=== PATIENT | female | born 1955 | race Caucasian/White ===

== ENCOUNTER → 2020-10-06 09:43 | Outpatient (BNVA) | payer OTHER, SELFPAY | PROVIDERS: PCP Internal Medicine; Referring Provider Internal Medicine; Visit Provider Internal Medicine Endocrinology, Diabetes & Metabolism | DX: Z76.89 Persons encountering health services in other specified circumstances (principal) ==

== ENCOUNTER 2020-10-07 07:14 | Outpatient (REF) | payer OTHER, SELFPAY ==
[2020-10-07 10:35] LABS: MANUAL DIFF FLAG NO
[2020-10-07 10:36] LABS: Basophils Absolute Auto 0.1 X10*3/uL (0.0-0.2); Basophils Percent Auto 1.1 % (0-2); Eosinophils Absolute Auto 0.4 X10*3/uL (0.0-0.4); Eosinophils Percent Auto 5.6 % (0-4); Hematocrit 44.4 % (37-47); Hemoglobin 14.6 g/dl (12.0-16.0); Imm Gran Abs Auto 0.02 X10*3/uL (0.00-0.03); Imm Gran Pct Auto 0.3 % (0.0-0.4); Lymphocytes Absolute Auto 1.4 X10*3/uL (1.2-4.9); Lymphocytes Percent Auto 21.1 % (20-40); Mean Corpuscular HGB Conc 32.9 g/dl (31.0-35.0); Mean Corpuscular Hemoglobin 30.8 pg (27.0-33.0); Mean Corpuscular Volume 93.7 fL (80-98); Mean Platelet Volume 9.7 fL (9.4-12.3); Monocytes Absolute Auto 0.6 X10*3/uL (0.1-1.2); Monocytes Percent Auto 9.5 % (2-11); Neutrophils Percent Auto 62.4 % (45-73); Platelet Count 274 X10*3/uL (160-400); Red Blood Count 4.74 X10*6/uL (4.20-5.50); Red Cell Distribution Width 12.9 % (11.0-16.0); White Blood Count 6.5 X10*3/uL (4.8-10.8)
[2020-10-07 11:10] LABS: Alanine Aminotransferase 51 U/L (0-31); Albumin Level 4.1 g/dL (3.5-5.0); Alkaline Phosphatase 113 U/L (39-117); Anion Gap 12 (12-20); Aspartate Amino Transferase 28 U/L (5-31); Bilirubin Total 0.4 mg/dL (0.0-1.0); Blood Urea Nitrogen 11 mg/dL (9-16); Calcium 8.4 mg/dL (8.4-10.2); Carbon Dioxide 29 mmol/L (22-29); Chloride 106 mmol/L (96-108); Cholesterol 206 mg/dL; Estimated Glomerular Filt Rate > 60; Glucose Fasting 116 mg/dL (60-99); HDL Cholesterol 61 mg/dL; LDL Cholesterol Calculated 128 mg/dl; Potassium 4.8 mmol/l (3.3-5.1); Sodium 142 mmol/L (135-145); Total Protein 6.9 g/dL (6.5-8.0); Triglycerides 89 mg/dL
[2020-10-07 11:33] LABS: T4 Thyroxine 7.6 ug/dL (4.5-12.0); Thyroid Stimulating Hormone 0.82 mIU/mL (0.32-4.0); Vitamin D 25-OH Total 27.5 ng/mL (>30)
[2020-10-07 11:43] LABS: Vitamin B12 694 pg/mL (200-900)
[2020-10-07 17:17] LABS: Free T4 (Free Thyroxine) 1.08 ng/dL (0.71-1.85); Thyroid Stimulating Hormone 0.79 uIU/mL (0.32-4.0)
[2020-10-10 18:06] LABS: Thyroglobulin Antibodies <1 IU/mL (< or = 1); Thyroid Peroxidase Antibodies <1 IU/mL (<9)
== END 2020-10-07 07:15 | disposition home or self-care (01) ==
LOC: HO.WFDLDS 07:14
PROVIDERS: Visit Provider Internal Medicine Endocrinology, Diabetes & Metabolism
DX: Z00.00 Encounter for general adult medical examination without abnormal findings (principal); E04.2 Nontoxic multinodular goiter; E66.9 Obesity, unspecified; Z85.3 Personal history of malignant neoplasm of breast; J45.909 Unspecified asthma, uncomplicated; I10 Essential (primary) hypertension; E78.00 Pure hypercholesterolemia, unspecified; R73.01 Impaired fasting glucose
CPT/HCPCS: 36415; 80053; 80061; 82306; 82607; 82746; 84436; 84439; 84443; 85025; 86376; 86800

== ENCOUNTER 2020-11-21 11:09 | Outpatient (REF) | payer OTHER, SELFPAY ==
[2020-11-21 11:23] LABS: COVID-19 Test Positive (Negative)
== END 2020-11-21 11:10 | disposition home or self-care (01) ==
LOC: HO.EMPCOV 11:09
PROVIDERS: PCP Internal Medicine; Visit Provider Internal Medicine
DX: Z20.828 Contact with and (suspected) exposure to other viral communicable diseases (principal)
CPT/HCPCS: 87635; C9803

== ENCOUNTER 2021-01-26 09:49 | Outpatient (REF) | payer OTHER, SELFPAY ==
--- NOTE | 2021-01-26 10:29 | PM.OP ---
Brief Operative Note Date of Service: 01/26/21 Pre-op diagnosis: NON TOXIC MULTINODULAR GOITER Post-op diagnosis: same Procedure: This procedure was explained to the patient. Alternatives, risks and benefits were discussed. Written consent was obtained. After sterile preparation of the skin, fine-needle aspiration biopsy of right mid pole thyroid nodule size 2.3 x 1.7 x 1.4 cm was performed under direct ultrasound guidance to confirm accurate needle placement. Four passes were performed with 27 gauge needles. Sample was submitted to cytology, initial cytology reading was borderline. Two passes were dedicated for [employer] genomic sequencing dental laboratory technology teacher test. Second fine-needle aspiration biopsy of left lower pole thyroid nodule size 1.3 x 1.0 x 1.1 cm was performed under direct ultrasound guidance to confirm accurate needle placement. Three passes were performed with 27 gauge needles. Sample was submitted to cytology, initial cytology reading was adequate. Two passes were dedicated for [employer] genomic sequencing dental laboratory technology teacher test. Patient tolerated procedure well. Aftercare instructions were provided. Impression: uncomplicated fine-needle aspiration biopsy of right mid pole and left lower pole thyroid nodules under direct ultrasound guidance. Surgeon: Kavon Mancia MD Anesthesia: local (Lidocaine 1% 2 ml) Estimated blood loss (mL): 0 Condition: stable Disposition: same day
== END 2021-01-26 09:50 | disposition home or self-care (01) ==
LOC: HO.US 09:49
PROVIDERS: Visit Provider Internal Medicine Endocrinology, Diabetes & Metabolism
DX: E04.2 Nontoxic multinodular goiter (principal)
CPT/HCPCS: 10005; 10006; 88172; 88173; 88177; 88305

== ENCOUNTER → 2021-02-13 07:24 | Outpatient (BNVA) | payer OTHER, SELFPAY | PROVIDERS: PCP Internal Medicine; Visit Provider Internal Medicine Endocrinology, Diabetes & Metabolism ==

== ENCOUNTER 2021-02-24 09:00 | Outpatient (RCR) | payer OTHER, SELFPAY ==
--- NOTE | 2020-12-21 12:02 | MHC.PT.EP ---
[facility] [place] Office [place] Office [place] Office [address] Anjum Colmenares [address] [phone] F: [phone] F: [phone] F: [phone] F: [phone] Physical Therapy Plan of Care Date of Evaluation: 12/21/20 Date of Surgery: NA Diagnosis: SCIATICA L Assessment: Pt IS 65 YO F REFERRED TO PT FROM DR GOEL WITH SCIATICA L SIDE. Pt HAS HAD SCIATICA IN PAST WITHOUT NEED FOR PT BUT THIS TIME SEEMS WORSE. Pt REPORTS +COVID TEST Nov (OOW, LESS AVTIVE/IN BED MORE)WHICH MAY HAVE BEEN A PRECURSOR TO THIS INCREASE IN SXS. Pt REPORTS SINCE SHE HAS STARTED SOME OF HER STRETCHES, USING HEAT AND MASSAGER, SHE IS FEELING BETTER. PRESENTS WITH ANTALGIC GT (FLEXED AT WAIST AND SHIFTED L WITH DECREASED WB ON L CAUSING LIMP). MOST PAIN WITH TRUNK EXT. ALSO REPORTS NUMBNESS L THIGH (WHICH SHE HAD EVEN BEFORE THIS LAST EPISODE.) THIS NUMBNESS DOES NOT SEEM TO BE AFFECTED BUT TRUNK FLEX/EXT OR POSITIONAL CHANGES. Pt SHOULD BENEFIT FROM PT TO HELP INCREASE PIRIFORMIS FLEXIBILITY, IMPROVE PELVIC SYMMETRY, WORK CORE STRENGTHENING TO HELP IMPROVE GT AND DECREASE PAIN Frequency and Duration: The patient will be seen 2X/WK X 6 WEEKS Short Term Goals: 1. CENTRALIZE SXS 2. INCREASED AWARENESS POSTURE AND BACK CARE 3.IMPROVED GT PATTERN AND POSTURE (IE LESS FLEXED AND SHIFTED, NO LIMP) 4. RTW Group Home Goals: 1. I HEP WITH DC EX PLAN 2. DECREASED PAIN AT LEAST 50% WITH ADLS 3.Pt TO PERF 2-3 TASKS WITH PROPER BODY MECH 4. IMPORVED MOD OSWESTRY Treatment Plan: Modalities to reduce pain, spasms and effusion. Manual therapy to restore motion and function. Therapeutic exercise to improve strength and flexibility. Neuromuscular re-education for posture and balance. Therapeutic activities to return to functional activities of daily living. Electronically signed by: PARISH RUIZ PT Please sign and return to therapist. Thank you for your referral.
--- NOTE | 2021-01-10 13:11 | MHC.PT.OD ---
[facility] [place] Office [place] Office [place] Office [address] Anjum Colmenares [address] [phone] F: [phone] F: [phone] F: [phone] F: [phone] Physical Therapy Daily Note Diagnosis: SCIATICA L Date of Surgery: NA Date of Evaluation: 12/21/20 Date of Treatment: 01/10/21 Treatments to Date: 9 Cancellations to Date: 0 No Shows to Date: 0 Authorized Visits: [id number] Insurance End Date: Precautions/ Contraindications:Pt TESTED +FOR COVID ON Nov HX lateral shift at start of care (R shoulder towards away from L lumbar) Subjective: Pt expressing had possibly worst day last Saturday (questions severity related to prolonged sitting related work tasks on Saturday with completion of zoom meetings). Did verbalize some relief in short term with prone extension based exercises, reports doing them 4x/daily. Obtained TENS machine for home use. Pain Score and Location: 7 L GLUT>L LE Objective Flowsheet: Tests & Measures 12/26/2020: Lumbar hip flexion L 3+/5 sx left lumbar Lumbar hip flexion 4/5 no sx L knee ext 3+/5 sx lumbar R knee ext 5/5 L DF 5/5 D DF 5/5 L great toe ext 5/5 R great toe ext 5/5 Heel raise WFL toe raise WFL Pain at site of left lumbar and proximal hip with hip flexion/knee ext on L otherwise WFL Relief with manual long axis traction trial Exercises Review of prone lying, prone on elbows and prone press up position; (+) relief verbalized Encouraged to continue program 3-4x daily Hooklying pelvic tilt x 2 sets 10R 2)Prone for one pillow STM post US to L quadratus lumborum/superior aspect of L glute while prone over 1 pillow draped while in gym after completion of US Time spent educating anatomy of spine: differences between DJD, stenosis, HNP, sx etc. Modalities Pt's present for educational component related to set-up with home TENS unit. Pt and pt's educated re: settings, applications, use, removal, and safety for patient to use at home. Reviewed and trialed set-up along L lumbar region cross patterned using same unit as used in the clinic ([employer] TENS/ANNALISA) utilized setting #1 intensity 11mA> later increased to 12mA following 15 minutes. Patient educated re: goals, frequency of use, and safety. Positive carryover demonstrated. Pt educated to refrain from use of anterior neck, never directly over the spine, never in water, and educated re: ability to utiize prn for symptom relief. Educated she can combine prone based exercises with use of machine, educated can combine heat treatments with use of proper layering with combo of machine. Prone over 1 pillow for continuous US 1.2 gardner cm2 x 8 minutes pre traction [employer] mechanical portable traction unit arrived back from [facility] assessment- cleared for use via Luis. Utilized [employer] mechanical unit utilizing 6 pumps of air while in 90/90 position x 15 minutes in goal of centralizing symptoms plus 3 additional minutes of rest post traction. Assessment: Pt has attended 9 sessions of PT to date, demonstrating improvements in neutral trunk posture and severity of L sciatica symptoms since start of care. Pt initially presented with a lateral shift which has since reduced. She has received treatment including mechanical traction x 3 sessions with what appears to be positive reduction in sx. She has received education re: applications and use of TENS (just obtained personal machine for home use), STM, US, postural taping and ext>flexion based stabilization exercises. She has obtained a physioball to aide in gentle lower body/trunk stretches with (+) carryover. She has been taking ibuprofen doses ranging initially 600mg 3x/daily, now down to 2x/daily with variable effects. She was doing better overall but had a flare of symptoms last week following increased sitting tasks required of her working on Saturday. Today she presents with increased steady persistent lateral thigh parathesias and stronger intensity of lower back pain today. (We just reimplemented traction today as unit was out of the office last week). We discussed benefit in speaking to Dr. Forrest about potential of trialing of a low dose short steroid taper to ease localized inflammation and reduce leg symptoms to combine with mechanical lumbar traction and stabilization tasks in therapy. She has completed 9 sessions of therapy and although has had relief of symptoms, she has not had sustained relief which is why I feel she may be a good candidate to trial such a medication option. 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 She was educated re: benefit in frequent change in position, use of TENS prn, encouraged to take small walks/ avoid prolonged positions. She was educated about what exercises to do to when based upon what kind of symptoms she has, demonstrating excellent compliance. Encouraged trial of working in standing vs sitting when able. Pt was advised to phone Dr. Forrest's office to check in regarding her current status, work concerns, and medication options which may facilitate her recovery to combine with therapy. Therapist is inquiring about MD prescribing a low dose steroid taper to ease current symptoms and progress with therapy. Thank you for your referral. She will be continuuing therapy 2-3x/week as needed to work towards LTGs. She may benefit from xray as first line imaging also to assess if there is any localized DJD or stenosis at L3/L4 level. No overt weakness or neurological signs are present. Her ROM in the hip is WFL and lumbar spine is improving all directions. L SL is remains uncomfortable. Negative SLR with screening. PT Plan: Phone Dr. Forrest PCP for follow up Continue lumbar mechanical traction with ext>flex based stabilization activities. Short Term Goals: 1. CENTRALIZE SXS 2. INCREASED AWARENESS POSTURE AND BACK CARE 3.IMPROVED GT PATTERN AND POSTURE (IE LESS FLEXED AND SHIFTED, NO LIMP) 4. RTW [facility] Goals: 1. I HEP WITH DC EX PLAN 2. DECREASED PAIN AT LEAST 50% WITH ADLS 3.Pt TO PERF 2-3 TASKS WITH PROPER BODY MECH 4. IMPORVED MOD OSWESTRY Electronically signed by: Vivi Evans, PT, DPT
--- NOTE | 2021-01-13 10:35 | MHC.PT.OD ---
[facility] [place] Office [place] Office [place] Office [address] Anjum Colmenares [address] [phone] F: [phone] F: [phone] F: [phone] F: [phone] Physical Therapy Daily Note Diagnosis: SCIATICA L Date of Surgery: NA Date of Evaluation: 12/21/20 Date of Treatment: 01/13/21 Treatments to Date: 10 Cancellations to Date: 0 No Shows to Date: 0 Authorized Visits: 99 Insurance End Date: Precautions/ Contraindications:Pt TESTED +FOR COVID ON Nov HX lateral shift at start of care (R shoulder towards away from L lumbar) Subjective: Seeing Dr. Forrest today via telehealth appt Reports doing better overall less tingling in leg, less back pain. Pain Score and Location: 7 L GLUT>L LE Objective Flowsheet: Tests & Measures 12/26/2020: Lumbar hip flexion L 3+/5 sx left lumbar Lumbar hip flexion 4/5 no sx L knee ext 3+/5 sx lumbar R knee ext 5/5 L DF 5/5 D DF 5/5 L great toe ext 5/5 R great toe ext 5/5 Heel raise WFL toe raise WFL Pain at site of left lumbar and proximal hip with hip flexion/knee ext on L otherwise WFL Relief with manual long axis traction trial Exercises Hooklying posterior pelvic tilt x with combo hip abd with blue band with hip ext x 4 minutes Review of HEP program to date; encouraged prone lying as performing LBTR, trunk flexion stretches, plus rest in between, instruction Hooklying TAC march with posterior pelvic tilt with blue hip abduction band x 4 minutes SL clamshell with blue band with posterior pelvic tilt x 2 minutes each side Seated HS stretch x 4R each side x 30 sec hold (completed bilaterally) Standing prostretch x 4 minutes each side for calf stretching with core recruitment (no sx in L LE with stance) 2)Prone for one pillow STM post US to L quadratus lumborum/superior aspect of L glute while prone over 1 pillow draped while in gym after completion of US Time spent educating anatomy of spine: differences between DJD, stenosis, HNP, sx etc. Modalities [employer] portable lumbar traction unit with knees near 90/90 with physioball x 6 pumps of pull x 10 minutes (did require one adjustment due to report of discomfort initially- improved post adjustment of harness. Reviewed application/use of HOME TENS machine- reports using twice daily with (+) carryover and no questions; reviewed settings, set-up, usage related to use- did not apply in the clinic today but time spent educating around personal use at home Assessment: Pt demonstrating good response to [employer] mechanical traction of lumbar spine. Pt reports improving centralization of sx with reduction in tingling in L LE/pain in her back. She reports has been taking 200mg ibuprofen about every 6 hours. Completed progression of stabilization exercises with good response today. Given positive change in patient symptoms therapist is NO LONGER inquiring about need for steroid taper. Will continue with mechanical traction and stabilization activities as tolerated. Pt to see Dr. Forrest via telehealth today at 11:30. PT Plan: Continue lumbar mechanical traction with ext>flex based stabilization activities. Short Term Goals: 1. CENTRALIZE SXS 2. INCREASED AWARENESS POSTURE AND BACK CARE 3.IMPROVED GT PATTERN AND POSTURE (IE LESS FLEXED AND SHIFTED, NO LIMP) 4. RTW [facility] Goals: 1. I HEP WITH DC EX PLAN 2. DECREASED PAIN AT LEAST 50% WITH ADLS 3.Pt TO PERF 2-3 TASKS WITH PROPER BODY MECH 4. IMPORVED MOD OSWESTRY Electronically signed by: Vivi Evans, PT, DPT
== END 2021-03-27 12:08 | disposition other institution (70) ==
LOC: HO.PTWFD 09:00
PROVIDERS: Visit Provider Internal Medicine
DX: M54.30 Sciatica, unspecified side (principal)
CPT/HCPCS: 97012; 97014; 97033; 97035; 97110; 97140; 97162

== ENCOUNTER 2021-09-04 07:28 | Outpatient (REF) | payer OTHER, SELFPAY ==
--- NOTE | ~2021-09-04 | MM_ITS ---
EXAMINATION: MM SCREENING DIGITAL BREAST TOMOSYNTHESIS, BILATERAL CLINICAL INFORMATION: Screening. Asymptomatic. The lifetime risk of breast cancer based on the Tyrer-Cuzick Model is 14%. COMPARISON: Mammography: 08/25/2020, 06/10/2019, 03/18/2018 TECHNIQUE: Digital breast tomosynthesis is performed in both the craniocaudal and mediolateral oblique views along with computer-aided detection (CAD). Synthesized 2D images are generated from the tomosynthesis. FINDINGS: There are scattered areas of fibroglandular density (ACR BI-RADS breast composition Category b). Parenchymal pattern is similar to prior studies. There is no significant mass or architectural abnormality. Scattered calcifications are again seen. Grouped benign coarse calcifications are again noted mid upper outer left breast. There is an old biopsy clip marker also present in the anterior 3:00 left breast. The axilla and skin contours are unremarkable. No significant changes. MM/MM tomosynthesis screening BI IMPRESSION: No significant changes from prior studies. ASSESSMENT: BI-RADS 2: Benign RECOMMENDATION: Routine annual mammography screening. This patient's information was entered into a reminder system with a target due date for their next mammogram.
== END 2021-09-04 07:29 | disposition home or self-care (01) ==
LOC: HO.MAMMO 07:28
PROVIDERS: Visit Provider Internal Medicine
DX: Z12.31 Encounter for screening mammogram for malignant neoplasm of breast (principal)
CPT/HCPCS: 77063; 77067

== ENCOUNTER 2021-11-02 08:02 | Outpatient (REF) | payer OTHER, SELFPAY ==
--- NOTE | ~2021-11-02 | MM_ITS ---
EXAMINATION: BONE DENSITOMETRY CLINICAL INDICATION: Other specified disorders of bone density and structure. COMPARISON: Previous BD dated 09/22/2019 and baseline BD dated 10/18/2009, left hip. This is the patient's baseline examination for the lumbar spine. TECHNIQUE: Using a [employer] DXA System (software version: 13.1) manufactured by [employer], dual-energy x-ray absorptiometry was performed of the lumbar spine and left hip. The images are of good technical quality. Summary results are attached. FINDINGS: AP SPINE L1-L2. Data for L3 and L4 are excluded due to degenerative changes which may cause overestimation of the lumbar bone mineral density. Current: BMD 1.093 g/cm2, Z-score -0.1, T-score -0.6, normal. This represents 7.1% decrease from prior exam and 9.4% decrease since baseline exam (<5% change is not significant). LEFT FEMUR, NECK: Current: BMD 0.802 g/cm2, Z-score -0.8, T-score -1.7, osteopenia. Prior: BMD 0.815 g/cm2. Baseline: BMD 0.916 g/cm2. LEFT FEMUR, TOTAL: Current: BMD 0.909 g/cm2, Z-score -0.2, T-score -0.8, normal, 3.3% increase from previous, 5.7% decrease from baseline (<5% change is not significant). Prior: BMD 0.880 g/cm2. Baseline: BMD 0.964 g/cm2. IDENTIFIED RISK FACTORS: Menopause, glucocorticoids (chronic). HISTORY OF FRACTURE: None listed. MEDICATIONS: Calcium supplements or multivitamin, vitamin D. MM/XR DEXA axial skeleton IMPRESSION: 1. DIAGNOSIS: Osteopenia based on the lowest T-score value of -1.7 in the femoral neck applying World Health Organization criteria. 2. 10-YEAR FRACTURE RISK PREDICTION, FRAX: Major osteoporotic fracture (clinical spine, forearm, hip or shoulder) 14.8%. Hip fracture 2.4%. 3. Treatment Recommendations: NOF guidelines recommend consideration for treatment in postmenopausal women and men age 50 and older presenting with the following: -A hip or vertebral (clinical or morphometric) fracture. -T-score less than or equal to -2.5 at the femoral neck or spine after appropriate evaluation to exclude secondary causes. -Low bone mass at the hip or spine and a 10-year fracture probability by FRAX of greater than or equal to 3% for hip fracture or greater than or equal to 20% for major osteoporotic fracture based on the [place] adapted WHO algorithm. 4. Other Recommendations: All treatment decisions require clinical judgment and consideration of individual patient factors, including patient preferences, comorbidities, previous drug use, risk factors not captured in the FRAX model (e.g. frailty, falls, vitamin D deficiency, increased bone turnover, interval significant decline in bone density) and possible under or overestimation of fracture risk by FRAX. Additional medical evaluation for secondary cause of low bone mineral density may be appropriate. FUTURE SCAN RECOMMENDATION: People with diagnosed cases of osteoporosis or at high risk for fracture should have regular bone mineral density tests. For patients eligible for Medicare, routine testing is allowed once every 2 years. The testing frequency can be increased to one year for patients who have rapidly progressing disease, those who are receiving or discontinuing medical therapy to restore bone mass, or have additional risk factors.
== END 2021-11-02 08:03 | disposition home or self-care (01) ==
LOC: HO.MAMMO 08:02
PROVIDERS: Visit Provider Internal Medicine
DX: Z13.820 Encounter for screening for osteoporosis (principal); M85.80 Other specified disorders of bone density and structure, unspecified site; Z78.0 Asymptomatic menopausal state; E27.49 Other adrenocortical insufficiency; Z79.899 Other long term (current) drug therapy
CPT/HCPCS: 77080

== ENCOUNTER 2022-02-21 07:47 | Outpatient (REF) | payer OTHER, SELFPAY ==
--- NOTE | ~2022-02-21 | XR_ITS ---
EXAMINATION: XR LUMBOSACRAL SPINE CLINICAL INFORMATION: Low back pain COMPARISON: None TECHNIQUE: Three views of the lumbosacral spine. FINDINGS: There is mild dextro scoliosis. Lumbar lordosis is maintained normal. There is loss of L3-L4, L4-L5 and L5/S1 disc heights with mild ventral spondylosis. There is a large bridging osteophyte on the right at the L1-L2 disc level. There is no visible acute fracture, dislocation or lytic process seen. There is [id number] facet joint L5-S1 facet joint arthropathy. No lytic or sclerotic process seen. XR/XR lumbar spine 2-3V IMPRESSION: Degenerative disc changes L3-L4 and L4-L5 disc levels with spondylosis. Bilateral mild to moderate facet joint arthropathy at L5-S1 disc level.
--- NOTE | ~2022-02-21 | US_ITS ---
EXAMINATION: US THYROID CLINICAL INFORMATION: Nontoxic multinodular goiter. COMPARISON: Ultrasound soft tissue head/neck thyroid dated 08/25/2020 and 08/13/2016. TECHNIQUE: Linear transducer grayscale and color Doppler examination with attention to the region of the thyroid. FINDINGS: SIZE: Measurements of the thyroid lobes and nodules are given in sagittal, anteroposterior and transverse dimensions respectively. Right Thyroid Lobe: 3.8 x 1.9 x 2.2 cm, volume 8.2 mL. Previously 4.1 x 1.8 x 1.9 cm, volume 7.3 mL. Parenchyma: The gland echotexture is heterogeneous. Thyroid vascularity is normal. Left Thyroid Lobe: 4.0 x 1.5 x 1.8 cm, volume 5.6 mL. Previously 4.1 x 1.4 x 1.7 cm, volume 5.1 mL. Parenchyma: The gland echotexture is heterogeneous. Thyroid vascularity is normal. Isthmus: 0.4 cm in maximum AP dimension. Previously 0.4 cm. Estimated total number of nodules greater than or equal to 1 cm: 6 to 10. Post Doc Fellowship nodules are described as follows: 1. Location: Right superior. Size: 1.6 x 0.7 x 1.8 cm, volume 1.05 mL. Previously: 1.2 x 0.7 x 1.3 cm, volume 0.57 mL. Nodule characteristics: Composition: Solid (2). Echogenicity: Hypoechoic (2). Shape: Not taller than wide (0). Margins: Smooth (0). Echogenic Foci: None (0). ACR TI-RADS total points: 4 ACR TI-RADS category: 4 Significant change in size (>/= 20% in 2 dimensions and minimal increase of 2 mm or 50% or greater increase in volume): Change in features: Change in ACR TI-RADS risk category: 2. Location: Right mid. Size: 2.5 x 1.6 x 1.9 cm, volume 3.97 mL. Previously: 2.3 x 1.7 x 1.4 cm, volume 2.86 mL. Nodule characteristics: Composition: Spongiform (0). Echogenicity: Anechoic (0). Shape: Not taller than wide (0). Margins: Smooth (0). Echogenic Foci: None (0). ACR TI-RADS total points: 0 ACR TI-RADS category: 1 Significant change in size (>/= 20% in 2 dimensions and minimal increase of 2 mm or 50% or greater increase in volume): Change in features: Change in ACR TI-RADS risk category: 3. Location: Left superior. Size: 1.3 x 0.8 x 1.0 cm, volume 0.54 mL. Previously: 1.1 x 0.6 x 0.9 cm, volume 0.31 mL. Nodule characteristics: Composition: Spongiform (0). Echogenicity: Anechoic (0). Shape: Not taller than wide (0). Margins: Smooth (0). Echogenic Foci: None (0). ACR TI-RADS total points: 0 ACR TI-RADS category: 1 Significant change in size (>/= 20% in 2 dimensions and minimal increase of 2 mm or 50% or greater increase in volume): Change in features: Change in ACR TI-RADS risk category: 4. Location: Left mid. Size: 1.5 x 1.0 x 1 cm, volume 0.78 mL. Previously: 1.3 x 1.0 x 1.1 cm, volume 0.74 mL. Nodule characteristics: Composition: Spongiform (0). Echogenicity: Anechoic (0). Shape: Not taller than wide (0). Margins: Smooth (0). Echogenic Foci: None (0). ACR TI-RADS total points: 0 ACR TI-RADS category: 1 Significant change in size (>/= 20% in 2 dimensions and minimal increase of 2 mm or 50% or greater increase in volume): Change in features: Change in ACR TI-RADS risk category: 5. Location: Left inferior. Size: 1.0 x 0.8 x 0.7 cm, volume 0.29 mL. Previously: 0.9 x 0.7 x 0.7 cm, volume 0.23 mL. Nodule characteristics: Composition: Spongiform (0). Echogenicity: Anechoic (0). Shape: Not taller than wide (0). Margins: Smooth (0). Echogenic Foci: None (0). ACR TI-RADS total points: 0 ACR TI-RADS category: 1 Significant change in size (>/= 20% in 2 dimensions and minimal increase of 2 mm or 50% or greater increase in volume): Change in features: Change in ACR TI-RADS risk category: 6. Location: Isthmus. Size: 1.4 x 0.7 x 1.1 cm, volume 0.56 mL. Previously: Not seen on the previous study. Nodule characteristics: Composition: Solid (2). Echogenicity: Hypoechoic (2). Shape: Not taller than wide (0). Margins: Smooth (0). Echogenic Foci: None (0). ACR TI-RADS total points: 4 ACR TI-RADS category: 4 NODES: No lymphadenopathy is seen in the tissue surrounding the thyroid gland. US/US thyroid IMPRESSION: Heterogeneous thyroid gland with multiple bilateral nodules. Interval increase in size right upper thyroid nodule. Newly appreciated isthmus nodule. ACR TI-RADS RECOMMENDATION REFERENCE: Ultrasound-guided fine-needle aspiration, followup ultrasound, no further follow up. * TR1 (0 point) and TR 2 (2 points): No FNA or follow up * TR3 (3 points): FNA if more than or equal to 2.5 cm in maximum dimension, followup ultrasound in 1, 3 and 5 years if 1.5 to 2.4 cm in maximum dimension. * TR4 (4-6 points): FNA if more than or equal to 1.5 cm in maximum dimension, followup ultrasound in 1, 2, 3 and 5 years if 1 to 1.4 cm in maximum dimension. * TR5 (more than or equal to 7 points): FNA if more than or equal to 1 cm in maximum dimension, followup ultrasound every year for 5 years if 0.5 to 0.9 cm in maximum dimension. * TR3, TR4 or TR5 nodules that are below the size threshold for follow up receive no follow up.
== END 2022-02-21 07:48 | disposition home or self-care (01) ==
LOC: HO.US 07:47
PROVIDERS: PCP Internal Medicine; Visit Provider Internal Medicine
DX: E04.2 Nontoxic multinodular goiter (principal); M54.50 Low back pain, unspecified
CPT/HCPCS: 72100; 76536

== ENCOUNTER → 2022-04-27 07:51 | Outpatient (BNVA) | payer OTHER, SELFPAY | PROVIDERS: PCP Internal Medicine; Visit Provider Internal Medicine Endocrinology, Diabetes & Metabolism | DX: E04.2 Nontoxic multinodular goiter (principal) ==

== ENCOUNTER 2022-06-01 07:14 | Outpatient (REF) | payer OTHER, SELFPAY ==
[2022-06-01 11:03] LABS: MANUAL DIFF FLAG NO
[2022-06-01 11:05] LABS: Basophils Absolute Auto 0.1 X10*3/uL (0.0-0.2); Basophils Percent Auto 1.5 % (0-2); Eosinophils Absolute Auto 0.4 X10*3/uL (0.0-0.4); Eosinophils Percent Auto 8.1 % (0-4); Hematocrit 43.4 % (37.0-47.0); Hemoglobin 14.3 g/dl (12.0-16.0); Imm Gran Abs Auto 0.02 X10*3/uL (0.00-0.03); Imm Gran Pct Auto 0.4 % (0.0-0.4); Lymphocytes Absolute Auto 1.3 X10*3/uL (1.2-4.9); Lymphocytes Percent Auto 23.7 % (20-40); Mean Corpuscular HGB Conc 32.9 g/dl (31.0-35.0); Mean Corpuscular Hemoglobin 30.6 pg (27.0-33.0); Mean Corpuscular Volume 92.7 fL (80.0-98.0); Mean Platelet Volume 9.6 fL (9.4-12.3); Monocytes Absolute Auto 0.5 X10*3/uL (0.1-1.2); Monocytes Percent Auto 9.5 % (2-11); Neutrophils Absolute Auto 3.1 x10*3/uL (2.0-8.3); Neutrophils Percent Auto 56.8 % (45-73); Platelet Count 260 X10*3/uL (160-400); Red Blood Count 4.68 X10*6/uL (4.20-5.50); Red Cell Distribution Width 12.9 % (11.0-16.0); White Blood Count 5.5 X10*3/uL (4.8-10.8)
[2022-06-01 11:28] LABS: Alanine Aminotransferase 20 U/L (0-31); Albumin Level 3.8 g/dL (3.5-5.0); Alkaline Phosphatase 106 U/L (39-117); Anion Gap 11 (12-20); Aspartate Amino Transferase 17 U/L (5-31); Bilirubin Total 0.5 mg/dL (0.0-1.0); Blood Urea Nitrogen 10 mg/dL (9-16); Calcium 8.9 mg/dL (8.4-10.2); Carbon Dioxide 26 mmol/L (22-29); Chloride 109 mmol/L (96-108); Cholesterol 208 mg/dL; Estimated Glomerular Filt Rate > 60; Glucose Random 126 mg/dL (60-115); HDL Cholesterol 62 mg/dL; LDL Cholesterol Calculated 128 mg/dl; Potassium 4.1 mmol/L (3.3-5.1); Sodium 142 mmol/L (135-145); Total Protein 6.6 g/dL (6.5-8.0); Triglycerides 91 mg/dL
[2022-06-01 11:33] LABS: Estimated Average Glucose 108 mg/dL; Hemoglobin A1C 150.5992 umol/L; Hemoglobin A1c % 5.4 %
[2022-06-01 11:37] LABS: Free T4 (Free Thyroxine) 0.87 ng/dL (0.71-1.85); Thyroid Stimulating Hormone 1.41 uIU/mL (0.32-4.0); Vitamin D 25-OH Total 27.4 ng/mL (>30)
[2022-06-01 11:56] LABS: Folate > 20.0 ng/mL (> or = 4.0); Vitamin B12 655 pg/mL (200-900)
== END 2022-06-01 07:15 | disposition home or self-care (01) ==
LOC: HO.WFDLDS 07:14
PROVIDERS: Visit Provider Internal Medicine
DX: R73.02 Impaired glucose tolerance (oral) (principal); E78.00 Pure hypercholesterolemia, unspecified; E04.2 Nontoxic multinodular goiter
CPT/HCPCS: 36415; 80053; 80061; 82306; 82607; 82746; 83036; 84439; 84443; 85025

== ENCOUNTER 2022-09-20 08:34 | Outpatient (REF) | payer OTHER, SELFPAY ==
--- NOTE | 2022-09-20 09:41 | PM.OP ---
Brief Operative Note Date of Service: 09/20/22 Pre-op diagnosis: Multinodular Thyroid Procedure: This is doctor Dali Malhotra. This is an ultrasound-guided fine-needle aspiration report. Date of Examination: Indication: Multinodular Thyroid Porcedure: Procedure was explained to the patient. Alternatives, the risk and benefits were discussed. Written consent was obtained. A time-out was also obtained. After sterile preparation, fine-needle aspiration of a right upper pole 2.8 cm thyroid nodule was performed using direct ultrasound guidance to confirm accurate needle placement. Three aspirations were made using 27 gauge needles. Samples were submitted for cytology. One pass was dedicated for [employer] sequencing evidence specialist testing. Our attention was then turned to the isthmus. Fine-needle aspiration of an isthmus 1.4 cm thyroid nodule was performed using direct ultrasound guidance to confirm accurate needle placement. Four aspirations were made using 27 gauge needles. Samples were submitted for cytology. Two passes was dedicated for [employer] sequencing evidence specialist testing. The patient tolerated the procedure well. Aftercare instructions were provided. Impression: Uncomplicated fine needle aspiration biopsy of a right upper pole 2.8 cm and an isthmus 1.4 cm thyroid nodule under ultrasound guidance. Of note, the patient has multiple mixed cystic nodules within the L lobe of the thyroid. The larges tof these measuring 1.3 cm was previously biopsied and is unchanged. The remaining do not meet indication for FNA biopsy at this time. Surgeon: Dali Malhotra, DO Was an Geotechnical Operating Engineer used for this Procedure?: No Estimated blood loss (mL): 0
[2022-09-20] MEDS: Lidocaine HCl 1 % MPF 5 ML VIAL SUBCUT (11:21)
== END 2022-09-20 08:35 | disposition home or self-care (01) ==
LOC: HO.US 08:34
PROVIDERS: Visit Provider Internal Medicine Endocrinology, Diabetes & Metabolism
DX: E04.2 Nontoxic multinodular goiter (principal)
CPT/HCPCS: 10005; 10006; 88172; 88173

== ENCOUNTER 2022-10-26 07:32 | Outpatient (REF) | payer OTHER, SELFPAY ==
--- NOTE | ~2022-10-26 | MM_ITS ---
EXAMINATION: MM SCREENING DIGITAL BREAST TOMOSYNTHESIS, BILATERAL CLINICAL INFORMATION: Screening. Asymptomatic. The lifetime risk of breast cancer based on the Tyrer-Cuzick Model is 13%. COMPARISON: Mammography: 09/04/2021, 08/25/2020, 06/10/2019 TECHNIQUE: Digital breast tomosynthesis is performed in both the craniocaudal and mediolateral oblique views along with computer-aided detection (CAD). Synthesized 2D images are generated from the tomosynthesis. FINDINGS: There are scattered areas of fibroglandular density (ACR BI-RADS breast composition Category b). There are no significant masses, abnormal calcifications, or other abnormalities. Parenchymal pattern is similar to prior studies. Again, there is biopsy clip marker anterior 3:00 left breast. There are benign grouped popcorn calcifications mid upper outer quadrant left breast consistent with degenerated fibroadenoma. The axilla are unremarkable. MM/MM tomosynthesis screening BI IMPRESSION: No mammographic evidence of malignancy. ASSESSMENT: BI-RADS 2: Benign RECOMMENDATION: Routine annual mammography screening. This patient's information was entered into a reminder system with a target due date for their next mammogram.
== END 2022-10-26 07:33 | disposition home or self-care (01) ==
LOC: HO.MAMMO 07:32
PROVIDERS: PCP Internal Medicine; Visit Provider Internal Medicine
DX: Z12.31 Encounter for screening mammogram for malignant neoplasm of breast (principal)
CPT/HCPCS: 77063; 77067

== ENCOUNTER 2022-11-29 12:52 | Outpatient (REF) | payer OTHER, SELFPAY ==
--- NOTE | ~2022-11-29 | XR_ITS ---
EXAMINATION: XR CHEST CLINICAL INFORMATION: Cough COMPARISON: December 12, 2017 TECHNIQUE: 2 views of the chest were obtained. FINDINGS: No significant abnormality is noted involving the heart, lungs, mediastinum, bony thorax or soft tissues. XR/XR chest 2V IMPRESSION: No acute disease.
== END 2022-11-29 12:53 | disposition home or self-care (01) ==
LOC: HO.XRAY 12:52
PROVIDERS: PCP Internal Medicine; Visit Provider Internal Medicine
DX: R05.9 Cough, unspecified (principal); R09.89 Other specified symptoms and signs involving the circulatory and respiratory systems
CPT/HCPCS: 71046

== ENCOUNTER 2023-04-22 08:32 | Outpatient (REF) | payer OTHER, SELFPAY ==
--- NOTE | ~2023-04-22 | XR_ITS ---
EXAMINATION: XR PELVIS CLINICAL INFORMATION: Pain. COMPARISON: Left hip 06/05/2013 TECHNIQUE: AP view of the pelvis. FINDINGS: Moderate-severe right hip osteoarthritis with superomedial narrowing, sclerosis, and probable small subchondral cysts. No acute fracture or malalignment. Relatively mild osteoarthritis of the left hip joint. Moderate-severe degenerative disc disease noted at L3-L4 and L4-L5. XR/XR pelvis 1-2V IMPRESSION: Moderate-severe right hip osteoarthritis. No acute fracture or malalignment.
== END 2023-04-22 08:33 | disposition home or self-care (01) ==
LOC: HO.HOSX 08:32
PROVIDERS: Visit Provider Orthopaedic Surgery
DX: M16.11 Unilateral primary osteoarthritis, right hip (principal); M51.36 Other intervertebral disc degeneration, lumbar region
CPT/HCPCS: 72170

== ENCOUNTER 2023-07-22 10:31 | Outpatient (AMB) | payer OTHER, SELFPAY ==
--- NOTE | 2023-07-22 10:37 | A.OFFVIS_ITS ---
Intake Vital Signs 07/22/23 10:38 Height 5 ft 7 in Weight 217 lb BMI 34.0 BP 108/74 Blood Pressure Location Lt brachial Position Sitting Respiration 14 Pulse 80 Pulse Source Pulse Oximeter Intake Visit Reasons: Low back pain chronic Allergies No Known Allergies Allergy (Verified 07/22/23 10:40) Medication List - Last Reconciled 07/22/23 by Hallie Bolden LPN albuterol sulfate 90 mcg/actuation 2 puffs inhalation Q4-6H PRN albuterol sulfate 2.5 mg inhalation Q4-6H PRN amlodipine 5 mg PO DAILY beclomethasone dipropionate 80 mcg/actuation (Qvar RediHaler) 1 inh inhalation Q12H cetirizine (Zyrtec) 5 mg PO DAILY PRN fluocinolone 0.025% 1 appl topical BID mmhefmzi-nqp-pstd-FA-vit K-lut 8 mg iron-400 mcg-50 mcg (Centrum Silver Women) 1 tab PO DAILY HPI Low back pain chronic HPI Details A 68-year-old female is presenting today for a new patient evaluation of low back pain. She reports back pain and right hip pain that started about two years ago. She says her pain initially began in her lower back but is primarily in her right hip and groin. The pain is described as an aching sensation in her lower back that radiates into the buttocks, where it is described as a pins and needles sensation. It is described as 5/10 in intensity in the morning and 3?4/10 in intensity in the evening. She feels her pain in her groin and the top of her buttocks, and it occasionally radiates down into her thigh. Movements make it worse, and medications make it better. She has pain with daily activity, worse with prolonged standing or walking. She has done PT for her back about two and half years ago, which helped her pain at the time, but her symptoms returned after six months. She takes Ibuprofen 400-600 mg once daily and Tylenol, with some relief. She enjoys playing golf and staying active, and she does not feel particularly limited in her activities at this time. She denies any history of injections. The patient has no implants in her body. She will go on vacation for 2 weeks in August. [facility] Medical History (Updated 04/22/23 @ 09:39 by Hamlet Robins) Asthma Eczema Fatty liver History of breast cancer Hypercholesterolemia Hypertension Non-toxic multinodular goiter Obesity (BMI 30-39.9) Osteopenia Thyroid nodule Tubular adenoma of colon Vitamin D deficiency Surgical History (Updated 10/04/22 @ 13:57 by Herbert Verde [facility]) Hx of biopsy Hx of section Hx of cholecystectomy Hx of colonoscopy Status post fine needle aspiration Family History (Updated 04/11/23 @ 08:28 by Aye Palomo [facility]) Father COPD (chronic obstructive pulmonary disease) Mother Breast cancer Social History (Updated 04/22/23 @ 09:16 by Ingrid Reed [facility]) Housing: House Alcohol intake: current Patient Tobacco Use Status: Former Tobacco user Quit Date: about 40 years ago Tobacco use type: Cigarette Years Smoked: 1979 e-Cigarette/Vaping Use: Never Used Second Hand Smoke Exposure: No Current occupational status: employed Current occupation: [employer] Cognitive needs: No Hearing needs: No Vision needs: No Review of Systems Const All systems reviewed & are unremarkable except as noted in HPI and below Physical Exam Vital Signs: Last Vital Signs Pulse 80 07/22/23 10:38 Resp 14 07/22/23 10:38 BP 108/74 07/22/23 10:38 BMI result Body Mass Index 34.0 General: Appears afebrile. Alert and oriented. Mood and affect appropriate. Follows and participates in conversation appropriately. Respiratory effort is unlabored. Able to transition from sit to stand unassisted. Ambulates with bilaterally normal heel strike and toe off. Lumbar flexion reproduces stiffness across the lower back. Lumbar extension does not reproduce the pain. She is able to stand on her toes on heels, but standing on the right toes is objectively more difficult compared to the left side. Results Reviewed Results Reviewed: No imaging is available for review. Assessment & Plan Assessment & Plan (1) Lumbar degenerative disc disease: Code(s): M51.36 - Other intervertebral disc degeneration, lumbar region (2) Radicular pain of left lower extremity: Code(s): M54.10 - Radiculopathy, site unspecified Plan Ordered an MRI scan of the lumbar spine for further evaluation of longstanding radicular symptoms not responsive to physical therapy and conservative management. For the time being, I encouraged her to continue with gentle stretching exercises at home. I also recommended to take gabapentin 300 mg QHS at bedtime. The patient will follow up after the MRI to review the results and discuss possible interventions. We would likely start with a right-sided MASOOD based on her current symptoms, unless her symptoms change significantly until that time. Scribed for Dr. Garcia by Tanmay Farrar, director of graduate medical education, on 07/22/2023. I, Dr. Garcia, have personally reviewed and agree with the information entered by the scribe. Orders: Orders MR lumbar spine wo con Today M51.36 - Other intervertebral disc degeneration, lumbar region, M54.10 - Radiculopathy, site unspecified Medications: New gabapentin 300 mg PO BEDTIME 30 caps 0RF Coding Level of Care Code New Pt Level 4 (30485) Diagnoses Lumbar degenerative disc disease M51.36 Radicular pain of left lower extremity M54.10
[2023-07-22 10:38] VITALS: BP 108/74; PULSE 80; RESP 14; BMI 34.0
== END 2023-07-22 10:59 | disposition home or self-care (01) ==
PROVIDERS: PCP Internal Medicine; Visit Provider Internal Medicine
DX: M51.36 Other intervertebral disc degeneration, lumbar region (principal); M54.10 Radiculopathy, site unspecified
CPT/HCPCS: 99203

== ENCOUNTER → 2023-07-22 10:31 | Outpatient (BNVA) | payer OTHER, SELFPAY | PROVIDERS: PCP Internal Medicine; Visit Provider Internal Medicine ==

== ENCOUNTER 2023-07-24 09:07 | Outpatient (REF) | payer OTHER, SELFPAY ==
--- NOTE | ~2023-07-24 | MR_ITS ---
EXAMINATION: MR LUMBAR SPINE WITHOUT CONTRAST CLINICAL INFORMATION: Left lower extremity radicular pain. COMPARISON: Lumbar spine radiographs from 02/21/2022. TECHNIQUE: MRI of the lumbar spine was obtained using routine sequences without contrast. FINDINGS: Moderate right convex curvature of the lumbar spine. Minimal degenerative grade 1 anterolisthesis of L3 on L4. Mild degenerative retrolisthesis of L4 on L5. Mild degenerative anterolisthesis of L5 on S1. Advanced degenerative disc disease at L3-L4 and L4-L5. Moderate degenerative disc disease at all additional levels. Associated mixed Modic type discogenic changes including Modic type I discogenic edema at L3-L4 and L4-L5. Mild marrow edema within the posterior elements of L3-S1 consistent with degenerative stress reaction. No additional suspicious marrow edema. The vertebral body heights are well-maintained. The conus medullaris terminates at the level of L1-L2. The distal spinal cord is normal in appearance. No significant abnormalities of the paraspinal musculature. Limited evaluation of the intra-abdominal structures without significant abnormalities. The abdominal aorta is of normal contour and caliber. AXIAL SPINAL LEVELS: L1-L2: Mild diffuse disc bulge. There is moderate left and mild right facet joint arthropathy. There is moderate bilateral neural foraminal stenosis. There is no spinal canal stenosis. L2-L3: Mild diffuse disc bulge. There is moderate bilateral facet joint arthropathy. There is mild bilateral neural foraminal stenosis. There is narrowing of the subarticular zones with no overt spinal canal stenosis centrally. L3-L4: Moderate diffuse disc bulge exacerbated by uncovering from anterolisthesis. There is severe bilateral facet joint arthropathy with ligamentum flavum hypertrophy. There is severe left and moderate neural foraminal stenosis. There is stenosis of the subarticular zones with moderate to severe spinal canal stenosis centrally. L4-L5: Prominent diffuse disc bulge with posterior osseous ridging. There is severe bilateral facet joint arthropathy. There is severe right and moderate left neural foraminal stenosis. There is severe spinal canal stenosis. L5-S1: Moderate diffuse disc bulge exaggerated by uncovering from anterolisthesis. There is severe bilateral facet joint arthropathy. There is moderate bilateral neural foraminal stenosis. There is stenosis of the subarticular zones with no overt spinal canal stenosis centrally. MR/MR lumbar spine wo con IMPRESSION: Moderate to advanced multilevel degenerative spondyloarthropathy of the lumbar spine as described in detail above. Most notably, there are moderate to severe spinal canal stenoses at L3-L4 and L4-L5. Narrowing/stenoses of the subarticular zones from L2-S1. Moderate to severe neural foraminal stenoses from L1-S1.
== END 2023-07-24 09:08 | disposition home or self-care (01) ==
LOC: HO.MRI 09:07
PROVIDERS: PCP Internal Medicine; Visit Provider Internal Medicine
DX: M51.36 Other intervertebral disc degeneration, lumbar region (principal); M54.10 Radiculopathy, site unspecified
CPT/HCPCS: 72148

== ENCOUNTER 2023-07-26 09:05 | Outpatient (AMB) | payer OTHER, SELFPAY ==
--- NOTE | 2023-07-26 09:08 | A.OFFVIS_ITS ---
Intake Vital Signs 07/26/23 09:09 Height 5 ft 7 in Weight 217 lb BMI 34.0 BP 120/85 Blood Pressure Location Lt brachial Position Sitting Respiration 14 Pulse 103 H Pulse Source Pulse Oximeter Pulse Oximetry (%) 97 Oxygen Delivery Method Room Air Intake Visit Reasons: MRI results Allergies No Known Allergies Allergy (Verified 07/26/23 09:10) Medication List - Last Reconciled 07/26/23 by Hallie Bolden LPN albuterol sulfate 90 mcg/actuation 2 puffs inhalation Q4-6H PRN albuterol sulfate 2.5 mg inhalation Q4-6H PRN amlodipine 5 mg PO DAILY beclomethasone dipropionate 80 mcg/actuation (Qvar RediHaler) 1 inh inhalation Q12H cetirizine (Zyrtec) 5 mg PO DAILY PRN fluocinolone 0.025% 1 appl topical BID gabapentin 300 mg PO BEDTIME 30 days cdbleant-rlq-zljm-FA-vit K-lut 8 mg iron-400 mcg-50 mcg (Centrum Silver Women) 1 tab PO DAILY HPI MRI results HPI Details 68-year-old female is presenting today for a review of MRI result. The patient reports low back pain and right-sided hip pain. She did PT for her back about two and a half years ago, which helped her pain at the time, but her symptoms returned after six months. She reports playing golf in the past. [facility] Medical History (Updated 07/26/23 @ 09:40 by Trent Garcia MD) Asthma Eczema Fatty liver History of breast cancer Hypercholesterolemia Hypertension Non-toxic multinodular goiter Obesity (BMI 30-39.9) Osteopenia Thyroid nodule Tubular adenoma of colon Vitamin D deficiency Surgical History (Updated 10/04/22 @ 13:57 by ALISON Weber) Hx of biopsy Hx of section Hx of cholecystectomy Hx of colonoscopy Status post fine needle aspiration Family History (Updated 04/11/23 @ 08:28 by Aye Palomo CMA) Father COPD (chronic obstructive pulmonary disease) Mother Breast cancer Social History (Updated 04/22/23 @ 09:16 by Ingrid Reed CMA) Housing: House Alcohol intake: current Patient Tobacco Use Status: Former Tobacco user Quit Date: about 40 years ago Tobacco use type: Cigarette Years Smoked: 1979 e-Cigarette/Vaping Use: Never Used Second Hand Smoke Exposure: No Current occupational status: employed Current occupation: [employer] Cognitive needs: No Hearing needs: No Vision needs: No Review of Systems Const All systems reviewed & are unremarkable except as noted in HPI and below Physical Exam Vital Signs: Last Vital Signs Pulse 103 H 07/26/23 09:09 Resp 14 07/26/23 09:09 BP 120/85 07/26/23 09:09 Pulse Ox 97 07/26/23 09:09 Oxygen Delivery Method Room Air 07/26/23 09:09 BMI result Body Mass Index 34.0 General: Appears afebrile. Alert and oriented. Mood and affect appropriate. Follows and participates in conversation appropriately. Respiratory effort is unlabored. Able to transition from sit to stand unassisted. Ambulates with bilaterally normal heel strike and toe off. Results Reviewed Results Reviewed: 07/24/23: MR LUMBAR SPINE WITHOUT CONTRAST? FINDINGS: Moderate right convex curvature of the lumbar spine. Minimal degenerative grade 1 anterolisthesis of L3 on L4. Mild degenerative retrolisthesis of L4 on L5. Mild degenerative anterolisthesis of L5 on S1. Advanced degenerative disc disease at L3-L4 and L4-L5. Moderate degenerative disc disease at all additional levels. Associated mixed Modic type discogenic changes including Modic type I discogenic edema at L3-L4 and L4-L5. Mild marrow edema within the posterior elements of L3-S1 consistent with degenerative stress reaction. No additional suspicious marrow edema. The vertebral body heights are well-maintained. The conus medullaris terminates at the level of L1-L2. The distal spinal cord is normal in appearance. No significant abnormalities of the paraspinal musculature. Limited evaluation of the intra-abdominal structures without significant abnormalities. The abdominal aorta is of normal contour and caliber. AXIAL SPINAL LEVELS: L1-L2: Mild diffuse disc bulge. There is moderate left and mild right facet joint arthropathy. There is moderate bilateral neural foraminal stenosis. There is no spinal canal stenosis. L2-L3: Mild diffuse disc bulge. There is moderate bilateral facet joint arthropathy. There is mild bilateral neural foraminal stenosis. There is narrowing of the subarticular zones with no overt spinal canal stenosis centrally. L3-L4: Moderate diffuse disc bulge exacerbated by uncovering from anterolisthesis. There is severe bilateral facet joint arthropathy with ligamentum flavum hypertrophy. There is severe left and moderate neural f oraminal stenosis. There is stenosis of the subarticular zones with moderate to severe spinal canal stenosis centrally. L4-L5: Prominent diffuse disc bulge with posterior osseous ridging. There is s evere bilateral facet joint arthropathy. There is severe right and moderate left neural foraminal stenosis. There is severe spinal canal stenosis. L5-S1: Moderate diffuse disc bulge exaggerated by uncovering from anterolisthesis. There is severe bilateral facet joint arthropathy. There is moderate bilateral neural foraminal stenosis. There is stenosis of the subarticular zones with no overt spinal canal stenosis centrally. IMPRESSION: Moderate to advanced multilevel degenerative spondyloarthropathy of the lumbar spine as described in detail above. Most notably, there are moderate to severe spinal canal stenoses at L3-L4 and L4-L5. Narrowing/stenoses of the subarticular zones from L2-S1. Moderate to severe neural foraminal stenoses from L1-S1. Assessment & Plan Assessment & Plan (1) Lumbar spondylosis: Code(s): M47.816 - Spondylosis without myelopathy or radiculopathy, lumbar region (2) Vertebrogenic low back pain: Code(s): M54.51 - Vertebrogenic low back pain (3) Lumbar spinal stenosis: Code(s): M48.061 - Spinal stenosis, lumbar region without neurogenic claudication Plan 68-year-old female with multiple pain generators. At this point I think she would benefit from a decompression for her spinal stenosis followed by subsequent interventional pain management guided by residual symptoms. Discussed minimally invasive lumbar decompression vs. open decompress/lumbar fusion as possible treatment options. A referral was provided to neurosurgery for further evaluation and discussion of treatment options with the patient. The patient will return for follow-up after discussion with neurosurgery regarding next steps. Scribed for Dr. Garcia by Tanmay Farrar, ophthalmic medical assistant, on 07/26/2023. I, Dr. Garcia, have personally reviewed and agree with the information entered by the scribe. Orders: Referrals Neurosurgery Referral M47.816 - Spondylosis without myelopathy or radiculopathy, lumbar region, M48.061 - Spinal stenosis, lumbar region without neurogenic claudication, M54.51 - Vertebrogenic low back pain Coding Level of Care Code Est Pt Level 4 (13804) Diagnoses Lumbar spondylosis M47.816 Vertebrogenic low back pain M54.51 Lumbar spinal stenosis M48.061
[2023-07-26 09:09] VITALS: BP 120/85; PULSE 103; RESP 14; O2SAT 97; BMI 34.0
== END 2023-07-26 09:42 | disposition home or self-care (01) ==
PROVIDERS: PCP Internal Medicine; Visit Provider Internal Medicine
DX: M47.816 Spondylosis without myelopathy or radiculopathy, lumbar region (principal); M54.51 Vertebrogenic low back pain; M48.061 Spinal stenosis, lumbar region without neurogenic claudication
CPT/HCPCS: 99214

== ENCOUNTER → 2023-07-26 09:05 | Outpatient (BNVA) | payer OTHER, SELFPAY | PROVIDERS: PCP Internal Medicine; Visit Provider Internal Medicine ==

== ENCOUNTER 2023-08-02 07:09 | Outpatient (REF) | payer OTHER, SELFPAY ==
[2023-08-02 11:45] LABS: MANUAL DIFF FLAG NO
[2023-08-02 11:48] LABS: Basophils Absolute Auto 0.1 X10*3/uL (0.0-0.2); Basophils Percent Auto 1.4 % (0-2); Eosinophils Absolute Auto 0.3 X10*3/uL (0.0-0.4); Eosinophils Percent Auto 5.5 % (0-4); Hematocrit 45.8 % (37.0-47.0); Hemoglobin 14.9 g/dl (12.0-16.0); Imm Gran Abs Auto 0.02 X10*3/uL (0.00-0.03); Imm Gran Pct Auto 0.4 % (0.0-0.4); Lymphocytes Absolute Auto 1.1 X10*3/uL (1.2-4.9); Lymphocytes Percent Auto 21.8 % (20-40); Mean Corpuscular HGB Conc 32.5 g/dl (31.0-35.0); Mean Corpuscular Hemoglobin 30.3 pg (27.0-33.0); Mean Corpuscular Volume 93.3 fL (80.0-98.0); Mean Platelet Volume 9.9 fL (9.4-12.3); Monocytes Absolute Auto 0.6 X10*3/uL (0.1-1.2); Monocytes Percent Auto 11.5 % (2-11); Neutrophils Absolute Auto 2.9 x10*3/uL (2.0-8.3); Neutrophils Percent Auto 59.4 % (45-73); Platelet Count 267 X10*3/uL (160-400); Red Blood Count 4.91 X10*6/uL (4.20-5.50); Red Cell Distribution Width 12.5 % (11.0-16.0); White Blood Count 4.9 X10*3/uL (4.8-10.8)
[2023-08-02 12:12] LABS: Estimated Average Glucose 108 mg/dL; Hemoglobin A1c % 5.4 % (<6.0)
[2023-08-02 12:23] LABS: Alanine Aminotransferase 29 U/L (0-31); Albumin Level 4.1 g/dL (3.5-5.0); Alkaline Phosphatase 111 U/L (39-117); Anion Gap 14 (12-20); Aspartate Amino Transferase 20 U/L (5-31); Bilirubin Total 0.4 mg/dL (0.0-1.0); Blood Urea Nitrogen 11 mg/dL (9-16); Calcium 9.7 mg/dL (8.4-10.2); Carbon Dioxide 24 mmol/L (22-29); Chloride 108 mmol/L (96-108); Cholesterol 181 mg/dL (<200); Estimated Glomerular Filt Rate > 60; Free T4 (Free Thyroxine) 0.96 ng/dL (0.71-1.85); Glucose Random 104 mg/dL (60-115); HDL Cholesterol 49 mg/dL (>40); LDL Cholesterol Calculated 109 mg/dL (<100); Potassium 3.9 mmol/L (3.3-5.1); Sodium 142 mmol/L (135-145); Total Protein 7.3 g/dL (6.5-8.0); Triglycerides 116 mg/dL (<150)
[2023-08-02 12:36] LABS: Vitamin B12 777 pg/mL (200-900)
[2023-08-06 17:24] LABS: Lyme Abs Screen <0.90 index
== END 2023-08-02 07:10 | disposition home or self-care (01) ==
LOC: HO.WFDLDS 07:09
PROVIDERS: Visit Provider Internal Medicine
DX: I10 Essential (primary) hypertension (principal); R73.02 Impaired glucose tolerance (oral); M51.36 Other intervertebral disc degeneration, lumbar region; E78.00 Pure hypercholesterolemia, unspecified
CPT/HCPCS: 36415; 80053; 80061; 82607; 82746; 83036; 84439; 84443; 85025; 86617; 86618

== ENCOUNTER 2023-08-21 11:18 | Outpatient (AMB) | payer OTHER, SELFPAY ==
--- NOTE | 2023-08-21 11:24 | A.SPINEOV_ITS ---
Intake Intake Visit Reasons: Low back pain Intake Note: Mrs. Floyd is here today c/o low back pain. MRI done @ [facility]. Whip Sawyer Required: No Allergies No Known Allergies Allergy (Verified 07/26/23 09:10) Assessment & Plan Assessment & Plan (1) Scoliosis of lumbar region due to degenerative disease of spine in adult: Code(s): M41.56 - Other secondary scoliosis, lumbar region (2) Lumbar stenosis with neurogenic claudication: Code(s): M48.062 - Spinal stenosis, lumbar region with neurogenic claudication Plan Dear colleague Thank you for referring Lorelei lFoyd to the office today with a chief complaint of back pain and bilateral leg pain. HPI: This 68-year-old female started to developed back pain radiating in both legs with the right side more affected than left side approximately 2 years ago. She has stiffness in her back that is worse in the morning of more importantly she has pain radiate down the front of her thighs with the right side more affected than left side with walking and standing. The symptoms improve when she sits down. The leg symptoms are more pronounced than the back pain. No weakness bowel or urinary problems . She was evaluated with Dr. Garcia, who initially was planning on an epidural steroid injection but after reviewing the MRI of the lumbar spine decided to refer for a surgical consult. She did complete a course of physical therapy. PMH: Hypertension, asthma, cholecystectomy Social history: . Works in [employer]. Nonsmoker Medications: Amlodipine, Qvar, Ventolin, Allergies: NKDA Physical Exam: Pleasant female. She is able to reproduce pain radiating down from her thighs after short period of standing. No neurological deficits her motor sensation reflexes pain. Straight leg raise is negative bilaterally. Radiological Studies: An x-ray of the lumbar spine shows lumbar degenerative scoliosis due to asymmetric disc collapse at L3-4 and L4-5. MRI of the lumbar spine done at [facility] shows moderate to severe degenerative disc disease L3-4 and L4-5 with severe L3-4 and L4-5 central spinal stenosis and right L4 foraminal stenosis. Impression/Plan: This patient is suffering from back pain and neurogenic claudication. I suspected the back pain is associated with the lumbar degenerative scoliosis and degenerative disc disease. However, the back pain is not severe enough to offer this patient a lumbar fusion. Her main complaint is the neurogenic claudication caused by the severe spinal stenosis L3-4 and L4-5 with a right L4 foraminal stenosis. I offered her a L3-4 and L4-5 decompression to address the spinal stenosis. The procedure, complications and postoperative course were discussed. She will call my office if she wants proceed. Thank you for allowing me to participate in your patients care. total time spent was 50 minutes in counseling ,coordination of plan, personal review of imaging, surgical decision making and subsequent plan Juan Aguilar MD, PhD Spine Fellowship Trained Neurosurgeon Director, [facility] Coding Level of Care Code New Pt Level 4 (15213) Diagnoses Scoliosis of lumbar region due to degenerative disease of spine in adult M41.56 Lumbar stenosis with neurogenic claudication M48.062
== END 2023-08-21 12:38 | disposition home or self-care (01) ==
PROVIDERS: PCP Internal Medicine; Referring Provider Internal Medicine; Visit Provider Neurological Surgery
DX: M41.56 Other secondary scoliosis, lumbar region (principal); M48.062 Spinal stenosis, lumbar region with neurogenic claudication
CPT/HCPCS: 99204

== ENCOUNTER → 2023-08-21 11:18 | Outpatient (BNVA) | payer OTHER, SELFPAY | PROVIDERS: PCP Internal Medicine; Referring Provider Internal Medicine; Visit Provider Neurological Surgery ==

== ENCOUNTER 2023-09-30 07:40 | Outpatient (AMB) | payer OTHER, SELFPAY ==
[2023-09-30 07:47] VITALS: BP 116/64; PULSE 79; BMI 31.8
--- NOTE | 2023-09-30 07:47 | A.OFFVIS_ITS ---
Intake Vital Signs 09/30/23 07:47 Height 5 ft 7 in Weight 203 lb 4.259 oz BMI 31.8 BP 116/64 Blood Pressure Location Lt brachial Position Sitting Pulse 79 Pulse Source Pulse Oximeter Intake Visit Reasons: mng Intake Note: Patient present for MNG follow up visit. 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 Accompanied by: Self / Same As Patient Allergies No Known Allergies Allergy (Verified 09/30/23 07:49) Medication List - Last Reconciled 09/30/23 by Keith Sloan MD albuterol sulfate 90 mcg/actuation 2 puffs inhalation Q4-6H PRN albuterol sulfate 2.5 mg inhalation Q4-6H PRN amlodipine 5 mg PO QAM beclomethasone dipropionate 80 mcg/actuation (Qvar RediHaler) 1 inh inhalation Q12H cetirizine (Zyrtec) 10 mg PO BEDTIME fluocinolone 0.025% appl topical gabapentin 300 mg PO BEDTIME PRN njenctyc-qcj-vhgs-FA-vit K-lut 8 mg iron-400 mcg-50 mcg (Centrum Silver Women) 1 tab PO DAILY HPI HPI Comments History of Present Illness Details 68-year-old female today for follow-up visit for nontoxic multinodular goiter . Today she is here for fine-needle aspiration results she is feeling well she has no complaints after biopsy. She had fine-needle aspiration on 01/26/2021 of right mid pole nodule and left lower pole nodule both benign follicular nodule [place] category 2. . She has a non toxic multinodular goiter. She had a prior Benign FNA of 1 nodule in the right side by Dr Sloan around 2009. She denies compressive symptoms. No dysphagia, dyspnea in flat position, She denies cold or heat intolerance, weigth loss or gain, diarrhea, constipation, imsomnia, fatigue, dry skin, dysphagia, dyspnea, dysphonia, tremors, palpitations, irritability, anxiety. She denies recent excess iodine or IV contrast exposure, radiation to head or neck, thyroid surgery, denies herbal or OTC medications. Denies family history of Thyroid disease or cancer. US thyroid 08/25/2020 Right Thyroid Lobe: 4.1 x 1.8 x 1.9 cm, volume 7.3 mL. Previously 4.1 x 1.6 x 1.6 cm, volume 5.5 mL. Parenchyma : The gland echotexture is heterogeneous. Thyroid vascularity is normal. Left Thyroid Lobe: 4.1 x 1.4 x 1.7 cm, volume 5.1 mL. Previously 4.0 x 1.6 x 1.4 cm, volume 4.5 mL. Parenchyma: The gland echotexture is heterogeneous. Thyroid vascularity is normal. Isthmus: 0.4 cm in maximum AP dimension. Previously 0.2 cm. RIGHT THYROID LOBE: Numerous nodules are seen. 4 nodules are described below as a warehouse representative view of the right thyroid lobe. 1. Location: Superior. Size: 1.2 x 0.7 x 1.3 cm. Previous: 1.5 x 0.6 x 1.0 cm. Nodule characteristics: Hypoechoic nodule. Margins. Positive color flow. 2. Location: Middle. Size: 2.3 x 1.7 x 1.4 cm. Previous: 1.2 x 1.3 x 1.2 cm. Nodule characteristics: Heterogeneous nodule. Smooth margins. Microcalcifications suspected. Mild color flow.. 3. Location: Inferior. Size: 0.6 x 0.4 x 0.4 cm. Previous: 1.1 x 1.1 x 1.2 cm. Nodule characteristics: Heterogeneous nodule. Well-defined margins. Positive patient. 4. Location: Middle. Size: 0.5 x 0.5 x 0.4 cm. Previous: New since the previous study. Nodule characteristics: Hypoechoic, mildly heterogeneous nodule. Positive color flow. ISTHMUS: No nodules. LEFT THYROID LOBE: Numerous nodules are seen. 4 nodules are described below as a warehouse representative view of the left thyroid lobe. 1. Location: Superior. Size: 1.0 x 0.5 x 0.8 cm. Previous: Possibly 0.5 x 0.4 x 0.4 cm Nodule characteristics: Heterogeneous nodule. Margins are well-defined. Positive color flow. 2. Location: Superior. Size: 1.1 x 0.6 x 0.9 cm. Previous: Possibly 0.4 x 0.4 x 0.3 cm. Nodule characteristics: Heterogeneous nodule. Well-defined margins. Microcalcifications suspected. Positive color flow.. 3. Location: Middle. Size: 0.9 x 0.7 x 0.7 cm. Previous: Direct comparison nodule not accurately defined. Nodule characteristics: Heterogeneous nodule. Well-defined margins. Microscopic calcifications possible. Positive color flow. 4. Location: Inferior. Size: 1.3 x 1.0 x 1.1 cm. Previous: Direct comparison nodule not accurately defined. Nodule characteristics: Heterogeneous nodule. Well-defined margins. Possible microscopic calcification. No color flow. NODES: No lymphadenopathy is seen in the tissue surrounding the thyroid gland. Repeat FNA 09/20/22 showed A.? Thyroid, right upper pole 2.0 cm nodule, fine needle aspiration:? Benign ([place] category II). B.? Thyroid, isthmus 1.4 cm nodule, fine needle aspiration:? Benign ([place] category II). COMMENT: Satisfactory for evaluation; moderately cellular specimens.? Groups of follicular epithelial cells mostly in a macrofollicular arrangement are seen; no cytologic atypia is present.? Some colloid is present.? Taken together, the findings are consistent with benign thyroid nodules. Laboratory Tests 01/20/19 07:58 25-OH Vitamin D To anna 26.2 Thyroxine (T4) 6.6 TSH 3rd Generation 1.56 Laboratory Tests 10/07/20 10/07/20 10/07/20 07:30 07:30 07:30 25-OH Vitamin D To anna 27.5 TSH 0.79 Free T4 1.08 Thyroxine (T4) 7.6 Thyroglobulin Anti body <1 Thyroid Peroxidase Ab <1 PFSH Medical History (Updated 09/23/23 @ 11:55 by Sandie Dunn RN) Family history of breast cancer Degenerative disc disease, lumbar Osteoarthritis Lumbar spinal stenosis Thyroid nodule Hypercholesterolemia Vitamin D deficiency Obesity (BMI 30-39.9) Fatty liver Osteopenia Tubular adenoma of colon Hypertension Eczema Asthma Non-toxic multinodular goiter Surgical History Status post fine needle aspiration Hx of colonoscopy Hx of cholecystectomy Hx of section Family History Father COPD (chronic obstructive pulmonary disease) Mother Breast cancer Social History Housing: House Are you a primary acute care physical therapist to a significant other at home: No Do you presently have visiting nurse or other home services: No Alcohol intake: current Alcohol intake frequency: holidays/special occasions only Patient Tobacco Use Status: Former Tobacco user Quit Date: 1984 Tobacco use type: Cigarette Years Smoked: 5 e-Cigarette/Vaping Use: Never Used Second Hand Smoke Exposure: No Current occupational status: employed Current occupation: [employer] Cognitive needs: No Hearing needs: No Vision needs: No Physical Exam Vital Signs: Last Vital Signs Pulse 79 09/30/23 07:47 BP 116/64 09/30/23 07:47 BMI result Body Mass Index 31.8 Const Other: Thyroid gland is normal size weighs by 15 g. There are no thyroid nodules palpated. There is no cervical adenopathy palpated Assessment & Plan Assessment & Plan (1) Non-toxic multinodular goiter: Comment: Biopsy September 2022 benign Code(s): E04.2 - Nontoxic multinodular goiter Plan: This 68-year-old white female with a history of multinodular goiter status post FNA of right mid nodule x2 and left lower pole nodule with benign cytology. She appears to be clinically euthyroid. Recent ultrasound shows appearance of new nodule in the isthmus and slight increase in size of right upper pole nodule. She underwent a repeat FNA with benign cytology The plan is for continued observation . Will follow-up ultrasound 1 year's time Orders: Orders US thyroid 11 Months E04.2 - Nontoxic multinodular goiter Coding Level of Care Code Est Pt Level 3 (45101) Diagnoses Non-toxic multinodular goiter E04.2
== END 2023-09-30 08:11 | disposition home or self-care (01) ==
PROVIDERS: PCP Internal Medicine; Visit Provider Internal Medicine Endocrinology, Diabetes & Metabolism
DX: E04.2 Nontoxic multinodular goiter (principal)
CPT/HCPCS: 99213

== ENCOUNTER → 2023-09-30 07:40 | Outpatient (BNVA) | payer OTHER, SELFPAY | PROVIDERS: PCP Internal Medicine; Visit Provider Internal Medicine Endocrinology, Diabetes & Metabolism ==

== ENCOUNTER 2023-10-03 06:03 | Day surgery (SDC) | payer OTHER, SELFPAY ==
--- NOTE | 2023-09-23 | ECG_ITS ---
Test Reason : preop Blood Pressure : / mmHG Vent. Rate : 088 BPM Atrial Rate : 088 BPM P-R Int : 166 ms QRS Dur : 096 ms QT Int : 376 ms P-R-T Axes : 063 -02 043 degrees QTc Int : 454 ms Normal sinus rhythm Normal ECG When compared with ECG of 22-OCT-2009 22:44, No significant change was found Referred By: Nancie Villegas Electronically Signed By:MELANIA ROSS MD
[2023-09-23 12:01] VITALS: BP 147/79; PULSE 79; RESP 20; O2SAT 98; BMI 31.9
--- NOTE | 2023-09-23 12:11 | P.CONAN_ITS ---
Documented by User: Nancie Villegas NP 09/23/23 12:24 HPI - Anesthesia Eval Consult details Narrative: 68yo F for L3-4, L4-5 Decompression Asthma. Stable. Rare albuterol use PMF Active Problems Active Problems: All Active Problems (Updated 09/23/23 @ 11:55 by Sandie Dunn RN) Lumbar stenosis with neurogenic claudication (Acute) Scoliosis of lumbar region due to degenerative disease of spine in adult (Acute) Lumbar spondylosis (Acute) Vertebrogenic low back pain (Acute) Lumbar spinal stenosis (Acute) Osteoarthritis of right hip (Acute) Hip pain, right (Acute) Right thigh pain (Acute) Lumbar degenerative disc disease (Acute) Cerumen debris on tympanic membrane of left ear (Acute) Otitis externa (Acute) Annual physical exam (Acute) Radicular pain of left lower extremity (Acute) Sciatic nerve pain (Acute) Hip pain (Acute) Impaired glucose tolerance (Acute) COVID-19 virus infection (Acute) Osteopenia (Acute) Hypercholesterolemia (Acute) Obesity (BMI 30-39.9) (Acute) Hypertension (Acute) Eczema (Acute) Asthma (Acute) Non-toxic multinodular goiter (Acute) Past Medical History Medical History Family history of breast cancer Degenerative disc disease, lumbar Osteoarthritis Lumbar spinal stenosis Thyroid nodule Hypercholesterolemia Vitamin D deficiency Obesity (BMI 30-39.9) Fatty liver Osteopenia Tubular adenoma of colon Hypertension Eczema Asthma Non-toxic multinodular goiter Family History Family History Father COPD (chronic obstructive pulmonary disease) Mother Breast cancer Family history of problems with anesthesia: No Surgical History Surgical History Status post fine needle aspiration Hx of colonoscopy Hx of cholecystectomy Hx of section History of Problems with Anesthesia: No Social History Social History Housing: House Are you a primary hospice spiritual care coordinator to a significant other at home: No Do you presently have visiting nurse or other home services: No Alcohol intake: current Alcohol intake frequency: holidays/special occasions only Patient Tobacco Use Status: Former Tobacco user Quit Date: 1984 Tobacco use type: Cigarette Years Smoked: 5 e-Cigarette/Vaping Use: Never Used Second Hand Smoke Exposure: No Use of substances other than those prescribed or required for medical reasons: No Have you been hit, kicked, punched, or otherwise hurt by someone within the past year? If so, by whom?: No Are you DNR?: No Advance Directives Information Provided: Yes (brochure given) Advance Directives on File: No Recently lost weight without trying: No Nutrition Risks: No Nutritional Risk Poor oral hygiene: No (crowns all molars, upper & lower) Current occupational status: employed Current occupation: [employer] Cognitive needs: No Hearing needs: No Vision needs: No Meds Allergies Allergy/AdvReac Type Severity Reaction Status Date / Time No Known Allergies Allergy Verified 10/03/23 06:10 Home Medications Medication Instructions Recorded Confirmed Last Taken Type albuterol sulfate 2.5 mg/3 mL 2.5 mg inhalation Q4-6H PRN 11/22/20 10/03/23 Unknown History (0.083 %) solution for nebulization Wheezing albuterol sulfate 90 mcg/actuation 2 puff inhalation Q4-6H PRN 11/22/20 10/03/23 Unknown History aerosol inhaler Wheezing cetirizine 10 mg tablet (Zyrtec) 10 mg PO BEDTIME 11/22/20 10/03/23 09/29/23 History osqtntwk-phka-wgwe 8 mg-folic 400 1 tab PO DAILY 11/22/20 10/03/23 09/29/23 History mcg-K 50 mcg-lutein 300 mcg tablet (Centrum Silver Women) amlodipine 5 mg tablet 5 mg PO QAM 09/23/23 10/03/23 10/03/23 History fluocinolone 0.025 % topical cream appl topical 09/30/23 Unknown History Exam Exam Date and Time: September 23, 2023 121 Height,Weight and Vital Signs: Height 5 ft 7 in Weight 92.533 kg Last Vital Signs Pulse 79 09/23/23 12:01 Resp 20 09/23/23 12:01 BP 147/79 H 09/23/23 12:01 Pulse Ox 98 09/23/23 12:01 O2 Del Method Room Air 09/23/23 12:01 Pertinent Lab Results Pertinent Lab Results: Laboratory Tests 08/02/23 07:11 WBC 4.9 Hgb 14.9 Hct 45.8 Plt Count 267 Sodium 142 Potassium 3.9 Chloride 108 Carbon Dioxide 24 BUN 11 Creatinine 0.70 Airway Mallampati Class: I TM Dist: >3cm Neck ROM: Full Loose/Missing/Broken Teeth: No (Crowned molars) Heart: RRR Lungs: CTAB Assessment and Plan Assessment Anesthesia Assessment: Anesthesia Plan Discussed and PAT Visit Final Anesthetic Review Family History of Problems with Anesthesia: No History of Problems with Anesthesia: No Documented by User: Josh Benson MD 10/03/23 08:02 [facility] Past Medical History Medical History Family history of breast cancer Degenerative disc disease, lumbar Osteoarthritis Lumbar spinal stenosis Thyroid nodule Hypercholesterolemia Vitamin D deficiency Obesity (BMI 30-39.9) Fatty liver Osteopenia Tubular adenoma of colon Hypertension Eczema Asthma Non-toxic multinodular goiter Family History Family History Father COPD (chronic obstructive pulmonary disease) Mother Breast cancer Surgical History Surgical History Status post fine needle aspiration Hx of colonoscopy Hx of cholecystectomy Hx of section Social History Social History Housing: House Are you a primary hospice spiritual care coordinator to a significant other at home: No Do you presently have visiting nurse or other home services: No Alcohol intake: current Alcohol intake frequency: holidays/special occasions only Patient Tobacco Use Status: Former Tobacco user Quit Date: 1984 Tobacco use type: Cigarette Years Smoked: 5 e-Cigarette/Vaping Use: Never Used Second Hand Smoke Exposure: No Use of substances other than those prescribed or required for medical reasons: No Have you been hit, kicked, punched, or otherwise hurt by someone within the past year? If so, by whom?: No Are you DNR?: No Advance Directives Information Provided: Yes (brochure given) Advance Directives on File: No Recently lost weight without trying: No Nutrition Risks: No Nutritional Risk Poor oral hygiene: No (crowns all molars, upper & lower) Current occupational status: employed Current occupation: [employer] Cognitive needs: No Hearing needs: No Vision needs: No Meds Allergies Allergy/AdvReac Type Severity Reaction Status Date / Time No Known Allergies Allergy Verified 10/03/23 06:10 Home Medications Medication Instructions Recorded Confirmed Last Taken Type albuterol sulfate 2.5 mg/3 mL 2.5 mg inhalation Q4-6H PRN 11/22/20 10/03/23 Unknown History (0.083 %) solution for nebulization Wheezing albuterol sulfate 90 mcg/actuation 2 puff inhalation Q4-6H PRN 11/22/20 10/03/23 Unknown History aerosol inhaler Wheezing cetirizine 10 mg tablet (Zyrtec) 10 mg PO BEDTIME 11/22/20 10/03/23 09/29/23 History vdddlqbh-dznm-olkd 8 mg-folic 400 1 tab PO DAILY 11/22/20 10/03/23 09/29/23 History mcg-K 50 mcg-lutein 300 mcg tablet (Centrum Silver Women) amlodipine 5 mg tablet 5 mg PO QAM 09/23/23 10/03/23 10/03/23 History fluocinolone 0.025 % topical cream appl topical 09/30/23 Unknown History Exam Airway Mallampati Class: II Assessment and Plan Final Anesthetic Review NPO: Yes ASA Class: II Final Preanesthetic Review: No Changes in Pt Med Stat, Meds/Allgs Chart Reviewed, Consent Obtained/Reviewed and Anes Risks/Benef Reviewed Patient Risk: Intermediate Procedure Risk: Intermediate Assessment/Block/Sedation in SS: Assess/Block/Sedation-SS Anesthetic Plan Anesthetic Plan: GA and Agree w/ Assess. and Plan Disposition: Standard PACU
[2023-10-03] VITALS (11 sets, daily range): BP systolic 115–146; BP diastolic 68–88; PULSE 71–91; RESP 16–18; TEMP 36.1–36.6; O2SAT 95–100
--- NOTE | ~2023-10-03 | FL_ITS ---
EXAMINATION: XR FLUOROSCOPY WITH IMAGES CLINICAL INFORMATION: L3-L5 decompression. COMPARISON: None available. TECHNIQUE: Fluoroscopy Supervised By: Dr. Juan Aguilar. Fluoroscopy Time: 0.01 minutes. Cumulative Dose: 5.25 mGy. DAP: 0.0911 Gycm2. Images: 1. FINDINGS: Image demonstrates surgical instrument posterior to the L4-L5 disc space and probe posterior to the L3-L4 disc space. FL/FL guidance in OR IMPRESSION: Fluoroscopy guidance for lumbar spine surgery.
[2023-10-03] MEDS: Gabapentin 300 MG CAPSULE PO (06:32)
[2023-10-03] MEDS: Lactated Ringers 1,000 ML 100 ML IVCONT (06:32)
[2023-10-03] MEDS: methocarbamoL 750 MG TABLET PO (06:32)
--- NOTE | 2023-10-03 07:01 | MHC.SHP ---
Pre-Procedural Eval Section A Date of Service: 10/03/23 Section B Chief Complaint: Spinal stenosis, lumbar region with neurogenic cla Allergies: Allergies Allergy/AdvReac Type Severity Reaction Status Date / Time No Known Allergies Allergy Verified 10/03/23 06:10 Review of Systems Sugical H&P ROS: Negative: Constitution, Cardiovascular, Respiratory, Neurological, Psychiatric, Hem-Onc, Allergic/Immunologic, Gastrointestinal, Genitourinary, Musculoskeletal, Integumentary, Endocrine and Eyes/Ears/Nose/Throat Exam Surgical H&P Exam: Not Evaluated: HEENT, Not Evaluated: Heart, Not Evaluated: Lungs, Not Evaluated: Extremities, Not Evaluated: Abdomen, Not Evaluated: Skin and Not Evaluated: Neurological Plan Diagnosis/Plan: Unchanged I have reviewed the history and physical and performed a pertinent physical examination on my patient. No changes have occurred unless specified. Plan remains the same, L3-4, L4-5 lumbar decompression. Time Spent With Patient Time: Total time managing care of this patient today __10__ minutes.
--- NOTE | 2023-10-03 09:56 | P.DS_ITS ---
DS: Providers Provider Date of Service: 10/03/23 Date of discharge: 10/03/23 Primary care physician: Nela Forrest MD Admitting clinician: Juan Aguilar DS: Diagnosis Discharge Diagnosis (1) Lumbar stenosis with neurogenic claudication: Status: Acute DS: Summary Time Attestation Discharge coordination time: Less than 30 minutes Quality: Safe Use of Opioids Does Pt have an Active Cancer Diagnosis on the Problem List?: No Quality: Stroke Does the patient have a stroke diagnosis?: No Physical Exam Vital Signs: Vital Signs: Last Vital Signs Temp 97.8 F 10/03/23 06:30 Pulse 91 10/03/23 06:30 Resp 16 10/03/23 06:30 BP 146/88 H 10/03/23 06:30 Pulse Ox 98 10/03/23 06:30 O2 Del Method Room Air 10/03/23 06:30 BMI result Body Mass Index 31.9 Discharge Plan Discharge Patient Disposition: Home, Self-Care Referrals: Nela Forrest MD [Primary Care Provider] - 1 Week Discharge Medications: New docusate sodium [Colace] 100 mg capsule 100 mg PO BID Qty: 20 0RF oxycodone 5 mg tablet 5 mg PO Q4H PRN (Reason: pain) Qty: 20 0RF Rx Instructions: Partial Fill upon patient request. Continued amlodipine 5 mg tablet 5 mg PO QAM Centrum Silver Women 8 mg iron-400 mcg-300 mcg tablet 1 tab PO DAILY albuterol sulfate 90 mcg/actuation HFA aerosol inhaler 2 puff inhalation Q4-6H PRN (Reason: Wheezing) albuterol sulfate 2.5 mg /3 mL (0.083 %) solution for nebulization 2.5 mg inhalation Q4-6H PRN (Reason: Wheezing) cetirizine [Zyrtec] 10 mg tablet 10 mg PO BEDTIME Qvar RediHaler 80 mcg/actuation HFA aerosol breath activated 1 inh inhalation Q12H Qty: 3 3RF Rx Instructions: administer with spacer fluocinolone 0.025 % cream topical Discharge Orders: Discharge Order (Routine); Ordered 10/03/23 Ordered By: Lisandro Cruz Diet: Advance to usual diet Activity on Discharge: As tolerated Activity Restrictions/Additional Instructions: After your spinal surgery we ask you to observe the following restrictions/guidelines: Activity: It is normal to feel some discomfort as you increase your activity, but that zoila l improve with time. We ask you avoid heavy lifting or acitivities that cause pain. As a general rule, 8lbs is a safe limit for lifting right after surgery. Walk as much as you feel comfortable but not to exhaustion. You will feel extra tired the first few days after surgery. Stay well hydrated. It is OK to walk up and down stairs You may return to driving when you are off narcotics (such as vicodin, oxycodone, dilaudid, etc), and you are back to normal functional capacity. If you have any concerns please check with office before driving. Return to work is specific to each patient and each surgery, so please speak with your doctor/PA at first follow up. Please bring paperwork such as FMLA at that time if you need it filled out. Medications: For optimum pain control, it is best to start with a combination of 500 mg of Tylenol every 4 hours with 600 mg of Motrin every 8 hours, and use narcotics as needed in between for breakthrough pain. We will give you a short supply of narcotics after surgery (usually one weeks worth). If you need more please call the office but do not use more than prescribed. You will need to give our office 48 hours notice if you need narcotics refilled and we do not fill narcotics on weekends or evenings. If you are on a narcotic, it is a good idea to take a stool softener such as colace or senna to avoid constipation If you take blood thinner such as aspirin, Plavix, Coumadin, Effient, Eliquis etc for conditions such as Afib, DVT, Pulmonary embolus, coronary disease, stents etc please speak with your surgeon about specific details as to when you can resume these medications. You can resume NSAIDs on post op day 1 (eg: Motrin, Naproxen, etc). Follow up: Please call the office, , after surgery to arrange a 3 week follow up for wound check. Wound Care: You may remove your dressing on the first day after surgery. You may leave open to air. Please do not remove the steri strips underneath. they will fall off on their own in one week. IT IS NORMAL FOR THE WOUND TO OOZE OR BE BLOODY FOR A FEW DAYS AFTER SURGERY. IF THIS HAPPENS JUST PLACE NEW DRESSING OVER IT TO AVOID STAINING CLOTHES. You may shower on post op day # 1 We ask that you do not let the water soak the wound. If it does get wet, just towel dry lightly. Please do not scrub your incision or place any type of chemical/ointment on the wound. No tub baths, pools or jacuzzis for one month. If you have any leaking or redness from your wound, or fevers, please call office
--- NOTE | 2023-10-03 11:46 | P.OP_ITS ---
Operative Note Operative Note Date of Service: 10/03/23 Narrative: Preoperative Diagnosis: L3-4 and L4-5 spinal stenosis/lateral recess stenosis/neural foraminal stenosis Operation: L3-4 and L4-5 Laminotomy, Partial facetectomy and foraminotomy with use of microscope Consent Informed Consent was obtained for this operation. I have explained the nature, purpose and benefits of the operation. I have discussed the risks and benefit of the operation including possible complications or adverse events with patient/family. Alternative(s) were discussed with the patient with their relative benefits and risks as well as the consequences of not accepting the operation were included in obtaining consent. Surgeon: PAVAN JONES MD, PHD Procedure Assisted By: Lisandro Strange Description of Procedure this 68-year-old female is suffering from neurogenic claudication due to severe spinal stenosis at L3-4 and L4-5. She also has a scoliotic component but denies back pain. Therefore I offered the patient a decompression only for the above- mentioned levels. The procedure complications were explained. The patient was consented. The patient was brought to the operating room and endotracheally intubated. The patient was turned in prone position on the Ricki frame. Prep and drape was done followed by timeout. The Physician personal injury legal assistant provided access. A mid lumbar incision was made followed by release of the paravertebral muscle bilaterally to expose the L3-L5 laminae and facet joints. An intraoperative x- ray was obtained to confirm the correct level. The microscope was brought in. I took over the procedure. The interspinous ligament was removed at L3-4 and L4- 5. A high-speed drill was used to do a L3-4 and L4-5 laminotomy until flavum ligament was reached. I did not turned my attention to finalizing L3-4 level first. A 2 and 3 Kerrison was used to expand the laminotomy near flush to the pedicles and to include a partial facetectomy. The flavum and was opened and resected with a 3. Kerrison to decompress the underlying thecal sac. The flavum ligament was removed to decompress the lateral recess and the exiting L4 nerve roots bilaterally. A long nerve hook could be easily passed along the medial side of the pedicles as a sign of adequate decompression. then attention was turned to the L4-5 level. Severe stenosis was encountered at this level. Hypertrophied flavum ligament was resected to decompress the thecal sac and lateral recess and exiting nerve roots.The microscope was removed. Hemostasis was done. The physician personal injury legal assistant close the Incision in 2 layers. Steri-Strips were used to approximate incision. An OpSite with Tegaderm was used to cover the incision. All sponge needle counts were correct. Patient was extubated and transported in stable is to recovery room. Anesthesia: General Estimated Blood Loss (ml): 25 mL Complications: None Duration of Surgery: Under 80 Minutes Postoperative Plan: Discharge to home
[2023-10-03] MEDS: Ondansetron ODT 4 MG TAB.RAPDIS TRANSLINGU (12:28)
--- NOTE | 2023-10-03 12:29 | PC.NURSE ---
PATIENT PALE, STATES SOME NAUSEA, SLEEPY. THIS RN HAD ANESTHESIA RECHECK. PATIENT GIVEN COOL CLOTH, ZOFRAN SL. DR. MEZA TO REASSESS IN 10 MIN.
--- NOTE | 2023-10-03 13:14 | MHC.HEMONC ---
patient returned to PACU d/t drowsiness. Patient assisted back to stretcher. Continue to monitor HR 60's and Sao2 93-96 on RA reps rate 16-18. Patient resting with eyes closed and call wise in reach.
== END 2023-10-03 14:44 | disposition home or self-care (01) ==
PROVIDERS: PCP Internal Medicine; Visit Provider Neurological Surgery
PROC: (CPT 63047; principal; 2023-10-03 07:30)
DX: M48.062 Spinal stenosis, lumbar region with neurogenic claudication (principal); M41.56 Other secondary scoliosis, lumbar region; I10 Essential (primary) hypertension; J45.909 Unspecified asthma, uncomplicated; Z79.51 Long term (current) use of inhaled steroids; Z79.899 Other long term (current) drug therapy
CPT/HCPCS: 63047; 63048; 93005; J0131; J0690; J1100; J1170; J2250; J2405; J2550; J3010; Q4100

== ENCOUNTER → 2023-10-03 06:03 | Outpatient (BNV) | payer OTHER, SELFPAY | PROVIDERS: PCP Internal Medicine; Visit Provider Physician Assistant | DX: M48.062 Spinal stenosis, lumbar region with neurogenic claudication (principal) | CPT/HCPCS: 63047; 63048; 99499 ==

== ENCOUNTER 2023-10-23 12:48 | Outpatient (AMB) | payer OTHER, SELFPAY ==
--- NOTE | 2023-10-23 12:51 | A.SPINEOV_ITS ---
Intake Intake Visit Reasons: 1st post-op visit Intake Note: Mrs. Floyd is here today for her 1st post-op vist. S/p lumbar decompression. Merchandising Execution Manager Required: No Allergies No Known Allergies Allergy (Verified 10/03/23 06:10) Assessment & Plan Assessment & Plan (1) Lumbar stenosis with neurogenic claudication: Code(s): M48.062 - Spinal stenosis, lumbar region with neurogenic claudication (2) Status post lumbar spine surgery for decompression of spinal cord: Code(s): Z98.890 - Other specified postprocedural states Plan Dear colleague, On 10/23/2023, I saw for 1st postoperative visit Lorelei Floyd. She underwent a L3-4, L4-5 lumbar decompression for neurogenic claudication 3 weeks ago. The bilateral leg pain disappeared. She does have a painful spot on the right side of her back that comes with walking walking and standing. I hope that this will resolve in the near future. On inspection, the incision healed. I would like to follow up in 6 weeks. Juan Aguilar MD, PhD Spine Fellowship Trained Neurosurgeon Director, [facility] Coding Level of Care Code Global (90020) Diagnoses Lumbar stenosis with neurogenic claudication M48.062 Status post lumbar spine surgery for decompression of spinal cord Z98.890
== END 2023-10-23 13:15 | disposition home or self-care (01) ==
PROVIDERS: PCP Internal Medicine; Visit Provider Neurological Surgery
DX: M48.062 Spinal stenosis, lumbar region with neurogenic claudication (principal); Z98.890 Other specified postprocedural states
CPT/HCPCS: 99024

== ENCOUNTER → 2023-10-23 12:48 | Outpatient (BNVA) | payer OTHER, SELFPAY | PROVIDERS: PCP Internal Medicine; Visit Provider Neurological Surgery ==

== ENCOUNTER 2023-10-31 07:24 | Outpatient (REF) | payer OTHER, SELFPAY ==
--- NOTE | ~2023-10-31 | MM_ITS ---
EXAMINATION: MM SCREENING DIGITAL BREAST TOMOSYNTHESIS, BILATERAL CLINICAL INFORMATION: Screening. Asymptomatic. COMPARISON: Mammography: This study is compared with prior exams dating back to 2018. TECHNIQUE: Digital breast tomosynthesis is performed in both the craniocaudal and mediolateral oblique views along with computer-aided detection (CAD). Synthesized 2D images are generated from the tomosynthesis. FINDINGS: There are scattered areas of fibroglandular density (ACR BI-RADS breast composition Category b). There are no significant masses, abnormal calcifications, or other abnormalities. There is a tissue marker in the lateral aspect of the left breast from prior benign percutaneous biopsy. Few, bilateral benign calcifications are present in each breast. There is long-standing, mild, bilateral, subareolar ductal ectasia. MM/MM tomosynthesis screening BI IMPRESSION: No mammographic evidence of malignancy. ASSESSMENT: BI-RADS BI-RADS 2 - Benign Findings RECOMMENDATION: Routine annual mammography screening. 1 year F/U This examination should not preclude the clinical evaluation of a suspicious palpable abnormality. This patient's information was entered into a reminder system with a target due date for their next mammogram.
== END 2023-10-31 07:25 | disposition home or self-care (01) ==
LOC: HO.MAMMO 07:24
PROVIDERS: PCP Internal Medicine; Visit Provider Internal Medicine
DX: Z12.31 Encounter for screening mammogram for malignant neoplasm of breast (principal)
CPT/HCPCS: 77063; 77067

== ENCOUNTER → 2023-10-31 07:30 | Outpatient (BNV) | payer OTHER, SELFPAY | PROVIDERS: PCP Internal Medicine; Visit Provider Radiology Diagnostic Radiology | DX: Z12.31 Encounter for screening mammogram for malignant neoplasm of breast (principal) | CPT/HCPCS: 77063; 77067 ==

== ENCOUNTER 2023-12-04 09:48 | Outpatient (AMB) | payer OTHER, SELFPAY ==
--- NOTE | 2023-12-04 09:59 | HO.SPINEOV ---
Intake Intake Visit Reasons: 2nd post op Intake Note: Mrs. Floyd is here today for her 2nd post-op visit. Corrosion Technician Required: No Allergies No Known Allergies Allergy (Verified 10/03/23 06:10) Assessment & Plan Assessment & Plan (1) Status post lumbar spine surgery for decompression of spinal cord: Code(s): Z98.890 - Other specified postprocedural states Plan Dear colleague, On 12/04/2023, I saw for 2nd postoperative visit Lorelei Floyd. She status post L3-L5 lumbar decompression. Her neurogenic claudication symptoms have disappeared. She remains complaining of a painful spot in the right side of her back with walking and standing that is also improving. She will return to clinic in 6 months to decide if a new MRI of the lumbar spine is indicated. Juan Aguilar MD, PhD Spine Fellowship Trained Neurosurgeon Director, [facility] Coding Level of Care Code Global (55433) Diagnoses Status post lumbar spine surgery for decompression of spinal cord Z98.890
== END 2023-12-04 10:46 | disposition home or self-care (01) ==
PROVIDERS: PCP Internal Medicine; Visit Provider Neurological Surgery
DX: Z98.890 Other specified postprocedural states (principal)
CPT/HCPCS: 99024

== ENCOUNTER → 2023-12-04 09:48 | Outpatient (BNVA) | payer OTHER, SELFPAY | PROVIDERS: PCP Internal Medicine; Visit Provider Neurological Surgery ==

== ENCOUNTER 2023-12-13 15:22 | Outpatient (AMB) | payer OTHER, SELFPAY ==
[2023-12-13 15:20] VITALS: BP 124/70; PULSE 74; O2SAT 98; BMI 31.0
--- NOTE | 2023-12-13 15:20 | MHC.PC.OV ---
Vital Signs 12/13/23 15:20 Height 5 ft 7 in Weight 198 lb BMI 31.0 BP 124/70 Blood Pressure Location Lt brachial Position Sitting Pulse 74 Pulse Source Pulse Oximeter Pulse Oximetry (%) 98 Oxygen Delivery Method Room Air Intake Visit Reasons: physical Substation Supervisor Required: No Compression Molding Machine Tender: Not Required per policy Accompanied by: Self / Same As Patient Allergies No Known Allergies Allergy (Verified 12/13/23 15:21) Medication List - Last Reconciled 12/13/23 by Nela Forrest MD albuterol sulfate 90 mcg/actuation 2 puffs inhalation Q4-6H PRN albuterol sulfate 2.5 mg inhalation Q4-6H PRN amlodipine 5 mg PO QAM beclomethasone dipropionate 80 mcg/actuation (Qvar RediHaler) 1 inh inhalation Q12H cetirizine (Zyrtec) 10 mg PO BEDTIME fluocinolone 0.025% 1 appl topical BID ibuprofen 400 mg PO TID xidpqewp-wtu-roco-FA-vit K-lut 8 mg iron-400 mcg-50 mcg (Centrum Silver Women) 1 tab PO DAILY Tobacco use date assessed: 12/13/23 Fall risk assessment: No Falls in past year Last assessed Fall Risk: 12/13/23 Dental Screening Dental Screen Date: 12/13/23 Did you have a dental visit in the last 12 months?: Yes Did you have a dental problem in the last 6 months where you did not have access to dental care?: No Was dental information given to patient?: Patient has dentist HPI physical HPI Details 68-year-old obese female with hypertension hypercholesterolemia asthma impaired glucose tolerance lumbar degenerative disc disease and right hip pain last seen in April 2023. Patient is up-to-date with colonoscopy with colon test due for this year. Mammogram up-to-date bone density due. Review of the notes patient had lumbar spine surgery decompression 12/04/[address] Aguilar. Patient also sees endocrinology September 2023 for multinodular goiter fine needle aspiration biopsy right mid nodule x2 left lower pole nodule benign continued yearly ultrasound. Patient also sees Orthopedics for the left hip pain patient has osteoarthritis of the hip option of hip arthroplasty. noted weight loss PFSH Medical History Family history of breast cancer Degenerative disc disease, lumbar Osteoarthritis Lumbar spinal stenosis Thyroid nodule Hypercholesterolemia Vitamin D deficiency Obesity (BMI 30-39.9) Fatty liver Osteopenia Tubular adenoma of colon Hypertension Eczema Asthma Non-toxic multinodular goiter Surgical History Status post fine needle aspiration Hx of colonoscopy Hx of cholecystectomy Hx of section Family History Father COPD (chronic obstructive pulmonary disease) Mother Breast cancer Social History (Updated 12/13/23 @ 16:08 by Nela Forrest MD) Housing: House Are you a primary patient care coordinator to a significant other at home: No Do you presently have visiting nurse or other home services: No Alcohol intake: current Alcohol intake frequency: holidays/special occasions only Comment: final count correct 2 x a month glass of wine Patient Tobacco Use Status: Former Tobacco user Quit Date: 1984 Tobacco use type: Cigarette Years Smoked: 1979 stopped e-Cigarette/Vaping Use: Never Used Second Hand Smoke Exposure: No Current occupational status: employed Current occupation: [employer] Cognitive needs: No Hearing needs: No Vision needs: No Questionnaire PHQ-9 Over the last 2 weeks, how often have you been bothered by any of the following problems? 1. Little interest or pleasure in doing things: not at all 2. Feeling down, depressed, or hopeless: not at all 3. Trouble falling or staying asleep, or sleeping too much: not at all 4. Feeling tired or having little energy: not at all 5. Poor appetite or overeating: not at all 6. Feeling bad about yourself - or that you are a failure or have let yourself or your family down: not at all 7. Trouble concentrating on things, such as reading the newspaper or watching television: not at all 8. Moving or speaking so slowly that other people could have noticed. Or the opposite - being so fidgety or restless that you have been moving around a lot more than usual: not at all 9. Thoughts that you would be better off or of hurting yourself in some way: not at all Total score: 0 Depression Screening Interpretation: Negative Depression Screening Done: Yes Source: Developed by Drs. Keith Nino, Huber Dietz and colleagues, with an educational meir from [employer]. Thrive Questionnaire Date Thrive assessed: 12/13/23 I am a: Patient What is your living situation today?: I have a steady place to live Within the past 12 months, did the food you bought not last and you didn't have the money to get more?: Never true Within the past 12 months, did you worry whether your food would run out before you got money to buy more?: Never true Do you have trouble paying for medicines?: No Do you have trouble getting transportation to medical appointments?: No Do you have trouble paying your heating and electricity bill?: No Do you have trouble taking care of your child, family member or friend?: No Do you have trouble with day-to-day activities such as bathing, preparing meals, shopping, managing finances, etc.?: No Are you currently unemployed and looking for a job?: No Are you interested in more education?: No Please select the resources that you would like help with: None AUDIT C Alcohol Use Questionnaire (AUDIT-C) 1. How often do you have a drink containing alcohol?: 2-4 times a month 2. How many drinks containing alcohol do you have on a typical day when you are drinking?: 1 or 2 3. How often do you have six or more drinks on one occasion?: Never Total Score: 2 AMOL-7 AMB Questionnaire AMOL-7 Date AMOL - 7 assessed: 12/13/23 Feeling nervous, anxious, or on edge: 0 = Not at all Not being able to stop or control worryin = Not at all Worrying too much about different things: 0 = Not at all Trouble relaxin = Not at all Being so restless that it is hard to sit still: 0 = Not at all Becoming easily annoyed or irritable: 0 = Not at all Feeling afraid as if something awful might happen: 0 = Not at all Total AMOL-7 score (0-4 normal; 5-9 mild; 10-14 moderate; 15-21 severe): 0 Source: Developed by Drs. Keith Nino, Huber Dietz and colleagues, with an educational meir from [employer]. Review of Systems Const Denies poor appetite and Denies weakness Eyes Denies no additional complaints ENT Reports Normal hearing present, Denies dizziness, Denies nasal congestion, Denies tinnitus and Denies sore throat Card Denies chest pain, Denies syncope, Denies rapid heart rate and Denies dyspnea Resp Denies cough and Denies dyspnea GI Denies change in stool character, Reports constipation, Denies diarrhea, Denies nausea and Denies vomiting Denies urinary frequency, Denies difficulty voiding and Denies dysuria Neuro Reports Normal hearing present, Denies confusion, Denies dizziness, Denies syncope and Denies weakness Psych Denies confusion Physical exam (Primary Care) Vital Signs: Last Vital Signs Pulse 74 12/13/23 15:20 BP 124/70 12/13/23 15:20 Pulse Ox 98 12/13/23 15:20 Oxygen Delivery Method Room Air 12/13/23 15:20 BMI result Body Mass Index 31.0 Tobacco/Smoking Status: Tobacco use Status Tobacco use date assessed 12/13/23 12/13/23 15:23 Patient Tobacco Use Status Former Tobacco user 12/13/23 15:23 Tobacco use type Cigarette 12/13/23 15:23 e-Cigarette/Vaping Use Never Used 12/13/23 15:23 PHQ-9: PHQ-9 Score PHQ-9: Total score 0 12/13/23 15:46 Depression Screening Interpretation: Negative Thrive Assessment: Date of Thrive Assessment Date Thrive assessed 12/13/23 12/13/23 15:23 Const General: No confusion Orientation/consciousness: No confusion HENMT Other: Right ear TM clear and intact, impacted cerumen left Head: Yes normocephalic Ears: external ears normal Face and sinus: Yes normal facial exam Mouth: moist mucous membranes Throat: Yes tonsils normal Eyes Conjunctivae: conjunctivae normal Pupils: Equal, round and reactive pupils present and Pupil accommodation reflex normal Direct Ophthalmoscopy: normal light reflex Neck Neck: No lymphadenopathy Thyroid: Thyroid normal Chest Chest palpation & inspection: normal inspection of the chest Resp Effort & Inspection: normal respiratory effort and no audible wheezes Auscultation: clear to auscultation bilaterally, no crackles, no wheezes and lung sounds not diminished Cardio Rate: regular rate Rhythm: regular rhythm Peripheral pulses: radial pulses present and dorsalis pedis present GI Palpation (GI): no masses Auscultation: normal bowel sounds and normoactive bowel sounds Rectal Exam - Female: deferred Skin General skin exam: no rashes or lesions noted Rashes: no rashes Neuro General: No confusion Cranial nerves: Yes Equal, round and reactive pupils present and Yes Normal hearing present Cognition (Neuro): normal cognition Gait exam (Neuro): Normal gait present Motor exam (neuro): 5/5 motor strength present throughout Deep tendon reflexes (DTR's): Right brachioradialis reflex intensity grade: 2+, Left brachioradialis reflex intensity grade: 2+, Right patellar reflex intensity grade: 2+ and Left patellar reflex intensity grade: 2+ Extrem General: No edema Assessment and Plan Assessment & Plan (1) Annual physical exam: Code(s): Z00.00 - Encounter for general adult medical examination without abnormal findings (2) Status post lumbar spine surgery for decompression of spinal cord: Comment: 12/03/2022 Dr Aguilar Code(s): Z98.890 - Other specified postprocedural states Plan: Patient follows up with neurosurgeon (3) Osteoarthritis of right hip: Code(s): M16.11 - Unilateral primary osteoarthritis, right hip Plan: Patient follows up with orthopedics and option of arthroplasty (4) Non-toxic multinodular goiter: Comment: Biopsy September 2022 benign Code(s): E04.2 - Nontoxic multinodular goiter Plan: Patient has seen endocrinology and the yearly ultrasound has had multiple biopsies benign (5) Asthma: Comment: well controlled-follows w/Dr. Forrest Code(s): J45.909 - Unspecified asthma, uncomplicated Plan: Continue with inhaler as needed (6) Obesity (BMI 30-39.9): Code(s): E66.9 - Obesity, unspecified Plan: Diet and exercise (7) Impaired glucose tolerance: Code(s): R73.02 - Impaired glucose tolerance (oral) Plan: Decrease the amount of carbohydrate intake, pasta, bread, rice and potatoes are all sugar and that is aside from all the sweet stuff, remember that fruits are good but they are Sweet also. (8) Hypercholesterolemia: Code(s): E78.00 - Pure hypercholesterolemia, unspecified Plan: Avoid fried foods, chicken skin, eggs, butter margarine, pastries and meat. Be it pork or beef they have a lot of cholesterol LDL goal of less than 130 and triglyceride of less than 150 (9) Osteopenia: Code(s): M85.80 - Other specified disorders of bone density and structure, unspecified site Plan: Discussed about bone density testing (10) Hypertension: Code(s): I10 - Essential (primary) hypertension Plan: Continue with blood pressure medication. Decrease salt intake and exercise on amlodipine 5 mg once a day (11) Colon cancer screening: Code(s): Z12.11 - Encounter for screening for malignant neoplasm of colon Plan: Reminded patient about colonoscopy later this year (12) Eczematous dermatitis: Code(s): L30.9 - Dermatitis, unspecified Plan: Referral to dermatology done (13) Impacted cerumen, left ear: Code(s): H61.22 - Impacted cerumen, left ear Plan: Advised to schedule for irrigation Orders: Referrals Dermatology Referral L30.9 - Dermatitis, unspecified Medications: Refilled beclomethasone dipropionate 80 mcg/actuation (Qvar RediHaler) administer with spacer 1 inh inhalation Q12H 3 ea 3RF M25.551 - Pain in right hip Coding Level of Care Code Est Pt Prev Care >65y(75197) Diagnoses Annual physical exam Z00.00 Status post lumbar spine surgery for decompression of spinal cord Z98.890 Osteoarthritis of right hip M16.11 Non-toxic multinodular goiter E04.2 Asthma J45.909 Obesity (BMI 30-39.9) E66.9 Impaired glucose tolerance R73.02 Hypercholesterolemia E78.00 Osteopenia M85.80 Hypertension I10 Colon cancer screening Z12.11 Eczematous dermatitis L30.9 Impacted cerumen, left ear H61.22
== END 2023-12-13 16:24 | disposition home or self-care (01) ==
PROVIDERS: PCP Internal Medicine; Visit Provider Internal Medicine
DX: Z00.00 Encounter for general adult medical examination without abnormal findings (principal); Z98.890 Other specified postprocedural states; E66.9 Obesity, unspecified; Z68.31 Body mass index [BMI] 31.0-31.9, adult; M16.11 Unilateral primary osteoarthritis, right hip; E04.2 Nontoxic multinodular goiter; J45.909 Unspecified asthma, uncomplicated; R73.02 Impaired glucose tolerance (oral); E78.00 Pure hypercholesterolemia, unspecified; M85.80 Other specified disorders of bone density and structure, unspecified site; I10 Essential (primary) hypertension; H61.22 Impacted cerumen, left ear
CPT/HCPCS: 99397

== ENCOUNTER 2024-04-06 08:53 | Outpatient (AMB) | payer OTHER, SELFPAY ==
[2024-04-06 09:36] VITALS: BP 120/76; PULSE 90; TEMP 36.3; O2SAT 97; BMI 30.5
--- NOTE | 2024-04-06 09:36 | AM.OFFWIN_ITS ---
Intake Vital Signs 04/06/24 09:36 Height 5 ft 7 in Weight 195 lb BMI 30.5 BP 120/76 Blood Pressure Location Lt brachial Position Sitting Pulse 90 Pulse Source Pulse Oximeter Temp 97.3 F Temp Source Temporal Artery Scan Pulse Oximetry (%) 97 Oxygen Delivery Method Room Air Intake Visit Reasons: EP fever cough Intake Note: pt is here today for fever cough started saturday Patient Tobacco Use Status: Former Tobacco user Quit Date: 1984 Allergies No Known Allergies Allergy (Verified 04/06/24 10:17) Medication List - Last Reconciled 04/06/24 by Omar Cordero MD albuterol sulfate 90 mcg/actuation 2 puffs inhalation Q4-6H PRN albuterol sulfate 2.5 mg inhalation Q4-6H PRN amlodipine 5 mg PO QAM azithromycin take 500 mg today (day 1), then 250 mg for 4 days (days 2-5) PO beclomethasone dipropionate 80 mcg/actuation (Qvar RediHaler) 1 inh inhalation Q12H cetirizine (Zyrtec) 10 mg PO BEDTIME fluocinolone 0.025% 1 appl topical BID ibuprofen 400 mg PO TID jlyjzeub-wvf-jqeq-FA-vit K-lut 8 mg iron-400 mcg-50 mcg (Centrum Silver Women) 1 tab PO DAILY Do you need a note to return to daycare/school/sports/work: Yes HPI EP fever cough HPI Details 68-year-old female presents to the [facility] e for a sick visit. Patient is reporting symptoms of sore throat, difficulty swallowing and headaches. Symptoms started a few days ago. No fevers or chills. PFS Medical History Family history of breast cancer Degenerative disc disease, lumbar Osteoarthritis Lumbar spinal stenosis Thyroid nodule Hypercholesterolemia Vitamin D deficiency Obesity (BMI 30-39.9) Fatty liver Osteopenia Tubular adenoma of colon Hypertension Eczema Asthma Non-toxic multinodular goiter Surgical History Status post fine needle aspiration Hx of colonoscopy Hx of cholecystectomy Hx of section Family History Father COPD (chronic obstructive pulmonary disease) Mother Breast cancer Social History (Updated 12/13/23 @ 16:08 by Nela Forrest MD) Housing: House Are you a primary coronary care unit nurse to a significant other at home: No Do you presently have visiting nurse or other home services: No Alcohol intake: current Alcohol intake frequency: holidays/special occasions only Comment: final count correct 2 x a month glass of wine Patient Tobacco Use Status: Former Tobacco user Quit Date: 1984 Tobacco use type: Cigarette Years Smoked: 1979 stopped e-Cigarette/Vaping Use: Never Used Second Hand Smoke Exposure: No Current occupational status: employed Current occupation: [employer] [place] Cognitive needs: No Hearing needs: No Vision needs: No Physical Exam Vital Signs: Last Vital Signs Temp 97.3 F 04/06/24 09:36 Pulse 90 04/06/24 09:36 BP 120/76 04/06/24 09:36 Pulse Ox 97 04/06/24 09:36 Oxygen Delivery Method Room Air 04/06/24 09:36 BMI result Body Mass Index 30.5 Const General: cooperative and healthy appearing Nutritional Appearance: well nourished Orientation/consciousness: patient oriented x3 Limitations: no limitations HEENT Head: Yes normal to inspection Eyes General: appearance normal, both eyes and all related structures Neck Neck: Yes normal visual inspection Chest Chest palpation & inspection: normal palpation of entire chest wall Resp Effort & Inspection: normal respiratory effort Neuro General: patient oriented x3 Assessment & Plan Assessment & Plan (1) Upper respiratory tract infection: Code(s): J06.9 - Acute upper respiratory infection, unspecified Plan: Antibiotics called in. Increase fluid intake. If symptoms not better to follow-up here. Medications: New azithromycin take 500 mg today (day 1), then 250 mg for 4 days (days 2-5) PO 6 tabs 0RF Coding Level of Care Code Est Pt Level 3 (69299) Diagnoses Upper respiratory tract infection J06.9
== END 2024-04-06 10:43 | disposition home or self-care (01) ==
PROVIDERS: PCP Internal Medicine; Visit Provider Internal Medicine
DX: J06.9 Acute upper respiratory infection, unspecified (principal)
CPT/HCPCS: 99213

== ENCOUNTER 2024-05-28 14:00 | Outpatient (RCR) | payer OTHER, SELFPAY ==
--- NOTE | 2024-04-21 15:12 | MHC.PT.EP ---
[facility] [place] [facility] [place] Office [place] [facility] [address] Anjum Colmenares [address] [phone] F: [phone] F: [phone] F: [phone] F: [phone] Physical Therapy Plan of Care Date of Evaluation: 04/21/24 Date of Surgery: Diagnosis: Z98.890 Other specified post procedural states Status post lumbar spine surgery for decompression of spinal cord. Date of order 04/08/[address] Forrest Assessment: Pt is a RHD 68 y/o female, referred to PT from her PCP Dr. Forrest for treatment of: Z98.890 Other specified post procedural states Status post lumbar spine surgery for decompression of spinal cord. Date of order 04/08/[address] Forrest s/p Preoperative Diagnosis: L3-4 and L4-5 spinal stenosis/lateral recess stenosis/neural foraminal stenosis Operation: L3-4 and L4-5 Laminotomy, Partial facetectomy and foraminotomy with use of microscope. Pt also has XR/XR pelvis 1-2V IMPRESSION: Moderate-severe right hip osteoarthritis. No acute fracture or malalignment. Pt expresses intolerance for prolonged walking and standing with central lower back pain radiating to superior aspect of buttocks. Pt expressing she hopes to gain strength of her core to improve her pain level and advance quality for daily activities/exercise. Pt would benefit from attending skilled PT program 1x/week x 4-6 weeks to address impairments, implement HEP, and restore functional mobility tolerance for 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 tasks such as golf, yoga, and increased walking distances. She has limited IR of her R hip, expresses intermittent radiating sx at times down the lateral aspect of her thighs. Following decompression surgery, she reports significant gain/reduction in pain which was present along anterior thighs. Currently she rates her sx 5-6/10 in her lower back. She uses tylenol prn for sx. Frequency and Duration: The patient will be seen 1x/week x 4-6 weeks Short Term Goals: 1. Initiate self care/HEP program. 2. Pt will demonstrate centralization of lower back pain to height of spine. 3. Pt will increase strength hip abd to 4/5 B, 4. Pt will increase strength hip ext to 4/5 B. Denitrator Operator Goals: 1. Pt will demonstrate I HEP. 2. Pt will express improvement in walking tolerance for community distances. 3. She will demonstrate improved tolerance for all positional changes. 4. She will demonstrate strength hip abd 5/5 B. 5. Hip ext strength 5/5 B. Treatment Plan: Modalities to reduce pain, spasms and effusion. Manual therapy to restore motion and function. Therapeutic exercise to improve strength and flexibility. Neuromuscular re-education for posture and balance. Therapeutic activities to return to functional activities of daily living. Electronically signed by: Vivi Evans, PT, DPT Please sign and return to therapist. Thank you for your referral.
== END 2024-12-23 10:49 | disposition home or self-care (01) ==
LOC: HO.PTWFD 14:00
PROVIDERS: PCP Internal Medicine; Visit Provider Internal Medicine
DX: Z98.890 Other specified postprocedural states (principal)
CPT/HCPCS: 97110; 97140; 97162

== ENCOUNTER 2024-06-09 15:19 | Outpatient (AMB) | payer OTHER, SELFPAY ==
--- NOTE | 2024-06-09 15:21 | A.SPINEOV_ITS ---
Intake Visit Reasons: 6 months f/up Intake Note: Ms. Floyd is here today for her 6 month f/u. Roller Skate Repairer Required: No Allergies No Known Allergies Allergy (Verified 06/09/24 15:22) Assessment & Plan Assessment & Plan (1) Status post lumbar spine surgery for decompression of spinal cord: Comment: 12/03/2022 Dr Aguilar Code(s): Z98.890 - Other specified postprocedural states Category: Surgical Plan Dear colleague, on 06/08/2024 I saw for follow-up Lorelei Floyd. She is status post lumbar decompression in October of 2023. The neurogenic claudication symptoms responded well to the decompression. However, she continued to complain of a right-sided back pain with walking and standing. The good news is that this symptom has been improving. The addition of physical therapy has expanded her walking distance. Therefore, we will hold off on any new imaging as it will not have any surgical consequences. The patient will return to my office if an aggravation in symptoms occur. Thank you for letting me take care of your patient. Juan Aguilar MD, PhD Spine Fellowship Trained Neurosurgeon Director, [facility] Coding Level of Care Code Est Pt Level 3 (50952) Diagnoses Status post lumbar spine surgery for decompression of spinal cord Z98.890
== END 2024-06-09 15:48 | disposition home or self-care (01) ==
PROVIDERS: PCP Internal Medicine; Visit Provider Neurological Surgery
DX: Z98.890 Other specified postprocedural states (principal)
CPT/HCPCS: 99213

== ENCOUNTER → 2024-06-09 15:19 | Outpatient (BNVA) | payer OTHER, SELFPAY | PROVIDERS: PCP Internal Medicine; Visit Provider Neurological Surgery ==

== ENCOUNTER 2024-06-23 08:10 | Outpatient (AMB) | payer OTHER, SELFPAY ==
[2024-06-23 08:15] VITALS: BP 144/76; PULSE 78; O2SAT 98; BMI 31.5
--- NOTE | 2024-06-23 08:15 | MHC.PC.OV ---
Vital Signs 06/23/24 08:15 06/23/24 08:36 Height 5 ft 7 in Weight 201 lb BMI 31.5 BP 144/76 H 140/70 H Blood Pressure Location Lt brachial Lt brachial Position Sitting Sitting Pulse 78 Pulse Source Pulse Oximeter Pulse Oximetry (%) 98 Oxygen Delivery Method Room Air Intake Visit Reasons: Asthma Allergies No Known Allergies Allergy (Verified 06/23/24 08:16) Medication List - Last Reconciled 06/23/24 by Nela Forrest MD albuterol sulfate 90 mcg/actuation 2 puffs inhalation Q4-6H PRN albuterol sulfate 2.5 mg inhalation Q4-6H PRN amlodipine 5 mg PO QAM beclomethasone dipropionate 80 mcg/actuation (Qvar RediHaler) 1 inh inhalation Q12H cetirizine (Zyrtec) 10 mg PO BEDTIME fluocinolone 0.025% 1 appl topical BID ibuprofen 400 mg PO TID [id number]-[id number]-FA-vit K-lut 8 mg iron-400 mcg-50 mcg (Centrum Silver Women) 1 tab PO DAILY Tobacco use date assessed: 12/13/23 Fall risk assessment: No Falls in past year Last assessed Fall Risk: 06/23/24 Dental Screening Dental Screen Date: 12/13/23 HPI Asthma HPI Details 69-year-old obese female(noted 6 lb weight gain) with a history of lumbar degenerative disc disease status post spine surgery decompression October 2023 right hip osteoarthritis asthma impaired glucose tolerance hypercholesterolemia osteopenia hypertension coming in for follow-up. Last seen in 12/21/2023. Patient's colonoscopy is due this year. Mammogram is up-to-date 10/21/2023 bone density is due. Patient has followed up six-month postop to the neurosurgeon still complaining of right-sided back pain. Noted 04/20/2024 urgent care visit for upper respiratory tract infection. [facility] Medical History (Updated 06/23/24 @ 08:33 by Nela Forrest MD) Family history of breast cancer Degenerative disc disease, lumbar Osteoarthritis Lumbar spinal stenosis Thyroid nodule Hypercholesterolemia Vitamin D deficiency Obesity (BMI 30-39.9) Fatty liver Osteopenia Tubular adenoma of colon Hypertension Eczema Asthma Non-toxic multinodular goiter Surgical History (Updated 12/13/23 @ 15:56 by Nela Forrest MD) Status post fine needle aspiration Hx of colonoscopy Hx of cholecystectomy Hx of section Family History Father COPD (chronic obstructive pulmonary disease) Mother Breast cancer Social History (Updated 12/13/23 @ 16:08 by Nela Forrest MD) Housing: House Are you a primary health care coordinator to a significant other at home: No Do you presently have visiting nurse or other home services: No Alcohol intake: current Alcohol intake frequency: holidays/special occasions only Comment: final count correct 2 x a month glass of wine Patient Tobacco Use Status: Former Tobacco user Tobacco use type: Cigarette Years Smoked: 1979 stopped e-Cigarette/Vaping Use: Never Used Second Hand Smoke Exposure: No Current occupational status: employed Current occupation: [employer] Cognitive needs: No Hearing needs: No Vision needs: Yes Questionnaire PHQ-9 Over the last 2 weeks, how often have you been bothered by any of the following problems? 1. Little interest or pleasure in doing things: not at all 2. Feeling down, depressed, or hopeless: not at all 3. Trouble falling or staying asleep, or sleeping too much: not at all 4. Feeling tired or having little energy: not at all 5. Poor appetite or overeating: not at all 6. Feeling bad about yourself - or that you are a failure or have let yourself or your family down: not at all 7. Trouble concentrating on things, such as reading the newspaper or watching television: not at all 8. Moving or speaking so slowly that other people could have noticed. Or the opposite - being so fidgety or restless that you have been moving around a lot more than usual: not at all 9. Thoughts that you would be better off or of hurting yourself in some way: not at all Total score: 0 Depression Screening Interpretation: Negative Depression Screening Done: Yes Source: Developed by Drs. Keith Nino, Ally Kinney, Huber Richmond and colleagues, with an educational meir from [employer]. Thrive Questionnaire Date Thrive assessed: 12/13/23 AUDIT C Alcohol Use Questionnaire (AUDIT-C) 1. How often do you have a drink containing alcohol?: 2-4 times a month 2. How many drinks containing alcohol do you have on a typical day when you are drinking?: 1 or 2 3. How often do you have six or more drinks on one occasion?: Never Total Score: 2 AMOL-7 AMB Questionnaire AMOL-7 Date AMOL - 7 assessed: 12/13/23 Source: Developed by Drs. Keith Nino, Ally Kinney, Huber Richmond and colleagues, with an educational meir from [employer]. Physical exam (Primary Care) Vital Signs: Last Vital Signs Pulse 78 06/23/24 08:15 BP 144/76 H 06/23/24 08:15 Pulse Ox 98 06/23/24 08:15 Oxygen Delivery Method Room Air 06/23/24 08:15 BMI result Body Mass Index 31.5 Tobacco/Smoking Status: Tobacco use Status Tobacco use date assessed 12/13/23 06/23/24 08:22 Patient Tobacco Use Status Former Tobacco user 06/23/24 08:22 Tobacco use type Cigarette 06/23/24 08:22 e-Cigarette/Vaping Use Never Used 06/23/24 08:22 PHQ-9: PHQ-9 Score PHQ-9: Total score 0 06/23/24 08:22 Depression Screening Interpretation: Negative Thrive Assessment: Date of Thrive Assessment Date Thrive assessed 12/13/23 06/23/24 08:22 Const General: alert; No acute distress Eyes Conjunctivae: conjunctivae normal Resp Auscultation: clear to auscultation bilaterally Cardio Rate: regular rate Rhythm: regular rhythm GI Inspection: Yes normal to inspection Extrem General: Yes normal to inspection and No edema Assessment and Plan Assessment & Plan (1) Obesity (BMI 30-39.9): Code(s): E66.9 - Obesity, unspecified Plan: Diet and exercise (2) Hypertension: Code(s): I10 - Essential (primary) hypertension Plan: Continue with blood pressure medication. Decrease salt intake and exercise on amlodipine 5 mg once a day (3) Hypercholesterolemia: Code(s): E78.00 - Pure hypercholesterolemia, unspecified Plan: Avoid fried foods, chicken skin, eggs, butter margarine, pastries and meat. Be it pork or beef they have a lot of cholesterol Elaine last blood work within normal limits (4) Asthma: Comment: well controlled-follows w/Dr. Forrest Code(s): J45.909 - Unspecified asthma, uncomplicated Plan: On albuterol and QVAR (5) Osteopenia: Code(s): M85.80 - Other specified disorders of bone density and structure, unspecified site Plan: Patient is reminded about bone density (6) Impaired glucose tolerance: Code(s): R73.02 - Impaired glucose tolerance (oral) Plan: Decrease the amount of carbohydrate intake, pasta, bread, rice and potatoes are all sugar and that is aside from all the sweet stuff, remember that fruits are good but they are Sweet also. (7) Lumbar degenerative disc disease: Comment: Status post decompressive surgery 10/2023 Code(s): M51.36 - Other intervertebral disc degeneration, lumbar region Plan: Continue to follow-up with the neurosurgeon. Is taking ibuprofen 400 mg twice a day and discussed alternative that are safer Tylenol or Voltaren gel (8) Tubular adenoma of colon: Comment: 2018 Code(s): D12.6 - Benign neoplasm of colon, unspecified Plan: Patient is reminded about colonoscopy Orders: Orders Complete Blood Count Auto Diff Today R73.02 - Impaired glucose tolerance (oral) Hemoglobin A1c Today R73.02 - Impaired glucose tolerance (oral) Lipid Panel Today E78.00 - Pure hypercholesterolemia, unspecified, R73.02 - Impaired glucose tolerance (oral) Vitamin B12 and Folate Today R73.02 - Impaired glucose tolerance (oral) Vitamin D 25-OH Total Today R73.02 - Impaired glucose tolerance (oral) UA w Microscopic Today R73.02 - Impaired glucose tolerance (oral) XR DEXA axial skeleton Today M81.0 - Age-related osteoporosis without current pathological fracture, M85.80 - Other specified disorders of bone density and structure, unspecified site Comprehensive Met. Panel Today R73.02 - Impaired glucose tolerance (oral) Thyroid Stimulating Hormone Today R73.02 - Impaired glucose tolerance (oral) Free T4 (Free Thyroxine) Today R73.02 - Impaired glucose tolerance (oral) Referrals Gastroenterology Referral D12.6 - Benign neoplasm of colon, unspecified Coding Level of Care Code Est Pt Level 4 (03225) Diagnoses Obesity (BMI 30-39.9) E66.9 Hypertension I10 Hypercholesterolemia E78.00 Asthma J45.909 Osteopenia M85.80 Impaired glucose tolerance R73.02 Lumbar degenerative disc disease M51.36 Tubular adenoma of colon D12.6
[2024-06-23 08:36] VITALS: BP 140/70
== END 2024-06-23 08:47 | disposition home or self-care (01) ==
PROVIDERS: PCP Internal Medicine; Visit Provider Internal Medicine
DX: I10 Essential (primary) hypertension (principal); E66.9 Obesity, unspecified; Z68.33 Body mass index [BMI] 33.0-33.9, adult; E78.00 Pure hypercholesterolemia, unspecified; J45.909 Unspecified asthma, uncomplicated; R73.02 Impaired glucose tolerance (oral); M85.80 Other specified disorders of bone density and structure, unspecified site; M51.36 Other intervertebral disc degeneration, lumbar region; D12.6 Benign neoplasm of colon, unspecified
CPT/HCPCS: 99214

== ENCOUNTER 2024-08-04 07:48 | Outpatient (REF) | payer OTHER, SELFPAY ==
--- NOTE | ~2024-08-04 | US_ITS ---
EXAMINATION: US THYROID CLINICAL INFORMATION: Nontoxic multinodular goiter. COMPARISON: Ultrasound-guided fine needle aspiration thyroid 09/20/2022. Thyroid ultrasound 02/21/2022 and 08/25/2020. Ultrasound-guided fine-needle aspiration thyroid 01/26/2021. TECHNIQUE: Linear transducer grayscale and color Doppler examination with attention to the region of the thyroid. FINDINGS: SIZE: Measurements of the thyroid lobes and nodules are given in sagittal, anteroposterior and transverse dimensions respectively. Right Thyroid Lobe: 4.9 x 2.2 x 2.1 cm, volume 12.0 mL. Previously 3.8 x 1.9 x 2.2 cm, volume 8.2 mL. Parenchyma: The gland echotexture is heterogeneous. Thyroid vascularity is increased. Left Thyroid Lobe: 4.6 x 1.7 x 1.7 cm, volume 7.0 mL. Previously 4.0 x 1.5 x 1.8 cm, volume 5.6 mL. Parenchyma: The gland echotexture is heterogeneous. Thyroid vascularity is increased. Isthmus: 0.5 cm in maximum AP dimension. Previously 0.4 cm. Estimated total number of nodules greater than or equal to 1 cm: 6 to 10. Bioprocess Engineer nodules are described as follows: 1. Location: Right superior. Size: 1.6 x 0.7 x 1.1 cm, volume 0.68 mL. Previously: 1.6 x 0.7 x 1.8 cm, volume 1.05 mL. Nodule characteristics: Composition: Solid (2). Echogenicity: Hypoechoic (2). Shape: Not taller than wide (0). Margins: Smooth (0). Echogenic Foci: None (0). ACR TI-RADS total points: 4 Previous: 4 ACR TI-RADS category: 4 Previous: 4 Significant change in size (>/= 20% in 2 dimensions and minimal increase of 2 mm or 50% or greater increase in volume): No Change in features: No Change in ACR TI-RADS risk category: No 2. Location: Right mid. Size: 2.7 x 2.0 x 1.9 cm, volume 5.57 mL. Previously: 2.5 x 1.6 x 1.9 cm, volume 3.97 mL. Nodule characteristics: Composition: Mixed cystic and solid (1). Echogenicity: Hypoechoic (2). Shape: Taller than wide (3). Margins: Smooth (0). Echogenic Foci: Macrocalcifications (1). Punctate echogenic foci (3). ACR TI-RADS total points: 10 Previous: 0 ACR TI-RADS category: 5 Previous: 1 Significant change in size (>/= 20% in 2 dimensions and minimal increase of 2 mm or 50% or greater increase in volume): No Change in features: Yes Change in ACR TI-RADS risk category: Yes 3. Location: Right inferior isthmus. Size: 1.3 x 0.5 x 1.0 cm, volume 0.34 mL. Previously: 1.4 x 0.7 x 1.1 cm, volume 0.56 mL. Nodule characteristics: Composition: Solid/almost completely solid (2). Echogenicity: Hypoechoic (2). Shape: Not taller than wide (0). Margins: Smooth (0). Echogenic Foci: Punctate echogenic foci (3). ACR TI-RADS total points: 7 Previous: 4 ACR TI-RADS category: 5 Previous: 4 Significant change in size (>/= 20% in 2 dimensions and minimal increase of 2 mm or 50% or greater increase in volume): No Change in features: Yes Change in ACR TI-RADS risk category: Yes 4. Location: Left superior/mid. Size: 1.3 x 0.5 x 1.2 cm, volume 0.40 mL. Previously: 1.3 x 0.8 x 1.0 cm, volume 0.54 mL. Nodule characteristics: Composition: Mixed cystic and solid (1). Echogenicity: Hypoechoic (2). Shape: Not taller than wide (0). Margins: Smooth (0). Echogenic Foci: None (0). ACR TI-RADS total points: 3 Previous: 0 ACR TI-RADS category: 3 Previous: 1 Significant change in size (>/= 20% in 2 dimensions and minimal increase of 2 mm or 50% or greater increase in volume): No Change in features: Yes Change in ACR TI-RADS risk category: Yes 5. Location: Left mid. Size: 1.4 x 0.8 x 1.2 cm, volume 0.68 mL. Previously: 1.0 x 0.8 x 0.7 cm, volume 0.29 mL. Nodule characteristics: Composition: Mixed cystic and solid (1). Echogenicity: Hypoechoic (2). Shape: Not taller than wide (0). Margins: Smooth (0). Echogenic Foci: None (0). ACR TI-RADS total points: 3 Previous: 0 ACR TI-RADS category: 3 Previous: 1 Significant change in size (>/= 20% in 2 dimensions and minimal increase of 2 mm or 50% or greater increase in volume): No Change in features: Yes Change in ACR TI-RADS risk category: Yes NODES: No lymphadenopathy is seen in the tissue surrounding the thyroid gland. US/US thyroid IMPRESSION: 1. Nodule in the superior portion of the right thyroid lobe demonstrates decreased maximum dimension measuring 1.6 cm with a stable TI-RADS category 4. Nodule is amenable to biopsy if not already performed. 2. Nodule in the midportion of the right thyroid lobe demonstrates increased maximum dimension measuring 2.7 cm with an increase in TI-RADS category now 5. Nodule is amenable to biopsy if not already performed. 3. Nodule in the lower pole of the right thyroid lobe/isthmus demonstrates decreased maximum dimension now measuring 1.3 cm with a increase in TI-RADS category now 5. Nodule is amenable to biopsy if not already performed. 4. Nodule in the superior/midportion of the left thyroid lobe demonstrates stable maximum dimension of 1.3 cm with an increase in TI-RADS category now 3. Nodule does not require follow-up. 5. Nodule in the midportion of the left thyroid lobe demonstrates increased maximum dimensions now measuring 1.4 cm with an increase in TI-RADS category now 3. Nodule does not require follow-up. 6. Bilateral thyroid lobes demonstrate a homogeneous echotexture with increased vascularity with slight asymmetry in size, right greater than left. 7. No lymphadenopathy noted. ACR TI-RADS RECOMMENDATION REFERENCE: Ultrasound-guided fine-needle aspiration, follow up ultrasound, no further followup. * TR3 (3 points): FNA if more than or equal to 2.5 cm in maximum dimension, follow up ultrasound in 1, 3 and 5 years if 1.5 to 2.4 cm in maximum dimension. * TR4 (4-6 points): FNA if more than or equal to 1.5 cm in maximum dimension, follow up ultrasound in 1, 2, 3 and 5 years if 1 to 1.4 cm in maximum dimension. * TR5 (more than or equal to 7 points): FNA if more than or equal to 1 cm in maximum dimension, follow up ultrasound every year for 5 years if 0.5 to 0.9 cm in maximum dimension. * TR3, TR4 or TR5 nodules that are below the size threshold for follow up receive no followup. Electronically signed by: Gabriella Geller MD 08/15/2024 02:54 PM EDT RP
== END 2024-08-04 07:49 | disposition home or self-care (01) ==
LOC: HO.US 07:48
PROVIDERS: PCP Internal Medicine; Visit Provider Internal Medicine Endocrinology, Diabetes & Metabolism
DX: E04.2 Nontoxic multinodular goiter (principal)
CPT/HCPCS: 76536

== ENCOUNTER 2024-09-18 15:14 | Outpatient (AMB) | payer OTHER, SELFPAY ==
[2024-09-18 15:23] VITALS: BP 146/91; PULSE 77; BMI 32.9
--- NOTE | 2024-09-18 15:23 | MHC.OFFVIS ---
Vital Signs 09/18/24 15:23 Height 5 ft 7 in Weight 209 lb 14.081 oz BMI 32.9 BP 146/91 H Blood Pressure Location Lt brachial Position Sitting Pulse 77 Intake Visit Reasons: Colonoscopy Screening Intake Note: Lorelei presents in office for colonoscopy screening. CC: Patient denies having any GI concerns today. Addictions Counselor Required: No Accompanied by: Self / Same As Patient Allergies No Known Allergies Allergy (Verified 09/18/24 15:30) HPI HPI Colonoscopy Screening: Details: 69-year-old female here for a preprocedural meeting to discuss a screening colonoscopy. She is referred by Nela Forrest PMX Asthma Hypertension High cholesterol Eczema Impaired fasting glucose Multinodular goiter Osteopenia Lumbar degenerative disc disease Osteoarthritis of the right hip History of tubular adenoma Fatty liver * SURGICAL HISTORY Colonoscopy-2019 Cholecystectomy section Thyroid fine-needle aspiration Lumbar decompression surgery * ALLERGIES: NKDA * [facility] LABS: upcoming TODAY'S VISIT She had a prior scope in 2019 She denies any bowel or upper GI problems. Her asthma is well controlled and she denies any cardiac. She had some trouble coming out of general anesthesia after her disc repair, no other problems. No ID problems. She had 2 TA removed in 2019 [facility] Medical History (Updated 09/18/24 @ 15:34 by PETERSON Hendrix) Colon cancer screening COVID-19 virus infection Hip pain Sciatic nerve pain Radicular pain of left lower extremity Annual physical exam Otitis externa Cerumen debris on tympanic membrane of left ear Lumbar degenerative disc disease Right thigh pain Hip pain, right Vertebrogenic low back pain Lumbar spinal stenosis Scoliosis of lumbar region due to degenerative disease of spine in adult Lumbar stenosis with neurogenic claudication Annual physical exam Eczematous dermatitis Impacted cerumen, left ear Family history of breast cancer Degenerative disc disease, lumbar Osteoarthritis Lumbar spinal stenosis Thyroid nodule Hypercholesterolemia Vitamin D deficiency Obesity (BMI 30-39.9) Fatty liver Osteopenia Tubular adenoma of colon Hypertension Eczema Asthma Non-toxic multinodular goiter Surgical History Status post lumbar spine surgery for decompression of spinal cord Status post fine needle aspiration Hx of colonoscopy Hx of cholecystectomy Hx of section Family History Father COPD (chronic obstructive pulmonary disease) Mother Breast cancer Social History Housing: House Are you a primary behavioral health care manager to a significant other at home: No Do you presently have visiting nurse or other home services: No Alcohol intake: current Alcohol intake frequency: holidays/special occasions only Comment: final count correct 2 x a month glass of wine Patient Tobacco Use Status: Former Tobacco user Tobacco use type: Cigarette Years Smoked: 1979 stopped e-Cigarette/Vaping Use: Never Used Second Hand Smoke Exposure: No Current occupational status: employed Current occupation: [employer] Cognitive needs: No Hearing needs: No Vision needs: Yes Review of Systems Const Denies fatigue, Denies fever(s), Denies night sweats, Denies poor appetite and Denies weight loss Eyes Details: glasses Reports requires corrective lenses ENT Reports Normal hearing present, Denies dental pain, Denies dysphagia, Denies hearing loss, Denies mouth pain, Denies odynophagia, Denies throat swelling, Denies tongue swelling and Reports other (Dentition adequate) Card Reports no additional complaints Resp Reports no additional complaints GI Details: Denies abdominal pain, Denies melena, Denies bloating, Denies hematochezia, Denies constipation, Denies GI cramping, Denies dysphagia, Denies excessive flatus, Denies early satiety, Denies heartburn, Denies diarrhea, Denies nausea, Denies odynophagia, Denies vomiting and Denies hematemesis Skin/Breast Denies pruritus, Denies lesions, Denies rash and Denies jaundice Neuro Reports Normal hearing present and Denies Abnormal speech present Endo Denies fatigue Aller/Immun Denies throat swelling and Denies tongue swelling Physical Exam Vital Signs: Last Vital Signs Pulse 77 09/18/24 15:23 BP 146/91 H 09/18/24 15:23 BMI result Body Mass Index 32.9 Const General: cooperative, no acute distress, well developed and well groomed Nutritional Appearance: well nourished and obese Orientation/consciousness: oriented to person, oriented to place and oriented to time Limitations: No language barrier HEENT Head: Yes normocephalic and Yes atraumatic Eyes General: appearance normal, both eyes and all related structures Pupils: Equal, round and reactive pupils present Neck Neck: Yes normal visual inspection and Yes no lymphadenopathy Thyroid: Thyroid normal Resp Effort & Inspection: normal respiratory effort and able to speak in complete sentences Auscultation: clear to auscultation bilaterally Cardio Rate: regular rate Rhythm: regular rhythm Heart sounds: Normal, physiologic split S2 sound present Peripheral pulses: radial pulses present and posterior tibial pulses present GI Inspection: No distended, Yes Abdominal panniculus present and Yes obesity Palpation (GI): Soft to palpation, nontender, no guarding, not rigid and No hepatosplenomegaly present Percussion: Yes normal to percussion Auscultation: normal bowel sounds Rectal Exam - Female: deferred Abdomen image: 1. surgical scars Skin General skin exam: no rashes or lesions noted, turgor normal, skin not dry, no jaundice, No spider nevi and no striae Rashes: no rashes Nails: normal Neuro General: oriented to person, oriented to place and oriented to time Cranial nerves: Yes Equal, round and reactive pupils present and Yes Normal hearing present Speech: No Abnormal speech present Extrem General: Yes normal to inspection, No clubbing, No cyanosis and Yes edema (left > right) Psych Appearance: grossly normal and well kempt Mental Status: mental status grossly normal Speech and movement: Normal speech and movement present Affect: normal affect Attitude: cooperative Thought process: Normal thought process present and not confabulating Thought content: Normal thought content present Insight: Good insight present (Psych) Judgement: Good judgement present (Psych) Assessment & Plan Assessment & Plan (1) Tubular adenoma of colon: Comment: 2019 Code(s): D12.6 - Benign neoplasm of colon, unspecified Category: Medical (2) Pre-op examination: Code(s): Z01.818 - Encounter for other preprocedural examination Category: Medical Plan She had a prior scope in 2019 She denies any bowel or upper GI problems. Her asthma is well controlled and she denies any cardiac. She had some trouble coming out of general anesthesia after her disc repair, no other problems. No ID problems. She had 2 TA removed in 2019 Orders: Orders Comprehensive Met. Panel 09/18/24 D12.6 - Benign neoplasm of colon, unspecified, Z01.818 - Encounter for other preprocedural examination Complete Blood Count Auto Diff 09/18/24 D12.6 - Benign neoplasm of colon, unspecified, Z01.818 - Encounter for other preprocedural examination Colonoscopy - GI Use Only 09/18/24 D12.6 - Benign neoplasm of colon, unspecified, Z01.818 - Encounter for other preprocedural examination Medications: New polyethylene glycol 3350 (Miralax) 238 grams PO ONCE 238 grams 0RF colonoscopy prep 1 day Coding Level of Care Code New Pt Level 3 (62499) Diagnoses Tubular adenoma of colon D12.6 Pre-op examination Z01.818
== END 2024-09-18 15:51 | disposition home or self-care (01) ==
PROVIDERS: PCP Internal Medicine; Visit Provider Nurse Practitioner
DX: D12.6 Benign neoplasm of colon, unspecified (principal); Z01.818 Encounter for other preprocedural examination
CPT/HCPCS: 99203

== ENCOUNTER → 2024-09-18 15:14 | Outpatient (BNVA) | payer OTHER, SELFPAY | PROVIDERS: PCP Internal Medicine; Visit Provider Nurse Practitioner ==

== ENCOUNTER 2024-09-30 07:49 | Outpatient (AMB) | payer OTHER, SELFPAY ==
--- NOTE | 2024-09-30 07:52 | A.OFFVIS_ITS ---
Vital Signs 09/30/24 07:53 Height 5 ft 7 in Weight 210 lb 12.191 oz BMI 33.0 BP 124/66 Blood Pressure Location Lt brachial Position Sitting Intake Visit Reasons: f/u [facility]-conf Intake Note: Patient present today for [facility] follow up visit. Allergies No Known Allergies Allergy (Verified 09/18/24 15:30) Medication List - Last Reconciled 09/30/24 by Keith Sloan MD albuterol sulfate 90 mcg/actuation 2 puffs inhalation Q4-6H PRN albuterol sulfate 2.5 mg inhalation Q4-6H PRN amlodipine 5 mg PO QAM beclomethasone dipropionate 80 mcg/actuation (Qvar RediHaler) 1 inh inhalation Q12H cetirizine (Zyrtec) 10 mg PO BEDTIME fluocinolone 0.025% 1 appl topical BID PRN ibuprofen 400 mg PO TID eijqbqvc-rce-hdyi-FA-vit K-lut 8 mg iron-400 mcg-50 mcg (Centrum Silver Women) 1 tab PO DAILY polyethylene glycol 3350 (Miralax) 238 grams PO ONCE 1 day HPI Comments Details: 69-year-old female today for follow-up visit for nontoxic multinodular goiter . Today she is here for fine-needle aspiration results she is feeling well she has no complaints after biopsy. She had fine-needle aspiration on 01/26/2021 of right mid pole nodule and left lower pole nodule both benign follicular nodule [place] category 2. . She has a non toxic multinodular goiter. She had a prior Benign FNA of 1 nodule in the right side by Dr Sloan around 2009. She denies compressive symptoms. No dysphagia, dyspnea in flat position, She denies cold or heat intolerance, weigth loss or gain, diarrhea, constipation, imsomnia, fatigue, dry skin, dysphagia, dyspnea, dysphonia, tremors, palpitations, irritability, anxiety. She denies recent excess iodine or IV contrast exposure, radiation to head or neck, thyroid surgery, denies herbal or OTC medications. Denies family history of Thyroid disease or cancer. US thyroid 08/25/2020 Right Thyroid Lobe: 4.1 x 1.8 x 1.9 cm, volume 7.3 mL. Previously 4.1 x 1.6 x 1.6 cm, volume 5.5 mL. Parenchyma: The gland echotexture is heterogeneous. Thyroid vascularity is normal. Left Thyroid Lobe: 4.1 x 1.4 x 1.7 cm, volume 5.1 mL. Previously 4.0 x 1.6 x 1.4 cm, volume 4.5 mL. Parenchyma: The gland echotexture is heterogeneous. Thyroid vascularity is normal. Isthmus: 0.4 cm in maximum AP dimension. Previously 0.2 cm. RIGHT THYROID LOBE: Numerous nodules are seen. 4 nodules are described below as a eligibility services representative view of the right thyroid lobe. 1. Location: Superior. Size: 1.2 x 0.7 x 1.3 cm. Previous: 1.5 x 0.6 x 1.0 cm. Nodule characteristics: Hypoechoic nodule. Margins. Positive color flow. 2. Location: Middle. Size: 2.3 x 1.7 x 1.4 cm. Previous: 1.2 x 1.3 x 1.2 cm. Nodule characteristics: Heterogeneous nodule. Smooth margins. Microcalcifications suspected. Mild color flow.. 3. Location: Inferior. Size: 0.6 x 0.4 x 0.4 cm. Previous: 1.1 x 1.1 x 1.2 cm. Nodule characteristics: Heterogeneous nodule. Well-defined margins. Positive patient. 4. Location: Middle. Size: 0.5 x 0.5 x 0.4 cm. Previous: New since the previous study. Nodule characteristics: Hypoechoic, mildly heterogeneous nodule. Positive color flow. ISTHMUS: No nodules. LEFT THYROID LOBE: Numerous nodules are seen. 4 nodules are described below as a eligibility services representative view of the left thyroid lobe. 1. Location: Superior. Size: 1.0 x 0.5 x 0.8 cm. Previous: Possibly 0.5 x 0.4 x 0.4 cm Nodule characteristics: Heterogeneous nodule. Margins are well-defined. Positive color flow. 2. Location: Superior. Size: 1.1 x 0.6 x 0.9 cm. Previous: Possibly 0.4 x 0.4 x 0.3 cm. Nodule characteristics: Heterogeneous nodule. Well-defined margins. Microcalcifications suspected. Positive color flow.. 3. Location: Middle. Size: 0.9 x 0.7 x 0.7 cm. Previous: Direct comparison nodule not accurately defined. Nodule characteristics: Heterogeneous nodule. Well-defined margins. Microscopic calcifications possible. Positive color flow. 4. Location: Inferior. Size: 1.3 x 1.0 x 1.1 cm. Previous: Direct comparison nodule not accurately defined. Nodule characteristics: Heterogeneous nodule. Well-defined margins. Possible microscopic calcification. No color flow. NODES: No lymphadenopathy is seen in the tissue surrounding the thyroid gland. Repeat FNA 09/20/22 showed A.? Thyroid, right upper pole 2.0 cm nodule, fine needle aspiration:? Benign ([place]age category II). B.? Thyroid, isthmus 1.4 cm nodule, fine needle aspiration:? Benign ([place] category II). COMMENT: Satisfactory for evaluation; moderately cellular specimens.? Groups of follicular epithelial cells mostly in a macrofollicular arrangement are seen; no cytologic atypia is present.? Some colloid is present.? Taken together, the findings are consistent with benign thyroid nodules. Laboratory Tests 01/20/19 07:58 25-OH Vitamin D Total 26.2 Thyroxine (T4) 6.6 TSH 3rd Generation 1.56 Laboratory Tests 10/07/20 10/07/20 10/07/20 07:30 07:30 07:30 25-OH Vitamin D Total 27.5 TSH 0.79 Free T4 1.08 Thyroxine (T4) 7.6 Thyroglobulin Antibody <1 Thyroid Peroxidase Ab <1 Repeat thyroid ultrasound showed several nodules in the right lobe that increased in size ON LICENSE OF [facility] Medical History (Updated 09/18/24 @ 15:34 by PETERSON Hendrix) Colon cancer screening COVID-19 virus infection Hip pain Sciatic nerve pain Radicular pain of left lower extremity Annual physical exam Otitis externa Cerumen debris on tympanic membrane of left ear Lumbar degenerative disc disease Right thigh pain Hip pain, right Vertebrogenic low back pain Lumbar spinal stenosis Scoliosis of lumbar region due to degenerative disease of spine in adult Lumbar stenosis with neurogenic claudication Annual physical exam Eczematous dermatitis Impacted cerumen, left ear Family history of breast cancer Degenerative disc disease, lumbar Osteoarthritis Lumbar spinal stenosis Thyroid nodule Hypercholesterolemia Vitamin D deficiency Obesity (BMI 30-39.9) Fatty liver Osteopenia Tubular adenoma of colon Hypertension Eczema Asthma Non-toxic multinodular goiter Surgical History Status post lumbar spine surgery for decompression of spinal cord Status post fine needle aspiration Hx of colonoscopy Hx of cholecystectomy Hx of section Family History Father COPD (chronic obstructive pulmonary disease) Mother Breast cancer Social History Housing: House Are you a primary child adolescent care to a significant other at home: No Do you presently have visiting nurse or other home services: No Alcohol intake: current Alcohol intake frequency: holidays/special occasions only Comment: final count correct 2 x a month glass of wine Patient Tobacco Use Status: Former Tobacco user Tobacco use type: Cigarette Years Smoked: 1979 stopped e-Cigarette/Vaping Use: Never Used Second Hand Smoke Exposure: No Current occupational status: employed Current occupation: [employer] Cognitive needs: No Hearing needs: No Vision needs: Yes Physical Exam Vital Signs: Last Vital Signs BP 124/66 09/30/24 07:53 BMI result Body Mass Index 33.0 Const Other: Thyroid gland is normal size weighs by 15 g. There are no thyroid nodules palpated. There is no cervical adenopathy palpated Assessment & Plan Assessment & Plan (1) Non-toxic multinodular goiter: Comment: Biopsy September 2022 benign Code(s): E04.2 - Nontoxic multinodular goiter Category: Medical Plan: This 68-year-old white female with a history of multinodular goiter status post FNA of right mid nodule x2 and left lower pole nodule with benign cytology. She appears to be clinically euthyroid. Recent ultrasound shows appearance of new nodule in the isthmus and slight increase in size of right upper pole nodule. She underwent a repeat FNA with benign cytology The plan is check TSH and free T4 . Will also have patient follow up with Dr. Wong field inspector and practice with expertise in thyroid ultrasound and biopsy Orders: Orders Free T4 (Free Thyroxine) Today E04.2 - Nontoxic multinodular goiter Thyroid Stimulating Hormone Today E04.2 - Nontoxic multinodular goiter Coding Level of Care Code Est Pt Level 3 (74126) Diagnoses Non-toxic multinodular goiter E04.2
[2024-09-30 07:53] VITALS: BP 124/66; BMI 33.0
== END 2024-09-30 08:13 | disposition home or self-care (01) ==
LOC: HO.ENCR 07:50
PROVIDERS: PCP Internal Medicine; Visit Provider Internal Medicine Endocrinology, Diabetes & Metabolism
DX: E04.2 Nontoxic multinodular goiter (principal)
CPT/HCPCS: 99213

== ENCOUNTER → 2024-09-30 07:49 | Outpatient (BNVA) | payer OTHER, SELFPAY | PROVIDERS: PCP Internal Medicine; Visit Provider Internal Medicine Endocrinology, Diabetes & Metabolism ==

== ENCOUNTER 2024-11-02 07:26 | Outpatient (AMB) | payer OTHER, SELFPAY ==
[2024-11-02 07:36] VITALS: BP 162/82; BMI 33.7
--- NOTE | 2024-11-02 07:36 | A.OFFVIS_ITS ---
Vital Signs 11/02/24 07:36 Height 5 ft 7 in Weight 215 lb 2.738 oz BMI 33.7 BP 162/82 H Blood Pressure Location Lt brachial Position Sitting Intake Visit Reasons: MNG Intake Note: Patient present today for MNG follow up visit. 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: No Accompanied by: Self / Same As Patient Allergies No Known Allergies Allergy (Verified 11/02/24 07:39) Medication List - Last Reconciled 11/02/24 by Ingrid Wong MD albuterol sulfate 90 mcg/actuation 2 puffs inhalation Q4-6H PRN albuterol sulfate 2.5 mg inhalation Q4-6H PRN amlodipine 5 mg PO QAM beclomethasone dipropionate 80 mcg/actuation (Qvar RediHaler) 1 inh inhalation Q12H cetirizine (Zyrtec) 10 mg PO BEDTIME fluocinolone 0.025% 1 appl topical BID PRN ibuprofen 400 mg PO TID xbokzhby-zgu-otdv-FA-vit K-lut 8 mg iron-400 mcg-50 mcg (Centrum Silver Women) 1 tab PO DAILY polyethylene glycol 3350 (Miralax) 238 grams PO ONCE 1 day HPI Comments Details: 69-year-old female today for follow-up visit for nontoxic multinodular goiter . HPI prior visit She has a non toxic multinodular goiter. She had a prior Benign FNA of 1 nodule in the right side by Dr Sloan around 2009. She had fine-needle aspiration on 01/26/2021 of right mid pole nodule and left lower pole nodule both benign follicular nodule [place] category 2. . Fine-needle aspiration September 2022 of right upper pole 2 cm and isthmus 1.4 cm thyroid nodules with benign cytology [place] category 2. Most recent thyroid ultrasound from August 2024. I reviewed the images myself which showed stable size of the right superior nodule TR 4 category, which has been biopsied before in September 2022 and was benign, showed increase in size which is significant of the right mid nodule which now measures 2.7 cm in the largest dimension, previously 2.5 cm in the largest dimension, this has been biopsied before in January 2021 and was also benign. This has punctate echogenic foci and is taller than wide. Per LEONORA classification this is a high suspicion nodule with a greater than 50% chance of malignancy. The right inferior isthmus 1.3 cm nodule also remained stable in size which has been biopsied before in September 2022 and was benign. The left superior/mid nodule, remained stable in size. The left mid 1.4 cm nodule has increased significantly in size, TR 3 category however does not meet criteria for FNA unlikely this has been biopsied before as the left lower lobe nodule in January 2021 which was benign. She denies compressive symptoms. No dysphagia, dyspnea in flat position, She denies cold or heat intolerance, weigth loss or gain, diarrhea, constipation, insomnia, fatigue, dry skin, dysphagia, dyspnea, dysphonia, t remors, palpitations, irritability, anxiety. She denies recent excess iodine or IV contrast exposure, radiation to head or neck, thyroid surgery, denies herbal or OTC medications. Denies family history of Thyroid disease or cancer. Physical exam General: sitting comfortably in no acute distress HEENT: normocephalic/atraumatic, moist oral mucosa Neck: supple, symmetrical, palpable right 2 cm nodule Cardiac: normal heart sounds Pulm: normal breath sounds B/L, no added breath sounds Abd: not distended, no tenderness Extremities: no edema, no signs of myxedema Neuro: AAO x3, Speech: normal, no facial droop, moving all 4 extremities Laboratory Tests 01/20/19 07:58 25-OH Vitamin D Total 26.2 Thyroxine (T4) 6.6 TSH 3rd Generation 1.56 Laboratory Tests 10/07/20 10/07/20 10/07/20 07:30 07:30 07:30 25-OH Vitamin D Total 27.5 TSH 0.79 Free T4 1.08 Thyroxine (T4) 7.6 Thyroglobulin Antibody <1 Thyroid Peroxidase Ab <1 Laboratory Tests 06/01/22 08/02/23 07:20 07:11 TSH 1.41 0.60 Free T4 0.87 0.96 Imaging US THYROID 08/25 CLINICAL INFORMATION: Nontoxic multinodular goiter. COMPARISON: Ultrasound-guided fine needle aspiration thyroid 09/20/2022. Thyroid ultrasound 02/21/2022 and 08/25/2020. Ultrasound-guided fine-needle aspiration thyroid 01/26/2021. TECHNIQUE: Linear transducer grayscale and color Doppler examination with attention to the region of the thyroid. FINDINGS: SIZE: Measurements of the thyroid lobes and nodules are given in sagittal, anteroposterior and transverse dimensions respectively. Right Thyroid Lobe: 4.9 x 2.2 x 2.1 cm, volume 12.0 mL. Previously 3.8 x 1.9 x 2.2 cm, volume 8.2 mL. Parenchyma: The gland echotexture is heterogeneous. Thyroid vascularity is increased. Left Thyroid Lobe: 4.6 x 1.7 x 1.7 cm, volume 7.0 mL. Previously 4.0 x 1.5 x 1.8 cm, volume 5.6 mL. Parenchyma: The gland echotexture is heterogeneous. Thyroid vascularity is increased. Isthmus: 0.5 cm in maximum AP dimension. Previously 0.4 cm. Estimated total number of nodules greater than or equal to 1 cm: 6 to 10. Implementation Specialist Payroll nodules are described as follows: 1. Location: Right superior. Size: 1.6 x 0.7 x 1.1 cm, volume 0.68 mL. Previously: 1.6 x 0.7 x 1.8 cm, volume 1.05 mL. Nodule characteristics: Composition: Solid (2). Echogenicity: Hypoechoic (2). Shape: Not taller than wide (0). Margins: Smooth (0). Echogenic Foci: None (0). ACR TI-RADS total points: 4 Previous: 4 ACR TI-RADS category: 4 Previous: 4 Significant change in size (>/= 20% in 2 dimensions and minimal increase of 2 mm or 50% or greater increase in volume): No Change in features: No Change in ACR TI-RADS risk category: No 2. Location: Right mid. Size: 2.7 x 2.0 x 1.9 cm, volume 5.57 mL. Previously: 2.5 x 1.6 x 1.9 cm, volume 3.97 mL. Nodule characteristics: Composition: Mixed cystic and solid (1). Echogenicity: Hypoechoic (2). Shape: Taller than wide (3). Margins: Smooth (0). Echogenic Foci: Macrocalcifications (1). Punctate echogenic foci (3). ACR TI-RADS total points: 10 Previous: 0 ACR TI-RADS category: 5 Previous: 1 Significant change in size (>/= 20% in 2 dimensions and minimal increase of 2 mm or 50% or greater increase in volume): No Change in features: Yes Change in ACR TI-RADS risk category: Yes 3. Location: Right inferior isthmus. Size: 1.3 x 0.5 x 1.0 cm, volume 0.34 mL. Previously: 1.4 x 0.7 x 1.1 cm, volume 0.56 mL. Nodule characteristics: Composition: Solid/almost completely solid (2). Echogenicity: Hypoechoic (2). Shape: Not taller than wide (0). Margins: Smooth (0). Echogenic Foci: Punctate echogenic foci (3). ACR TI-RADS total points: 7 Previous: 4 ACR TI-RADS category: 5 Previous: 4 Significant change in size (>/= 20% in 2 dimensions and minimal increase of 2 mm or 50% or greater increase in volume): No Change in features: Yes Change in ACR TI-RADS risk category: Yes 4. Location: Left superior/mid. Size: 1.3 x 0.5 x 1.2 cm, volume 0.40 mL. Previously: 1.3 x 0.8 x 1.0 cm, volume 0.54 mL. Nodule characteristics: Composition: Mixed cystic and solid (1). Echogenicity: Hypoechoic (2). Shape: Not taller than wide (0). Margins: Smooth (0). Echogenic Foci: None (0). ACR TI-RADS total points: 3 Previous: 0 ACR TI-RADS category: 3 Previous: 1 Significant change in size (>/= 20% in 2 dimensions and minimal increase of 2 mm or 50% or greater increase in volume): No Change in features: Yes Change in ACR TI-RADS risk category: Yes 5. Location: Left mid. Size: 1.4 x 0.8 x 1.2 cm, volume 0.68 mL. Previously: 1.0 x 0.8 x 0.7 cm, volume 0.29 mL. Nodule characteristics: Composition: Mixed cystic and solid (1). Echogenicity: Hypoechoic (2). Shape: Not taller than wide (0). Margins: Smooth (0). Echogenic Foci: None (0). ACR TI-RADS total points: 3 Previous: 0 ACR TI-RADS category: 3 Previous: 1 Significant change in size (>/= 20% in 2 dimensions and minimal increase of 2 mm or 50% or greater increase in volume): No Change in features: Yes Change in ACR TI-RADS risk category: Yes NODES: No lymphadenopathy is seen in the tissue surrounding the thyroid gland. US/US thyroid IMPRESSION: 1. Nodule in the superior portion of the right thyroid lobe demonstrates decreased maximum dimension measuring 1.6 cm with a stable TI-RADS category 4. Nodule is amenable to biopsy if not already performed. 2. Nodule in the midportion of the right thyroid lobe demonstrates increased maximum dimension measuring 2.7 cm with an increase in TI-RADS category now 5. Nodule is amenable to biopsy if not already performed. 3. Nodule in the lower pole of the right thyroid lobe/isthmus demonstrates decreased maximum dimension now measuring 1.3 cm with a increase in TI-RADS category now 5. Nodule is amenable to biopsy if not already performed. 4. Nodule in the superior/midportion of the left thyroid lobe demonstrates stable maximum dimension of 1.3 cm with an increase in TI-RADS category now 3. Nodule does not require follow-up. 5. Nodule in the midportion of the left thyroid lobe demonstrates increased maximum dimensions now measuring 1.4 cm with an increase in TI-RADS category now 3. Nodule does not require follow-up. 6. Bilateral thyroid lobes demonstrate a homogeneous echotexture with increased vascularity with slight asymmetry in size, right greater than left. 7. No lymphadenopathy noted. US THYROID 02/20 CLINICAL INFORMATION: Nontoxic multinodular goiter. COMPARISON: Ultrasound soft tissue head/neck thyroid dated 08/25/2020 and 08/13/2016. TECHNIQUE: Linear transducer grayscale and color Doppler examination with attention to the region of the thyroid. FINDINGS: SIZE: Measurements of the thyroid lobes and nodules are given in sagittal, anteroposterior and transverse dimensions respectively. Right Thyroid Lobe: 3.8 x 1.9 x 2.2 cm, volume 8.2 mL. Previously 4.1 x 1.8 x 1.9 cm, volume 7.3 mL. Parenchyma: The gland echotexture is heterogeneous. Thyroid vascularity is normal. Left Thyroid Lobe: 4.0 x 1.5 x 1.8 cm, volume 5.6 mL. Previously 4.1 x 1.4 x 1.7 cm, volume 5.1 mL. Parenchyma: The gland echotexture is heterogeneous. Thyroid vascularity is normal. Isthmus: 0.4 cm in maximum AP dimension. Previously 0.4 cm. Estimated total number of nodules greater than or equal to 1 cm: 6 to 10. Implementation Specialist Payroll nodules are described as follows: 1. Location: Right superior. Size: 1.6 x 0.7 x 1.8 cm, volume 1.05 mL. Previously: 1.2 x 0.7 x 1.3 cm, volume 0.57 mL. Nodule characteristics: Composition: Solid (2). Echogenicity: Hypoechoic (2). Shape: Not taller than wide (0). Margins: Smooth (0). Echogenic Foci: None (0). ACR TI-RADS total points: 4 ACR TI-RADS category: 4 Significant change in size (>/= 20% in 2 dimensions and minimal increase of 2 mm or 50% or greater increase in volume): Change in features: Change in ACR TI-RADS risk category: 2. Location: Right mid. Size: 2.5 x 1.6 x 1.9 cm, volume 3.97 mL. Previously: 2.3 x 1.7 x 1.4 cm, volume 2.86 mL. Nodule characteristics: Composition: Spongiform (0). Echogenicity: Anechoic (0). Shape: Not taller than wide (0). Margins: Smooth (0). Echogenic Foci: None (0). ACR TI-RADS total points: 0 ACR TI-RADS category: 1 Significant change in size (>/= 20% in 2 dimensions and minimal increase of 2 mm or 50% or greater increase in volume): Change in features: Change in ACR TI-RADS risk category: 3. Location: Left superior. Size: 1.3 x 0.8 x 1.0 cm, volume 0.54 mL. Previously: 1.1 x 0.6 x 0.9 cm, volume 0.31 mL. Nodule characteristics: Composition: Spongiform (0). Echogenicity: Anechoic (0). Shape: Not taller than wide (0). Margins: Smooth (0). Echogenic Foci: None (0). ACR TI-RADS total points: 0 ACR TI-RADS category: 1 Significant change in size (>/= 20% in 2 dimensions and minimal increase of 2 mm or 50% or greater increase in volume): Change in features: Change in ACR TI-RADS risk category: 4. Location: Left mid. Size: 1.5 x 1.0 x 1 cm, volume 0.78 mL. Previously: 1.3 x 1.0 x 1.1 cm, volume 0.74 mL. Nodule characteristics: Composition: Spongiform (0). Echogenicity: Anechoic (0). Shape: Not taller than wide (0). Margins: Smooth (0). Echogenic Foci: None (0). ACR TI-RADS total points: 0 ACR TI-RADS category: 1 Significant change in size (>/= 20% in 2 dimensions and minimal increase of 2 mm or 50% or greater increase in volume): Change in features: Change in ACR TI-RADS risk category: 5. Location: Left inferior. Size: 1.0 x 0.8 x 0.7 cm, volume 0.29 mL. Previously: 0.9 x 0.7 x 0.7 cm, volume 0.23 mL. Nodule characteristics: Composition: Spongiform (0). Echogenicity: Anechoic (0). Shape: Not taller than wide (0). Margins: Smooth (0). Echogenic Foci: None (0). ACR TI-RADS total points: 0 ACR TI-RADS category: 1 Significant change in size (>/= 20% in 2 dimensions and minimal increase of 2 mm or 50% or greater increase in volume): Change in features: Change in ACR TI-RADS risk category: 6. Location: Isthmus. Size: 1.4 x 0.7 x 1.1 cm, volume 0.56 mL. Previously: Not seen on the previous study. Nodule characteristics: Composition: Solid (2). Echogenicity: Hypoechoic (2). Shape: Not taller than wide (0). Margins: Smooth (0). Echogenic Foci: None (0). ACR TI-RADS total points: 4 ACR TI-RADS category: 4 NODES: No lymphadenopathy is seen in the tissue surrounding the thyroid gland. US/US thyroid IMPRESSION: Heterogeneous thyroid gland with multiple bilateral nodules. Interval increase in size right upper thyroid nodule. Newly appreciated isthmus nodule. US thyroid 08/25/2020 Right Thyroid Lobe: 4.1 x 1.8 x 1.9 cm, volume 7.3 mL. Previously 4.1 x 1.6 x 1.6 cm, volume 5.5 mL. Parenchyma: The gland echotexture is heterogeneous. Thyroid vascularity is normal. Left Thyroid Lobe: 4.1 x 1.4 x 1.7 cm, volume 5.1 mL. Previously 4.0 x 1.6 x 1.4 cm, volume 4.5 mL. Parenchyma: The gland echotexture is heterogeneous. Thyroid vascularity is normal. Isthmus: 0.4 cm in maximum AP dimension. Previously 0.2 cm. RIGHT THYROID LOBE: Numerous nodules are seen. 4 nodules are described below as a marketing representative view of the right thyroid lobe. 1. Location: Superior. Size: 1.2 x 0.7 x 1.3 cm. Previous: 1.5 x 0.6 x 1.0 cm. Nodule characteristics: Hypoechoic nodule. Margins. Positive color flow. 2. Location: Middle. Size: 2.3 x 1.7 x 1.4 cm. Previous: 1.2 x 1.3 x 1.2 cm. Nodule characteristics: Heterogeneous nodule. Smooth margins. Microcalcifications suspected. Mild color flow.. 3. Location: Inferior. Size: 0.6 x 0.4 x 0.4 cm. Previous: 1.1 x 1.1 x 1.2 cm. Nodule characteristics: Heterogeneous nodule. Well-defined margins. Positive patient. 4. Location: Middle. Size: 0.5 x 0.5 x 0.4 cm. Previous: New since the previous study. Nodule characteristics: Hypoechoic, mildly heterogeneous nodule. Positive color flow. ISTHMUS: No nodules. LEFT THYROID LOBE: Numerous nodules are seen. 4 nodules are described below as a marketing representative view of the left thyroid lobe. 1. Location: Superior. Size: 1.0 x 0.5 x 0.8 cm. Previous: Possibly 0.5 x 0.4 x 0.4 cm Nodule characteristics: Heterogeneous nodule. Margins are well-defined. Positive color flow. 2. Location: Superior. Size: 1.1 x 0.6 x 0.9 cm. Previous: Possibly 0.4 x 0.4 x 0.3 cm. Nodule characteristics: Heterogeneous nodule. Well-defined margins. Microcalcifications suspected. Positive color flow.. 3. Location: Middle. Size: 0.9 x 0.7 x 0.7 cm. Previous: Direct comparison nodule not accurately defined. Nodule characteristics: Heterogeneous nodule. Well-defined margins. Microscopic calcifications possible. Positive color flow. 4. Location: Inferior. Size: 1.3 x 1.0 x 1.1 cm. Previous: Direct comparison nodule not accurately defined. Nodule characteristics: Heterogeneous nodule. Well-defined margins. Possible microscopic calcification. No color flow. NODES: No lymphadenopathy is seen in the tissue surrounding the thyroid gland. [facility] Medical History (Updated 09/18/24 @ 15:34 by PETERSON Hendrix) Colon cancer screening COVID-19 virus infection Hip pain Sciatic nerve pain Radicular pain of left lower extremity Annual physical exam Otitis externa Cerumen debris on tympanic membrane of left ear Lumbar degenerative disc disease Right thigh pain Hip pain, right Vertebrogenic low back pain Lumbar spinal stenosis Scoliosis of lumbar region due to degenerative disease of spine in adult Lumbar stenosis with neurogenic claudication Annual physical exam Eczematous dermatitis Impacted cerumen, left ear Family history of breast cancer Degenerative disc disease, lumbar Osteoarthritis Lumbar spinal stenosis Thyroid nodule Hypercholesterolemia Vitamin D deficiency Obesity (BMI 30-39.9) Fatty liver Osteopenia Tubular adenoma of colon Hypertension Eczema Asthma Non-toxic multinodular goiter Surgical History Status post lumbar spine surgery for decompression of spinal cord Status post fine needle aspiration Hx of colonoscopy Hx of cholecystectomy Hx of section Family History Father COPD (chronic obstructive pulmonary disease) Mother Breast cancer Social History Housing: House Are you a primary manager of care to a significant other at home: No Do you presently have visiting nurse or other home services: No Alcohol intake: current Alcohol intake frequency: holidays/special occasions only Comment: final count correct 2 x a month glass of wine Patient Tobacco Use Status: Former Tobacco user Tobacco use type: Cigarette Years Smoked: 1979 stopped e-Cigarette/Vaping Use: Never Used Second Hand Smoke Exposure: No Current occupational status: employed Current occupation: [employer] [place] [employer] Cognitive needs: No Hearing needs: No Vision needs: Yes Physical Exam Vital Signs: Last Vital Signs BP 162/82 H 11/02/24 07:36 BMI result Body Mass Index 33.7 Assessment & Plan Assessment & Plan (1) Non-toxic multinodular goiter: Comment: Biopsy September 2022 benign Code(s): E04.2 - Nontoxic multinodular goiter Category: Medical Plan: 69-year-old female with past medical history of nontoxic multinodular goiter diagnosed at least since 2009 who has had multiple biopsies in the past with benign cytology. She has a non toxic multinodular goiter. She had a prior Benign FNA of 1 nodule in the right side by Dr Sloan around 2009. She had fine-needle aspiration on 01/26/2021 of right mid pole nodule and left lower pole nodule both benign follicular nodule [place] category 2. Fine-needle aspiration September 2022 of right upper pole 2 cm and isthmus 1.4 cm thyroid nodules with benign cytology [place] category 2. Most recent thyroid ultrasound from August 2024. I reviewed the images myself which showed stable size of the right superior nodule TR 4 category, which has been biopsied before in September 2022 and was benign, showed increase in size which is significant of the right mid nodule which now measures 2.7 cm in the largest dimension, previously 2.5 cm in the largest dimension, this has been biopsied before in January 2021 and was also benign. This has punctate echogenic foci and is taller than wide. Per LEONORA classification this is a high suspicion nodule with a greater than 50% chance of malignancy. The right inferior isthmus 1.3 cm nodule also remained stable in size which has been biopsied before in September 2022 and was benign. The left superior/mid nodule, remained stable in size. The left mid 1.4 cm nodule has increased significantly in size, TR 3 category however does not meet criteria for FNA unlikely this has been biopsied before as the left lower lobe nodule in January 2021 which was b enign. I explained that it is common to have thyroid nodules. About 95% of the time these nodules are benign. However if the nodule is > 1 cm in size or suspicious on ultrasound then a fine need aspiration biopsy is recommended. We discussed that a FNAB involves 4-5 passes with a small gauge needle and material obtained is sent off for cytology.If the cytopathology is benign then the nodule will be followed annually with repeat ultrasounds. However if it is suspicious or malignant, we will need to discuss further management. Indeterminate cytology can be further investigated with repeat FNA, genetic testing or empiric lobectomy. Malignant cytology is managed with either lobectomy or total thyroidectomy. We discussed briefly that thyroid cancer is, in most patients, an indolent disease that does not affect mortality. We will arrange for FNA of the right mid 2.7 cm nodule at next available opening and patient will follow up with me in clinic thereafter for results and further decision making. Last TFTs from August 2023, she was biochemically euthyroid Plan: -ordered TSH, free T4 -scheduled for FNA of the right mid 2.7 cm nodule and a follow up 2 weeks after to discuss results Plan I spent 30 minutes in reviewing the record, seeing the patient and documenting in the medical record. Orders: Orders Thyroid Stimulating Hormone Today E04.2 - Nontoxic multinodular goiter Free T4 (Free Thyroxine) Today E04.2 - Nontoxic multinodular goiter US biopsy thyroid Today E04.2 - Nontoxic multinodular goiter Patient Instructions: We will book you for a right sided thyroid biopsy and a follow up 2 weeks after to discuss results Please do blood work Coding Level of Care Code Est Pt Level 4 (68888) Diagnoses Non-toxic multinodular goiter E04.2 Time Spent (min) 30
== END 2024-11-02 08:13 | disposition home or self-care (01) ==
PROVIDERS: PCP Internal Medicine; Visit Provider Student in an Organized Health Care Education/Training Program
DX: E04.2 Nontoxic multinodular goiter (principal)
CPT/HCPCS: 99214

== ENCOUNTER → 2024-11-02 07:26 | Outpatient (BNVA) | payer OTHER, SELFPAY | PROVIDERS: PCP Internal Medicine; Visit Provider Student in an Organized Health Care Education/Training Program ==

== ENCOUNTER 2024-11-05 07:23 | Outpatient (REF) | payer OTHER, SELFPAY ==
--- NOTE | ~2024-11-05 | MM_ITS ---
EXAMINATION: MM SCREENING DIGITAL BREAST TOMOSYNTHESIS, BILATERAL CLINICAL INFORMATION: Screening. Asymptomatic. COMPARISON: Mammography: Comparison is made with available priors TECHNIQUE: Digital breast mammography with tomosynthesis is performed in both the craniocaudal and mediolateral oblique views along with computer-aided detection (CAD). FINDINGS: There are scattered areas of fibroglandular density (ACR BI-RADS breast composition Category b). Right: There are no significant masses, abnormal calcifications, or other abnormalities. Left: Asymmetry lateral breast on CC view middle depth with questioned distortion. No suspicious calcifications or other abnormal findings. Left marker clip. MM/MM tomosynthesis screening BI IMPRESSION: Additional imaging is recommended ASSESSMENT: BI-RADS BI-RADS 0 - Incomplete: Needs additional Imaging. RECOMMENDATION: 1. Additional views of the left breast 2. Targeted ultrasound if warranted after review of the additional views. 3. Radiology department staff will contact the patient for additional imaging. Additional Imaging required This examination should not preclude the clinical evaluation of a suspicious palpable abnormality. This patient's information was entered into a reminder system with a target due date for their next mammogram. Electronically signed by: Kasey Castro DO 11/05/2024 09:22 AM CONNIE
--- NOTE | ~2024-11-05 | MM_ITS ---
EXAMINATION: BONE DENSITOMETRY CLINICAL INDICATION: Age-related osteoporosis without current pathological fracture. COMPARISON: Previous BD dated 11/02/2021 and baseline BD dated 10/18/2009. TECHNIQUE: Using a [employer] DXA system (software version: 14.10) manufactured by [employer], dual-energy x-ray absorptiometry was performed of the lumbar spine and left hip. The images are of good technical quality. Summary results are attached. FINDINGS: LEFT FEMUR, NECK: Current: BMD 0.821 g/cm2, Z-score -0.5, T-score -1.6, osteopenia. Prior: BMD 0.802 g/cm2. Baseline: BMD 0.916 g/cm2. LEFT FEMUR, TOTAL: Current: BMD 0.812 g/cm2, Z-score -0.8, T-score -1.6, osteopenia, 10.7% decrease from previous, 15.8% decrease from baseline (<5% change is not significant). Prior: BMD 0.909 g/cm2. Baseline: BMD 0.964 g/cm2. AP SPINE L1-L2 (excluding L3 and L4): The data of L1-L4 has been changed to exclude the L3 and L4 vertebral bodies, because at these levels may cause overestimation of lumbar spine density. Current: BMD 1.029 g/cm2, Z-score -0.5, T-score -1.1, osteopenia, 5.9% decrease from previous, 14.7% decrease from baseline (<5% change is not significant). Prior: BMD 1.093 g/cm2. Baseline: BMD 1.206 g/cm2. IDENTIFIED RISK FACTORS: Menopause, height loss, low calcium intake. HISTORY OF FRACTURE: None listed. MEDICATIONS: Multivitamin. MM/XR DEXA axial skeleton IMPRESSION: 1. DIAGNOSIS: Osteopenia based on the lowest T-score value of -1.6 in the femur neck and total femur applying World Health Organization criteria. 2. 10-YEAR FRACTURE RISK PREDICTION, FRAX: Major osteoporotic fracture (clinical spine, forearm, hip or shoulder) 9.9%. Hip fracture 1.5%. 3. Treatment Recommendations: NOF guidelines recommend consideration for treatment in postmenopausal women and men age 50 and older presenting with the following: -A hip or vertebral (clinical or morphometric) fracture. -T-score less than or equal to -2.5 at the femoral neck or spine after appropriate evaluation to exclude secondary causes. -Low bone mass at the hip or spine and a 10-year fracture probability by FRAX of greater than or equal to 3% for hip fracture or greater than or equal to 20% for major osteoporotic fracture based on the [place] adapted WHO algorithm. 4. Other Recommendations: All treatment decisions require clinical judgment and consideration of individual patient factors, including patient preferences, comorbidities, previous drug use, risk factors not captured in the FRAX model (e.g. frailty, falls, vitamin D deficiency, increased bone turnover, interval significant decline in bone density) and possible under or overestimation of fracture risk by FRAX. Additional medical evaluation for secondary cause of low bone mineral density may be appropriate. FUTURE SCAN RECOMMENDATION: People with diagnosed cases of osteoporosis or at high risk for fracture should have regular bone mineral density tests. For patients eligible for Medicare, routine testing is allowed once every 2 years. The testing frequency can be increased to one year for patients who have rapidly progressing disease, those who are receiving or discontinuing medical therapy to restore bone mass, or have additional risk factors. Electronically signed by: Matteo Cavanaugh MD 11/06/2024 02:36 PM [facility]
== END 2024-11-05 07:24 | disposition home or self-care (01) ==
LOC: HO.MAMMO 07:23
PROVIDERS: PCP Internal Medicine; Visit Provider Internal Medicine
DX: Z12.31 Encounter for screening mammogram for malignant neoplasm of breast (principal); M81.0 Age-related osteoporosis without current pathological fracture; M85.80 Other specified disorders of bone density and structure, unspecified site
CPT/HCPCS: 77063; 77067; 77080

== ENCOUNTER → 2024-11-05 07:30 | Outpatient (BNV) | payer OTHER, SELFPAY | PROVIDERS: PCP Internal Medicine; Visit Provider Internal Medicine | DX: Z12.31 Encounter for screening mammogram for malignant neoplasm of breast (principal) | CPT/HCPCS: 77063; 77067 ==

== ENCOUNTER 2024-11-12 11:48 | Outpatient (REF) | payer OTHER, SELFPAY ==
--- NOTE | ~2024-11-12 | US_ITS ---
EXAMINATION: MM DIAGNOSTIC DIGITAL BREAST TOMOSYNTHESIS, LEFT Limited left breast ultrasound. CLINICAL INFORMATION: Callback from screening for asymmetry in the lateral left breast on CC view. Family history of breast cancer including mother and aunt. COMPARISON: Mammography: Comparison is made with available prior examinations. TECHNIQUE: Digital breast tomosynthesis is performed in both the craniocaudal and mediolateral oblique views along with computer-aided detection (CAD). Synthesized 2D images are generated from the tomosynthesis. Limited left breast ultrasound. FINDINGS: There are scattered areas of fibroglandular density (ACR BI-RADS breast composition Category b). Asymmetry in the lateral left breast on CC view partially effaces with questionable faint architectural distortion. There are no suspicious calcifications or other abnormal findings. Targeted color Doppler ultrasound scanning in the lateral left breast from 12 5:00 breast demonstrates a oval hypoechoic solid mass versus complicated cyst at 2:00 4 cm from the nipple measuring. There is no internal vascular flow. US/US breast LT limited mamm only IMPRESSION: Solid mass versus complicated cyst at 2:00 in the left breast. Asymmetry lateral left breast on mammography which partially effaces with questionable distortion. There is no sonographic correlate. Recommend 6 month follow-up mammogram and ultrasound for further evaluation of stability. Patient has a strong family history of breast cancer. Breast MRI could be considered for further evaluation. Breast MRI would need to be ordered by the patient's providing clinician. ASSESSMENT: BI-RADS BI-RADS 3 - Probably benign finding(s) - 6 month follow-up suggested RECOMMENDATION: 6 Month F/U Results were discussed with the patient at time of visit. This patient's information was entered into a reminder system with a target due date for their next mammogram. Electronically signed by: Kasey Castro DO 11/12/2024 02:20 PM [facility] [place]
== END 2024-11-12 11:49 | disposition home or self-care (01) ==
LOC: HO.MAMMO 11:48
PROVIDERS: PCP Internal Medicine; Visit Provider Internal Medicine
DX: N64.89 Other specified disorders of breast (principal)
CPT/HCPCS: 76642; 77061; 77065

== ENCOUNTER → 2024-11-12 12:00 | Outpatient (BNV) | payer OTHER, SELFPAY | PROVIDERS: PCP Internal Medicine; Visit Provider Internal Medicine | DX: N63.23 Unspecified lump in the left breast, lower outer quadrant (principal) | CPT/HCPCS: 76642; 77061; 77065 ==

== ENCOUNTER 2024-11-13 07:50 | Outpatient (REF) | payer OTHER, SELFPAY ==
[2024-11-13 11:14] LABS: MANUAL DIFF FLAG NO
[2024-11-13 11:19] LABS: Basophils Absolute Auto 0.1 X10*3/uL (0.0-0.2); Basophils Percent Auto 1.3 % (0-2); Eosinophils Absolute Auto 0.4 X10*3/uL (0.0-0.4); Eosinophils Percent Auto 7.5 % (0-4); Hemoglobin 14.1 g/dl (12.0-16.0); Imm Gran Abs Auto 0.02 X10*3/uL (0.00-0.03); Imm Gran Pct Auto 0.4 % (0.0-0.4); Lymphocytes Absolute Auto 1.2 X10*3/uL (1.2-4.9); Lymphocytes Percent Auto 22.2 % (20-40); Mean Corpuscular HGB Conc 33.6 g/dl (31.0-35.0); Mean Corpuscular Hemoglobin 31.1 pg (27.0-33.0); Mean Corpuscular Volume 92.5 fL (80.0-98.0); Mean Platelet Volume 9.3 fL (9.4-12.3); Monocytes Absolute Auto 0.6 X10*3/uL (0.1-1.2); Monocytes Percent Auto 10.1 % (2-11); Neutrophils Absolute Auto 3.2 x10*3/uL (2.0-8.3); Neutrophils Percent Auto 58.5 % (45-73); Platelet Count 259 X10*3/uL (160-400); Red Blood Count 4.54 X10*6/uL (4.20-5.50); Red Cell Distribution Width 12.6 % (11.0-16.0); White Blood Count 5.4 X10*3/uL (4.8-10.8)
[2024-11-13 11:28] LABS: Appearance Urine Clear; Color Urine Yellow; Glucose Urine UA Negative (Negative); Leukocyte Esterase Urine Negative (Negative); Nitrite Urine Negative (Negative); Specific Gravity - Urine 1.015 (1.005-1.025); Urine Blood Negative (Negative); Urine Ketones Negative (Negative); Urine Protein Negative (Neg-Trace)
[2024-11-13 11:31] LABS: Bacteria Urine None Seen (None Seen); Hyaline Casts Urine 0-2 /LPF (0-2); RBC Urine 0-2 /HPF (0-2); Squamous Epithelial Cell Urine 0-2 /HPF (0-2); WBC Urine 0-5 /HPF (0-5)
[2024-11-13 11:34] LABS: Estimated Average Glucose 108 mg/dL; Hemoglobin A1C 131.0168 umol/L; Hemoglobin A1c % 5.4 % (<6.0); Total Hemoglobin (HGBA1C) 3681.5372 umol/L
[2024-11-13 12:01] LABS: Alanine Aminotransferase 30 U/L (0-31); Albumin Level 3.8 g/dL (3.5-5.0); Alkaline Phosphatase 101 U/L (39-117); Anion Gap 10 (12-20); Aspartate Amino Transferase 26 U/L (5-31); Bilirubin Total 0.4 mg/dL (0.0-1.0); Blood Urea Nitrogen 13 mg/dL (9-16); Calcium 8.7 mg/dL (8.4-10.2); Carbon Dioxide 28 mmol/L (22-29); Chloride 107 mmol/L (96-108); Cholesterol 191 mg/dL (<200); Estimated Glomerular Filt Rate > 60; Free T4 (Free Thyroxine) 1.07 ng/dL (0.71-1.85); Glucose Random 107 mg/dL (60-115); HDL Cholesterol 64 mg/dL (>40); LDL Cholesterol Calculated 112 mg/dL (<100); Potassium 3.9 mmol/L (3.3-5.1); Sodium 141 mmol/L (135-145); Thyroid Stimulating Hormone 1.14 uIU/mL (0.32-4.0); Triglycerides 75 mg/dL (<150); Vitamin D 25-OH Total 45.2 ng/mL (>30)
[2024-11-13 12:02] LABS: Folate 14.7 ng/mL (> or = 4.0); Vitamin B12 781 pg/mL (200-900)
== END 2024-11-13 07:51 | disposition home or self-care (01) ==
LOC: HO.WFDLDS 07:50
PROVIDERS: Visit Provider Internal Medicine
DX: R73.02 Impaired glucose tolerance (oral) (principal); E78.00 Pure hypercholesterolemia, unspecified; Z01.818 Encounter for other preprocedural examination; D12.6 Benign neoplasm of colon, unspecified; E04.2 Nontoxic multinodular goiter
CPT/HCPCS: 36415; 80053; 80061; 81001; 82306; 82607; 82746; 83036; 84439; 84443; 85025

== ENCOUNTER 2024-11-18 07:48 | Outpatient (REF) | payer OTHER, SELFPAY ==
--- NOTE | 2024-11-18 08:29 | PCN2_ITS ---
Brief Operative Note Date of procedure: 11/18/24 Pre-op diagnosis: right mid lobe 2.7 cm thyroid nodule FNA biopsy Post-op diagnosis: same Procedure: THYROID FINE NEEDLE ASPIRATION PROCEDURE NOTE ? PROCEDURE PERFORMED: Ultrasound-guided FNA of thyroid nodule ? OPERATORS: Dr. Ingrid oWng ? INDICATION: right mid lobe 2.7 cm thyroid nodule ; FNA performed to assess for malignancy ? DESCRIPTION OF PROCEDURE: The indications for FNA (to assess for malignancy) were reviewed with the patient in detail. Potential complications (e.g., bleeding, infection, damage to local structures, absence of clear diagnosis after FNA) were reviewed. Alternatives to FNA including conservative observation or surgery were described. The patient understood and agreed to proceed. This was documented by the signing of the written informed consent form. A time-out was performed to confirm the patient's identity and the site of planned FNA. The nodule of interest was identified using ultrasound (14 MHz linear array probe). The site of FNA was then draped in the usual fashion and ca refully cleaned and prepared using alcohol swabs. The skin at the previously-identified site of needle insertion was iced and sprayed with numbing spray. Under ultrasound guidance, _4_ passes were performed using a 1.5-inch, 25-gauge needle, and sample was obtained via capillary action. The needle tip was clearly visualized to be within the nodule at the time of sampling for 4__ of 4__ passes The patient tolerated the procedure well. There were no immediate complications. A small adhesive bandage was applied, and the patient was advised to take acetaminophen (rather than NSAIDs) for any discomfort and to report any signs of inflammation/infection or marked swelling. IMPRESSION: Technically successful ultrasound-guided fine needle aspiration of right mid lobe 2.7 cm thyroid nodule . PLAN: The patient was advised that I will provide follow-up regarding the cytology result and any subsequent plans. Ingrid Wong MD Endocrinology Attending Condition: stable Disposition: same day
== END 2024-11-18 07:49 | disposition home or self-care (01) ==
LOC: HO.US 07:48
PROVIDERS: PCP Internal Medicine; Visit Provider Student in an Organized Health Care Education/Training Program
DX: E04.2 Nontoxic multinodular goiter (principal)
CPT/HCPCS: 10005; 88173

== ENCOUNTER → 2024-11-18 07:48 | Outpatient (BNV) | payer OTHER, SELFPAY | PROVIDERS: PCP Internal Medicine; Visit Provider Student in an Organized Health Care Education/Training Program | DX: E04.2 Nontoxic multinodular goiter (principal) | CPT/HCPCS: 10005 ==

== ENCOUNTER 2024-12-01 07:28 | Outpatient (AMB) | payer OTHER, SELFPAY ==
[2024-12-01 07:37] VITALS: BP 150/82; PULSE 78; BMI 34.4
--- NOTE | 2024-12-01 07:37 | MHC.OFFVIS ---
Vital Signs 12/01/24 07:37 Height 5 ft 7 in Weight 219 lb 12.814 oz BMI 34.4 BP 150/82 H Blood Pressure Location Lt brachial Position Sitting Pulse 78 Pulse Source Pulse Oximeter Intake Visit Reasons: Biopsy f/u Intake Note: Patient present today for biopsy follow up visit. Chemical Applicator Required: No Accompanied by: Self / Same As Patient Allergies No Known Allergies Allergy (Verified 12/01/24 07:40) HPI Comments Details: 69-year-old female today for follow-up visit for nontoxic multinodular goiter . HPI prior visit She has a non toxic multinodular goiter. She had a prior Benign FNA of 1 nodule in the right side by Dr Sloan around 2009. She had fine-needle aspiration on 01/26/2021 of right mid pole nodule and left lower pole nodule both benign follicular nodule [place] category 2. . Fine-needle aspiration September 2022 of right upper pole 2 cm and isthmus 1.4 cm thyroid nodules with benign cytology [place] category 2. Most recent thyroid ultrasound from August 2024. I reviewed the images myself which showed stable size of the right superior nodule TR 4 category, which has been biopsied before in September 2022 and was benign, showed increase in size which is significant of the right mid nodule which now measures 2.7 cm in the largest dimension, previously 2.5 cm in the largest dimension, this has been biopsied before in January 2021 and was also benign. This has punctate echogenic foci and is taller than wide. Per LEONORA classification this is a high suspicion nodule with a greater than 50% chance of malignancy. The right inferior isthmus 1.3 cm nodule also remained stable in size which has been biopsied before in September 2022 and was benign. The left superior/mid nodule, remained stable in size. The left mid 1.4 cm nodule has increased significantly in size, TR 3 category however does not meet criteria for FNA and likely this has been biopsied before as the left lower lobe nodule in January 2021 which was benign. Interval history 11/18/2024: Underwent FNA biopsy of the right mid 2.7 cm nodule with benign cytology [place] category 2. Here today to discuss results. She denies compressive symptoms. No dysphagia, dyspnea in flat position, She denies cold or heat intolerance, weigth loss or gain, diarrhea, constipation, insomnia, fatigue, dry skin, dysphagia, dyspnea, dysphonia, tremors, palpitations, irritability, anxiety. She denies recent excess iodine or IV contrast exposure, radiation to head or neck, thyroid surgery, denies herbal or OTC medications. Denies family history of Thyroid disease or cancer. Physical exam General: sitting comfortably in no acute distress HEENT: normocephalic/atraumatic, moist oral mucosa Neck: supple, symmetrical, palpable right 2 cm nodule Cardiac: normal heart sounds Pulm: normal breath sounds B/L, no added breath sounds Abd: not distended, no tenderness Laboratory Tests 01/20/19 07:58 25-OH Vitamin D Total 26.2 Thyroxine (T4) 6.6 TSH 3rd Generation 1.56 Laboratory Tests 10/07/20 10/07/20 10/07/20 07:30 07:30 07:30 25-OH Vitamin D Total 27.5 TSH 0.79 Free T4 1.08 Thyroxine (T4) 7.6 Thyroglobulin Antibody <1 Thyroid Peroxidase Ab <1 Laboratory Tests 06/01/22 08/02/23 07:20 07:11 TSH 1.41 0.60 Free T4 0.87 0.96 Laboratory Tests 11/13/24 07:52 TSH 1.14 Free T4 1.07 Imaging US THYROID 08/25 CLINICAL INFORMATION: Nontoxic multinodular goiter. COMPARISON: Ultrasound-guided fine needle aspiration thyroid 09/20/2022. Thyroid ultrasound 02/21/2022 and 08/25/2020. Ultrasound-guided fine-needle aspiration thyroid 01/26/2021. TECHNIQUE: Linear transducer grayscale and color Doppler examination with attention to the region of the thyroid. FINDINGS: SIZE: Measurements of the thyroid lobes and nodules are given in sagittal, anteroposterior and transverse dimensions respectively. Right Thyroid Lobe: 4.9 x 2.2 x 2.1 cm, volume 12.0 mL. Previously 3.8 x 1.9 x 2.2 cm, volume 8.2 mL. Parenchyma: The gland echotexture is heterogeneous. Thyroid vascularity is increased. Left Thyroid Lobe: 4.6 x 1.7 x 1.7 cm, volume 7.0 mL. Previously 4.0 x 1.5 x 1.8 cm, volume 5.6 mL. Parenchyma: The gland echotexture is heterogeneous. Thyroid vascularity is increased. Isthmus: 0.5 cm in maximum AP dimension. Previously 0.4 cm. Estimated total number of nodules greater than or equal to 1 cm: 6 to 10. Peripheral Vascular Tech nodules are described as follows: 1. Location: Right superior. Size: 1.6 x 0.7 x 1.1 cm, volume 0.68 mL. Previously: 1.6 x 0.7 x 1.8 cm, volume 1.05 mL. Nodule characteristics: Composition: Solid (2). Echogenicity: Hypoechoic (2). Shape: Not taller than wide (0). Margins: Smooth (0). Echogenic Foci: None (0). ACR TI-RADS total points: 4 Previous: 4 ACR TI-RADS category: 4 Previous: 4 Significant change in size (>/= 20% in 2 dimensions and minimal increase of 2 mm or 50% or greater increase in volume): No Change in features: No Change in ACR TI-RADS risk category: No 2. Location: Right mid. Size: 2.7 x 2.0 x 1.9 cm, volume 5.57 mL. Previously: 2.5 x 1.6 x 1.9 cm, volume 3.97 mL. Nodule characteristics: Composition: Mixed cystic and solid (1). Echogenicity: Hypoechoic (2). Shape: Taller than wide (3). Margins: Smooth (0). Echogenic Foci: Macrocalcifications (1). Punctate echogenic foci (3). ACR TI-RADS total points: 10 Previous: 0 ACR TI-RADS category: 5 Previous: 1 Significant change in size (>/= 20% in 2 dimensions and minimal increase of 2 mm or 50% or greater increase in volume): No Change in features: Yes Change in ACR TI-RADS risk category: Yes 3. Location: Right inferior isthmus. Size: 1.3 x 0.5 x 1.0 cm, volume 0.34 mL. Previously: 1.4 x 0.7 x 1.1 cm, volume 0.56 mL. Nodule characteristics: Composition: Solid/almost completely solid (2). Echogenicity: Hypoechoic (2). Shape: Not taller than wide (0). Margins: Smooth (0). Echogenic Foci: Punctate echogenic foci (3). ACR TI-RADS total points: 7 Previous: 4 ACR TI-RADS category: 5 Previous: 4 Significant change in size (>/= 20% in 2 dimensions and minimal increase of 2 mm or 50% or greater increase in volume): No Change in features: Yes Change in ACR TI-RADS risk category: Yes 4. Location: Left superior/mid. Size: 1.3 x 0.5 x 1.2 cm, volume 0.40 mL. Previously: 1.3 x 0.8 x 1.0 cm, volume 0.54 mL. Nodule characteristics: Composition: Mixed cystic and solid (1). Echogenicity: Hypoechoic (2). Shape: Not taller than wide (0). Margins: Smooth (0). Echogenic Foci: None (0). ACR TI-RADS total points: 3 Previous: 0 ACR TI-RADS category: 3 Previous: 1 Significant change in size (>/= 20% in 2 dimensions and minimal increase of 2 mm or 50% or greater increase in volume): No Change in features: Yes Change in ACR TI-RADS risk category: Yes 5. Location: Left mid. Size: 1.4 x 0.8 x 1.2 cm, volume 0.68 mL. Previously: 1.0 x 0.8 x 0.7 cm, volume 0.29 mL. Nodule characteristics: Composition: Mixed cystic and solid (1). Echogenicity: Hypoechoic (2). Shape: Not taller than wide (0). Margins: Smooth (0). Echogenic Foci: None (0). ACR TI-RADS total points: 3 Previous: 0 ACR TI-RADS category: 3 Previous: 1 Significant change in size (>/= 20% in 2 dimensions and minimal increase of 2 mm or 50% or greater increase in volume): No Change in features: Yes Change in ACR TI-RADS risk category: Yes NODES: No lymphadenopathy is seen in the tissue surrounding the thyroid gland. US/US thyroid IMPRESSION: 1. Nodule in the superior portion of the right thyroid lobe demonstrates decreased maximum dimension measuring 1.6 cm with a stable TI-RADS category 4. Nodule is amenable to biopsy if not already performed. 2. Nodule in the midportion of the right thyroid lobe demonstrates increased maximum dimension measuring 2.7 cm with an increase in TI-RADS category now 5. Nodule is amenable to biopsy if not already performed. 3. Nodule in the lower pole of the right thyroid lobe/isthmus demonstrates decreased maximum dimension now measuring 1.3 cm with a increase in TI-RADS category now 5. Nodule is amenable to biopsy if not already performed. 4. Nodule in the superior/midportion of the left thyroid lobe demonstrates stable maximum dimension of 1.3 cm with an increase in TI-RADS category now 3. Nodule does not require follow-up. 5. Nodule in the midportion of the left thyroid lobe demonstrates increased maximum dimensions now measuring 1.4 cm with an increase in TI-RADS category now 3. Nodule does not require follow-up. 6. Bilateral thyroid lobes demonstrate a homogeneous echotexture with increased vascularity with slight asymmetry in size, right greater than left. 7. No lymphadenopathy noted. US THYROID 02/20 CLINICAL INFORMATION: Nontoxic multinodular goiter. COMPARISON: Ultrasound soft tissue head/neck thyroid dated 08/25/2020 and 08/13/2016. TECHNIQUE: Linear transducer grayscale and color Doppler examination with attention to the region of the thyroid. FINDINGS: SIZE: Measurements of the thyroid lobes and nodules are given in sagittal, anteroposterior and transverse dimensions respectively. Right Thyroid Lobe: 3.8 x 1.9 x 2.2 cm, volume 8.2 mL. Previously 4.1 x 1.8 x 1.9 cm, volume 7.3 mL. Parenchyma: The gland echotexture is heterogeneous. Thyroid vascularity is normal. Left Thyroid Lobe: 4.0 x 1.5 x 1.8 cm, volume 5.6 mL. Previously 4.1 x 1.4 x 1.7 cm, volume 5.1 mL. Parenchyma: The gland echotexture is heterogeneous. Thyroid vascularity is normal. Isthmus: 0.4 cm in maximum AP dimension. Previously 0.4 cm. Estimated total number of nodules greater than or equal to 1 cm: 6 to 10. Peripheral Vascular Tech nodules are described as follows: 1. Location: Right superior. Size: 1.6 x 0.7 x 1.8 cm, volume 1.05 mL. Previously: 1.2 x 0.7 x 1.3 cm, volume 0.57 mL. Nodule characteristics: Composition: Solid (2). Echogenicity: Hypoechoic (2). Shape: Not taller than wide (0). Margins: Smooth (0). Echogenic Foci: None (0). ACR TI-RADS total points: 4 ACR TI-RADS category: 4 Significant change in size (>/= 20% in 2 dimensions and minimal increase of 2 mm or 50% or greater increase in volume): Change in features: Change in ACR TI-RADS risk category: 2. Location: Right mid. Size: 2.5 x 1.6 x 1.9 cm, volume 3.97 mL. Previously: 2.3 x 1.7 x 1.4 cm, volume 2.86 mL. Nodule characteristics: Composition: Spongiform (0). Echogenicity: Anechoic (0). Shape: Not taller than wide (0). Margins: Smooth (0). Echogenic Foci: None (0). ACR TI-RADS total points: 0 ACR TI-RADS category: 1 Significant change in size (>/= 20% in 2 dimensions and minimal increase of 2 mm or 50% or greater increase in volume): Change in features: Change in ACR TI-RADS risk category: 3. Location: Left superior. Size: 1.3 x 0.8 x 1.0 cm, volume 0.54 mL. Previously: 1.1 x 0.6 x 0.9 cm, volume 0.31 mL. Nodule characteristics: Composition: Spongiform (0). Echogenicity: Anechoic (0). Shape: Not taller than wide (0). Margins: Smooth (0). Echogenic Foci: None (0). ACR TI-RADS total points: 0 ACR TI-RADS category: 1 Significant change in size (>/= 20% in 2 dimensions and minimal increase of 2 mm or 50% or greater increase in volume): Change in features: Change in ACR TI-RADS risk category: 4. Location: Left mid. Size: 1.5 x 1.0 x 1 cm, volume 0.78 mL. Previously: 1.3 x 1.0 x 1.1 cm, volume 0.74 mL. Nodule characteristics: Composition: Spongiform (0). Echogenicity: Anechoic (0). Shape: Not taller than wide (0). Margins: Smooth (0). Echogenic Foci: None (0). ACR TI-RADS total points: 0 ACR TI-RADS category: 1 Significant change in size (>/= 20% in 2 dimensions and minimal increase of 2 mm or 50% or greater increase in volume): Change in features: Change in ACR TI-RADS risk category: 5. Location: Left inferior. Size: 1.0 x 0.8 x 0.7 cm, volume 0.29 mL. Previously: 0.9 x 0.7 x 0.7 cm, volume 0.23 mL. Nodule characteristics: Composition: Spongiform (0). Echogenicity: Anechoic (0). Shape: Not taller than wide (0). Margins: Smooth (0). Echogenic Foci: None (0). ACR TI-RADS total points: 0 ACR TI-RADS category: 1 Significant change in size (>/= 20% in 2 dimensions and minimal increase of 2 mm or 50% or greater increase in volume): Change in features: Change in ACR TI-RADS risk category: 6. Location: Isthmus. Size: 1.4 x 0.7 x 1.1 cm, volume 0.56 mL. Previously: Not seen on the previous study. Nodule characteristics: Composition: Solid (2). Echogenicity: Hypoechoic (2). Shape: Not taller than wide (0). Margins: Smooth (0). Echogenic Foci: None (0). ACR TI-RADS total points: 4 ACR TI-RADS category: 4 NODES: No lymphadenopathy is seen in the tissue surrounding the thyroid gland. US/US thyroid IMPRESSION: Heterogeneous thyroid gland with multiple bilateral nodules. Interval increase in size right upper thyroid nodule. Newly appreciated isthmus nodule. US thyroid 08/25/2020 Right Thyroid Lobe: 4.1 x 1.8 x 1.9 cm, volume 7.3 mL. Previously 4.1 x 1.6 x 1.6 cm, volume 5.5 mL. Parenchyma: The gland echotexture is heterogeneous. Thyroid vascularity is normal. Left Thyroid Lobe: 4.1 x 1.4 x 1.7 cm, volume 5.1 mL. Previously 4.0 x 1.6 x 1.4 cm, volume 4.5 mL. Parenchyma: The gland echotexture is heterogeneous. Thyroid vascularity is normal. Isthmus: 0.4 cm in maximum AP dimension. Previously 0.2 cm. RIGHT THYROID LOBE: Numerous nodules are seen. 4 nodules are described below as a textile designs sales representative view of the right thyroid lobe. 1. Location: Superior. Size: 1.2 x 0.7 x 1.3 cm. Previous: 1.5 x 0.6 x 1.0 cm. Nodule characteristics: Hypoechoic nodule. Margins. Positive color flow. 2. Location: Middle. Size: 2.3 x 1.7 x 1.4 cm. Previous: 1.2 x 1.3 x 1.2 cm. Nodule characteristics: Heterogeneous nodule. Smooth margins. Microcalcifications suspected. Mild color flow.. 3. Location: Inferior. Size: 0.6 x 0.4 x 0.4 cm. Previous: 1.1 x 1.1 x 1.2 cm. Nodule characteristics: Heterogeneous nodule. Well-defined margins. Positive patient. 4. Location: Middle. Size: 0.5 x 0.5 x 0.4 cm. Previous: New since the previous study. Nodule characteristics: Hypoechoic, mildly heterogeneous nodule. Positive color flow. ISTHMUS: No nodules. LEFT THYROID LOBE: Numerous nodules are seen. 4 nodules are described below as a textile designs sales representative view of the left thyroid lobe. 1. Location: Superior. Size: 1.0 x 0.5 x 0.8 cm. Previous: Possibly 0.5 x 0.4 x 0.4 cm Nodule characteristics: Heterogeneous nodule. Margins are well-defined. Positive color flow. 2. Location: Superior. Size: 1.1 x 0.6 x 0.9 cm. Previous: Possibly 0.4 x 0.4 x 0.3 cm. Nodule characteristics: Heterogeneous nodule. Well-defined margins. Microcalcifications suspected. Positive color flow.. 3. Location: Middle. Size: 0.9 x 0.7 x 0.7 cm. Previous: Direct comparison nodule not accurately defined. Nodule characteristics: Heterogeneous nodule. Well-defined margins. Microscopic calcifications possible. Positive color flow. 4. Location: Inferior. Size: 1.3 x 1.0 x 1.1 cm. Previous: Direct comparison nodule not accurately defined. Nodule characteristics: Heterogeneous nodule. Well-defined margins. Possible microscopic calcification. No color flow. NODES: No lymphadenopathy is seen in the tissue surrounding the thyroid gland. [facility] Medical History (Updated 11/19/24 @ 18:45 by Nela Forrest MD) Colon cancer screening COVID-19 virus infection Hip pain Sciatic nerve pain Radicular pain of left lower extremity Annual physical exam Otitis externa Cerumen debris on tympanic membrane of left ear Lumbar degenerative disc disease Right thigh pain Hip pain, right Vertebrogenic low back pain Lumbar spinal stenosis Scoliosis of lumbar region due to degenerative disease of spine in adult Lumbar stenosis with neurogenic claudication Annual physical exam Eczematous dermatitis Impacted cerumen, left ear Family history of breast cancer Degenerative disc disease, lumbar Osteoarthritis Lumbar spinal stenosis Thyroid nodule Hypercholesterolemia Vitamin D deficiency Obesity (BMI 30-39.9) Fatty liver Osteopenia Tubular adenoma of colon Hypertension Eczema Asthma Non-toxic multinodular goiter Surgical History Status post lumbar spine surgery for decompression of spinal cord Status post fine needle aspiration Hx of colonoscopy Hx of cholecystectomy Hx of section Family History Father COPD (chronic obstructive pulmonary disease) Mother Breast cancer Social History Housing: House Are you a primary home care music therapist to a significant other at home: No Do you presently have visiting nurse or other home services: No Alcohol intake: current Alcohol intake frequency: holidays/special occasions only Comment: final count correct 2 x a month glass of wine Patient Tobacco Use Status: Former Tobacco user Tobacco use type: Cigarette Years Smoked: 1979 stopped e-Cigarette/Vaping Use: Never Used Second Hand Smoke Exposure: No Current occupational status: employed Current occupation: [employer] Cognitive needs: No Hearing needs: No Vision needs: Yes Physical Exam Vital Signs: Last Vital Signs Pulse 78 12/01/24 07:37 BP 150/82 H 12/01/24 07:37 BMI result Body Mass Index 34.4 Assessment & Plan Assessment & Plan (1) Non-toxic multinodular goiter: Comment: Biopsy September 2022 benign, November 2024 benign biopsy Code(s): E04.2 - Nontoxic multinodular goiter Category: Medical Plan: 69-year-old female with past medical history of nontoxic multinodular goiter diagnosed at least since 2009 who has had multiple biopsies in the past with benign cytology. She has a non toxic multinodular goiter. She had a prior Benign FNA of 1 nodule in the right side by Dr Sloan around 2009. She had fine-needle aspiration on 01/26/2021 of right mid pole nodule and left lower pole nodule both benign follicular nodule [place] category 2. Fine-needle aspiration September 2022 of right upper pole 2 cm and isthmus 1.4 cm thyroid nodules with benign cytology [place] category 2. Most recent thyroid ultrasound from August 2024. I reviewed the images myself which showed stable size of the right superior nodule TR 4 category, which has been biopsied before in September 2022 and was benign, showed increase in size which is significant of the right mid nodule which now measures 2.7 cm in the largest dimension, previously 2.5 cm in the largest dimension, this has been biopsied before in January 2021 and was also benign. This has punctate echogenic foci and is taller than wide. Per LEONORA classification this is a high suspicion nodule with a greater than 50% chance of malignancy. The right inferior isthmus 1.3 cm nodule also remained stable in size which has been biopsied before in September 2022 and was benign. The left superior/mid nodule, remained stable in size. The left mid 1.4 cm nodule has increased significantly in size, TR 3 category however does not meet criteria for FNA and likely this has been biopsied before as the left lower lobe nodule in January 2021 which was benign. 11/18/2024: Underwent FNA biopsy of the right mid 2.7 cm nodule with benign cytology [place] category 2. I discussed with the patient that benign results mean there is less than 3% chance of malignancy. Even though she has had these nodules for over 10 years, since I only have records on her from 2020 onwards plus recent increase in the size of the nodules I will plan to see her back in 1 year with a repeat ultrasound. Last TFTs from November 2024, she is biochemically euthyroid Plan: -ordered TSH, free T4 to be done a few days prior to her appointment in 1 year in November 2025 -ordered thyroid ultrasound to be repeated in 1 year prior to appointment in November 2025 -follow up in 1 year Plan see above Orders: Orders Thyroid Stimulating Hormone 1 Year E04.2 - Nontoxic multinodular goiter Free T4 (Free Thyroxine) 1 Year E04.2 - Nontoxic multinodular goiter US thyroid 1 Year E04.2 - Nontoxic multinodular goiter Patient Instructions: Do thyroid US in 1 year , schedule this 4-6 weeks prior to your appointment with me in 1 year when someone calls you to schedule this Do blood work a few days prior to your next appointment with me Follow up in 1 year Coding Level of Care Code Est Pt Level 3 (63500) Diagnoses Non-toxic multinodular goiter E04.2
== END 2024-12-01 07:51 | disposition home or self-care (01) ==
PROVIDERS: PCP Internal Medicine; Visit Provider Student in an Organized Health Care Education/Training Program
DX: E04.2 Nontoxic multinodular goiter (principal)
CPT/HCPCS: 99213

== ENCOUNTER 2024-12-17 08:47 | Outpatient (AMB) | payer OTHER, SELFPAY ==
--- NOTE | 2024-12-17 08:49 | A.OFFPC_ITS ---
Vital Signs 12/17/24 08:51 Height 5 ft 7 in Weight 220 lb 4 oz BMI 34.5 BP 120/76 Blood Pressure Location Lt brachial Position Sitting Pulse 88 Pulse Source Pulse Oximeter Temp 97.1 F Temp Source Skin Pulse Oximetry (%) 97 Oxygen Delivery Method Room Air Intake Visit Reasons: PE Intake Note: Patient is here today for a physical. 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 Sunglasses: Not Required per policy Accompanied by: Self / Same As Patient Allergies No Known Allergies Allergy (Verified 12/17/24 08:50) Medication List - Last Reconciled 12/17/24 by Nela Forrest MD albuterol sulfate 90 mcg/actuation 2 puffs inhalation Q4-6H PRN albuterol sulfate 2.5 mg inhalation Q4-6H PRN amlodipine 5 mg PO QAM beclomethasone dipropionate 80 mcg/actuation (Qvar RediHaler) 1 inh inhalation Q12H cetirizine (Zyrtec) 10 mg PO BEDTIME fluocinolone 0.025% 1 appl topical BID PRN ibuprofen 400 mg PO Q12H decqsvcx-dzk-xwid-FA-vit K-lut 8 mg iron-400 mcg-50 mcg (Centrum Silver Women) 1 tab PO DAILY polyethylene glycol 3350 (Miralax) 238 grams PO ONCE 1 day Tobacco use date assessed: 12/17/24 Fall risk assessment: No Falls in past year Last assessed Fall Risk: 12/17/24 Dental Screening Dental Screen Date: 12/17/24 Did you have a dental visit in the last 12 months?: Yes Did you have a dental problem in the last 6 months where you did not have access to dental care?: No Was dental information given to patient?: Patient has dentist HPI PE HPI Details The patient is a 69-year-old female presenting for a wellness visit and chronic disease management. She has a history of thyroid nodules, which have not been affecting her thyroid function as per recent ultrasound and blood work indicating normal thyroid function. She follows up every six months for benign mammary dysplasia and recently completed her mammogram. Her blood pressure is well-controlled on current medication, with home monitoring showing normal levels. She reports using Qvar for asthma management and acknowledges no recent use of her rescue inhaler. She experiences symptomatic relief with current inhaler usage and denies recent asthma exacerbations. The patient controls her GERD with infrequent occurrences of heartburn. For osteoarthritis-related back pain, she takes ibuprofen twice daily and adheres to proper hydration and food intake guidelines to prevent kidney impairment. Mildly elevated blood glucose was noted, possibly influenced by recent dietary habits; however, her hemoglobin A1c remains within normal limits. Her cholesterol levels appear favorable, with improved good cholesterol and adequate blood lipid control. She has a history of eczema managed with moisturizing agents and reports better skin conditions with Ayurvedic oil use. - Pneumococcal vaccinations up to date ( 2017, 2021) - Recent mammogram completed within the six-month follow-up - Thyroid ultrasound scheduled for this year - Annual wellness visit conducted - Blood pressure well-monitored at home - Encouraged adequate hydration with ibu profen use - Regular multivitamin, zyrtec, and tierra y asthma preventive inhaler use - Consumes a glass of wine four to five nights per week - Denies smoking or illicit drug use - Engages in tailored exercise regimen d ue to back and hip concerns - Challenges with long-distance walking due to back issues - Participates in an online physical [employer] program for core strengthening - General: Denies fevers, chills, or nig ht sweats - Respiratory: Denies shortness of breat h, wheezing, or cough - Cardiovascular: Denies chest pain or p alpitations - Gastrointestinal: Denies nausea, vomit ing, diarrhea, or constipation; occas ional heartburn - Musculoskeletal: Denies joint swelling apart from managed back pain; requires support for stairs - Neurological: Denies headaches or visu al disturbances - Genitourinary: Wakes once per night to urinate - Dermatological: Reports eczema flares on elbows and ear - Labs: Normal complete blood count, oscar al function tests within normal limits, elevated eosinophils indicating allergic reaction, fasting glucose level elevated at 107 mg/dL, hemoglobin A1c within normal limits, lipid panel favorable with LDL at 112 mg/dL and HDL increased to 64 mg/dL - Urinalysis: Normal - Blood pressure: Well-controlled [facility] Medical History (Updated 12/17/24 @ 09:32 by Nela Forrest MD) Annual physical exam Colon cancer screening COVID-19 virus infection Hip pain Sciatic nerve pain Radicular pain of left lower extremity Otitis externa Cerumen debris on tympanic membrane of left ear Lumbar degenerative disc disease Right thigh pain Hip pain, right Vertebrogenic low back pain Lumbar spinal stenosis Scoliosis of lumbar region due to degenerative disease of spine in adult Lumbar stenosis with neurogenic claudication Annual physical exam Eczematous dermatitis Impacted cerumen, left ear Family history of breast cancer Degenerative disc disease, lumbar Osteoarthritis Lumbar spinal stenosis Thyroid nodule Hypercholesterolemia Vitamin D deficiency Obesity (BMI 30-39.9) Fatty liver Osteopenia Tubular adenoma of colon Hypertension Eczema Asthma Non-toxic multinodular goiter Surgical History Status post lumbar spine surgery for decompression of spinal cord Status post fine needle aspiration Hx of colonoscopy Hx of cholecystectomy Hx of section Family History Father COPD (chronic obstructive pulmonary disease) Mother Breast cancer Social History (Updated 12/17/24 @ 09:39 by Nela Forrest MD) Housing: House Are you a primary client care consultant to a significant other at home: No Do you presently have visiting nurse or other home services: No Alcohol intake: current Alcohol intake frequency: holidays/special occasions only Comment: final count correct 2 x a month glass of wine - 4-5 days a week glass Patient Tobacco Use Status: Former Tobacco user Tobacco use type: Cigarette Years Smoked: 1979 stopped e-Cigarette/Vaping Use: Never Used Second Hand Smoke Exposure: Yes service: No Current occupational status: employed Current occupation: [employer] [place] Cognitive needs: No Hearing needs: No Vision needs: Yes Questionnaire PHQ-9 Over the last 2 weeks, how often have you been bothered by any of the following problems? 1. Little interest or pleasure in doing things: not at all 2. Feeling down, depressed, or hopeless: not at all 3. Trouble falling or staying asleep, or sleeping too much: not at all 4. Feeling tired or having little energy: not at all 5. Poor appetite or overeating: not at all 6. Feeling bad about yourself - or that you are a failure or have let yourself or your family down: not at all 7. Trouble concentrating on things, such as reading the newspaper or watching television: not at all 8. Moving or speaking so slowly that other people could have noticed. Or the opposite - being so fidgety or restless that you have been moving around a lot more than usual: not at all 9. Thoughts that you would be better off or of hurting yourself in some way: not at all Total score: 0 Depression Screening Interpretation: Negative Depression Screening Done: Yes Source: Developed by Drs. Keith Nino, Ally Kinney, Huber Richmond and colleagues, with an educational meir from [employer]. Thrive Questionnaire Date Thrive assessed: 12/16/24 I am a: Patient What is your living situation today?: I have a steady place to live Within the past 12 months, did the food you bought not last and you didn't have the money to get more?: Never true Within the past 12 months, did you worry whether your food would run out before you got money to buy more?: Never true Do you have trouble paying for medicines?: No Do you have trouble getting transportation to medical appointments?: No Do you have trouble paying your heating and electricity bill?: No Do you have trouble taking care of your child, family member or friend?: No Do you have trouble with day-to-day activities such as bathing, preparing meals, shopping, managing finances, etc.?: No Are you currently unemployed and looking for a job?: No Are you interested in more education?: No Please select the resources that you would like help with: None Currently or been in a relationship where the following occur: No concerns reported THRIVE Score: 0 AUDIT C Alcohol Use Questionnaire (AUDIT-C) 1. How often do you have a drink containing alcohol?: 2-3 times a week 2. How many drinks containing alcohol do you have on a typical day when you are drinking?: 1 or 2 3. How often do you have six or more drinks on one occasion?: Never Total Score: 3 AMOL-7 AMB Questionnaire AMOL-7 Date AMOL - 7 assessed: 12/17/24 Feeling nervous, anxious, or on edge: 0 = Not at all Not being able to stop or control worryin = Not at all Worrying too much about different things: 0 = Not at all Trouble relaxin = Not at all Being so restless that it is hard to sit still: 0 = Not at all Becoming easily annoyed or irritable: 0 = Not at all Feeling afraid as if something awful might happen: 0 = Not at all Total AMOL-7 score (0-4 normal; 5-9 mild; 10-14 moderate; 15-21 severe): 0 Source: Developed by Drs. Keith Nino, Ally Kinney, Huber Richmond and colleagues, with an educational meir from [employer]. Review of Systems Const Denies poor appetite and Denies weakness Eyes Denies no additional complaints ENT Reports Normal hearing present, Denies dizziness, Denies nasal congestion, Denies tinnitus and Denies sore throat Card Denies chest pain, Denies syncope, Denies rapid heart rate and Denies dyspnea Resp Denies cough and Denies dyspnea GI Denies change in stool character, Reports constipation, Denies diarrhea, Denies nausea and Denies vomiting Denies urinary frequency, Denies difficulty voiding and Denies dysuria Neuro Reports Normal hearing present, Denies confusion, Denies dizziness, Denies syncope and Denies weakness Psych Denies confusion Physical exam (Primary Care) Vital Signs: Last Vital Signs Temp 97.1 F 12/17/24 08:51 Pulse 88 12/17/24 08:51 BP 120/76 12/17/24 08:51 Pulse Ox 97 12/17/24 08:51 Oxygen Delivery Method Room Air 12/17/24 08:51 BMI result Body Mass Index 34.5 Tobacco/Smoking Status: Tobacco use Status Tobacco use date assessed 12/17/24 12/17/24 08:55 Patient Tobacco Use Status Former Tobacco user 12/17/24 08:55 Tobacco use type Cigarette 12/17/24 08:55 e-Cigarette/Vaping Use Never Used 12/17/24 08:55 PHQ-9: PHQ-9 Score PHQ-9: Total score 0 12/17/24 08:55 Depression Screening Interpretation: Negative Thrive Assessment: Date of Thrive Assessment Date Thrive assessed 12/16/24 12/17/24 08:55 Currently or been in a relationship where the following occur: No concerns reported Const General: No confusion Orientation/consciousness: No confusion HENMT Head: Yes normocephalic Ears: external ears normal and TM's normal bilaterally Face and sinus: Yes normal facial exam Mouth: moist mucous membranes Throat: Yes tonsils normal Eyes Conjunctivae: conjunctivae normal Pupils: Equal, round and reactive pupils present and Pupil accommodation reflex normal Direct Ophthalmoscopy: normal light reflex Neck Neck: No lymphadenopathy Thyroid: Thyroid normal Chest Chest palpation & inspection: normal inspection of the chest Resp Effort & Inspection: normal respiratory effort and no audible wheezes Auscultation: clear to auscultation bilaterally, no crackles, no wheezes and lung sounds not diminished Cardio Rate: regular rate Rhythm: regular rhythm Peripheral pulses: radial pulses present and dorsalis pedis present GI Other: colon test next month Palpation (GI): no masses Auscultation: normal bowel sounds and normoactive bowel sounds Rectal Exam - Female: deferred Skin General skin exam: no rashes or lesions noted Rashes: no rashes Neuro General: No confusion Cranial nerves: Yes Equal, round and reactive pupils present and Yes Normal hearing present Cognition (Neuro): normal cognition Gait exam (Neuro): Normal gait present Motor exam (neuro): 5/5 motor strength present throughout Deep tendon reflexes (DTR's): Right brachioradialis reflex intensity grade: 2+, Left brachioradialis reflex intensity grade: 2+, Right patellar reflex intensity grade: 2+ and Left patellar reflex intensity grade: 2+ Extrem Other: LE 2+ R > L edema General: Yes edema Coding Level of Care Code Est Pt Prev Care >65y(42345) Diagnoses Annual physical exam Z00.00 Tubular adenoma of colon D12.6 Obesity (BMI 30-39.9) E66.9 Non-toxic multinodular goiter E04.2 Asthma J45.909 Hypertension I10 Hypercholesterolemia E78.00 Impaired glucose tolerance R73.02 Assessment & Plan Assessment & Plan (1) Annual physical exam: Code(s): Z00.00 - Encounter for general adult medical examination without abnormal findings Category: Medical (2) Tubular adenoma of colon: Comment: 2019 Code(s): D12.6 - Benign neoplasm of colon, unspecified Category: Medical (3) Obesity (BMI 30-39.9): Code(s): E66.9 - Obesity, unspecified Category: Medical (4) Non-toxic multinodular goiter: Comment: Biopsy September 2022 benign, November 2024 benign biopsy Code(s): E04.2 - Nontoxic multinodular goiter Category: Medical (5) Asthma: Comment: well controlled-follows w/Dr. Forrest Code(s): J45.909 - Unspecified asthma, uncomplicated Category: Medical (6) Hypertension: Code(s): I10 - Essential (primary) hypertension Category: Medical (7) Hypercholesterolemia: Code(s): E78.00 - Pure hypercholesterolemia, unspecified Category: Medical (8) Impaired glucose tolerance: Code(s): R73.02 - Impaired glucose tolerance (oral) Category: Medical Plan - Continue monitoring thyroid nodule with scheduled ultrasound and lehr loader consultations. - Maintain current asthma regimen; emphasis on proper inhaler technique and adherence. - Continue blood pressure management with the current medication regimen. - Advise regular follow-up and comprehensive mammogram reviews every six months. - Continue dietary modifications to manage blood sugar levels, possibly influenced by holiday seasons, and monitor fasting glucose levels. - Maintain current osteoarthritis management with NSAIDs and encourage core strengthening exercises to alleviate symptoms. - Utilize moisturizers for eczema flare-ups and consider dermatological consultation if it exacerbates. - Encourage continued allergy management with daily Zyrtec use. I discussed with the patient her overall good management of chronic conditions, with her blood pressure and lipid levels well-controlled. We talked about the importance of monitoring blood glucose levels and considering influencing factors such as diet. I reassured her that thyroid function remains normal, and further imaging will continue to monitor her thyroid nodules. We reviewed her asthma management plan, ensuring her inhaler use does not lead to candidiasis, and confirmed her routine GERD management steps. I emphasized the significance of proper hydration when taking NSAIDs for osteoarthritis management and the benefits of supplements and lifestyle modifications for health maintenance. Furthermore, vaccination status and general preventive measures for infection risk reduction were discussed. The need to remain vigilant about allergens and maintain vigilance over eczema-prone areas with ongoing topical treatments was highlighted. - Continue monitoring blood pressure regularly and maintain current hypertensive treatments. - Use asthma inhaler consistently and follow inhaler use recommendations, including mouth rinsing. - Monitor fasting glucose levels and adhere to a balanced diet to keep sugar within desired ranges. - Take ibuprofen with meals and maintain adequate fluid intake to support kidney function. - Apply moisturizers regularly to manage eczema and keep skin well hydrated. - Follow with dermatology if symptoms of skin conditions do not improve. - Remain updated with preventive health measures including vaccination schedules. - Practice safe measures to reduce infection risks during flu and COVID seasons. - Continue exercise program taking precautions not to strain the back, and engage in regular physical activity as comfortable.
[2024-12-17 08:51] VITALS: BP 120/76; PULSE 88; TEMP 36.2; O2SAT 97; BMI 34.5
== END 2024-12-17 09:56 | disposition home or self-care (01) ==
PROVIDERS: PCP Internal Medicine; Visit Provider Internal Medicine
DX: Z00.00 Encounter for general adult medical examination without abnormal findings (principal); D12.6 Benign neoplasm of colon, unspecified; E66.811 Obesity, class 1; Z68.34 Body mass index [BMI] 34.0-34.9, adult; E04.2 Nontoxic multinodular goiter; J45.909 Unspecified asthma, uncomplicated; I10 Essential (primary) hypertension; E78.00 Pure hypercholesterolemia, unspecified; R73.02 Impaired glucose tolerance (oral)

== ENCOUNTER → 2024-12-17 08:47 | Outpatient (BNVA) | payer OTHER, SELFPAY | PROVIDERS: PCP Internal Medicine; Visit Provider Internal Medicine ==

== ENCOUNTER 2025-01-14 06:54 | Day surgery (SDC) | payer OTHER, SELFPAY ==
[2025-01-12 15:10] VITALS: BMI 32.7
--- NOTE | 2025-01-13 12:19 | P.CONAN_ITS ---
Documented by User: Nancie Villegas NP 01/13/25 12:19 HPI - Anesthesia Eval Consult details Narrative: 69yo F for Colonoscopy PMFSH Active Problems Active Problems: All Active Problems (Updated 12/17/24 @ 09:32 by Nela Forrest MD) Annual physical exam (Acute) Pre-op examination (Acute) Tubular adenoma of colon (Acute) Lumbar spondylosis (Acute) Osteoarthritis of right hip (Acute) Impaired glucose tolerance (Acute) Osteopenia (Acute) Hypercholesterolemia (Acute) Obesity (BMI 30-39.9) (Acute) Hypertension (Acute) Eczema (Acute) Asthma (Acute) Non-toxic multinodular goiter (Acute) Past Medical History Medical History Impacted cerumen, left ear Eczematous dermatitis Colon cancer screening Family history of breast cancer Degenerative disc disease, lumbar Osteoarthritis Lumbar spinal stenosis Lumbar stenosis with neurogenic claudication Scoliosis of lumbar region due to degenerative disease of spine in adult Vertebrogenic low back pain Hip pain, right Right thigh pain Lumbar degenerative disc disease Cerumen debris on tympanic membrane of left ear Otitis externa Annual physical exam Thyroid nodule Hypercholesterolemia Vitamin D deficiency Obesity (BMI 30-39.9) Fatty liver Osteopenia Tubular adenoma of colon Radicular pain of left lower extremity Sciatic nerve pain Hip pain COVID-19 virus infection Hypertension Eczema Asthma Non-toxic multinodular goiter Family History Family History Father COPD (chronic obstructive pulmonary disease) Mother Breast cancer Family history of problems with anesthesia: No Surgical History Surgical History Status post lumbar spine surgery for decompression of spinal cord Status post fine needle aspiration Hx of colonoscopy Hx of cholecystectomy Hx of section History of Problems with Anesthesia: No Social History Social History Housing: House Are you a primary intensive care unit nurse to a significant other at home: No Do you presently have visiting nurse or other home services: No Alcohol intake: current Alcohol intake frequency: holidays/special occasions only Comment: final count correct 2 x a month glass of wine - 4-5 days a week glass Patient Tobacco Use Status: Former Tobacco user Tobacco use type: Cigarette Years Smoked: 1979 stopped e-Cigarette/Vaping Use: Never Used Second Hand Smoke Exposure: Yes Use of substances other than those prescribed or required for medical reasons: No Advance Directives: No Advance Directives Information Provided: Yes service: No Current occupational status: employed Current occupation: [employer] – [place] [employer] Cognitive needs: No Hearing needs: No Vision needs: Yes Meds Allergies Allergy/AdvReac Type Severity Reaction Status Date / Time No Known Allergies Allergy Verified 12/17/24 08:50 Home Medications ?Medication ?Instructions ?Recorded ?Confirmed ?Last Taken ?Type albuterol sulfate 2.5 mg/3 mL 2.5 mg inhalation Q4-6H PRN 11/22/20 12/17/24 Unknown History (0.083 %) solution for nebulization Wheezing albuterol sulfate 90 mcg/actuation 2 puff inhalation Q4-6H PRN 11/22/20 12/17/24 Unknown History aerosol inhaler Wheezing cetirizine 10 mg tablet (Zyrtec) 10 mg PO BEDTIME 11/22/20 12/17/24 09/29/23 History ilukpnwg-waum-ftot 8 mg-folic 400 1 tab PO DAILY 11/22/20 12/17/24 09/29/23 History mcg-K 50 mcg-lutein 300 mcg tablet (Centrum Silver Women) fluocinolone 0.025 % topical cream 1 appl topical BID PRN 09/18/24 12/17/24 Unknown History Exam Height,Weight and Vital Signs: Height 5 ft 7 in Weight 94.801 kg Assessment and Plan Assessment Anesthesia Assessment: Chart Reviewed Final Anesthetic Review Family History of Problems with Anesthesia: No History of Problems with Anesthesia: No Documented by User: Shari James MD 01/14/25 08:09 [facility] Past Medical History Medical History Impacted cerumen, left ear Eczematous dermatitis Colon cancer screening Family history of breast cancer Degenerative disc disease, lumbar Osteoarthritis Lumbar spinal stenosis Lumbar stenosis with neurogenic claudication Scoliosis of lumbar region due to degenerative disease of spine in adult Vertebrogenic low back pain Hip pain, right Right thigh pain Lumbar degenerative disc disease Cerumen debris on tympanic membrane of left ear Otitis externa Annual physical exam Thyroid nodule Hypercholesterolemia Vitamin D deficiency Obesity (BMI 30-39.9) Fatty liver Osteopenia Tubular adenoma of colon Radicular pain of left lower extremity Sciatic nerve pain Hip pain COVID-19 virus infection Hypertension Eczema Asthma Non-toxic multinodular goiter Family History Family History Father COPD (chronic obstructive pulmonary disease) Mother Breast cancer Surgical History Surgical History Status post lumbar spine surgery for decompression of spinal cord Status post fine needle aspiration Hx of colonoscopy Hx of cholecystectomy Hx of section Social History Social History Housing: House Are you a primary intensive care unit nurse to a significant other at home: No Do you presently have visiting nurse or other home services: No Alcohol intake: current Alcohol intake frequency: holidays/special occasions only Comment: final count correct 2 x a month glass of wine - 4-5 days a week glass Patient Tobacco Use Status: Former Tobacco user Tobacco use type: Cigarette Years Smoked: 1979 stopped e-Cigarette/Vaping Use: Never Used Second Hand Smoke Exposure: Yes Use of substances other than those prescribed or required for medical reasons: No Advance Directives: No Advance Directives Information Provided: Yes service: No Current occupational status: employed Current occupation: [employer] Cognitive needs: No Hearing needs: No Vision needs: Yes Meds Allergies Allergy/AdvReac Type Severity Reaction Status Date / Time No Known Allergies Allergy Verified 12/17/24 08:50 Home Medications ?Medication ?Instructions ?Recorded ?Confirmed ?Last Taken ?Type albuterol sulfate 2.5 mg/3 mL 2.5 mg inhalation Q4-6H PRN 11/22/20 12/17/24 Unknown History (0.083 %) solution for nebulization Wheezing albuterol sulfate 90 mcg/actuation 2 puff inhalation Q4-6H PRN 11/22/20 12/17/24 Unknown History aerosol inhaler Wheezing cetirizine 10 mg tablet (Zyrtec) 10 mg PO BEDTIME 11/22/20 12/17/2409/29/23 History rqydtriz-orup-sswb 8 mg-folic 400 1 tab PO DAILY 11/22/20 12/17/24 09/29/23 History mcg-K 50 mcg-lutein 300 mcg tablet (Centrum Silver Women) fluocinolone 0.025 % topical cream 1 appl topical BID PRN 09/18/24 12/17/24 Unknown History Exam Airway Mallampati Class: II TM Dist: >3cm Neck ROM: Full Loose/Missing/Broken Teeth: No Heart: RRR Lungs: CTA Assessment and Plan Assessment Anesthesia Assessment: Anesthesia Plan Discussed Final Anesthetic Review NPO: Yes ASA Class: II Final Preanesthetic Review: Meds/Allgs Chart Reviewed, Consent Obtained/Reviewed and Anes Risks/Benef Reviewed Patient Risk: Low Procedure Risk: Low Anesthetic Plan Anesthetic Plan: MAC: Disposition: Standard PACU
--- OUTSIDE RECORDS SUMMARY | 2025-01-14 06:55 | XMS_ITS ---
Author Organization [facility] Address [address] [place] [address] Care Team Providers Care Senior Data Mining Analyst Name Role Phone FLAKITO GOEL M.D. 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 > 10 years Tobacco use other than smoking: Question Answer Notes Are you an other tobacco user? No AUDIT-C (Standard) Question Answer Notes Did you have a drink contain ing alcohol in the past year? Yes How often did you have six o r more drinks on one occasion in the past year? Never (0 point) How many drinks did you have on a typical day when you were drinking in the past year? 1 or 2 drinks (0 point) How often did you have a dri nk containing alcohol in the past year? 2 to 3 times a week (3 points) Points 3 Interpretation Positive Vital Signs Temperature 97.3 degrees Fahrenheit 04/07/20 24 Blood pressure systolic 124 mm Hg 04/07/20 24 Blood pressure diastolic 72 mm Hg 024 Height 68 in 04/07/2024 Weight 192 lbs 04/07/2024 BMI 29.19 kg/m2 04/07/2024 Encounters Encounter Location Date Provider Diagnosis [facility] [address] [place] [address] 04/07/2024 MELYSSA IBAENZ Encounter for gynecological examination (general) (routine) without abnormal findings Z01.419 and Encounter for screening mammogram for malignant neoplasm of breast Z12.31 Assessments Encounter Date Diagnosis (ICD Code) Assessment Notes Treatment Notes Treatment Clinical Notes Section Notes 04/07/2024 Encounter for gynecological examination (general) (routine) without abnormal findings (ICD-10 - Z01.419) During the visit, the following areas of concern were addressed: Discussed stopping cervical cancer screening as per ASCCP guidelines. Advised continued annual pelvic exams. Patient encouraged to increase her level of exercise. SBE technique encouraged/tau ght. Patient reminded when annual mammogram is due. Patient encouraged to keep colon screening up to date. 04/07/2024 Encounter for screening mammogram for malignant neoplasm of breast (ICD-10 - Z12.31) Plan Of Treatment Treatment Notes Assessment Notes Encounter for gynecological examination (general) (routine) without abnormal findings During the visit, the following areas of concern were addressed: Discussed stopping cervical cancer screening as per ASCCP guidelines. Advised continued annual pelvic exams. Patient encouraged to increase her level of exercise. SBE technique encouraged/taught. Patient reminded when annual mammogram is due. Patient encouraged to keep colon screening up to date. Pending Test Test Name Order Date MM Digital Screening Mammogram 3D 2023 Next Appt Details Follow Up: 1 Year, Reason: Y early Bulk Picker Exam Provider Name:MELYSSA Dubois, 04/19/2025 08:00:00 AM, [address], [address], [place], [address], Progress Notes * JENNYFER FLOYDADOB:1955 (68 yo F)Acc No.[id number]:04/07/2024 PROGRESS NOTES Patient:?LORELEI FLOYD Provider:?MELYSSA IBANEZ MD :1955???Age:68 Y???Sex:Female D ate:04/07/2024 Address:[address] [place], [place] [id number] Pcp:FLAKITO GOEL M.D. 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 ?She has been in state of good health since her last exam. She has the following concerns: She had a disc decompression in October. ?She has received the Moderna Covid-19 vaccine and booster. ?Relationship status: for 41 years. She is not sexually active. Sexual partner(s): male. She does not wish to have STI testing. ?She does not report vaginal dryness. She does not have hot flashes/night sweats. ?The patient has never had an abnormal pap smear. Her most recent pap smear was 06/15/2020. Pap smears are no longer indicated. ?She has not been diagnosed with breast cancer. She does have a family history of breast cancer - mother, paternal aunt. Her last mammogram was 10/31/24 - [facility].?She does?not have a family history of colon cancer. She a has had a colonoscopy. The last colonoscopy was 2018. She is due for her next scan in 2023. She is not yet scheduled. ?The patient does intermittently exercise. She exercises x 2 days/week by stretching and yoga. * ROS:?Annual Bulk Picker Exam ROS:?Bowel habit changes?denies.?Bladder symptoms?denies.?Vaginal discharge, unusual?denies.?Vaginal itch or odor?denies.?weight or appetite changes?denies.?Chest pains, SOB?denies.?depression?denies.?Breast:?Denies?Breast lump.?Admits?Nipple discharge,?long-standing, no changes (right breast).?Hematology:?Denies?Swollen glands.?Skin:?Patient denies?changing moles.?Psychiatric:?Denies?Anxiety.? * Medical History:? * Bulk Picker History:?/ Para?1/1.?Sexual activity?not currently sexually active.?Last Pap Smear:?06/15/2020 - NIL, neg HR HPV; 08/23/2015 NIL, neg HR HPV.?Mammogram:?10/31/23, 09/04/21, 08/25/20 < 50% density, 06/10/19 < 50% density, 03/18/2018-WNL 03/2017 PT HAS YEARLY SCREENING BREAST MRI and mammo via PCP.?Abnormal Pap Smear:?None.?LMP and menses?2009, s/p natural menopause.?History of STD's:?none.?Colonoscopy?2018, 05/15, tubular adenoma, screened q5y.?Bone Density:?2016 , 2012.? * OB History:?Total pregnancies?, c/s.? # 1:?Primary , 06/10/87, Phi, 8lb, nonreassuring FHR, no complications.? * Surgical History:?Cholecyste ctomy 1983C/S 1987thyroid nodule bx, benign R axillary cyst resection Back Surgery (disc decompression) 10/03/23 * Hospitalization/Major Diagno stic Procedure:?childbirth see surgical history * Family History:?Mother: dece ased 68 yrs, breast ca age 64, from her disease.?Father: 71 yrs, COPD.?Son(s): alive 37 yrs, well.? Sister - Madeline - 7 - diabetes, RA, osteoarthritis, asthma, kidney failure, MVP Sister - Kathi - 1950 - in 1971 from cystic fibrosis Brother - Mihir - 1949 - as an infant from cystic fibrosis Paternal aunt: breast ca dx'ed >50, from her disease Denies family history of colon, uterine or ovarian cancer. * Social History:?Tobacco Use:?Tobacco Use/Smoking?Are you a?former smoker ?How long has it been since you last smoked??> 10 years ?Tobacco use other than smoking?Are you an other tobacco user??No ???Drugs/Alcohol:?Drugs?Have you used drugs other than those for medical reasons in the past 12 months??No ???Miscellaneous:?Domestic violence: no. ?Home smoke detector use: yes, smoke detectors, carbon monoxide detector. ?Housing: owns a home. ?Living with: spouse. ?Marital status: , Peter. ?Occupation: works in [employer] at [employer]. ?Pets: dogs: 2 [place] terriers (Jennifer and Dara). ?Sexual abuse: no. ?Sexually active: no. ?Verbal abuse: no. ???Drug/Alcohol:?AUDIT-C (Standard)?Did you have a drink containing alcohol in the past year??Yes ?How often did you have six or more drinks on one occasion in the past year??Never (0 point) ?How many drinks did you have on a typical day when you were drinking in the past year??1 or 2 drinks (0 point) ?How often did you have a drink containing alcohol in the past year??2 to 3 times a week (3 points) ?Points?3 ?Interpretation?Positive * Medications:?TakingQvar Redi Haler 80 MCG/ACT Aerosol Breath Activated 1 puff Inhalation Once a day amLODIPine Besylate 5 MG Tablet 1 tablet Orally Once a day Albuterol Medication List reviewed and reconciled with the patientTaking Qvar RediHaler 80 MCG/ACT Aerosol Breath Activated 1 puff Inhalation Once a day Taking amLODIPine Besylate 5 MG Tablet 1 tablet Orally Once a day Taking Albuterol Medication List reviewed and reconciled with the patient * Allergies:?N.K.D.A.no[Allerg ies Verified] Objective: * Vitals:?Ht: 68 in, Wt: 192 l bs, BMI:29.19Index, BP: 124/72 mm Hg, Temp: 97.3 F. * Examination: ???General Examination: ?GENERAL APPEARANCE:?in no acute distress, well developed, well nourished, direct selling counselor present in room.?HEAD:?normocephalic, atraumatic.?NECK/THYROID:?neck supple, full range of motion, thyroid normal.?LYMPH NODES:?no axillary or supraclavicular adenopathy.?SKIN:? normal, good turgor, no rashes, no suspicious lesions.?BREASTS:? normal, no dimpling, no discharge, no drainage, no masses palpable bilaterally, nontender.?ABDOMEN:? soft, non-tender, non distended without masses or hepatosplenomegay.?RECTAL:? normal tone, no masses palpable.?BACK:? no costovertebral angle tenderness.?FEMALE GENITOURINARY:?Vulva without lesions or masses, vagina pink without abnormal discharge, lesions or masses, cervix appears normal and is not tender to palpation, uterus is normal size, mobile, nontender and anteverted, ovaries are not palpable.?NEUROLOGIC:? alert and oriented, gait normal.?PSYCH:? alert, oriented, cognitive function intact, cooperative with exam, good eye contact, mood/affect full range, speech clear.? Assessment: * Assessment: 1.?Encounter for gynecologic al examination (general) (routine) without abnormal findings - Z01.419 (Primary)?2.?Encounter for screening mammogram for malignant neoplasm of breast - Z12.31? Plan: * Treatment: 2.?Encounter for screening m ammogram for malignant neoplasm of breast?Imaging: MM Digital Screening Mammogram 3D * Procedure Codes:? * Preventive Medicine:? ~~~~~~~~~~~~~ STRENGTH TRAINING ~~~~~~~~~~~~~ Anyone, at any fitness level, can and should add strength training to their routine. Strength training is an important part of an overall fitness program, mainly because lean muscle mass naturally diminishes with age. You'll increase the percentage of fat in your body if you don't do anything to replace the lean muscle you lose over time. Strength training can help you preserve and enhance your muscle mass (at any age!), develop strong bones and reduce the risk of osteoporosis, manage or lose weight and increase your metabolism to help you burn more calories. It will also improve your ability to do everyday activities and reduce symptoms of chronic conditions such as arthritis, back pain, obesity, heart disease and diabetes. Some research suggests that regular strength training may help improve thinking and learning skills. Don't be intimidated. You can strength train at home or in the gym, and you have plenty of options. You can rely on your body weight and do many exercises with little or no equipment, like pushups, pullups, planks and leg squats. Or you can go pro and choose to go with resistance tubing (a lightweight tubing that provides resistance when stretched), free weights like barbells and dumbbells, or weight machines at the gym. ~~~~~~~~~~~~~~~~~~~~~~~~~~~~~~~~~~~~~~~~~~~ SARCOPENIA AND THE IMPORTANCE OF STRENGTH TRAINING EXERCISE ~~~~~~~~~~~~~~~~~~~~~~~~~~~~~~~~~~~~~~~~~~~ What is sarcopenia? ~~~~~~~~~~~~ Sarcopenia refers to the process of losing skeletal muscle mass and strength. 'Sarco' is the [place] word referring to flesh, and 'penia' means a reduction in amount. Thus, the word describes a progressive weakening of the body caused by a 'change in body compensation in favor of fat and at the expense of muscle.' Everyone, beginning around age 25, starts to lose muscle mass, though the actual symptoms of this loss do not usually begin showing up until around the age of 40 or so. The process begins really picking up speed after the age of 65. In fact, around the age of 40, most women will lose almost a half-pound of muscle every year and replace it with fat. The result of this gradual loss of muscle is an insidious weakening of the body, loss of balance, loss of confidence upon walking, and a reduced ability to recover from near falls. As we lose strength, we become more inactive. This makes sense, because if we have less muscle, it takes much more effort to move, and we fatigue more easily. But also, with loss of strength comes loss of balance and stability. The fear of falling keeps many people sedentary, and a sedentary lifestyle opens the door for chronic illness. ~~~~~~~~~~~~~~ Take back your muscle ~~~~~~~~~~~~~~ And now for great news: you can delay sarcopenia and even reverse it. How? By lifting weights. Even though you cannot grow new muscles cells to replace the ones you have already lost, you can develop the ones that you have left. In fact, you can become stronger than you ever have in your life by simply beginning a strength training program. No matter how old you are, it is not too late to start. Even patients in nursing homes have seen transformation. After strength training, bedridden patients were able to begin walking with walkers, walker-dependent patients graduated to canes, and so on. And no matter how young you are, it is not too early to start! By starting early, you can significantly delay the effects of sarcopenia. As you begin lifting weights, you will notice a transformation in your body. You will have more energy, you will perform everyday tasks with noticeably more ease and your clothes will begin sagging on you, because you will be building muscle and burning up the fat deposits. You will have greater balance and more confidence. And perhaps best of all is the insurance policy you pay premiums on every time you choose to lift, because you are laying a strong, solid foundation for your later years. You are laying up health, independence and the ability to live well, not just long. DON'T LET ANOTHER DAY GO BY THAT YOU ARE LOSING MUSCLE. Take it back, and get ready to feel better than you ever have! . * Follow Up:?1 Year (Reason: Y early Bulk Picker Exam) * Images: Billing Information: * Visit Code:? 11578 Preventive Care Est Pt. Age 65 and over. * Procedure Codes:? * Sign off status: Completed true * Provider:?MELYSSA IBANEZ MD Date:?2023 Generated for Avinsah prince/Michael/eTransmitting on:?01/14/2025 06:55 AM EST History and Physical Notes * HPI (History of Present Illness) Category Sub-Category Detail Notes Category Not es Constitutional Lorelei is a 68yo who presents for her yearly frame fixer exam. She has been in state of good health since her last exam. She has the following concerns: She had a disc decompression in October. She has received the Moderna Covid-19 vaccine and booster. Relationship status: for 41 years. She is not sexually active. Sexual partner(s): male. She does not wish to have STI testing. She does not report vaginal dryness. She does not have hot flashes/night sweats. The patient has never had an abnormal pap smear. Her most recent pap smear was 06/15/2020. Pap smears are no longer indicated. She has not been diagnosed with breast cancer. She does have a family history of breast cancer - mother, paternal aunt. Her last mammogram was 10/31/24 - [facility]. She does not have a family history of colon cancer. She a has had a colonoscopy. The last colonoscopy was 2018. She is due for her next scan in 2023. She is not yet scheduled. The patient does intermittently exercise. She exercises x 2 days/week by stretching and yoga. Examination Category Sub-Category Detail Notes Category Not es General Examination GENERAL APPEARANCE: in no ac seminole distress, well developed, well nourished, direct selling counselor present in room HEAD: normocephalic, atrau matic NECK/THYROID: neck supple, full ra nge of motion, thyroid normal ABDOMEN: soft, non-tender, no n distended without masses or hepatosplenomegay NEUROLOGIC: alert and oriented, gait normal SKIN: normal, good turgor, no rashes, no suspicious lesions BACK: no costovertebral an gle tenderness BREASTS: normal, no dimpling, no discharge, no drainage, no masses palpable bilaterally, nontender LYMPH NODES: no axillary or supra clavicular adenopathy RECTAL: normal tone, no mass es palpable PSYCH: alert, oriented, cog nitive function intact, cooperative with exam, good eye contact, mood/affect full range, speech clear FEMALE GENITOURINARY: Vulva without lesi ons or masses, vagina pink without abnormal discharge, lesions or masses, cervix appears normal and is not tender to palpation, uterus is normal size, mobile, nontender and anteverted, ovaries are not palpable
--- OUTSIDE RECORDS SUMMARY | 2025-01-14 06:56 | XMS_ITS ---
Author Organization [facility] Address [address] [place] [address] Care Team Providers Care Radial Router Operator Name Role Phone FLAKITO GOEL M.D. Primary Care Provider MELYSSA Sierra Unavailable [phone] REASON FOR VISIT Update Demographics - Personal Info Encounters Encounter Location Date Provider Diagnosis [facility] [address] [place] [address] 11/26/2024 MELYSSA IBANEZ Plan Of Treatment Next Appt Details Provider Name:MELYSSA Dubois, 04/19/2025 08:00:00 AM, [address], [address], [place], [address], Progress Notes * JENNYFER FLOYDADOB:1955 (69 yo F)Acc No.[id number]:11/26/2024 Patient:?TAMMY FLOYD :1955???Age:69 Y???Sex:Female Address:[address] [place] [address], [address] * true * Date:? Generated for Nareshi niki/Michael/eTransmitting on:?01/14/2025 06:55 AM EST
--- OUTSIDE RECORDS SUMMARY | 2025-01-14 06:56 | XMS_ITS ---
Author Organization [facility] Address [address] [place] [address] Care Team Providers Care Silo Filler Name Role Phone FLAKITO GOEL M.D. Primary Care Provider MELYSSA Sierra Unavailable [phone] REASON FOR VISIT Annual HEAVY COIL WINDER Physical Encounters Encounter Location Date Provider Diagnosis [facility] [address] [place] [address] 10/22/2023 MELYSSA IBANEZ Plan Of Treatment Next Appt Details Provider Name:MELYSSA Dubois, 04/19/2025 08:00:00 AM, [address] [place] [address], [address], [place], [address], Progress Notes * MITCHELLBOONEJENNYFERADOB:1955 (69 yo F)Acc No.[id number]:10/22/2023 PROGRESS NOTES Patient:?TAMMY FLOYD Provider:?MELYSSA IBANEZ MD :1955???Age:68 Y???Sex:Female D ate:10/22/2023 Address:[address] [place] [address] Pcp:FLAKITO GOEL M.D. Subjective: * Chief Complaints: * ???1. Annual HEAVY COIL WINDER Physical. * Medical History:? Objective: * Vitals:? Assessment: Plan: * Treatment: * Images: Billing Information: * Visit Code:? * Procedure Codes:? * Electronic signature of MELYSSA IBANEZ MD on 01/14/2025 at 06:55 AM EST Sign off status: Pending * Provider:?MELYSSA IBANEZ MD Date:?2022 Generated for Avinash prince/Michael/Fabricio on:?01/14/2025 06:55 AM EST
--- OUTSIDE RECORDS SUMMARY | 2025-01-14 06:56 | XMS_ITS | Patient Health Record ---
Author Organization [employer] [facility] Address [address] [address] Care Team Providers Care Dial Brusher Name Role Phone FLAKITO GOEL M.D. 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 no 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 drugs 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 no 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 drugs Problems Problem Type SNOMED Code ICD Code Onset Dates Problem Status W/U Status Risk Notes Problem Asthma (178025178) Asthma (493) Active confirmed Problem Hypertension (01190530) Hypertension (401.9) Active confirmed Problem Body mass index 30.00 to 34.99 (917820805498107 ) Body mass index [BMI] 34.0-34.9, adult (Z68.34) Active confirmed Vital Signs Temperature 97.3 degrees Fahrenheit 04/07/2024 Blood pressure diastolic 72 mm Hg 04/07/2024 Height 68 in 04/07/2024 Blood pressure systolic 124 mm Hg 04/07/2024 Weight 192 lbs 04/07/2024 BMI 29.19 kg/m2 04/07/2024 Encounters Encounter Location Date Provider Diagnosis [facility] [address] [place] [address] [address] 04/07/2024 MELYSSA IBANEZ Encounter for gynecological examination (general) (routine) without abnormal findings Z01.419 and Encounter for screening mammogram for malignant neoplasm of breast Z12.31 [facility] [place] [address] [address] 11/26/2024 MELYSSA IBANEZ Assessments Encounter Date Diagnosis (ICD Code) Assessment [...] breast (ICD-10 - Z12.31) Plan Of Treatment Pending Test Test Name Order Date Mammogram, right breast 03/12/2018 THIN PREP,HPV,KILEY IF HPV+ (>29YR)(DIAG) 08/23/2015 Right Breast Ultrasound 03/12/2018 MM Digital Screening Mammogram 3D 2021 MM Digital Screening Mammogram 3D 2023 Next Appt Details Provider Name:MELYSSA Dubois, 04/19/2025 08:00:00 AM, [address], [address], [place], [address], Insurance Providers Payer Name Payer Address Payer Phone Subscriber Number Group Number Insured Name Patient Relationship to Insured Coverage Start Date Coverage End Date [employer] [address] [address] [place] [address] [id number] TAMMY FLOYD Self - patient is the insured Medical (General) History Medical History History ICD Code Asthma 493 Hypertension 401.9 thyroid nodule COVID-19 U07.1 Surgical History Surgery Date(Month/Year) Cholecystectomy 1982 C/S 1986 thyroid nodule bx, benign R axillary cyst resection Back Surgery (disc decompression) 3 Hospitalization History Reason Date(Month/Year) see surgical history childbirth
[2025-01-14 07:14] VITALS: BP 163/88; PULSE 93; RESP 16; TEMP 36.5; O2SAT 97; BMI 33.4
--- NOTE | 2025-01-14 08:20 | MHC.SHP ---
Pre-Procedural Eval Section A - 24 Hr Update-Section A only Date of Service: 01/14/25 Section B - Complete if H&P > 30 days Chief Complaint: Benign neoplasm of colon, unspecified Relevant Family History (Specify if Yes): No Relevant Social History: Alcohol Use Present Medications: see Short Stay Collaborative assessment Medical History: Significant History (Impacted cerumen, left ear Eczematous dermatitis Colon cancer screening Family history of breast cancer Degenerative disc disease, lumbar Osteoarthritis Lumbar spinal stenosis Lumbar stenosis with neurogenic claudication Scoliosis of lumbar region due to degenerative disease of spine in adult Verteb) History of Previous Operations: Relevant previous surgery/procedure and date(s) ( Status post lumbar spine surgery for decompression of spinal cord Status post fine needle aspiration Hx of colonoscopy Hx of cholecystectomy Hx of section) Allergies: Allergies Allergy/AdvReac Type Severity Reaction Status Date / Time No Known Allergies Allergy Verified 12/17/24 08:50 Review of Systems Sugical H&P ROS: Negative: Constitution, Cardiovascular, Respiratory, Neurological, Psychiatric, Hem-Onc, Allergic/Immunologic, Gastrointestinal, Genitourinary, Musculoskeletal, Integumentary, Endocrine and Eyes/Ears/Nose/Throat Exam Surgical H&P Exam: Normal: HEENT, Normal: Heart, Normal: Lungs, Normal: Extremities, Normal: Abdomen, Normal: Skin and Normal: Neurological Plan Diagnosis/Plan: Unchanged I have reviewed the history and physical and performed a pertinent physical examination on my patient. No changes have occurred unless specified. Time Spent With Patient Time: Total time managing care of this patient today ____ minutes.
--- NOTE | 2025-01-14 08:49 | HO.OPN-COLON ---
Colonoscopy Operative Note Operative Note Date of Service: 01/14/25 Narrative: Operative Information Procedure Description: Colonoscopy Indication: screening Anesthesia: MAC COLONOSCOPY Instrument: Olympus variable stiffness pediatric scope 190L Colonoscopy Monitoring: Vital signs and clinical assessment, continuous EKG monitoring, Pulse oximetry, Carbon Dioxide monitoring and blood pressure monitoring were done throughout the procedure. Colon withdrawal time was 8 minutes. Procedure: The patient was placed in the left lateral decubitis position and pre-procedure medications were administered. After a digital rectal examination of the ano-rectum, the video colonoscope was inserted into the rectum and advanced through the colon to the cecum/TI. The colonoscope was slowly withdrawn in a retrograde panoramic fashion and the colon mucosa was carefully examined including a retroflexed view of the rectum. Findings and interventions are described below. Procedure Difficulty: easy Findings: Terminal Ileum-normal Cecum:normal Ascending Colon: 8-10 mm sessile polyp removed with cold snare Transverse Colon -normal Descending Colon: 7-8 mm sessile polyp removed with cold snare Sigmoid Colon: moderate diverticulosis Rectum: Retroflexion with small internal hemorrhoids seen, grade I Anorectum - normal Intervention: cold snare Colon preparation: Casselberry Bowel Preparation Scale Right colon; 2 Transverse colon: 2 Left colon; 2 (0 = Unprepared colon segment with mucosa not seen due to solid stool that cannot be cleared. 1 = Portion of mucosa of the colon segment seen, but other areas of the colon segment not well seen due to staining, residual stool and/or opaque liquid. 2 = Minor amount of residual staining, small fragments of stool and/or opaque liquid, but mucosa of colon segment seen well. 3 = Entire mucosa of colon segment seen well with no residual staining, small fragments of stool or opaque liquid) Impression and Post Procedure Diagnosis: diverticulosis colon polyps x2 internal hemorrhoids Plan: High fiber diet leaflet Avoid straining at stool, epsom salts and sitz bath, anusol supps or cream Repeat Colonoscopy in 5 years or earlier if clinically indicated Above findings were reviewed with the patient and relevant handouts were provided if indicated.
[2025-01-14 08:56] VITALS: BP 122/78; PULSE 87; RESP 16; TEMP 36.7; O2SAT 97
[2025-01-14 09:10] VITALS: BP 150/80; PULSE 87; RESP 16; TEMP 36.7; O2SAT 98
== END 2025-01-14 09:42 | disposition home or self-care (01) ==
PROVIDERS: PCP Internal Medicine; Visit Provider Internal Medicine Gastroenterology
PROC: 0DJD8ZZ Inspection of Lower Intestinal Tract, Via Natural or Artificial Opening Endoscopic (ICD-10-PCS; CPT 45378; principal; 2025-01-14 08:30)
DX: Z12.11 Encounter for screening for malignant neoplasm of colon (principal); Z86.0101 Personal history of adenomatous and serrated colon polyps; D12.2 Benign neoplasm of ascending colon; K63.5 Polyp of colon; K57.30 Diverticulosis of large intestine without perforation or abscess without bleeding; K64.0 First degree hemorrhoids; K76.0 Fatty (change of) liver, not elsewhere classified; I10 Essential (primary) hypertension; E78.00 Pure hypercholesterolemia, unspecified; R73.01 Impaired fasting glucose; E04.2 Nontoxic multinodular goiter; J45.909 Unspecified asthma, uncomplicated; M85.80 Other specified disorders of bone density and structure, unspecified site; M48.062 Spinal stenosis, lumbar region with neurogenic claudication; M16.11 Unilateral primary osteoarthritis, right hip; L30.9 Dermatitis, unspecified; Z80.3 Family history of malignant neoplasm of breast; Z79.899 Other long term (current) drug therapy; Z98.890 Other specified postprocedural states; Z87.891 Personal history of nicotine dependence
CPT/HCPCS: 45385; 88305; J2003; J2704

== ENCOUNTER → 2025-01-14 06:54 | Outpatient (BNV) | payer OTHER, SELFPAY | PROVIDERS: PCP Internal Medicine; Visit Provider Internal Medicine Gastroenterology | DX: Z12.11 Encounter for screening for malignant neoplasm of colon (principal); D12.2 Benign neoplasm of ascending colon; K57.30 Diverticulosis of large intestine without perforation or abscess without bleeding; K64.0 First degree hemorrhoids | CPT/HCPCS: 45385 ==

== ENCOUNTER 2025-01-29 10:38 | Outpatient (AMB) | payer OTHER, SELFPAY ==
--- NOTE | 2025-01-29 11:26 | A.OFFVIS_ITS ---
Intake Visit Reasons: OV- Right hip discuss sx Intake Note: Lorelei is a 69 year old female who presents today for a follow up of her RIght Hip OA, she would like to discuss Right MAGY. Patient reports that she is having increased pain - particularly with any weight bearing activities . She is taking Ibuprofen which is temporarily helpful. Allergies No Known Allergies Allergy (Verified 12/17/24 08:50) HPI HPI OV- Right hip discuss sx: Details: Lorelei is a 69-year-old employee at [employer] who has ongoing right hip pain. I saw her proximally a year ago and at that time we reviewed her radiographs and they showed severe osteoarthritis of the right hip. She has since had her back treated and the bilateral leg pain that she did have has been resolved but she continues to have right groin pain. This bothers her with all activities including standing from a seated position, getting into and out of a car as well as affecting the quality of her daily life. We had discussed arthroplasty in the past and we read discussed it today and she would like to proceed forward. [facility] Medical History Impacted cerumen, left ear Eczematous dermatitis Colon cancer screening Family history of breast cancer Degenerative disc disease, lumbar Osteoarthritis Lumbar spinal stenosis Lumbar stenosis with neurogenic claudication Scoliosis of lumbar region due to degenerative disease of spine in adult Vertebrogenic low back pain Hip pain, right Right thigh pain Lumbar degenerative disc disease Cerumen debris on tympanic membrane of left ear Otitis externa Annual physical exam Thyroid nodule Hypercholesterolemia Vitamin D deficiency Obesity (BMI 30-39.9) Fatty liver Osteopenia Tubular adenoma of colon Radicular pain of left lower extremity Sciatic nerve pain Hip pain COVID-19 virus infection Hypertension Eczema Asthma Non-toxic multinodular goiter Surgical History Status post lumbar spine surgery for decompression of spinal cord Status post fine needle aspiration Hx of colonoscopy Hx of cholecystectomy Hx of section Family History Father COPD (chronic obstructive pulmonary disease) Mother Breast cancer Social History Housing: House Are you a primary career development facilitator to a significant other at home: No Do you presently have visiting nurse or other home services: No Alcohol intake: current Alcohol intake frequency: holidays/special occasions only Comment: final count correct 2 x a month glass of wine - 4-5 days a week glass Patient Tobacco Use Status: Former Tobacco user Tobacco use type: Cigarette Years Smoked: 1979 stopped e-Cigarette/Vaping Use: Never Used Second Hand Smoke Exposure: Yes service: No Current occupational status: employed Current occupation: [employer] Cognitive needs: No Hearing needs: No Vision needs: Yes Physical Exam Extrem Other: Limited internal rotation while flexed bilaterally. Her right hip however has a markedly positive impingement test. She has a positive Trendelenburg gait. Results Reviewed Results Reviewed: I personally reviewed relevant radiographs. There is moderate-severe right hip osteoarthritis. Assessment & Plan Assessment & Plan (1) Osteoarthritis of right hip: Code(s): M16.11 - Unilateral primary osteoarthritis, right hip Category: Medical Plan: This is a 69-year-old woman with severe osteoarthritis of the right hip. She had her spine decompressed and feels much better but unfortunately her right hip has pain has persisted. She has limited by the pain and would like to have it treated. She is 69 years old and has a history of asthma and hypertension. I recommend right hip arthroplasty. I discussed with her the surgery in detail as well as the expected recovery. She had concerns about risks including dislocation and infection. I reviewed these risks with her and I also discussed the risk of medical complications associated with surgery as well as risks of fracture and need for further surgery. She expressed understanding and we will proceed forward accordingly. Coding Level of Care Code Est Pt Level 4 (55109) Diagnoses Osteoarthritis of right hip M16.11
--- OUTSIDE RECORDS SUMMARY | 2025-01-29 12:10 | XMS_ITS ---
Author Organization [facility] Address [address] [place] [address] Care Team Providers Care Hospital Medical Biller Name Role Phone FLAKITO GOEL M.D. Primary Care Provider MELYSSA Sierra Unavailable [phone] Allergies No Known Allergies REASON FOR VISIT Annual NON DESTRUCTIVE TESTER Physical Medications Medication SIG (Take, Route, Frequency, [...] 04/07/2024 Encounters Encounter Location Date Provider Diagnosis [facility] [address] [place] [address] 04/07/2024 MELYSSA IBANEZ Encounter for gynecological examination [...] Follow Up: 1 Year, Reason: Y early Director Of Psychology Exam Provider Name:MELYSSA Dubois, 04/19/2025 08:00:00 AM, [address], [address], [place], [address], Progress Notes * JENNYFER FLOYDADOB:1955 (68 yo F)Acc No.[id number]:04/07/2024 PROGRESS NOTES Patient:?LORELEI FLOYD Provider:?MELYSSA IBANEZ MD :1955???Age:68 Y???Sex:Female D ate:04/07/2024 Address:[address] [place], [place] [address] Pcp:FLAKITO GOEL M.D. 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 ?She has been in state of [...] aunt. Her last mammogram was 10/31/24 - [facility].?She does?not have a family history of colon cancer. She a has had a colonoscopy. The last colonoscopy was 2018. She is due for her next scan in 2023. She is not yet scheduled. ?The patient does intermittently exercise. She exercises x 2 days/week by stretching and yoga. * ROS:?Annual Director Of Psychology Exam ROS:?Bowel habit changes?denies.?Bladder symptoms?denies.?Vaginal discharge, unusual?denies.?Vaginal itch or odor?denies.?weight or appetite changes?denies.?Chest pains, SOB?denies.?depression?denies.?Breast:?Denies?Breast lump.?Admits?Nipple discharge,?long-standing, no changes (right breast).?Hematology:?Denies?Swollen glands.?Skin:?Patient denies?changing moles.?Psychiatric:?Denies?Anxiety.? * Medical History:? * Director Of Psychology History:?/ Para?1/1.?Sexual activity?not currently sexually active.?Last Pap [...] ?Marital status: , Peter. ?Occupation: works in [employer] at [employer]. ?Pets: dogs: 2 [facility] terriers (Jennifer and Dara). ?Sexual abuse: no. [...] no acute distress, well developed, well nourished, final inspector balance wheel present in room.?HEAD:?normocephalic, atraumatic.?NECK/THYROID:?neck supple, full range [...] muscle mass and strength. 'Sarco' is the [place]re[place] word referring to flesh, and 'penia' means [...] * Follow Up:?1 Year (Reason: Y early Director Of Psychology Exam) * Images: Billing Information: * Visit Code:? 31415 Preventive Care Est Pt. Age 65 and over. * Procedure Codes:? 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 She has been in state of [...] aunt. Her last mammogram was 10/31/24 - [facility]. She does not have a family [...] General Examination GENERAL APPEARANCE: in no ac chitina distress, well developed, well nourished, final inspector balance wheel present in room HEAD: normocephalic, atrau matic [...]
--- OUTSIDE RECORDS SUMMARY | 2025-01-29 12:10 | XMS_ITS | Patient Health Record ---
Author Organization [facility] Address [address] [address] Care Team Providers Care Seam Feller Name Role Phone FLAKITO GOEL M.D. 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 no 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 drugs 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 no 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 drugs Problems Problem Type SNOMED Code ICD Code Onset Dates Problem Status W/U Status Risk Notes Problem Asthma (981345650) Asthma (493) Active confirmed Problem Hypertension (07302650) Hypertension (401.9) Active confirmed Problem Body mass index 30.00 to 34.99 (729005684342038 ) Body mass index [BMI] 34.0-34.9, adult (Z68.34) Active confirmed Vital Signs Temperature 97.3 degrees Fahrenheit 04/07/2024 Blood pressure diastolic 72 mm Hg 04/07/2024 Height 68 in 04/07/2024 Blood pressure systolic 124 mm Hg 04/07/2024 Weight 192 lbs 04/07/2024 BMI 29.19 kg/m2 04/07/2024 Encounters Encounter Location Date Provider Diagnosis [facility] [employer] [place] [address] [employer] [address] [address] 04/07/2024 MELYSSA IBANEZ Encounter for gynecological examination (general) (routine) without abnormal findings Z01.419 and Encounter for screening mammogram for malignant neoplasm of breast Z12.31 [facility] [place] [address] [employer] [address] [address] 11/26/2024 MELYSSA IBANEZ Assessments Encounter Date Diagnosis [...] Provider Name:MELYSSA Dubois, 04/19/2025 08:00:00 AM, [address], [address], [place], [address], Insurance Providers Payer Name Payer Address Payer Phone Subscriber Number Group Number Insured Name Patient Relationship to Insured Coverage Start Date Coverage End Date [employer] [place] [address] [address] [place] [address] [id number] TAMMY FLOYD Self - patient is the insured Medical (General) History Medical History History ICD Code Asthma 493 Hypertension 401.9 thyroid nodule COVID-19 U07.1 Surgical History Surgery Date(Month/Year) Cholecystectomy 1982 C/S 1986 thyroid nodule bx, benign R axillary cyst resection Back Surgery (disc decompression) 3 Hospitalization History Reason Date(Month/Year) see surgical history childbirth
--- OUTSIDE RECORDS SUMMARY | 2025-01-29 12:10 | XMS_ITS ---
Author Organization [facility] Address [address] [place] [address] Care Team Providers Care Remote Mortgage Underwriter Name Role Phone FLAKITO GOEL M.D. Primary Care Provider MELYSSA Sierra Unavailable [phone] REASON FOR VISIT Annual STERILE TECH Physical Encounters Encounter Location Date Provider Diagnosis [facility] [address] [place] [address] 10/22/2023 MELYSSA IBANEZ Plan Of Treatment Next Appt Details Provider Name:MELYSSA Dubois, 04/19/2025 08:00:00 AM, [address] [place] [address], [address], [place], [address], Progress Notes * MITCHELLBOONEJENNYFERADOB:1955 (69 yo F)Acc No.[id number]:10/22/2023 PROGRESS NOTES Patient:?TAMMY FLOYD Provider:?MELYSSA IBANEZ MD :1955???Age:68 Y???Sex:Female D ate:10/22/2023 Address:[address] [place] [address] Pcp:FLAKITO GOEL M.D. Subjective: * Chief Complaints: * ???1. Annual STERILE TECH Physical. * Medical History:? Objective: * Vitals:? Assessment: Plan: * Treatment: * Images: Billing Information: * Visit Code:? * Procedure Codes:? * Electronic signature of MELYSSA IBANEZ MD on 01/29/2025 at 12:10 PM EST Sign off status: Pending * Provider:?MELYSSA IBANEZ MD Date:?2022 Generated for Avinash prince/Michael/Fabricio on:?01/29/2025 12:10 PM EST
--- OUTSIDE RECORDS SUMMARY | 2025-01-29 12:10 | XMS_ITS ---
Author Organization [facility] Address [address] [place] [address] Care Team Providers Care Custodian Supervisor Name Role Phone FLAKITO GOEL M.D. Primary Care Provider MELYSSA Sierra Unavailable [phone] REASON FOR VISIT Update Demographics - Personal Info Encounters Encounter Location Date Provider Diagnosis [facility] [address] [facility] [address] [place] [address] 11/26/2024 MELYSSA IBANEZ Plan Of Treatment Next Appt Details Provider Name:MELYSSA Dubois, 04/19/2025 08:00:00 AM, [address] [facility], [address], [place], [address], Progress Notes * JENNYFER FLOYDADOB:1955 (69 yo F)Acc No.[id number]:11/26/2024 Patient:?TAMMY FLOYD :1955???Age:69 Y???Sex:Female Address:[address] [place] [address], [address] * true * Date:? Generated for Printi niki/Michael/eTransmitting on:?01/29/2025 12:10 PM EST
== END 2025-01-29 11:54 | disposition home or self-care (01) ==
PROVIDERS: PCP Internal Medicine; Visit Provider Orthopaedic Surgery
DX: M16.11 Unilateral primary osteoarthritis, right hip (principal)
CPT/HCPCS: 99214

== ENCOUNTER → 2025-01-29 10:38 | Outpatient (BNVA) | payer OTHER, SELFPAY | PROVIDERS: PCP Internal Medicine; Visit Provider Orthopaedic Surgery ==

== ENCOUNTER 2025-03-12 10:51 | Outpatient (AMB) | payer OTHER, SELFPAY ==
[2025-03-12 10:57] VITALS: BP 134/68; PULSE 73; O2SAT 98; BMI 34.5
--- NOTE | 2025-03-12 10:57 | A.OFFPC_ITS ---
Vital Signs 03/12/25 10:57 Height 5 ft 7 in Weight 220 lb BMI 34.5 BP 134/68 Blood Pressure Location Lt brachial Position Sitting Pulse 73 Pulse Source Pulse Oximeter Pulse Oximetry (%) 98 Oxygen Delivery Method Room Air Intake Visit Reasons: preop dr rodriguez surgery 04/27 hip surgery Allergies No Known Allergies Allergy (Verified 03/12/25 10:57) Medication List - Last Reconciled 03/12/25 by Nela Forrest, albuterol sulfate 90 mcg/actuation 2 puffs inhalation Q4-6H PRN albuterol sulfate 2.5 mg inhalation Q4-6H PRN amlodipine 5 mg PO QAM beclomethasone dipropionate 80 mcg/actuation (Qvar RediHaler) 1 inh inhalation Q12H cetirizine (Zyrtec) 10 mg PO BEDTIME fluocinolone 0.025% 1 appl topical BID PRN ibuprofen 600 mg PO Q8H PRN thzgzlvo-fzo-onai-FA-vit K-lut 8 mg iron-400 mcg-50 mcg (Centrum Silver Women) 1 tab PO DAILY [Raised toilet seat duration - 99 days] [SHOWER CHAIR As directed] walker Folding Front wheeled walker DURATION 99 DAYS Tobacco use date assessed: 12/17/24 Fall risk assessment: No Falls in past year Last assessed Fall Risk: 03/12/25 Dental Screening Dental Screen Date: 12/17/24 [facility] Medical History Impacted cerumen, left ear Eczematous dermatitis Colon cancer screening Family history of breast cancer Degenerative disc disease, lumbar Osteoarthritis Lumbar spinal stenosis Lumbar stenosis with neurogenic claudication Scoliosis of lumbar region due to degenerative disease of spine in adult Vertebrogenic low back pain Hip pain, right Right thigh pain Lumbar degenerative disc disease Cerumen debris on tympanic membrane of left ear Otitis externa Annual physical exam Thyroid nodule Hypercholesterolemia Vitamin D deficiency Obesity (BMI 30-39.9) Fatty liver Osteopenia Tubular adenoma of colon Radicular pain of left lower extremity Sciatic nerve pain Hip pain COVID-19 virus infection Hypertension Eczema Asthma Non-toxic multinodular goiter Surgical History Status post lumbar spine surgery for decompression of spinal cord Status post fine needle aspiration Hx of colonoscopy Hx of cholecystectomy Hx of section Family History Father COPD (chronic obstructive pulmonary disease) Mother Breast cancer Social History Housing: House Are you a primary primary care md to a significant other at home: No Do you presently have visiting nurse or other home services: No Alcohol intake: current Alcohol intake frequency: holidays/special occasions only Comment: final count correct 2 x a month glass of wine - 4-5 days a week glass Patient Tobacco Use Status: Former Tobacco user Tobacco use type: Cigarette Years Smoked: 1979 stopped e-Cigarette/Vaping Use: Never Used Second Hand Smoke Exposure: Yes service: No Current occupational status: employed Current occupation: [employer] Cognitive needs: No Hearing needs: No Vision needs: Yes Questionnaire PHQ-9 Over the last 2 weeks, how often have you been bothered by any of the following problems? 1. Little interest or pleasure in doing things: not at all 2. Feeling down, depressed, or hopeless: not at all 3. Trouble falling or staying asleep, or sleeping too much: not at all 4. Feeling tired or having little energy: not at all 5. Poor appetite or overeating: not at all 6. Feeling bad about yourself - or that you are a failure or have let yourself or your family down: not at all 7. Trouble concentrating on things, such as reading the newspaper or watching television: not at all 8. Moving or speaking so slowly that other people could have noticed. Or the opposite - being so fidgety or restless that you have been moving around a lot more than usual: not at all 9. Thoughts that you would be better off or of hurting yourself in some way: not at all Total score: 0 Depression Screening Interpretation: Negative Depression Screening Done: Yes Source: Developed by Drs. Keith Nino, Ally Kinney, Huber Richmond and colleagues, with an educational meir from [employer] Thrive Questionnaire Date Thrive assessed: 12/16/24 AUDIT C Alcohol Use Questionnaire (AUDIT-C) 1. How often do you have a drink containing alcohol?: 2-3 times a week 2. How many drinks containing alcohol do you have on a typical day when you are drinking?: 1 or 2 3. How often do you have six or more drinks on one occasion?: Never Total Score: 3 AMOL-7 AMB Questionnaire AMOL-7 Date AMOL - 7 assessed: 12/17/24 Source: Developed by Drs. Keith Nino, Ally Kinney, Huber Richmond and colleagues, with an educational meir from [employer] Review of Systems Const Denies poor appetite and Denies weakness Eyes Denies no additional complaints ENT Reports Normal hearing present, Denies dizziness, Denies nasal congestion, Denies tinnitus and Denies sore throat Card Denies chest pain, Denies syncope, Denies rapid heart rate and Denies dyspnea Resp Denies cough and Denies dyspnea GI Denies change in stool character, Reports constipation, Denies diarrhea, Denies nausea and Denies vomiting Denies urinary frequency, Denies difficulty voiding and Denies dysuria Neuro Reports Normal hearing present, Denies confusion, Denies dizziness, Denies syncope and Denies weakness Psych Denies confusion Physical exam (Primary Care) Vital Signs: Last Vital Signs Pulse 73 03/12/25 10:57 BP 134/68 03/12/25 10:57 Pulse Ox 98 03/12/25 10:57 Oxygen Delivery Method Room Air 03/12/25 10:57 BMI result Body Mass Index 34.5 Tobacco/Smoking Status: Tobacco use Status Tobacco use date assessed 12/17/24 03/12/25 11:06 Patient Tobacco Use Status Former Tobacco user 03/12/25 11:06 Tobacco use type Cigarette 03/12/25 11:06 e-Cigarette/Vaping Use Never Used 03/12/25 11:06 PHQ-9: PHQ-9 Score PHQ-9: Total score 0 03/12/25 11:16 Depression Screening Interpretation: Negative Thrive Assessment: Date of Thrive Assessment Date Thrive assessed 12/16/24 03/12/25 11:06 Const General: No confusion Orientation/consciousness: No confusion HENMT Head: Yes normocephalic Ears: external ears normal and TM's normal bilaterally Face and sinus: Yes normal facial exam Mouth: moist mucous membranes Throat: Yes tonsils normal Eyes Conjunctivae: conjunctivae normal Pupils: Equal, round and reactive pupils present and Pupil accommodation reflex normal Direct Ophthalmoscopy: normal light reflex Neck Neck: No lymphadenopathy Thyroid: Thyroid normal Chest Chest palpation & inspection: normal inspection of the chest Resp Effort & Inspection: normal respiratory effort and no audible wheezes Auscultation: clear to auscultation bilaterally, no crackles, no wheezes and lung sounds not diminished Cardio Rate: regular rate Rhythm: regular rhythm Peripheral pulses: radial pulses present and dorsalis pedis present GI Palpation (GI): no masses Auscultation: normal bowel sounds and normoactive bowel sounds Rectal Exam - Female: deferred Skin General skin exam: no rashes or lesions noted Rashes: no rashes Neuro General: No confusion Cranial nerves: Yes Equal, round and reactive pupils present and Yes Normal hearing present Cognition (Neuro): normal cognition Gait exam (Neuro): Normal gait present Motor exam (neuro): 5/5 motor strength present throughout Deep tendon reflexes (DTR's): Right brachioradialis reflex intensity grade: 2+, Left brachioradialis reflex intensity grade: 2+, Right patellar reflex intensity grade: 2+ and Left patellar reflex intensity grade: 2+ Extrem General: No edema Coding Level of Care Code Tele New Pt Level 4 (35172) Diagnoses Preop exam for internal medicine Z01.818 Osteoarthritis of right hip M16.11 Obesity (BMI 30-39.9) E66.9 Asthma J45.909 Hypertension I10 Hypercholesterolemia E78.00 Impaired glucose tolerance R73.02 Assessment & Plan Assessment & Plan (1) Preop exam for internal medicine: Code(s): Z01.818 - Encounter for other preprocedural examination Category: Medical Plan: EKG and blood work requested. With the age factor patient belongs to the intermediate risk group for any cardiac complication. Thank you for letting me participate in the care of this patient. Will follow-up on the results. (2) Osteoarthritis of right hip: Code(s): M16.11 - Unilateral primary osteoarthritis, right hip Category: Medical Plan: Patient has a planned right hip arthroplasty Apr 27 2025 (3) Obesity (BMI 30-39.9): Code(s): E66.9 - Obesity, unspecified Category: Medical Plan: Diet and exercise (4) Asthma: Comment: well controlled-follows w/Dr. Forrest Code(s): J45.909 - Unspecified asthma, uncomplicated Category: Medical Plan: Continue with the albuterol inhaler as needed and on QVAR. Patient is stable (5) Hypertension: Code(s): I10 - Essential (primary) hypertension Category: Medical Plan: Continue with blood pressure medication. Decrease salt intake and exercise amlodipine 5 mg once a day only (6) Hypercholesterolemia: Code(s): E78.00 - Pure hypercholesterolemia, unspecified Category: Medical Plan: Avoid fried foods, chicken skin, eggs, butter margarine, pastries and meat. Be it pork or beef they have a lot of cholesterol LDL goal of less than 130 and triglyceride of less than 150 (7) Impaired glucose tolerance: Code(s): R73.02 - Impaired glucose tolerance (oral) Category: Medical Plan: Decrease the amount of carbohydrate intake, pasta, bread, rice and potatoes are all sugar and that is aside from all the sweet stuff, remember that fruits are good but they are Sweet also. Plan History of Present Illness The patient is a 69-year-old female presenting with a request for preoperative evaluation for right total hip arthroplasty. She has experienced worsening pain and decreased mobility in the right hip due to osteoarthritis, which is significant enough to impact her daily living. Previously, she managed the pain with ibuprofen but has been advised to stop use one week before her procedure due to bleeding risks. Routine blood work in November highlighted mild hyperglycemia, and a colonoscopy in January 2025 identified a benign tubular adenoma in the ascending colon, necessitating follow-up in the future. She maintains a multi-condition health profile including hypertension, hypercholesterolemia, asthma, nontoxic multinodular goiter, lumbar spondylosis, and obesity, with comprehensive imaging and screenings, remaining current as of her last visits in 2023. Health Maintenance - Colonoscopy in January 2025 showed tubular adenoma; next follow-up in five years recommended. - Mammogram and bone density screening were completed in November 2024. - Routine blood work from November 13, 2024, showed normal results with a note of mildly elevated blood sugar. - Continuation of albuterol inhaler and Qvar is advised for asthma management. - Current medication includes ongoing amlodipine for hypertension control with a target blood pressure maintained successfully. - Recommended cholesterol management with LDL goal of less than 130 mg/dL and triglycerides of less than 150 mg/dL. Social History - Reports having a glass of wine after work, typically through Saturday. - Denied smoking and 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 drug use. - Limited physical activity related to hip pain; performs minimal exercise. - Current employment requires prolonged sitting, contributing to decreased mobility and increased swelling. - Previous smoking history acknowledged, but no current use. Review of Systems - Constitutional: Denies fever, chills, dizziness, or syncope. - Respiratory: Denies respiratory difficulties or frequent seasonal asthma exacerbations; occasional use of albuterol inhaler. - Cardiovascular: Denies chest pain. - Gastrointestinal: Denies nausea, vomiting; reports history of colonoscopy with benign adenoma. - Musculoskeletal: Reports pain in the right hip; denies recent trauma or injury. - Neurological: Denies dizziness, fainting, or headaches. - Endocrine: Denies new-onset diabetes symptoms. - Skin: Denies skin changes or new lesions. - Ophthalmologic: Monitoring for potential glaucoma; no current visual changes affecting daily activities. - Psychiatric: No symptoms noted during this visit. Physical Exam General: Cooperative, healthy appearing, comfortable, no acute distress and well developed Orientation: Patient oriented x3 Limitations: No limitations Head: Normal to inspection Ears: Hearing grossly normal bilaterally Nose: Normal external nose present Face and sinus: Normal facial exam Eyes: Appearance normal, both eyes and all related structures Neck: Normal visual inspection and Yes full ROM Respiratory: Normal respiratory effort and able to speak in complete sentences. Clear to auscultation bilaterally Cardiovascular: Regular rate and rhythm. Normal S1 and S2 GI: Normal to inspection. Soft to palpation and nontender Skin: No rashes or lesions noted Neuro: Patient oriented x3 Extremities: Normal to inspection, but noted swelling. Results - Labs: Routine blood work on November 13, 2024, shows normal results with no anemia, normal electrolytes, normal renal function, and normal liver function; blood sugar mildly elevated, Hemoglobin A1c normal, LDL cholesterol at 112 mg/dL. - Tests: Colonoscopy in January 2025 noted tubular adenoma in ascending colon, benign pathology. Plan For the patient's upcoming right total hip arthroplasty, ibuprofen should be discontinued a week prior to surgery, with Tylenol being a suitable alternative for pain management. Asthma management continues with current inhaler use. The patient's blood sugar and lipid levels are stable, requiring routine monitoring. Post-operative physical therapy and leg elevation are recommended to manage hip stiffness and swelling. No new surgical interventions aside from planned procedures are required at this time. Patient was informed and verbally consented to the use of an ambient scribe for clinic note documentation during this visit. Discussion Notes I discussed with the patient the necessity of ceasing ibuprofen at least one week before her right total hip arthroplasty to minimize bleeding risks, endorsing Tylenol as an alternative. We reviewed her stable asthma management with current medications and the importance of physical therapy post-surgery to aid in recovery and improve joint mobility. We acknowledged no new surgical interventions are needed, aside from the procedure she is scheduled for. I emphasized the need to elevate her legs to manage edema and informed her that while her blood work is consistent with stable health management, continued effort towards weight management and lifestyle adjustments are beneficial. I will order an EKG and updated lab work prior to the surgery for readiness assurance. Patient Instructions - Stop ibuprofen one week prior to surgery; use Tylenol for pain instead. - Continue current asthma inhalers as prescribed. - Attend physical therapy post-operation for improved mobility. - Elevate legs to manage edema. - Maintain a healthy lifestyle with attention to diet and exercise. - Complete EKG and labs before pre-operative appointment. - Orders: Orders ECG 12 lead EKG Today Z01.818 - Encounter for other preprocedural examination Complete Blood Count Auto Diff Today Z01.818 - Encounter for other preprocedural examination Basic Metabolic Panel Today Z01.818 - Encounter for other preprocedural examination Hemoglobin A1c Today Z01.818 - Encounter for other preprocedural examination
--- OUTSIDE RECORDS SUMMARY | 2025-03-12 11:46 | XMS_ITS | Patient Health Record ---
Author Organization [facility] [facility] Address [address] [address] Care Team Providers Care Senior Quality Technician Name Role Phone FLAKITO GOEL M.D. 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 no 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 drugs 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 no 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 drugs Problems Problem Type SNOMED Code ICD Code Onset Dates Problem Status W/U Status Risk Notes Problem Asthma (922689175) Asthma (493) Active confirmed Problem Hypertension (56763068) Hypertension (401.9) Active confirmed Problem Body mass index 30.00 to 34.99 (014149771038250 ) Body mass index [BMI] 34.0-34.9, adult (Z68.34) Active confirmed Vital Signs Temperature 97.3 degrees Fahrenheit 04/07/2024 Blood pressure diastolic 72 mm Hg 04/07/2024 Height 68 in 04/07/2024 Blood pressure systolic 124 mm Hg 04/07/2024 Weight 192 lbs 04/07/2024 BMI 29.19 kg/m2 04/07/2024 Encounters Encounter Location Date Provider Diagnosis [facility] [employer] [place] [address] [facility] [address] [address] 04/07/2024 MELYSSA IBANEZ Encounter for gynecological examination (general) (routine) without abnormal findings Z01.419 and Encounter for screening mammogram for malignant neoplasm of breast Z12.31 [facility] [place] [address] [facility] [address] [address] 11/26/2024 MELYSSA IBANEZ Assessments Encounter Date Diagnosis [...] Provider Name:MELYSSA Dubois, 04/19/2025 08:00:00 AM, [address], [address], [place], [address], Insurance Providers Payer Name Payer Address Payer Phone Subscriber Number Group Number Insured Name Patient Relationship to Insured Coverage Start Date Coverage End Date [employer] [place] [address] [address] [place] [address] [id number] TAMMY FLOYD Self - patient is the insured Medical (General) History Medical History History ICD Code Asthma 493 Hypertension 401.9 thyroid nodule COVID-19 U07.1 Surgical History Surgery Date(Month/Year) Cholecystectomy 1982 C/S 1986 thyroid nodule bx, benign R axillary cyst resection Back Surgery (disc decompression) 3 Hospitalization History Reason Date(Month/Year) see surgical history childbirth
--- OUTSIDE RECORDS SUMMARY | 2025-03-12 11:46 | XMS_ITS ---
Author Organization [facility] Address [address] [facility] [address] [place] [address] Care Team Providers Care Combine Mechanic Name Role Phone FLAKITO GOEL M.D. Primary Care Provider MELYSSA Sierra Unavailable [phone] REASON FOR VISIT Annual FOOTWEAR SALES COORDINATOR Physical Encounters Encounter Location Date Provider Diagnosis [facility] [address] [place] [address] 10/22/2023 MELYSSA IBANEZ Plan Of Treatment Next Appt Details Provider Name:MELYSSA Dubois, 04/19/2025 08:00:00 AM, [address] [place] [address], [address], [place], [address], Progress Notes * MITCHELLBOONEJENNYFERADOB:1955 (69 yo F)Acc No.[id number]:10/22/2023 PROGRESS NOTES Patient:?TAMMY FLOYD Provider:?MELYSSA IBANEZ MD :1955???Age:68 Y???Sex:Female D ate:10/22/2023 Address:[address] [place] [address] Pcp:FLAKITO GOEL M.D. Subjective: * Chief Complaints: * ???1. 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 * Medical History:? Objective: * Vitals:? Assessment: Plan: * Treatment: * Images: Billing Information: * Visit Code:? * Procedure Codes:? * Electronic signature of MELYSSA IBANEZ MD on 03/12/2025 at 11:46 AM EDT Sign off status: Pending * Provider:?MELYSSA IBANEZ MD Date:?2022 Generated for Avinash prince/Michael/Fabricio on:?03/12/2025 11:46 AM EDT
--- OUTSIDE RECORDS SUMMARY | 2025-03-12 11:46 | XMS_ITS ---
Author Organization [facility] Address [address] [facility] [address] [place] [address] Care Team Providers Care Technical Project Coordinator Name Role Phone FLAKITO GOEL M.D. Primary Care Provider MELYSSA Sierra Unavailable [phone] Allergies No Known Allergies REASON FOR VISIT Annual OFFICE ADMIN Physical Medications Medication SIG (Take, Route, Frequency, [...] 04/07/2024 Encounters Encounter Location Date Provider Diagnosis [facility] [address] [place] [address] 04/07/2024 MELYSSA IBANEZ Encounter for gynecological examination [...] Follow Up: 1 Year, Reason: Y early Stock Buyer Exam Provider Name:MELYSSA Dubois, 04/19/2025 08:00:00 AM, [address], [place], [address], Progress Notes * JENNYFER FLOYDADOB:1955 (68 yo F)Acc No.[id number]:04/07/2024 PROGRESS NOTES Patient:?LORELEI FLOYD Provider:?MELYSSA IBANEZ MD :1955???Age:68 Y???Sex:Female D ate:04/07/2024 Address:[address] [place], [place] [id number] Pcp:FLAKITO GOEL M.D. Subjective: * Chief Complaints: * ???Annual OFFICE ADMIN Physical * HPI: ???Constitutional:?Lorelei is a 68yo who presents for her yearly color finisher exam. ?She has been in state of [...] aunt. Her last mammogram was 10/31/24 - [facility].?She does?not have a family history of colon cancer. She a has had a colonoscopy. The last colonoscopy was 2018. She is due for her next scan in 2023. She is not yet scheduled. ?The patient does intermittently exercise. She exercises x 2 days/week by stretching and yoga. * ROS:?Annual Stock Buyer Exam ROS:?Bowel habit changes?denies.?Bladder symptoms?denies.?Vaginal discharge, unusual?denies.?Vaginal itch or odor?denies.?weight or appetite changes?denies.?Chest pains, SOB?denies.?depression?denies.?Breast:?Denies?Breast lump.?Admits?Nipple discharge,?long-standing, no changes (right breast).?Hematology:?Denies?Swollen glands.?Skin:?Patient denies?changing moles.?Psychiatric:?Denies?Anxiety.? * Medical History:? * Stock Buyer History:?/ Para?1/1.?Sexual activity?not currently sexually active.?Last Pap [...] ?Marital status: , Peter. ?Occupation: works in [employer] at [employer]. ?Pets: dogs: 2 [facility] terriers (Jennifer and Dara). ?Sexual [...] no acute distress, well developed, well nourished, equity holder present in room.?HEAD:?normocephalic, atraumatic.?NECK/THYROID:?neck supple, full range [...] muscle mass and strength. 'Sarco' is the Palestinian word referring to flesh, and 'penia' means [...] * Follow Up:?1 Year (Reason: Y early Stock Buyer Exam) * Images: Billing Information: * Visit Code:? 58399 Preventive Care Est Pt. Age 65 and over. * Procedure Codes:? * Sign off status: Completed true * Provider:?MELYSSA IBANEZ MD Date:?2023 Generated for Avinash prince/Michael/eTransmitting on:?03/12/2025 11:46 AM EDT History and Physical Notes * HPI (History of Present Illness) Category Sub-Category Detail Notes Category Not es Constitutional Lorelei is a 68yo who presents for her yearly color finisher exam. She has been in state of [...] aunt. Her last mammogram was 10/31/24 - [facility]. She does not have a family [...] General Examination GENERAL APPEARANCE: in no ac assiniboine and sioux distress, well developed, well nourished, equity holder present in room HEAD: normocephalic, atrau matic [...]
--- OUTSIDE RECORDS SUMMARY | 2025-03-12 11:47 | XMS_ITS ---
Author Organization [employer] Address [address] [place] [address] Care Team Providers Care Creative Developer Name Role Phone FLAKITO GOEL M.D. Primary Care Provider MELYSSA Sierra Unavailable [phone] REASON FOR VISIT Update Demographics - Personal Info Encounters Encounter Location Date Provider Diagnosis [facility] [address] [facility] [address] [facility] [address] [place] [address] 11/26/2024 MELYSSA IBANEZ Plan Of Treatment Next Appt Details Provider Name:MELYSSA Dubois, 04/19/2025 08:00:00 AM, [address] [facility], [address], [place], [address], Progress Notes * JENNYFER FLOYDADOB:1955 (69 yo F)Acc No.[id number]:11/26/2024 Patient:?TAMMY FLOYD :1955???Age:69 Y???Sex:Female Address:[address] [place] [address], [address] * true * Date:? Generated for Printi ng/Fajunig/eTransmitting on:?03/12/2025 11:46 AM EDT
== END 2025-03-12 11:32 | disposition home or self-care (01) ==
LOC: HO.HMCH 10:51
PROVIDERS: PCP Internal Medicine; Visit Provider Internal Medicine
DX: M16.11 Unilateral primary osteoarthritis, right hip (principal); Z01.818 Encounter for other preprocedural examination; E66.9 Obesity, unspecified; Z68.34 Body mass index [BMI] 34.0-34.9, adult; J45.909 Unspecified asthma, uncomplicated; I10 Essential (primary) hypertension; E78.00 Pure hypercholesterolemia, unspecified; R73.02 Impaired glucose tolerance (oral)

== ENCOUNTER → 2025-03-12 10:51 | Outpatient (BNVA) | payer OTHER, SELFPAY | PROVIDERS: PCP Internal Medicine; Visit Provider Internal Medicine ==

== ENCOUNTER 2025-03-19 08:32 | Outpatient (REF) | payer OTHER, SELFPAY ==
--- OUTSIDE RECORDS SUMMARY | 2025-03-19 08:52 | XMS_ITS ---
Author Organization [employer] Address [address] [place] [address] Care Team Providers Care Director Internal Audit Name Role Phone FLAKITO GOEL M.D. Primary Care Provider MELYSSA Sierra Unavailable [phone] REASON FOR VISIT Update Demographics - Personal Info Encounters Encounter Location Date Provider Diagnosis [facility] [employer] [address] [facility] [address] [place] [address] 11/26/2024 MELYSSA IBANEZ Plan Of Treatment Next Appt Details Provider Name:MELYSSA Dubois, 04/19/2025 08:00:00 AM, [address] [facility], [address], [place], [address], Progress Notes * JENNYFER FLOYDADOB:1955 (69 yo F)Acc No.[id number]:11/26/2024 Patient:?TAMMY FLOYD :1955???Age:69 Y???Sex:Female Address:[address] [place] [address], [address] * true * Date:? Generated for Printi ng/Fajunig/eTransmitting on:?03/19/2025 08:52 AM EDT
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
--- OUTSIDE RECORDS SUMMARY | 2025-03-19 08:52 | XMS_ITS ---
Author Organization [facility] [employer] [facility] Address [address] [facility] [address] [place] [address] Care Team Providers Care Aircraft Worker Name Role Phone FLAKITO GOEL M.D. Primary Care Provider MELYSSA Sierra Unavailable [phone] REASON FOR VISIT Annual TECHNOLOGY DIRECTOR Physical Encounters Encounter Location Date Provider Diagnosis [facility] [employer] [address] [place] [address] 10/22/2023 MELYSSA IBANEZ Plan Of Treatment Next Appt Details Provider Name:MELYSSA Dubois, 04/19/2025 08:00:00 AM, [address] [place] [address], [address], [place], [address], Progress Notes * MITCHELLBOONEJENNYFERADOB:1955 (69 yo F)Acc No.[id number]:10/22/2023 PROGRESS NOTES Patient:?TAMMY FLOYD Provider:?MELYSSA IBANEZ MD :1955???Age:68 Y???Sex:Female D ate:10/22/2023 Address:[address] [place] [address] Pcp:FLAKITO GOEL M.D. Subjective: * Chief Complaints: * ???1. Annual TECHNOLOGY DIRECTOR Physical. * Medical History:? Objective: * Vitals:? Assessment: Plan: * Treatment: * Images: Billing Information: * Visit Code:? * Procedure Codes:? * Electronic signature of MELYSSA IBANEZ MD on 03/19/2025 at 08:51 AM EDT Sign off status: Pending * Provider:?MELYSSA IBANEZ MD Date:?2022 Generated for Avinash prince/Michael/Fabricio on:?03/19/2025 08:51 AM EDT
--- OUTSIDE RECORDS SUMMARY | 2025-03-19 08:52 | XMS_ITS | Patient Health Record ---
Author Organization [employer] [facility] Address [address] [address] Care Team Providers Care Plugger Worker Name Role Phone FLAKITO GOEL M.D. 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9) Active confirmed Problem Body mass index 30.00 to 34.99 (877504186238521 ) Body mass index [BMI] 34.0-34.9, adult (Z68.34) Active confirmed Vital Signs Temperature 97.3 degrees Fahrenheit 04/07/2024 Blood pressure diastolic 72 mm Hg 04/07/2024 Height 68 in 04/07/2024 Blood pressure systolic 124 mm Hg 04/07/2024 Weight 192 lbs 04/07/2024 BMI 29.19 kg/m2 04/07/2024 Encounters Encounter Location Date Provider Diagnosis [facility] [employer] [facility] [place] [address] [address] 04/07/2024 MELYSSA IBANEZ Encounter for gynecological examination (general) (routine) without abnormal findings Z01.419 and Encounter for screening mammogram for malignant neoplasm of breast Z12.31 [facility] [place] [address] [address] 11/26/2024 MELYSSA IBANEZ Assessments Encounter Date Diagnosis [...] Provider Name:MELYSSA Dubois, 04/19/2025 08:00:00 AM, [address], [address], [place], [address], Insurance Providers Payer Name Payer Address Payer Phone Subscriber Number Group Number Insured Name Patient Relationship to Insured Coverage Start Date Coverage End Date [employer] [place] [address] [address] [place] [address] [id number] TAMMY FLOYD Self - patient is the insured Medical (General) History Medical History History ICD Code Asthma 493 Hypertension 401.9 thyroid nodule COVID-19 U07.1 Surgical History Surgery Date(Month/Year) Cholecystectomy 1982 C/S 1986 thyroid nodule bx, benign R axillary cyst resection Back Surgery (disc decompression) 3 Hospitalization History Reason Date(Month/Year) see surgical history childbirth
[2025-03-19 11:06] LABS: MANUAL DIFF FLAG NO
[2025-03-19 11:29] LABS: Basophils Absolute Auto 0.1 X10*3/uL (0.0-0.2); Basophils Percent Auto 1.5 % (0-2); Eosinophils Absolute Auto 0.4 X10*3/uL (0.0-0.4); Eosinophils Percent Auto 7.3 % (0-4); Hematocrit 41.9 % (37.0-47.0); Hemoglobin 13.8 g/dl (12.0-16.0); Imm Gran Abs Auto 0.02 X10*3/uL (0.00-0.03); Imm Gran Pct Auto 0.4 % (0.0-0.4); Lymphocytes Absolute Auto 1.3 X10*3/uL (1.2-4.9); Lymphocytes Percent Auto 24.6 % (20-40); Mean Corpuscular HGB Conc 32.9 g/dl (31.0-35.0); Mean Corpuscular Volume 94.2 fL (80.0-98.0); Mean Platelet Volume 9.6 fL (9.4-12.3); Monocytes Absolute Auto 0.5 X10*3/uL (0.1-1.2); Monocytes Percent Auto 9.2 % (2-11); Neutrophils Absolute Auto 3.1 x10*3/uL (2.0-8.3); Platelet Count 269 X10*3/uL (160-400); Red Blood Count 4.45 X10*6/uL (4.20-5.50); Red Cell Distribution Width 12.6 % (11.0-16.0); White Blood Count 5.5 X10*3/uL (4.8-10.8)
[2025-03-19 11:38] LABS: Anion Gap 10 (12-20); Blood Urea Nitrogen 11 mg/dL (9-16); Calcium 8.8 mg/dL (8.4-10.2); Carbon Dioxide 28 mmol/L (22-29); Chloride 107 mmol/L (96-108); Estimated Glomerular Filt Rate > 60; Glucose Random 106 mg/dL (60-115); Potassium 3.7 mmol/L (3.3-5.1); Sodium 141 mmol/L (135-145)
--- NOTE | 2025-03-19 11:46 | ECG_ITS ---
Test Reason : preop Blood Pressure : */* mmHG Vent. Rate : 70 BPM Atrial Rate : 70 BPM P-R Int : 168 ms QRS Dur : 92 ms QT Int : 404 ms P-R-T Axes : 52 9 31 degrees QTcB Int : 436 ms Normal sinus rhythm Normal ECG When compared with ECG of 23-Sep-2023 12:37, No significant change was found Referred By: Nela Forrest Electronically Signed By: EHSAN LAYNE MD
[2025-03-19 11:50] LABS: Estimated Average Glucose 114 mg/dL; Hemoglobin A1C 137.0541 umol/L; Hemoglobin A1c % 5.6 % (<6.0); Total Hemoglobin (HGBA1C) 3682.2132 umol/L
== END 2025-03-19 08:33 | disposition home or self-care (01) ==
LOC: HO.WFDLDS 08:32
PROVIDERS: PCP Internal Medicine; Visit Provider Internal Medicine
DX: Z01.818 Encounter for other preprocedural examination (principal); Z13.1 Encounter for screening for diabetes mellitus
CPT/HCPCS: 36415; 80048; 83036; 85025; 93005

== ENCOUNTER → 2025-03-19 11:46 | Outpatient (BNV) | payer OTHER, SELFPAY | PROVIDERS: PCP Internal Medicine; Visit Provider Internal Medicine Cardiovascular Disease | DX: Z01.810 Encounter for preprocedural cardiovascular examination (principal) | CPT/HCPCS: 93010 ==

== ENCOUNTER 2025-04-22 11:37 | Outpatient (REF) | payer OTHER, SELFPAY ==
--- NOTE | ~2025-04-22 | XR_ITS ---
EXAMINATION: XR HIP, RIGHT CLINICAL INFORMATION: M25.551 - Pain in right hip COMPARISON: April 22, 2023. TECHNIQUE: Two views of the right hip. FINDINGS: Subchondral cyst formation joint space narrowing and sclerosis along the articular surface of the right coxofemoral joint. Sclerosis at left acetabulum articular surface. Asymmetric joint space narrowing. Subchondral cyst formation left femoral head. No acute cortical disruption or malalignment. Spondylosis L4-5 and L5-S1. XR/XR hip RT min 2V IMPRESSION: Moderate to severe osteoarthrosis, right hip. Mild to moderate osteoarthrosis left hip. Electronically signed by: Jordon Hull MD 04/22/2025 03:44 PM EDT
[2025-04-22 16:41] LABS: MANUAL DIFF FLAG NO
[2025-04-22 17:07] LABS: Basophils Absolute Auto 0.1 X10*3/uL (0.0-0.2); Basophils Percent Auto 1.2 % (0-2); Eosinophils Absolute Auto 0.4 X10*3/uL (0.0-0.4); Eosinophils Percent Auto 6.8 % (0-4); Hematocrit 43.1 % (37.0-47.0); Hemoglobin 14.4 g/dl (12.0-16.0); Imm Gran Abs Auto 0.02 X10*3/uL (0.00-0.03); Imm Gran Pct Auto 0.3 % (0.0-0.4); Lymphocytes Absolute Auto 1.6 X10*3/uL (1.2-4.9); Mean Corpuscular HGB Conc 33.4 g/dl (31.0-35.0); Mean Corpuscular Hemoglobin 30.8 pg (27.0-33.0); Mean Corpuscular Volume 92.3 fL (80.0-98.0); Mean Platelet Volume 9.3 fL (9.4-12.3); Monocytes Absolute Auto 0.6 X10*3/uL (0.1-1.2); Monocytes Percent Auto 9.6 % (2-11); Neutrophils Absolute Auto 3.7 x10*3/uL (2.0-8.3); Neutrophils Percent Auto 57.1 % (45-73); Platelet Count 264 X10*3/uL (160-400); Red Blood Count 4.67 X10*6/uL (4.20-5.50); Red Cell Distribution Width 12.8 % (11.0-16.0); White Blood Count 6.5 X10*3/uL (4.8-10.8)
[2025-04-22 17:33] LABS: Anion Gap 12 (12-20); Blood Urea Nitrogen 13 mg/dL (9-16); Calcium 9.2 mg/dL (8.4-10.2); Carbon Dioxide 26 mmol/L (22-29); Chloride 108 mmol/L (96-108); Estimated Glomerular Filt Rate > 60; Glucose Random 99 mg/dL (60-115); Sodium 142 mmol/L (135-145)
--- OUTSIDE RECORDS SUMMARY | 2025-04-23 11:40 | XMS_ITS ---
Author Organization [employer] Address [address] [place] [address] Care Team Providers Care Professor Of Chemical Engineering Name Role Phone FLAKITO GOEL M.D. Primary Care Provider MELYSSA Sierra Unavailable [phone] REASON FOR VISIT Annual TYPE PHOTOGRAPHY SUPERVISOR Physical Encounters Encounter Location Date Provider Diagnosis [facility] [address] [address] 04/19/2025 MELYSSA IBANEZ Encounter for gynecological examination [...] Follow Up: 1 Year, Reason: Y early Baseball Coach Exam Progress Notes * JENNYFER FLOYDADOB:1955 (69 yo F)Acc No.[id number]:04/19/2025 PROGRESS NOTES Patient:?LORELEI FLOYD Provider:?MELYSSA IBANEZ MD :1955???Age:69 Y???Sex:Female D ate:04/19/2025 Address:[address] [place] [address] Pcp:FLAKITO GOEL M.D. Subjective: * Chief Complaints: * ???1. Annual TYPE PHOTOGRAPHY SUPERVISOR Physical. * HPI: ???Constitutional:?Lorelei is a 69yo who presents for her yearly equipment operat0r exam. ?She has been in state of [...] aunt. Her last mammogram was *10/31/24 - [facility].?She does *not have a family history of colon cancer. She a has had a colonoscopy. The last colonoscopy was 2018. She was due for her next scan in 2023. ?The patient does *intermittently exercise. She exercises x 2 days/week by stretching and yoga. * ROS:?Annual Baseball Coach Exam ROS:?Bowel habit changes?denies.?Bladder symptoms?denies.?Vaginal discharge, unusual?denies.?Vaginal itch or odor?denies.?weight or appetite changes?denies.?Chest pains, SOB?denies.?depression?denies.?Breast:?Denies?Breast lump.?Denies?Nipple discharge.?Hematology:?Denies?Swollen glands.?Skin:?Patient denies?changing moles.?Psychiatric:?Denies?Anxiety.? * Medical History:? Objective: * Vitals:? * Examination: ???General Examination: ?GENERAL APPEARANCE:?in no acute distress, well developed, well nourished, otr hazmat company driver present in room.?HEAD:?normocephalic, atraumatic.?NECK/THYROID:?neck supple, full range [...] * Follow Up:?1 Year (Reason: Y early Baseball Coach Exam) * Images: Billing Information: * Visit Code:? 13297 Preventive Care Est Pt. Age 65 and over. * Procedure Codes:? * Electronic signature of MELYSSA IBANEZ MD on 04/23/2025 at 11:39 AM EDT Sign off status: Pending * Provider:?MELYSSA IBANEZ MD Date:?2024 Generated for Avinash prince/Michael/eTransmitting on:?04/23/2025 11:39 AM EDT History and Physical Notes * HPI (History of Present Illness) Category Sub-Category Detail Notes Category Not es Constitutional Lorelei is a 69yo who presents for her yearly equipment operat0r exam. She has been in state of [...] aunt. Her last mammogram was *10/31/24 - [facility]. She does *not have a family [...] ac andres distress, well developed, well nourished, otr hazmat company driver present in room HEAD: normocephalic, atrau matic [...]
== END 2025-04-22 11:38 | disposition home or self-care (01) ==
LOC: HO.HOSX 11:37
PROVIDERS: Visit Provider Physician Assistant
DX: Z01.818 Encounter for other preprocedural examination (principal); M25.551 Pain in right hip
CPT/HCPCS: 36415; 73502; 80048; 85025

== ENCOUNTER 2025-04-22 15:02 | Outpatient (AMB) | payer OTHER, SELFPAY ==
--- OUTSIDE RECORDS SUMMARY | 2025-04-22 15:06 | XMS_ITS ---
Author Organization [employer] Address [address] [facility] [address] [place] [address] Care Team Providers Care Cable Television Access Coordinator Name Role Phone FLAKITO GOEL M.D. Primary Care Provider MELYSSA Sierra Unavailable [phone] REASON FOR VISIT Annual 3RD GRADE READING TEACHER Physical Encounters Encounter Location Date Provider Diagnosis [facility] [address] [address] 04/19/2025 MELYSSA IBANEZ Encounter for gynecological examination [...] Follow Up: 1 Year, Reason: Y early Hand Loom Weaver Exam Progress Notes * JENNYFER FLOYDADOB:1955 (69 yo F)Acc No.[id number]:04/19/2025 PROGRESS NOTES Patient:?LORELEI FLOYD Provider:?MELYSSA IBANEZ MD :1955???Age:69 Y???Sex:Female D ate:04/19/2025 Address:[address] [place] [address] Pcp:FLAKITO GOEL M.D. Subjective: * Chief Complaints: * ???1. Annual 3RD GRADE READING TEACHER Physical. * HPI: ???Constitutional:?Lorelei is a 69yo who presents for her yearly obgyn nurse exam. ?She has been in state of good health since her last exam. She has the following concerns: ?She has received the Moderna Covid-19 vaccine and booster. ?Relationship status: * for 42 years. She is not sexually active. Sexual partner(s): male. She does not wish to have STI testing. ?She does *not report vaginal dryness. She does not have hot flashes/night sweats. ?The patient has never had an abnormal pap smear. Her most recent pap smear was 06/15/2020. Pap smears are no longer indicated. ?She has not been diagnosed with breast cancer. She does have a family history of breast cancer - mother, paternal aunt. Her last mammogram was *10/31/24 - [facility].?She does *not have a family history of colon cancer. She a has had a colonoscopy. The last colonoscopy was 2018. She was due for her next scan in 2023. ?The patient does *intermittently exercise. She exercises x 2 days/week by stretching and yoga. * ROS:?Annual Hand Loom Weaver Exam ROS:?Bowel habit changes?denies.?Bladder symptoms?denies.?Vaginal discharge, unusual?denies.?Vaginal itch or odor?denies.?weight or appetite changes?denies.?Chest pains, SOB?denies.?depression?denies.?Breast:?Denies?Breast lump.?Denies?Nipple discharge.?Hematology:?Denies?Swollen glands.?Skin:?Patient denies?changing moles.?Psychiatric:?Denies?Anxiety.? * Medical History:? Objective: * Vitals:? * Examination: ???General Examination: ?GENERAL APPEARANCE:?in no acute distress, well developed, well nourished, sales representative advertising present in room.?HEAD:?normocephalic, atraumatic.?NECK/THYROID:?neck supple, full range [...] (general) (routine) without abnormal findings - Z01.419 (Primary)???2.?Encounter for screening mammogram for malignant neoplasm of breast - Z12.31??? Plan: * Treatment: 2.?Encounter for screening m ammogram for malignant neoplasm of breast?Imaging: MM Digital Screening Mammogram 3D * Follow Up:?1 Year (Reason: Y early Hand Loom Weaver Exam) * Images: Billing Information: * Visit Code:? 70874 Preventive Care Est Pt. Age 65 and over. * Procedure Codes:? * Electronic signature of MELYSSA IBANEZ MD on 04/22/2025 at 03:06 PM EDT Sign off status: Pending * Provider:?MELYSSA IBANEZ MD Date:?2024 Generated for Avinash prince/Michael/eTransmitting on:?04/22/2025 03:06 PM EDT History and Physical Notes * HPI (History of Present Illness) Category Sub-Category Detail Notes Category Not es Constitutional Lorelei is a 69yo who presents for her yearly obgyn nurse exam. She has been in state of [...] aunt. Her last mammogram was *10/31/24 - [facility]. She does *not have a family [...] ac andres distress, well developed, well nourished, sales representative advertising present in room HEAD: normocephalic, atrau matic [...]
[2025-04-22 15:18] VITALS: BMI 34.5
--- NOTE | 2025-04-22 15:18 | A.OFFVIS_ITS ---
Vital Signs 04/22/25 15:18 Height 5 ft 7 in Weight 220 lb BMI 34.5 Intake Visit Reasons: Pre-Op: R MAGY w/NE 04/27/25 Intake Note: Lorelei is a 69 year old female who presents today for a preoperative RT MAGY on 04/27/[address] Mcguire. Pain management agreement reviewed and signed. Allergies No Known Allergies Allergy (Verified 04/22/25 15:18) Medication List - Last Reconciled 04/22/25 by Priti Jackson PA-C albuterol sulfate 90 mcg/actuation 2 puffs inhalation Q4-6H PRN albuterol sulfate 2.5 mg inhalation Q4-6H PRN amlodipine 5 mg PO QAM beclomethasone dipropionate 80 mcg/actuation (Qvar RediHaler) 1 inh inhalation Q12H cetirizine (Zyrtec) 10 mg PO BEDTIME fluocinolone 0.025% 1 appl topical BID PRN ibuprofen 600 mg PO BID PRN ptlqqufu-end-lxxu-FA-vit K-lut 8 mg iron-400 mcg-50 mcg (Centrum Silver Women) 1 tab PO QPM [Raised toilet seat duration - 99 days] [SHOWER CHAIR As directed] walker Folding Front wheeled walker DURATION 99 DAYS HPI Comments Details: Ms Floyd presents to the office today for preop visit. She is scheduled for right total hip arthroplasty with Dr. Mcguire. She continues to have ongoing pain and difficulty with ambulation in the right hip, which is affecting her quality of life; therefore, she has elected to move forward with surgery. She is a former smoker. History of tubular adenoma of the colon which was benign. No history of DVT. She lives at home with her in a 2 level home. She does have her walker for postop use. [facility] Medical History (Updated 04/22/25 @ 16:17 by Priti Jackson PA-C) Anesthesia complication Impaired glucose tolerance Eczematous dermatitis Family history of breast cancer Degenerative disc disease, lumbar Osteoarthritis Lumbar stenosis with neurogenic claudication Scoliosis of lumbar region due to degenerative disease of spine in adult Hip pain, right Thyroid nodule Hypercholesterolemia Vitamin D deficiency Obesity (BMI 30-39.9) Fatty liver Osteopenia Sciatic nerve pain Hypertension Asthma Non-toxic multinodular goiter Surgical History (Updated 03/25/25 @ 09:23 by Sandie Dunn RN) Status post lumbar spine surgery for decompression of spinal cord Status post fine needle aspiration Hx of colonoscopy Hx of cholecystectomy Hx of section Family History Father COPD (chronic obstructive pulmonary disease) Mother Breast cancer Social History Housing: House Are you a primary elderly caregiver to a significant other at home: No Do you presently have visiting nurse or other home services: No Alcohol intake: current Alcohol intake frequency: holidays/special occasions only Comment: advised of trip hazard Patient Tobacco Use Status: Former Tobacco user Tobacco use type: Cigarette Years Smoked: 5 e-Cigarette/Vaping Use: Never Used Second Hand Smoke Exposure: Yes service: No Current occupational status: employed Current occupation: [employer] Cognitive needs: No Hearing needs: No Vision needs: Yes Review of Systems Const All systems reviewed & are unremarkable except as noted in HPI and below Physical Exam Vital Signs: BMI result Body Mass Index 34.5 Const General: cooperative, healthy appearing, comfortable, no acute distress, well developed and alert Orientation/consciousness: patient oriented x3 HEENT Head: Yes normal to inspection, Yes normocephalic and Yes atraumatic Eyes General: appearance normal, both eyes and all related structures Neck Neck: Yes normal visual inspection and Yes no lymphadenopathy Resp Effort & Inspection: normal respiratory effort and able to speak in complete sentences Cardio Rate: regular rate Peripheral pulses: Peripheral pulses 2+ throughout GI Inspection: Yes normal to inspection Palpation (GI): Soft to palpation Skin General skin exam: no rashes or lesions noted Neuro General: patient oriented x3 Extrem Other: Right hip skin is intact no open wounds or abrasions. Limited internal rotation while flexed bilaterally. Her right hip however has a markedly positive impingement test. She has a positive Trendelenburg gait. Psych Appearance: grossly normal Mental Status: mental status grossly normal Results Reviewed Results Reviewed: X-rays of the right hip obtained in the office today for surgical planning. Assessment & Plan Assessment & Plan (1) Primary osteoarthritis of right hip: Code(s): M16.11 - Unilateral primary osteoarthritis, right hip Category: Medical Plan: I discussed in detail the procedure and what to expect pre and post operatively. We discussed the risks, benefits and alternatives to the surgery as well as the rehabilitation course. The risks; which include, but are not limited to infection, bleeding, nerve injury, ongoing pain, swelling, and stiffness, perioperative risk of injury to bones and soft tissues, and blood clots. I?ve answered all questions and with their understanding they have consented to move forward with Right total hip arthroplasty with Dr. Mcguire An order has been placed for postop physical therapy. [facility] will [facility] in [place]. She will make an appointment to schedule this to be done after her postop appointment on 05/13/2025. Patient does not have any medical conditions that would further increase her risk of DVT postoperatively therefore she will take full-dose aspirin 325 mg p.o. b.i.d. postop. The plan is for her to be discharged home with VNA services. Orders: Orders XR hip RT min 2V Today M25.551 - Pain in right hip Basic Metabolic Panel Today Z01.818 - Encounter for other preprocedural examination Complete Blood Count Auto Diff Today Z01.818 - Encounter for other preprocedural examination Type and Screen Today Z01.818 - Encounter for other preprocedural examination PT Evaluation and Treatment Today Z96.641 - Presence of right artificial hip joint Coding Level of Care Code Est Pt Level 3 (95688) Complex EM visit Add On G2211 Diagnoses Primary osteoarthritis of right hip M16.11
== END 2025-04-22 16:03 | disposition home or self-care (01) ==
LOC: HO.HOS 15:03
PROVIDERS: PCP Internal Medicine; Visit Provider Physician Assistant
DX: M16.11 Unilateral primary osteoarthritis, right hip (principal)
CPT/HCPCS: 99213

== ENCOUNTER → 2025-04-22 15:04 | Outpatient (BNV) | payer OTHER, SELFPAY | PROVIDERS: Visit Provider Radiology Diagnostic Radiology | DX: M16.0 Bilateral primary osteoarthritis of hip (principal) | CPT/HCPCS: 73502 ==

== ENCOUNTER 2025-04-27 05:50 | Day surgery (SDC) | payer OTHER, SELFPAY ==
--- OUTSIDE RECORDS SUMMARY | 2025-02-05 14:13 | XMS_ITS | Patient Health Record ---
Author Organization [facility] Address [address] [address] Care Team Providers Care Traffic Personnel Supervisor Name Role Phone FLAKITO GOEL M.D. 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 no 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 drugs Problems Problem Type SNOMED Code ICD Code Onset Dates Problem Status W/U Status Risk Notes Problem Asthma (944740647) Asthma (493) Active confirmed Problem Hypertension (72252061) Hypertension (401.9) Active confirmed Problem Body mass index 30.00 to 34.99 (204485494420394 ) Body mass index [BMI] 34.0-34.9, adult (Z68.34) Active confirmed Vital Signs Temperature 97.3 degrees Fahrenheit 04/07/2024 Blood pressure diastolic 72 mm Hg 04/07/2024 Height 68 in 04/07/2024 Blood pressure systolic 124 mm Hg 04/07/2024 Weight 192 lbs 04/07/2024 BMI 29.19 kg/m2 04/07/2024 Encounters Encounter Location Date Provider Diagnosis [facility] [employer] [place] [address] [employer] [address] [address] 04/07/2024 MELYSSA IBANEZ Encounter for gynecological examination (general) (routine) without abnormal findings Z01.419 and Encounter for screening mammogram for malignant neoplasm of breast Z12.31 [facility] [employer] [place] [address] [employer] [address] [address] 11/26/2024 MELYSSA IBANEZ Assessments Encounter Date Diagnosis [...] Provider Name:MELYSSA Dubois, 04/19/2025 08:00:00 AM, [address], [address], [place], [address], Insurance Providers Payer Name Payer Address Payer Phone Subscriber Number Group Number Insured Name Patient Relationship to Insured Coverage Start Date Coverage End Date [employer] [place] [address] [address] [place] [address] [id number] TAMMY FLOYD Self - patient is the insured Medical (General) History Medical History History ICD Code Asthma 493 Hypertension 401.9 thyroid nodule COVID-19 U07.1 Surgical History Surgery Date(Month/Year) Cholecystectomy 1982 C/S 1986 thyroid nodule bx, benign R axillary cyst resection Back Surgery (disc decompression) 3 Hospitalization History Reason Date(Month/Year) see surgical history childbirth
--- OUTSIDE RECORDS SUMMARY | 2025-02-05 14:13 | XMS_ITS ---
Author Organization [facility] Address [address] [facility] [address] [place] [address] Care Team Providers Care Aeronautical Engineering Technologist Name Role Phone FLAKITO OGEL M.D. Primary Care Provider MELYSSA Sierra Unavailable [phone] REASON FOR VISIT Annual DRAFTING LAYOUT MAN Physical Encounters Encounter Location Date Provider Diagnosis [facility] [address] [place] [address] 10/22/2023 MELYSSA IBANEZ Plan Of Treatment Next Appt Details Provider Name:MELYSSA Dubois, 04/19/2025 08:00:00 AM, [address] [place] [address], [address], [place], [address], Progress Notes * MITCHELLBOONEJENNYFERADOB:1955 (69 yo F)Acc No.[id number]:10/22/2023 PROGRESS NOTES Patient:?TAMMY FLOYD Provider:?MELYSSA IBANEZ MD :1955???Age:68 Y???Sex:Female D ate:10/22/2023 Address:[address] [place] [address] Pcp:FLAKITO GOEL M.D. Subjective: * Chief Complaints: * ???1. Annual DRAFTING LAYOUT MAN Physical. * Medical History:? Objective: * Vitals:? Assessment: Plan: * Treatment: * Images: Billing Information: * Visit Code:? * Procedure Codes:? * Electronic signature of MELYSSA IBANEZ MD on 02/05/2025 at 02:13 PM EST Sign off status: Pending * Provider:?MELYSSA IBANEZ MD Date:?2022 Generated for Avinash prince/Michael/Fabricio on:?02/05/2025 02:13 PM EST
--- OUTSIDE RECORDS SUMMARY | 2025-02-05 14:13 | XMS_ITS ---
Author Organization [facility] Address [address] [place] [address] Care Team Providers Care Research Associate Molecular Biology Name Role Phone FLAKITO GOEL M.D. Primary Care Provider MELYSSA Sierra Unavailable [phone] Allergies No Known Allergies REASON FOR VISIT Annual LANGUAGE THERAPIST Physical Medications Medication SIG (Take, Route, Frequency, [...] 04/07/2024 Encounters Encounter Location Date Provider Diagnosis [facility] [address] [place] [address] 04/07/2024 MELYSSA IBANEZ Encounter for gynecological examination [...] Follow Up: 1 Year, Reason: Y early Human Resources Hr Generalist Exam Provider Name:MELYSSA Dubois, 04/19/2025 08:00:00 AM, [address], [address], [place], [address], Progress Notes * JENNYFER FLOYDADOB:1955 (68 yo F)Acc No.[id number]:04/07/2024 PROGRESS NOTES Patient:?LORELEI FLOYD Provider:?MELYSSA IBANEZ MD :1955???Age:68 Y???Sex:Female D ate:04/07/2024 Address:[address] [place], [place] [address] Pcp:FLAKITO GOEL M.D. 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 ?She has been in state of [...] aunt. Her last mammogram was 10/31/24 - [facility].?She does?not have a family history of colon cancer. She a has had a colonoscopy. The last colonoscopy was 2018. She is due for her next scan in 2023. She is not yet scheduled. ?The patient does intermittently exercise. She exercises x 2 days/week by stretching and yoga. * ROS:?Annual Human Resources Hr Generalist Exam ROS:?Bowel habit changes?denies.?Bladder symptoms?denies.?Vaginal discharge, unusual?denies.?Vaginal itch or odor?denies.?weight or appetite changes?denies.?Chest pains, SOB?denies.?depression?denies.?Breast:?Denies?Breast lump.?Admits?Nipple discharge,?long-standing, no changes (right breast).?Hematology:?Denies?Swollen glands.?Skin:?Patient denies?changing moles.?Psychiatric:?Denies?Anxiety.? * Medical History:? * Human Resources Hr Generalist History:?/ Para?1/1.?Sexual activity?not currently sexually active.?Last Pap [...] ?Marital status: , Peter. ?Occupation: works in [employer] at [employer]. ?Pets: dogs: 2 [facility] [facility] [employer] terriers (Jennifer and Dara). ?Sexual abuse: no. [...] no acute distress, well developed, well nourished, liner replacer present in room.?HEAD:?normocephalic, atraumatic.?NECK/THYROID:?neck supple, full range [...] muscle mass and strength. 'Sarco' is the Indonesian word referring to flesh, and 'penia' means [...] * Follow Up:?1 Year (Reason: Y early Human Resources Hr Generalist Exam) * Images: Billing Information: * Visit Code:? 31756 Preventive Care Est Pt. Age 65 and over. * Procedure Codes:? 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 She has been in state of [...] aunt. Her last mammogram was 10/31/24 - [facility]. She does not have a family [...] General Examination GENERAL APPEARANCE: in no ac andres distress, well developed, well nourished, liner replacer present in room HEAD: normocephalic, atrau matic [...]
--- OUTSIDE RECORDS SUMMARY | 2025-02-05 14:13 | XMS_ITS ---
Author Organization [facility] Address [address] [place] [address] Care Team Providers Care Marine Equipment Engineer Name Role Phone FLAKITO GOEL M.D. Primary Care Provider MELYSSA Sierra Unavailable [phone] REASON FOR VISIT Update Demographics - Personal Info Encounters Encounter Location Date Provider Diagnosis [facility] [address] [facility] [address] [place] [address] 11/26/2024 MELYSSA IBANEZ Plan Of Treatment Next Appt Details Provider Name:MELYSSA Dubois, 04/19/2025 08:00:00 AM, [address] [facility], [address], [place], [address], Progress Notes * JENNYFER FLOYDADOB:1955 (69 yo F)Acc No.[id number]:11/26/2024 Patient:?TAMMY FLOYD :1955???Age:69 Y???Sex:Female Address:[address] [place] [address], [address] * true * Date:? Generated for Nareshi niki/Michael/eTransmitting on:?02/05/2025 02:13 PM EST
[2025-03-26 10:00] VITALS: BP 132/73; PULSE 75; RESP 18; O2SAT 98; BMI 34.5
--- NOTE | 2025-03-26 10:18 | HO.ANESPROP2 ---
Documented by User: Nancie Villegas NP 03/26/25 10:31 HPI - Anesthesia Eval Consult details Narrative: 69yo F for Right Hip Total Replacement, 04/27/25 Medically optimized per PCP Asthma: Very rare albuterol, QVAR as rx'd Slow to wake after spine surgery x 1 PMFSH Active Problems Active Problems: All Active Problems Preop exam for internal medicine (Acute) Pre-op examination (Acute) Lumbar spondylosis (Acute) Osteoarthritis of right hip (Acute) Annual physical exam (Acute) Tubular adenoma of colon (Acute) Impaired glucose tolerance (Acute) Eczema (Acute) Osteopenia (Acute) Hypercholesterolemia (Acute) Obesity (BMI 30-39.9) (Acute) Hypertension (Acute) Asthma (Acute) Non-toxic multinodular goiter (Acute) Past Medical History Medical History Anesthesia complication Impaired glucose tolerance Eczematous dermatitis Family history of breast cancer Degenerative disc disease, lumbar Osteoarthritis Lumbar stenosis with neurogenic claudication Scoliosis of lumbar region due to degenerative disease of spine in adult Hip pain, right Thyroid nodule Hypercholesterolemia Vitamin D deficiency Obesity (BMI 30-39.9) Fatty liver Osteopenia Sciatic nerve pain Hypertension Asthma Non-toxic multinodular goiter Family History Family History Father COPD (chronic obstructive pulmonary disease) Mother Breast cancer Family history of problems with anesthesia: No Surgical History Surgical History Status post lumbar spine surgery for decompression of spinal cord Status post fine needle aspiration Hx of colonoscopy Hx of cholecystectomy Hx of section History of Problems with Anesthesia: No Social History Social History Housing: House Are you a primary healthcare administrative assistant to a significant other at home: No Do you presently have visiting nurse or other home services: No Alcohol intake: current Alcohol intake frequency: holidays/special occasions only Comment: advised of trip hazard Patient Tobacco Use Status: Former Tobacco user Tobacco use type: Cigarette Years Smoked: 5 e-Cigarette/Vaping Use: Never Used Second Hand Smoke Exposure: Yes Use of substances other than those prescribed or required for medical reasons: No Have you been hit, kicked, punched, or otherwise hurt by someone within the past year? If so, by whom?: No Spiritual Healthcare Practices: no Catholic Healthcare Practices: no-Episcopal Cultural Healthcare Practices: no Are you DNR?: No Advance Directives Information Provided: Yes (as above noted) Advance Directives on File: No FDLMP: n/a Poor oral hygiene: No service: No Current occupational status: employed Current occupation: [employer] Cognitive needs: No Hearing needs: No Vision needs: Yes Meds Allergies Allergy/AdvReac Type Severity Reaction Status Date / Time No Known Allergies Allergy Verified 04/27/25 06:20 Home Medications ?Medication ?Instructions ?Recorded ?Confirmed ?Last Taken ?Type albuterol sulfate 2.5 mg/3 mL 2.5 mg inhalation Q4-6H PRN 11/22/20 04/22/25 Unknown History (0.083 %) solution for nebulization Wheezing albuterol sulfate 90 mcg/actuation 2 puff inhalation Q4-6H PRN 11/22/20 04/22/25 Unknown History aerosol inhaler Wheezing cetirizine 10 mg tablet (Zyrtec) 10 mg PO BEDTIME 11/22/20 04/22/25 09/29/23 History gtsxnahm-hevn-hqwi 8 mg-folic 400 1 tab PO QPM 11/22/20 04/22/25 09/29/23 History mcg-K 50 mcg-lutein 300 mcg tablet (Centrum Silver Women) fluocinolone 0.025 % topical cream 1 appl topical BID PRN Rash 09/18/24 04/22/25 Unknown History ibuprofen 600 mg tablet 600 mg PO BID PRN Pain 03/12/25 04/22/25 Unknown History Exam Height,Weight and Vital Signs: Height 5 ft 7 in Weight 99.79 kg Last Vital Signs Pulse 75 03/26/25 10:00 Resp 18 03/26/25 10:00 BP 132/73 03/26/25 10:00 Pulse Ox 98 03/26/25 10:00 O2 Del Method Room Air 03/26/25 10:00 Pertinent Lab Results Pertinent Lab Results: Laboratory Tests 03/19/25 08:34 WBC 5.5 Hgb 13.8 Hct 41.9 Plt Count 269 Sodium 141 Potassium 3.7 Chloride 107 Carbon Dioxide 28 BUN 11 Creatinine 0.62 Narrative Narrative: EKG 03/2025 Vent. Rate : 70 BPM Atrial Rate : 70 BPM P-R Int : 168 ms QRS Dur : 92 ms QT Int : 404 ms P-R-T Axes : 52 9 31 degrees QTcB Int : 436 ms Normal sinus rhythm Normal ECG When compared with ECG of 23-Sep-2023 12:37, No significant change was found Airway Mallampati Class: II TM Dist: >3cm Neck ROM: Full Loose/Missing/Broken Teeth: No (Crowned molars stable) Heart: RRR Lungs: CTAB Assessment and Plan Assessment Anesthesia Assessment: Anesthesia Plan Discussed and PAT Visit Final Anesthetic Review Family History of Problems with Anesthesia: No History of Problems with Anesthesia: No Documented by User: Akash Conley MD 04/27/25 07:06 PMFSH Active Problems Active Problems: tAll Active Problems Preop exam for internal medicine (Acute) Pre-op examination (Acute) Lumbar spondylosis (Acute) Osteoarthritis of right hip (Acute) Annual physical exam (Acute) Tubular adenoma of colon (Acute) Impaired glucose tolerance (Acute) Eczema (Acute) Osteopenia (Acute) Hypercholesterolemia (Acute) Obesity (BMI 30-39.9) (Acute) Hypertension (Acute) Asthma (Acute) Non-toxic multinodular goiter (Acute) Past Medical History Medical History Anesthesia complication Impaired glucose tolerance Eczematous dermatitis Family history of breast cancer Degenerative disc disease, lumbar Osteoarthritis Lumbar stenosis with neurogenic claudication Scoliosis of lumbar region due to degenerative disease of spine in adult Hip pain, right Thyroid nodule Hypercholesterolemia Vitamin D deficiency Obesity (BMI 30-39.9) Fatty liver Osteopenia Sciatic nerve pain Hypertension Asthma Non-toxic multinodular goiter Cognitive capacity: good Functional capacity: independent ambulation Patient : No Family History Family History Father COPD (chronic obstructive pulmonary disease) Mother Breast cancer Surgical History Surgical History Status post lumbar spine surgery for decompression of spinal cord Status post fine needle aspiration Hx of colonoscopy Hx of cholecystectomy Hx of section Social History Social History Housing: House Are you a primary healthcare administrative assistant to a significant other at home: No Do you presently have visiting nurse or other home services: No Alcohol intake: current Alcohol intake frequency: holidays/special occasions only Comment: advised of trip hazard Patient Tobacco Use Status: Former Tobacco user Tobacco use type: Cigarette Years Smoked: 5 e-Cigarette/Vaping Use: Never Used Second Hand Smoke Exposure: Yes Use of substances other than those prescribed or required for medical reasons: No Have you been hit, kicked, punched, or otherwise hurt by someone within the past year? If so, by whom?: No Spiritual Healthcare Practices: no Catholic Healthcare Practices: no-Episcopal Cultural Healthcare Practices: no Are you DNR?: No Advance Directives Information Provided: Yes (as above noted) Advance Directives on File: No FDLMP: n/a Poor oral hygiene: No service: No Current occupational status: employed Current occupation: [employer] Cognitive needs: No Hearing needs: No Vision needs: Yes Travel History History of recent travel: No Recent Travel [facility] Within the Last 8 Weeks: No Recent Out of Country Travel Within the Last 8 Weeks: No Exposure or Possible Exposure to Illness During Travel: No History of Being in a Healthcare Facility as a Patient, Worker, or Visitor during Travel: No Meds Allergies Allergy/AdvReac Type Severity Reaction Status Date / Time No Known Allergies Allergy Verified 04/27/25 06:20 Home Medications ?Medication ?Instructions ?Recorded ?Confirmed ?Last Taken ?Type albuterol sulfate 2.5 mg/3 mL 2.5 mg inhalation Q4-6H PRN 11/22/20 04/22/25 Unknown History (0.083 %) solution for nebulization Wheezing albuterol sulfate 90 mcg/actuation 2 puff inhalation Q4-6H PRN 11/22/20 04/22/25 Unknown History aerosol inhaler Wheezing cetirizine 10 mg tablet (Zyrtec) 10 mg PO BEDTIME 11/22/20 04/22/25 09/29/23 History neqosxxi-yppp-rpoi 8 mg-folic 400 1 tab PO QPM 11/22/20 04/22/25 09/29/23 History mcg-K 50 mcg-lutein 300 mcg tablet (Centrum Silver Women) fluocinolone 0.025 % topical cream 1 appl topical BID PRN Rash 09/18/24 04/22/25 Unknown History ibuprofen 600 mg tablet 600 mg PO BID PRN Pain 03/12/25 04/22/25 Unknown History Assessment and Plan Anesthetic Plan Anesthetic Plan: GA Disposition: Standard PACU
[2025-03-26 12:38] LABS: MRSA Nasal PCR NEGATIVE (Negative); SA Nasal PCR NEGATIVE (Negative)
[2025-04-27] VITALS (19 sets, daily range): BP systolic 82–156; BP diastolic 47–81; PULSE 54–90; RESP 12–22; TEMP 36.1–37.3; O2SAT 95–100; BMI 34.5
--- NOTE | ~2025-04-27 | XR_ITS ---
EXAMINATION: XR PELVIS CLINICAL INFORMATION: rt bridget COMPARISON: April 22, 2025. TECHNIQUE: AP view of the pelvis. FINDINGS: There is a metallic prosthesis with an acetabular and femoral component well-seated in the osseous structures. There is loosening along the acetabular component. No gross malalignment. Sclerosis along the articular surface of the left acetabulum and left femoral head with associated subchondral cyst formation. Asymmetric joint space narrowing, left coxofemoral joint. XR/XR pelvis 1-2V IMPRESSION: Total right hip arthroplasty prosthesis with questionable loosening along the acetabular component. Moderate osteoarthrosis, left hip. Electronically signed by: Jordon Hull MD 04/27/2025 11:05 AM EDT
[2025-04-27] MEDS: Lactated Ringers 1,000 ML 50 ML IVCONT (06:55)
--- NOTE | 2025-04-27 07:22 | MHC.SHP ---
Pre-Procedural Eval Section A - 24 Hr Update-Section A only Date of Service: 04/27/25 The patient is an INPATIENT: No Changes since office visit: No Cold of Flu in the past 2 weeks, No New Medical Problems, No Changes in Medication and No Patient answered all questions The patient has been examined within 24 hours of the surgical procedure. The History & Physical has been completed within 30 days and I have reviewed it.: Yes Section B - Complete if H&P > 30 days Chief Complaint: Unilateral primary osteoarthritis, right hip Allergies: Allergies Allergy/AdvReac Type Severity Reaction Status Date / Time No Known Allergies Allergy Verified 04/27/25 06:20 Plan I have reviewed the history and physical and performed a pertinent physical examination on my patient. No changes have occurred unless specified. Time Spent With Patient Time: Total time managing care of this patient today ____ minutes.
[2025-04-27] MEDS: ceFAZolin Sodium/Dextrose,Iso 2 GM/50 ML PIGGYBACK IV ×2 (07:30→13:22)
[2025-04-27] MEDS: Acetaminophen 1,000 MG/100 ML PIGGYBACK 400 MG IV (07:30)
--- NOTE | 2025-04-27 09:28 | PM.OP ---
Brief Operative Note Date of Service: 04/27/25 Pre-op diagnosis: Left hip OA Post-op diagnosis: same Procedure: Left MAGY Implants: Neptune Trident2 54/ 2 30 mm 6.5 acetabular screws and 20 deg lipped liner Neptune Accolade2 #6 132 with -2.5 36 ceramic femoral head Surgeon: Prince Mcguire MD Anesthesia: GETA, regional and local Was an Race Car Mechanic used for this Procedure?: Yes Race Car Mechanic: Priti Jackson Estimated blood loss (mL): 200 IV fluids (mL): 1,000 Pathology: other Condition: stable Disposition: PACU
[2025-04-27] MEDS: HYDROmorphone HCl 0.5 MG/0.5 ML SYRINGE IVPUSH ×4 (09:45→10:30)
[2025-04-27] MEDS: fentaNYL citrate/PF 100 MCG/2 ML VIAL 25 MCG IVPUSH ×4 (10:00→10:15)
[2025-04-27] MEDS: ondansetron HCL 4 MG/2 ML VIAL IVPUSH ×2 (10:41→18:00)
--- NOTE | 2025-04-27 11:02 | PHA.MEDREC ---
Addendum entered by Luis Fernando Shahid RPh 04/27/25 11:37: Reviewed by [facility] Original Note: Pharmacy Consult ? Medication Reconciliation Pharmacy has reviewed the medication reconciliation done by nursing. Claims match med rec.
[2025-04-27] MEDS: droPERidol 5 MG/2 ML VIAL 0.625 MG IVPUSH (11:16)
[2025-04-27] MEDS: Lactated Ringers 1,000 ML 100 ML IVCONT ×2 (11:39→20:09)
--- NOTE | 2025-04-27 12:41 | P.CONHOSP_ITS ---
History of Present Illness Data of Consult Service Date: 04/27/25 Primary Care Provider: Nela Forrest MD HPI Reason for consult: Medical management 69-year-old female with a past medical history of lumbar spondylosis, osteoarthritis of right hip, tubular adenoma of colon, eczema, osteopenia, hyperlipidemia, obesity, hypertension, asthma, and nontoxic multinodular goiter, was admitted here for an elective right total hip replacement. [facility] Medical History Anesthesia complication Impaired glucose tolerance Eczematous dermatitis Family history of breast cancer Degenerative disc disease, lumbar Osteoarthritis Lumbar stenosis with neurogenic claudication Scoliosis of lumbar region due to degenerative disease of spine in adult Hip pain, right Thyroid nodule Hypercholesterolemia Vitamin D deficiency Obesity (BMI 30-39.9) Fatty liver Osteopenia Sciatic nerve pain Hypertension Asthma Non-toxic multinodular goiter Functional capacity: independent ambulation Family History Father COPD (chronic obstructive pulmonary disease) Mother Breast cancer Surgical History Status post lumbar spine surgery for decompression of spinal cord Status post fine needle aspiration Hx of colonoscopy Hx of cholecystectomy Hx of section Social History Household Members: Spouse Housing: House Are you a primary home care assistant to a significant other at home: No Do you presently have visiting nurse or other home services: No Alcohol intake: current Alcohol intake frequency: holidays/special occasions only Comment: advised of trip hazard Patient Tobacco Use Status: Former Tobacco user Tobacco use type: Cigarette Years Smoked: 5 e-Cigarette/Vaping Use: Never Used Second Hand Smoke Exposure: Yes Use of substances other than those prescribed or required for medical reasons: No Have you been hit, kicked, punched, or otherwise hurt by someone within the past year? If so, by whom?: No Spiritual Healthcare Practices: no Yarsanism Healthcare Practices: no-Samaritan Cultural Healthcare Practices: no Are you DNR?: No Advance Directives Information Provided: Yes (as above noted) Advance Directives on File: No Do you have a plan to hurt others: No Plan Recently lost weight without trying: No Nutrition Risks: No Nutritional Risk Patient : No FDLMP: n/a : No Poor oral hygiene: No service: No Current occupational status: employed Current occupation: [employer] Cognitive needs: No Hearing needs: No Vision needs: Yes Meds Allergies Allergy/AdvReac Type Severity Reaction Status Date / Time No Known Allergies Allergy Verified 04/27/25 06:20 Active Medications: Current Medications Acetaminophen (Acetaminophen 325 Mg Tablet) 650 mg PO Q6H PRN PRN Reason: Pain, Mild 1-3,fever,headache Albuterol Sulfate (Albuterol Sulfate (0.083%) 2.5 Mg/3 Ml Vial.Neb) 2.5 mg INHALE Q4H PRN PRN Reason: Wheezing Albuterol Sulfate (Albuterol Sulfate 90 Mcg 8 Gm Inhaler) 2 puff INHALE Q4H PRN PRN Reason: Wheezing Aspirin (Aspirin 325 Mg Tablet) 325 mg PO BID ELICEO Celecoxib (Celecoxib 200 Mg Capsule) 200 mg PO BID ELICEO Docusate Sodium (Docusate Sodium 100 Mg Capsule) 100 mg PO BID ELICEO Droperidol (Droperidol 5 Mg/2 Ml Vial) 0.625 mg IVPUSH ONCE PRN PRN Reason: intractable nausea Stop: 04/27/25 17:11 Fluticasone Propionate (Fluticasone Propionate 100 Mcg Blst.W.Dev) 1 puff INHALE RBID ELICEO Hydromorphone HCl (Hydromorphone Hcl 0.5 Mg/0.5 Ml Syringe) 0.25 mg IVPUSH Q4H PRN; Protocol PRN Reason: Pain, Severe (Pain Scale 7-10) Lactated Ringer's (Lr) 1,000 mls @ 100 mls/hr IVCONT .Q10H ELICEO Stop: 04/28/25 08:00 Last Admin: 04/27/25 11:39 Dose: 100 mls/hr Cefazolin Sodium/Dextrose (Ancef) 2 gm in 50 mls @ 100 mls/hr IV POSTOP@1400 ONE Stop: 04/27/25 14:29 Loratadine (Loratadine 10 Mg Tablet) 10 mg PO BEDTIME ELICEO Oxycodone HCl (Oxycodone Hcl Immed Release 5 Mg Tablet) 5 mg PO Q4H PRN PRN Reason: Pain, Moderate(Pain Scale 4-6) Oxycodone HCl (Oxycodone Hcl Er 10 Mg Tab.Er.12h) 10 mg PO BID ELICEO Sodium Chloride (0.9 % Sodium Chloride Flush 3 Ml Syringe) 3 ml IVFLUSH QSHIFT ELICEO Triamcinolone Acetonide (Triamcinolone Acet 0.1 % Cream 15 Gm Tube) 1 appl TOPICAL BID PRN PRN Reason: Rash Home Medications ?Medication ?Instructions ?Recorded ?Confirmed ?Last Taken ?Type albuterol sulfate 2.5 mg/3 mL 2.5 mg inhalation Q4-6H PRN 11/22/20 04/22/25 Unknown History (0.083 %) solution for nebulization Wheezing albuterol sulfate 90 mcg/actuation 2 puff inhalation Q4-6H PRN 11/22/20 04/22/25 Unknown History aerosol inhaler Wheezing cetirizine 10 mg tablet (Zyrtec) 10 mg PO BEDTIME 11/22/20 04/22/25 09/29/23 History fvhxkpoi-iwpd-sjau 8 mg-folic 400 1 tab PO QPM 11/22/20 04/22/25 09/29/23 History mcg-K 50 mcg-lutein 300 mcg tablet (Centrum Silver Women) fluocinolone 0.025 % topical cream 1 appl topical BID PRN Rash 09/18/24 04/22/25 Unknown History ibuprofen 600 mg tablet 600 mg PO BID PRN Pain 03/12/25 04/22/25 Unknown History Physical Exam Vital Signs and Narrative: Vital Signs: Last Vital Signs Temp 97.8 F 04/27/25 11:36 Pulse 76 04/27/25 11:36 Resp 16 04/27/25 11:36 BP 152/72 H 04/27/25 11:36 Pulse Ox 98 04/27/25 11:36 O2 Del Method Room Air 04/27/25 11:36 O2 Flow Rate 6 04/27/25 09:45 BMI result Body Mass Index 34.5 Results Imaging Radiologist's Impressions: Impressions Pelvis X-Ray 04/27/25 09:38 IMPRESSION: Total right hip arthroplasty prosthesis with questionable loosening along the acetabular component. Moderate osteoarthrosis, left hip. Electronically signed by: Jordon Hull MD 04/27/2025 11:05 AM EDT
--- NOTE | 2025-04-27 14:37 | PM.IMCN ---
History of Present Illness Data of Consult Service Date: 04/27/25 Primary Care Provider: Nela Forrest MD [facility] Reason for consult: medical care A 69 years old lady with PMH of HTN, asthma, exzema who presents to the hospital for elective left total hip replacement. The patient reports no acute medical problems. Her blood pressure fairly controlled with current medications. Had surgery this morning and reporting pain at surgical site. Hospitalist team asked to evaluated the patient for medical care. Review of Systems Review of Systems: No fever, chills or weakness No chest pain, palpitation No shortness of breath or coughing No abdominal pain, nausea or vomiting No urinary symptoms No any rash or wounds PMFSH Medical History Anesthesia complication Impaired glucose tolerance Eczematous dermatitis Family history of breast cancer Degenerative disc disease, lumbar Osteoarthritis Lumbar stenosis with neurogenic claudication Scoliosis of lumbar region due to degenerative disease of spine in adult Hip pain, right Thyroid nodule Hypercholesterolemia Vitamin D deficiency Obesity (BMI 30-39.9) Fatty liver Osteopenia Sciatic nerve pain Hypertension Asthma Non-toxic multinodular goiter Functional capacity: independent ambulation Family History Father COPD (chronic obstructive pulmonary disease) Mother Breast cancer Surgical History Status post lumbar spine surgery for decompression of spinal cord Status post fine needle aspiration Hx of colonoscopy Hx of cholecystectomy Hx of section Social History Household Members: Spouse Housing: House Are you a primary point of care technician to a significant other at home: No Do you presently have visiting nurse or other home services: No Alcohol intake: current Alcohol intake frequency: holidays/special occasions only Comment: advised of trip hazard Patient Tobacco Use Status: Former Tobacco user Tobacco use type: Cigarette Years Smoked: 5 e-Cigarette/Vaping Use: Never Used Second Hand Smoke Exposure: Yes Use of substances other than those prescribed or required for medical reasons: No Have you been hit, kicked, punched, or otherwise hurt by someone within the past year? If so, by whom?: No Spiritual Healthcare Practices: no Scientology Healthcare Practices: no-Buddhist Cultural Healthcare Practices: no Are you DNR?: No Advance Directives Information Provided: Yes (as above noted) Advance Directives on File: No Do you have a plan to hurt others: No Plan Recently lost weight without trying: No Nutrition Risks: No Nutritional Risk Patient : No FDLMP: n/a : No Poor oral hygiene: No service: No Current occupational status: employed Current occupation: [employer] Cognitive needs: No Hearing needs: No Vision needs: Yes Meds Allergies Allergy/AdvReac Type Severity Reaction Status Date / Time No Known Allergies Allergy Verified 04/27/25 06:20 Active Medications: Current Medications Acetaminophen (Acetaminophen 325 Mg Tablet) 650 mg PO Q6H PRN PRN Reason: Pain, Mild 1-3,fever,headache Albuterol Sulfate (Albuterol Sulfate (0.083%) 2.5 Mg/3 Ml Vial.Neb) 2.5 mg INHALE Q4H PRN PRN Reason: Wheezing Albuterol Sulfate (Albuterol Sulfate 90 Mcg 8 Gm Inhaler) 2 puff INHALE Q4H PRN PRN Reason: Wheezing Aspirin (Aspirin 325 Mg Tablet) 325 mg PO BID ELICEO Celecoxib (Celecoxib 200 Mg Capsule) 200 mg PO BID ELICEO Docusate Sodium (Docusate Sodium 100 Mg Capsule) 100 mg PO BID ELICEO Droperidol (Droperidol 5 Mg/2 Ml Vial) 0.625 mg IVPUSH ONCE PRN PRN Reason: intractable nausea Stop: 04/27/25 17:11 Fluticasone Propionate (Fluticasone Propionate 100 Mcg Blst.W.Dev) 1 puff INHALE RBID ELICEO Hydromorphone HCl (Hydromorphone Hcl 0.5 Mg/0.5 Ml Syringe) 0.25 mg IVPUSH Q4H PRN; Protocol PRN Reason: Pain, Severe (Pain Scale 7-10) Lactated Ringer's (Lr) 1,000 mls @ 100 mls/hr IVCONT .Q10H ELICEO Stop: 04/28/25 08:00 Last Admin: 04/27/25 11:39 Dose: 100 mls/hr Loratadine (Loratadine 10 Mg Tablet) 10 mg PO BEDTIME ELICEO Oxycodone HCl (Oxycodone Hcl Immed Release 5 Mg Tablet) 5 mg PO Q4H PRN PRN Reason: Pain, Moderate(Pain Scale 4-6) Oxycodone HCl (Oxycodone Hcl Er 10 Mg Tab.Er.12h) 10 mg PO BID ELICEO Sodium Chloride (0.9 % Sodium Chloride Flush 3 Ml Syringe) 3 ml IVFLUSH QSHIFT ELICEO Triamcinolone Acetonide (Triamcinolone Acet 0.1 % Cream 15 Gm Tube) 1 appl TOPICAL BID PRN PRN Reason: Rash Home Medications ?Medication ?Instructions ?Recorded ?Confirmed ?Last Taken ?Type albuterol sulfate 2.5 mg/3 mL 2.5 mg inhalation Q4-6H PRN 11/22/20 04/22/25 Unknown History (0.083 %) solution for nebulization Wheezing albuterol sulfate 90 mcg/actuation 2 puff inhalation Q4-6H PRN 11/22/20 04/22/25 Unknown History aerosol inhaler Wheezing cetirizine 10 mg tablet (Zyrtec) 10 mg PO BEDTIME 11/22/20 04/22/25 09/29/23 History emgrkqho-opfv-kcrm 8 mg-folic 400 1 tab PO QPM 11/22/20 04/22/25 09/29/23 History mcg-K 50 mcg-lutein 300 mcg tablet (Centrum Silver Women) fluocinolone 0.025 % topical cream 1 appl topical BID PRN Rash 09/18/24 04/22/25 Unknown History ibuprofen 600 mg tablet 600 mg PO BID PRN Pain 03/12/25 04/22/25 Unknown History Physical Exam Vital Signs and Narrative: Vital Signs: Last Vital Signs Temp 97.8 F 04/27/25 11:36 Pulse 76 04/27/25 11:36 Resp 16 04/27/25 11:36 BP 152/72 H 04/27/25 11:36 Pulse Ox 98 04/27/25 11:36 O2 Del Method Room Air 04/27/25 11:36 O2 Flow Rate 6 04/27/25 09:45 BMI result Body Mass Index 34.5 Const: Other: Constitutional : interactive, not in distress Cardiovascular : no JVP, no lower extremity edema Respiratory : bilateral chest movement, not in resp distress Gastrointestinal: soft, lax, Non tender Skin : Warm, Dry Extremities: Surgical site clean, good peripheral pulses. Neurological : Alert & oriented , No focal deficit Results Imaging Radiologist's Impressions: Impressions Pelvis X-Ray 04/27/25 09:38 IMPRESSION: Total right hip arthroplasty prosthesis with questionable loosening along the acetabular component. Moderate osteoarthrosis, left hip. Electronically signed by: Jordon Hull MD 04/27/2025 11:05 AM EDT RP Assessment and Plan (1) Hypertension: Status: Acute (2) Asthma: Status: Acute Plan A 69 years old lady with PMH of HTN, asthma, exzema who presents to the hospital for elective left total hip replacement. Post left hip arthroplasty Orthopedic team following pain control HTN HolD Amlodipine today, restart tomorrow Asthma PRN Inhaler QVar inhaler bid DVT PPx SCDs today, per orthopedic team Thank you for the consult will follow with you as needed. please contact hospitalist team for any questions.
[2025-04-27] MEDS: HYDROmorphone HCl 0.5 MG/0.5 ML SYRINGE 0.25 MG IVPUSH (15:43)
[2025-04-27] MEDS: Promethazine HCL 25 MG TABLET PO (17:39)
[2025-04-27] MEDS: Fluticasone Propionate 100 MCG BLST.W.DEV 1 PUFF INHALE (19:57)
[2025-04-27] MEDS: oxyCODONE HCl ER 10 MG TAB.ER.12H PO (20:08)
[2025-04-27] MEDS: Docusate Sodium 100 MG CAPSULE PO (20:08)
[2025-04-27] MEDS: Loratadine 10 MG TABLET PO (20:08)
[2025-04-27] MEDS: Celecoxib 200 MG CAPSULE PO (20:08)
--- NOTE | 2025-04-27 20:22 | PM.DS ---
DS: Providers Provider Date of Service: 04/29/25 Date of discharge: 04/29/25 Primary care physician: Nela Forrest MD Consults: 04/27/25 11:28 Consult to Hospitalist Routine Comment: Consulting Provider: [facility] [place] Hospitalists Reason For Exam: medical management DS: Diagnosis Discharge Diagnosis (1) Hypertension: Status: Acute (2) Asthma: Status: Acute DS: Summary Hospital Course Hospital Course: The patient underwent a successful right total hip arthroplasty, they were transferred to PACU and then to the floor to recover. During their stay, their vitals were stable, afebrile at 98.3. Labs were unremarkable, H/H 10.5/31.8. POD0 the patient experienced significant nausea, medication adjustments have been made. POD 1 they were started on Aspirin 325mg po bid for DVT ppx, they also received Physical Therapy services prior to discharging. Prior to discharge, their GABI negative pressure dressing was clean dry and intact and the plan was to be discharged home with VNA services. Time Attestation Discharge Coordination Time (in mins): 30 Quality: Safe Use of Opioids Does Pt have an Active Cancer Diagnosis on the Problem List?: No Quality: Stroke Does the patient have a stroke diagnosis?: No Physical Exam Vital Signs: Vital Signs: Last Vital Signs Temp 98.0 F 04/27/25 19:53 Pulse 76 04/27/25 20:00 Resp 16 04/27/25 20:00 BP 149/71 H 04/27/25 19:53 Pulse Ox 95 04/27/25 19:53 O2 Del Method Room Air 04/27/25 19:53 O2 Flow Rate 6 04/27/25 09:45 BMI result Body Mass Index 34.5 Const: General: cooperative, healthy appearing and no acute distress Resp: Effort & Inspection: normal respiratory effort and able to speak in complete sentences Cardio: Rate: regular rate Peripheral pulses: Peripheral pulses 2+ throughout GI: Palpation (GI): Soft to palpation Skin: Lesions: no lesions Rashes: no rashes Extrem: Other: right hip dressing is c/d/i. Able to dorsi/plantar flex. Calf is supple and nontender. Sensation intact. Pedal pulse intact. DS: Data Data Completed and Pending Pending studies at discharge: Pending at discharge 04/27/25 09:04 Surgical [PTH] Routine Discharge Plan Discharge Patient Disposition: Home Health Service Referrals: Priti Jackson PA-C [Physician Movement Education Specialist] - 05/13/25 3:00 pm Discharge Medications: New acetaminophen 325 mg Tablet 650 mg PO Q6H PRN (Reason: Pain, Mild 1-3,Fever,Headache) 30 Days Qty: 240 0RF promethazine 25 mg Tablet 25 mg PO Q4H PRN (Reason: Nausea And Vomiting) 7 Days Qty: 42 0RF aspirin 325 mg Tablet 325 mg PO BID 42 Days Qty: 84 0RF celecoxib 200 mg Capsule 200 mg PO BID 30 Days Qty: 60 0RF hydromorphone 2 mg Tablet 2 mg PO Q4H PRN (Reason: Pain, Moderate(Pain Scale 4-6)) 7 Days Qty: 42 0RF Rx Instructions: Partial Fill upon patient request. docusate sodium 100 mg Capsule 100 mg PO BID 30 Days Qty: 60 0RF scopolamine base 1 mg over 3 days patch 3 day 1 patch transdermal Q3D PRN (Reason: nausea and vomiting) Qty: 4 0RF Continued (DME) walker Misc See Rx Instructions .MEDSUPPLY Qty: 1 0RF Rx Instructions: Folding Front wheeled walker DURATION 99 DAYS (DME) SHOWER CHAIR See Rx Instructions .ROUTE .MEDSUPPLY Qty: 1 0RF Rx Instructions: As directed (DME) Raised toilet seat See Rx Instructions .ROUTE .MEDSUPPLY Qty: 1 0RF Rx Instructions: duration - 99 days amlodipine 5 mg tablet 5 mg PO QAM Qty: 90 3RF Centrum Silver Women 8 mg iron-400 mcg-300 mcg tablet 1 tab PO QPM albuterol sulfate 90 mcg/actuation HFA aerosol inhaler 2 puff inhalation Q4-6H PRN (Reason: Wheezing) albuterol sulfate 2.5 mg /3 mL (0.083 %) solution for nebulization 2.5 mg inhalation Q4-6H PRN (Reason: Wheezing) cetirizine [Zyrtec] 10 mg tablet 10 mg PO BEDTIME Discontinued ibuprofen 600 mg tablet 600 mg PO BID PRN (Reason: Pain) No Action Qvar RediHaler 80 mcg/actuation HFA aerosol breath activated 1 inh inhalation Q12H Qty: 3 4RF Rx Instructions: administer with spacer fluocinolone 0.025 % cream 1 appl topical BID PRN (Reason: Rash) Discharge Orders: Discharge Order (Routine); Ordered 04/29/25 Ordered By: Nancy Young Diet: Advance to usual diet Activity on Discharge: Use cane or walker Activity Restrictions/Additional Instructions: Physical Therapy for total hip arthroplasty: posterior precautions, gait training, ROM, strength Limit stair climbing No showering, no tub bath KEEP GABI suctioning dressing clean, dry and intact - Call ortho if there are any issues or machine is not functioning No driving x6 weeks Continue Lovenox tabs once a day x 4 weeks Follow up with [facility] [place] Orthopedics in 2 weeks Print Language: Malagasy
--- NOTE | 2025-04-27 20:30 | W.MHC.F2F ---
Service Date Service Date: 04/27/25 Encounter Date of encounter: 04/27/25 Reasons for Services Signs and symptoms assessed: s/p right total hip arthroplasty Pt. is considered homebound due to recent surgery. Unable to drive, poor balance, poor gait mechanics. Reason for physical therapy: home safety and mobility, therapeutic exercises, restore joint function, gait/transfer training and ADL training Reason for occupational therapy: home safety and mobility, therapeutic exercises, restore joint function, gait/transfer training and ADL training Homebound: Leaving the home is medically contraindicated at this time without the asist of a device and/or another person due th the listed conditions above and below. Reason homebound: unsteady gait / fall risk, leg weakness, pain with ambulation, pain with transfers, poor balance / fall risk and unable to drive Certification: Based on the above findings, I certify that this patient is confined to the home and needs intermittent care home care, physical therapy and/or speech therapy, or continues to need occupational therapy. The patient is under my care, and I have initiated the establishment of the plan of care. The patient will be followed by a physician who will periodically review the plan of care. Time Spent With Patient Time: Total time managing care of this patient today ____ minutes.
[2025-04-28 04:00] VITALS: BP 135/79; PULSE 91; RESP 18; TEMP 36.8; O2SAT 93
[2025-04-28] MEDS: Lactated Ringers 1,000 ML 100 ML IVCONT (05:43)
[2025-04-28 06:25] LABS: MANUAL DIFF FLAG NO
[2025-04-28 06:39] LABS: Basophils Percent Auto 0.2 % (0-2); Hematocrit 33.5 % (37.0-47.0); Hemoglobin 11.1 g/dl (12.0-16.0); Imm Gran Abs Auto 0.05 X10*3/uL (0.00-0.03); Imm Gran Pct Auto 0.4 % (0.0-0.4); Lymphocytes Absolute Auto 1.2 X10*3/uL (1.2-4.9); Lymphocytes Percent Auto 10.6 % (20-40); Mean Corpuscular HGB Conc 33.1 g/dl (31.0-35.0); Mean Corpuscular Hemoglobin 31.1 pg (27.0-33.0); Mean Corpuscular Volume 93.8 fL (80.0-98.0); Mean Platelet Volume 9.3 fL (9.4-12.3); Monocytes Absolute Auto 1.3 X10*3/uL (0.1-1.2); Monocytes Percent Auto 11.2 % (2-11); Neutrophils Absolute Auto 8.7 x10*3/uL (2.0-8.3); Neutrophils Percent Auto 77.6 % (45-73); Platelet Count 205 X10*3/uL (160-400); Red Blood Count 3.57 X10*6/uL (4.20-5.50); Red Cell Distribution Width 13.2 % (11.0-16.0); White Blood Count 11.3 X10*3/uL (4.8-10.8)
[2025-04-28 06:52] LABS: Anion Gap 11 (12-20); Blood Urea Nitrogen 11 mg/dL (9-16); Calcium 8.2 mg/dL (8.4-10.2); Carbon Dioxide 24 mmol/L (22-29); Chloride 110 mmol/L (96-108); Creatinine Clr Calc Pharmacy 104.3; Estimated Glomerular Filt Rate > 60; Glucose Fasting 128 mg/dL (60-99); Sodium 141 mmol/L (135-145)
[2025-04-28] MEDS: Celecoxib 200 MG CAPSULE PO ×2 (07:02→20:21)
[2025-04-28] MEDS: Aspirin 325 MG TABLET PO ×2 (07:03→20:21)
[2025-04-28] MEDS: amLODIPine Besylate 5 MG TABLET PO (07:03)
[2025-04-28] MEDS: oxyCODONE HCl Immed Release 5 MG TABLET PO (07:03)
[2025-04-28] MEDS: oxyCODONE HCl ER 10 MG TAB.ER.12H PO (07:03)
[2025-04-28] MEDS: Docusate Sodium 100 MG CAPSULE PO ×2 (07:04→20:21)
[2025-04-28] MEDS: ondansetron HCL 4 MG/2 ML VIAL IVPUSH ×3 (07:07→20:21)
--- NOTE | 2025-04-28 07:42 | PM.PNORT ---
Subjective Subjective Date of Service: 04/28/25 Interval history: POD1 s/p RTHA Patient is resting in bed -nauseous No overnight events Pain is managed No additional complaints Physical Exam Vital Signs: Vital Signs: Last Vital Signs Temp 98.2 F 04/28/25 04:00 Pulse 91 04/28/25 04:00 Resp 18 04/28/25 04:00 BP 135/79 04/28/25 04:00 Pulse Ox 93 04/28/25 04:00 O2 Del Method Room Air 04/28/25 04:00 O2 Flow Rate 6 04/27/25 09:45 BMI result Body Mass Index 34.5 Const: General: cooperative, healthy appearing and no acute distress Resp: Effort & Inspection: normal respiratory effort and able to speak in complete sentences Cardio: Rate: regular rate Peripheral pulses: Peripheral pulses 2+ throughout GI: Palpation (GI): Soft to palpation Skin: Lesions: no lesions Rashes: no rashes Extrem: Other: right hip dressing is c/d/i. Able to dorsi/plantar flex. Calf is supple and nontender. Sensation intact. Pedal pulse intact. Procedures Date of Service Date of Service: 04/28/25 Progress Note: A&P Assessment and plan (1) Status post total replacement of right hip: Status: Acute Plan Continue pain mgmnt Begin ASA for dvt ppx begin PT/OT for RTHA - posterior precautions, WBAT Med adjustment made for nausea Dispo planning-Pending PT eval, pain mgmnt, management of nausea Time Spent With Patient Time: Total time managing care of this patient today ____ minutes. Quality Stroke Does the patient have a stroke diagnosis?: No VTE Prior VTE?: No VTE Risk Level:: Medical - moderate - high VTE Device Contraindication: N/A - Device Ordered VTE Drug Contraindication: N/A - Med Ordered
[2025-04-28 08:00] VITALS: BP 145/70; PULSE 82; RESP 16; TEMP 36.6; O2SAT 94
[2025-04-28] MEDS: Fluticasone Propionate 100 MCG BLST.W.DEV 1 PUFF INHALE ×2 (08:06→19:19)
[2025-04-28 08:08] VITALS: PULSE 87; RESP 18; O2SAT 95
--- NOTE | 2025-04-28 09:47 | MHC.CM.PN ---
CM MET WITH PT AT BEDSIDE. PT LIVES WITH SPOUSE AND HAS STAIRS TO NAVIGATE IN HOME. PT IS FUNCTIONALLY INDEPENDENT AT BASELINE. NO SERVICES OR DME PRE-SURGERY. + HCP AT HOME, FAMILY WILL BRING IN COPY TO SCAN IN. PCP DR. GOEL AT [facility] [place]. DP: HOME WITH NEW [facility] FOR HOME P.T. ON DC. PT'S FAMILY WILL TRANSPORT. CM WILL CONTINUE TO FOLLOW FOR ANY CHANGE TO DC PLAN/NEEDS.
[2025-04-28] MEDS: Acetaminophen 325 MG TABLET 650 MG PO (14:00)
[2025-04-28] MEDS: Ketorolac Tromethamine 30 MG/ML VIAL 15 MG IVPUSH ×2 (14:47→22:07)
[2025-04-28 16:00] VITALS: BP 125/73; PULSE 91; RESP 16; TEMP 36.7; O2SAT 94
[2025-04-28 19:19] VITALS: PULSE 108; RESP 16; O2SAT 97
[2025-04-28 19:31] VITALS: BP 143/74; PULSE 102; RESP 18; TEMP 37.1; O2SAT 93
[2025-04-28] MEDS: 0.9 % Sodium Chloride Flush 3 ML SYRINGE IVFLUSH (20:21)
[2025-04-28] MEDS: Loratadine 10 MG TABLET PO (20:21)
[2025-04-29] MEDS: ondansetron HCL 4 MG/2 ML VIAL IVPUSH ×3 (02:05→14:14)
[2025-04-29 04:00] VITALS: BP 138/67; PULSE 83; RESP 18; TEMP 37.2; O2SAT 95
[2025-04-29] MEDS: Ketorolac Tromethamine 30 MG/ML VIAL 15 MG IVPUSH ×2 (06:13→14:14)
[2025-04-29 07:19] LABS: Anion Gap 9 (12-20); Blood Urea Nitrogen 9 mg/dL (9-16); Calcium 8.1 mg/dL (8.4-10.2); Carbon Dioxide 29 mmol/L (22-29); Chloride 110 mmol/L (96-108); Creatinine Clr Calc Pharmacy 118.2; Estimated Glomerular Filt Rate > 60; Glucose Fasting 105 mg/dL (60-99); Potassium 3.8 mmol/L (3.3-5.1); Sodium 144 mmol/L (135-145)
[2025-04-29 07:22] LABS: MANUAL DIFF FLAG NO
[2025-04-29 07:37] LABS: Basophils Absolute Auto 0.1 X10*3/uL (0.0-0.2); Basophils Percent Auto 0.7 % (0-2); Eosinophils Percent Auto 0.4 % (0-4); Hematocrit 31.8 % (37.0-47.0); Hemoglobin 10.5 g/dl (12.0-16.0); Imm Gran Abs Auto 0.03 X10*3/uL (0.00-0.03); Imm Gran Pct Auto 0.3 % (0.0-0.4); Lymphocytes Absolute Auto 1.5 X10*3/uL (1.2-4.9); Lymphocytes Percent Auto 14.9 % (20-40); Mean Corpuscular Hemoglobin 31.1 pg (27.0-33.0); Mean Corpuscular Volume 94.1 fL (80.0-98.0); Mean Platelet Volume 9.6 fL (9.4-12.3); Monocytes Absolute Auto 1.1 X10*3/uL (0.1-1.2); Monocytes Percent Auto 11.1 % (2-11); Neutrophils Absolute Auto 7.1 x10*3/uL (2.0-8.3); Neutrophils Percent Auto 72.6 % (45-73); Platelet Count 202 X10*3/uL (160-400); Red Blood Count 3.38 X10*6/uL (4.20-5.50); Red Cell Distribution Width 13.3 % (11.0-16.0); White Blood Count 9.8 X10*3/uL (4.8-10.8)
[2025-04-29 07:54] VITALS: BP 140/60; PULSE 89; RESP 16; TEMP 36.8; O2SAT 95
[2025-04-29 08:17] VITALS: PULSE 89; RESP 16; O2SAT 95
[2025-04-29] MEDS: Fluticasone Propionate 100 MCG BLST.W.DEV 1 PUFF INHALE (08:17)
[2025-04-29] MEDS: Docusate Sodium 100 MG CAPSULE PO (08:30)
[2025-04-29] MEDS: Aspirin 325 MG TABLET PO (08:31)
[2025-04-29] MEDS: amLODIPine Besylate 5 MG TABLET PO (08:31)
[2025-04-29] MEDS: 0.9 % Sodium Chloride Flush 3 ML SYRINGE IVFLUSH (08:31)
[2025-04-29] MEDS: Celecoxib 200 MG CAPSULE PO (08:31)
--- NOTE | 2025-04-29 09:16 | PM.PNORT ---
Subjective Subjective Date of Service: 04/29/25 Interval history: POD1 s/p RTHA Patient is resting comfortably in bed -nausea vastly improved from yesterday No overnight events Pain is managed No additional complaints Physical Exam Vital Signs: Vital Signs: Last Vital Signs Temp 98.3 F 04/29/25 07:54 Pulse 89 04/29/25 08:17 Resp 16 04/29/25 08:17 BP 140/60 H 04/29/25 07:54 Pulse Ox 95 04/29/25 07:54 O2 Del Method Room Air 04/29/25 07:54 O2 Flow Rate 6 04/27/25 09:45 BMI result Body Mass Index 34.5 Const: General: cooperative, healthy appearing and no acute distress Resp: Effort & Inspection: normal respiratory effort and able to speak in complete sentences Cardio: Rate: regular rate Peripheral pulses: Peripheral pulses 2+ throughout GI: Palpation (GI): Soft to palpation Skin: Lesions: no lesions Rashes: no rashes Extrem: Other: right hip dressing is c/d/i. Able to dorsi/plantar flex. Calf is supple and nontender. Sensation intact. Pedal pulse intact. Procedures Date of Service Date of Service: 04/29/25 Progress Note: A&P Assessment and plan (1) Status post total replacement of right hip: Status: Acute Plan Continue pain mgmnt Continue ASA for dvt ppx Continue PT/OT for RTHA - posterior precautions, WBAT Med adjustment made for nausea Dispo planning-Pending PT eval, pain mgmnt, Time Spent With Patient Time: Total time managing care of this patient today ____ minutes. Quality Stroke Does the patient have a stroke diagnosis?: No VTE Prior VTE?: No VTE Risk Level:: Medical - moderate - high VTE Device Contraindication: N/A - Device Ordered VTE Drug Contraindication: N/A - Med Ordered
--- NOTE | 2025-04-29 09:46 | MHC.CM.PN ---
Patient medically cleared for dc home w/ new PT services through [facility]. Patient's will transport home after 3pm. RN aware. [facility] aware of dc.
[2025-04-29 14:59] VITALS: BP 138/69; PULSE 91; RESP 18; TEMP 36.8; O2SAT 95
--- NOTE | 2025-05-05 08:51 | P.OP_ITS ---
Operative Note Operative Note Date of Service: 04/27/25 Narrative: Date of Service: 04/27/25 Pre-op diagnosis: Left hip OA Post-op diagnosis: same Procedure: Left MAGY Implants: [place] Trident2 54/ 2 30 mm 6.5 acetabular screws and 20 deg lipped liner [place] Accolade2 #6 132 with -2.5 36 ceramic femoral head Surgeon: Prince Mcguire MD Anesthesia: GETA, regional and local Was an Photograph Editor used for this Procedure?: Yes Photograph Editor: Priti Jackson Estimated blood loss (mL): 200 IV fluids (mL): 1,000 Pathology: other Condition: stable Disposition: PACU Patient was brought into the operating room and placed in the right lateral decubitus position. All bony prominences were well padded and the limb was prepped and draped in standard sterile fashion. A time-out was called to identify proper site procedure proper surgeon IV antibiotics and 1 g of tranexamic acid were administered. I began by making a curvilinear incision over the posterolateral aspect of the greater trochanter. Dissection was taken down to the tensor fascia which was incised in line with the incision and a Charnley retractor was placed. Cautery was used to maintain hemostasis. The hip was internally rotated and the external rotators were identified. The vessels were cauterized and a full-thickness capsular/external rotator layer was developed starting just proximal to the piriformis. This layer was tagged and a dull Hohmann retractor was placed underneath the neck in the hip was dislocated. A neck cut was made 1 cm proximal to the lesser trochanter and the head and neck were removed and measured 50 mm on the back table. The head was deformed and eburnated. I then removed the labrum and cauterized the fovea. I started with a 44 reamer and medialized to the inner table. The bone was cystic superiorly and of poor qualtiy. I sequentially reamed up to a size 54 and impacted a 54mm cup at 45 degrees of inclination and 25 degrees of version. Two acetabular screws were plaace in the superior safe zone using standard AO technique. I then placed a 20 deg posterior lipped liner and turned my attention to the femur. I identified the piriformis insertion and used this as a starting point for my pacheco cutter. The medius tendon was protected with a Hibs retractor. A Charnley awl was inserted in the canal and a curved curette used to remove the lateral bone. I irrigated copiously. I then sequentially broached in the patient's natural version to a size 6 and placed my trial implants. I used a #6/132/-2.5 based on my pre-operative template. I removed all instrumentation and copiously irrigated. I placed my final femoral implant and again took the hip through range of motion and was satisfied with the stability and length. The final -2.5 implant was impacted in place and the hip reduced. I then irrigated copiously and placed 1 g of local tranexamic acid. I performed a capsular closure with 2.0 fiberwire, Demetrius's fascia with 0 Vicryl, subcuticular with 2-0 Vicryl and the skin with zan. Patient was placed into a sterile dressing. Patient was extubated brought to the recovery room in stable condition. There were no known complications.
== END 2025-04-29 15:04 | disposition home health service (06) ==
LOC: HO.SSS 05:50 → HO.S3 09:50
PROVIDERS: Physician Assistant; PCP Internal Medicine; Visit Provider Orthopaedic Surgery
PROC: (CPT 27130; principal; 2025-04-27 07:30)
DX: M16.11 Unilateral primary osteoarthritis, right hip (principal); M25.551 Pain in right hip; R26.2 Difficulty in walking, not elsewhere classified; Z92.84 Personal history of unintended awareness under general anesthesia; M48.062 Spinal stenosis, lumbar region with neurogenic claudication; R11.0 Nausea; I10 Essential (primary) hypertension; E78.00 Pure hypercholesterolemia, unspecified; R73.02 Impaired glucose tolerance (oral); E55.9 Vitamin D deficiency, unspecified; K76.0 Fatty (change of) liver, not elsewhere classified; E66.9 Obesity, unspecified; Z68.34 Body mass index [BMI] 34.0-34.9, adult; J45.909 Unspecified asthma, uncomplicated; L30.9 Dermatitis, unspecified; Z79.1 Long term (current) use of non-steroidal anti-inflammatories (NSAID); Z79.899 Other long term (current) drug therapy; Z87.891 Personal history of nicotine dependence
CPT/HCPCS: 27130; 36415; 72170; 80048; 85025; 86850; 86900; 86901; 87640; 87641; 88304; 88311; 94640; 97110; 97116; 97161; 97166; 97530; 97535; C1713; C1776; J0131; J0690; J1100; J1171; J1790; J1885; J2003; J2405; J2704; J2795; J3010; J7120

== ENCOUNTER → 2025-04-27 05:50 | Outpatient (BNV) | payer OTHER, SELFPAY | PROVIDERS: PCP Internal Medicine; Visit Provider Orthopaedic Surgery | DX: Z47.1 Aftercare following joint replacement surgery (principal); Z96.641 Presence of right artificial hip joint; I10 Essential (primary) hypertension; J45.909 Unspecified asthma, uncomplicated | CPT/HCPCS: 27130; 27447; 99024; G0180 ==

== ENCOUNTER → 2025-04-27 05:50 | Outpatient (BNV) | payer OTHER, SELFPAY | PROVIDERS: PCP Internal Medicine; Visit Provider Student in an Organized Health Care Education/Training Program | DX: I10 Essential (primary) hypertension (principal); J45.909 Unspecified asthma, uncomplicated | CPT/HCPCS: 99203 ==

== ENCOUNTER → 2025-04-27 09:38 | Outpatient (BNV) | payer OTHER, SELFPAY | PROVIDERS: PCP Internal Medicine; Visit Provider Radiology Diagnostic Radiology | DX: M16.12 Unilateral primary osteoarthritis, left hip (principal) | CPT/HCPCS: 72170 ==

== ENCOUNTER 2025-05-03 12:40 | Outpatient (AMB) | payer OTHER, SELFPAY ==
--- NOTE | 2025-05-03 12:50 | MHC.OFFVIS ---
Intake Visit Reasons: PO: dressing change R MAGY w/NE 04/27/25 Intake Note: Lorelei is a 69 year old female who presents today for a bandage change s/p Right MAGY 04/27/25, she was fit for a wound vac post operatively but it stopped working. Incision was cleaned with chloraprep and an aquacell was placed while in office. Allergies No Known Allergies Allergy (Verified 04/27/25 06:20) HPI HPI PO: dressing change R MAGY w/NE 04/27/25: Details: Lorelei is a 69 year old female who presents today for a bandage change s/p Right MAGY 04/27/25, she was fit for a wound vac post operatively but it stopped working. Incision was cleaned with chloraprep and an aquacell was placed while in office. [facility] Medical History Anesthesia complication Impaired glucose tolerance Eczematous dermatitis Family history of breast cancer Degenerative disc disease, lumbar Osteoarthritis Lumbar stenosis with neurogenic claudication Scoliosis of lumbar region due to degenerative disease of spine in adult Hip pain, right Thyroid nodule Hypercholesterolemia Vitamin D deficiency Obesity (BMI 30-39.9) Fatty liver Osteopenia Sciatic nerve pain Hypertension Asthma Non-toxic multinodular goiter Surgical History Status post lumbar spine surgery for decompression of spinal cord Status post fine needle aspiration Hx of colonoscopy Hx of cholecystectomy Hx of section Family History Father COPD (chronic obstructive pulmonary disease) Mother Breast cancer Social History Household Members: Spouse Housing: House Are you a primary urgent care physician assistant to a significant other at home: No Do you presently have visiting nurse or other home services: No Alcohol intake: current Alcohol intake frequency: holidays/special occasions only Comment: advised of trip hazard Patient Tobacco Use Status: Former Tobacco user Tobacco use type: Cigarette Years Smoked: 5 e-Cigarette/Vaping Use: Never Used Second Hand Smoke Exposure: Yes service: No Current occupational status: employed Current occupation: [employer] Cognitive needs: No Hearing needs: No Vision needs: Yes Assessment & Plan Assessment & Plan (1) Status post total replacement of right hip: Comment: 04/27/2025 Code(s): Z96.641 - Presence of right artificial hip joint Category: Surgical Plan: Here for dressing change. Incision clean dry and intact. Follow up as scheduled for staple removal. Coding Level of Care Code Global (18577) Diagnoses Status post total replacement of right hip Z96.641
--- OUTSIDE RECORDS SUMMARY | 2025-05-03 13:37 | XMS_ITS ---
Author Organization ZipList Address [address] [facility] [address] [place] [address] Care Team Providers Care Internet Marketing Strategist Name Role Phone FLAKITO GOEL M.D. 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 Subjective: * Chief Complaints: * ???1. 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 * HPI: ???Constitutional:?Lorelei is a 69yo who presents for her yearly oncology coordinator exam. ?She has been in state of [...] aunt. Her last mammogram was *10/31/24 - [facility].?She does *not have a family history of colon cancer. She a has had a colonoscopy. The last colonoscopy was 2018. She was due for her next scan in 2023. ?The patient does *intermittently exercise. She exercises x 2 days/week by stretching and yoga. * ROS:?Annual Supervising Architect Exam ROS:?Bowel habit changes?denies.?Bladder symptoms?denies.?Vaginal discharge, unusual?denies.?Vaginal itch or odor?denies.?weight or appetite changes?denies.?Chest pains, SOB?denies.?depression?denies.?Breast:?Denies?Breast lump.?Denies?Nipple discharge.?Hematology:?Denies?Swollen glands.?Skin:?Patient denies?changing moles.?Psychiatric:?Denies?Anxiety.? * Medical History:? Objective: * Vitals:? * Examination: ???General Examination: ?GENERAL APPEARANCE:?in no acute distress, well developed, well nourished, adult school teacher present in room.?HEAD:?normocephalic, atraumatic.?NECK/THYROID:?neck supple, full range [...] * Follow Up:?1 Year (Reason: Y early Supervising Architect Exam) * Images: Billing Information: * Visit Code:? 97976 Preventive Care Est Pt. Age 65 and over. * Procedure Codes:? * Electronic signature of MELYSSA IBANEZ MD on 05/03/2025 at 01:36 PM EDT Sign off status: Pending * Provider:?MELYSSA IBANEZ MD Date:?2024 Generated for Avinash prince/Michael/eTransmitting on:?05/03/2025 01:36 PM EDT History and Physical Notes * HPI (History of Present Illness) Category Sub-Category Detail Notes Category Not es Constitutional Lorelei is a 69yo who presents for her yearly oncology coordinator exam. She has been in state of [...] aunt. Her last mammogram was *10/31/24 - [facility]. She does *not have a family history [...] ac andres distress, well developed, well nourished, adult school teacher present in room HEAD: normocephalic, atrau matic [...]
== END 2025-05-03 14:22 | disposition home or self-care (01) ==
LOC: HO.HOS 12:41
PROVIDERS: PCP Internal Medicine; Visit Provider Orthopaedic Surgery
DX: Z96.641 Presence of right artificial hip joint (principal)
CPT/HCPCS: 99024

== ENCOUNTER → 2025-05-12 23:59 | Outpatient (BNV) | payer OTHER, SELFPAY | PROVIDERS: PCP Internal Medicine; Visit Provider Internal Medicine | DX: M16.12 Unilateral primary osteoarthritis, left hip (principal); Z47.1 Aftercare following joint replacement surgery | CPT/HCPCS: G0180 ==

== ENCOUNTER 2025-05-13 14:41 | Outpatient (AMB) | payer OTHER, SELFPAY ==
--- NOTE | 2025-05-13 14:46 | A.OFFVIS_ITS ---
Intake Visit Reasons: 2WK PO: R MAGY w/NE 04/27/25 Intake Note: Lorelei is a 69 year old female who presents post operatively after undergoing a right MAGY on 04/27/[address] Mcguire. Patient reports she is doing well, her pain has been tolerable, stating a pain level of 1-2 out of 10 with overdoing it. No concerns today. Allergies No Known Allergies Allergy (Verified 05/13/25 14:50) HPI HPI 2WK PO: R MAGY w/NE 04/27/25: Details: 69-year-old female returns to the office today 2 weeks status post right total hip arthroplasty on 04/27/[address] Mcguire. She is ambulating with a cane and had her last physical therapy appointment at home. She is transitioning to outpatient physical therapy starting on 05/14/2025. [facility] Medical History Anesthesia complication Impaired glucose tolerance Eczematous dermatitis Family history of breast cancer Degenerative disc disease, lumbar Osteoarthritis Lumbar stenosis with neurogenic claudication Scoliosis of lumbar region due to degenerative disease of spine in adult Hip pain, right Thyroid nodule Hypercholesterolemia Vitamin D deficiency Obesity (BMI 30-39.9) Fatty liver Osteopenia Sciatic nerve pain Hypertension Asthma Non-toxic multinodular goiter Surgical History Status post lumbar spine surgery for decompression of spinal cord Status post fine needle aspiration Hx of colonoscopy Hx of cholecystectomy Hx of section Family History Father COPD (chronic obstructive pulmonary disease) Mother Breast cancer Social History Household Members: Spouse Housing: House Are you a primary manager respiratory care to a significant other at home: No Do you presently have visiting nurse or other home services: No Alcohol intake: current Alcohol intake frequency: holidays/special occasions on ly Comment: advised of trip hazard Patient Tobacco Use Status: Former Tobacco user Tobacco use type: Cigarette Years Smoked: 5 e-Cigarette/Vaping Use: Never Used Second Hand Smoke Exposure: Yes service: No Current occupational status: employed Current occupation[place] [employer] [place] Cognitive needs: No Hearing needs: No Vision needs: Yes Review of Systems Const All systems reviewed & are unremarkable except as noted in HPI and below Physical Exam Extrem Other: Right hip incision discrete ready to have no erythema or drainage. She has no pain with hip flexion or range of motion. Calf supple and nontender neurovascularly intact. Assessment & Plan Assessment & Plan (1) Status post total replacement of right hip: Comment: 04/27/2025 Code(s): Z96.641 - Presence of right artificial hip joint Category: Surgical Plan: Xavier removed today Steri-Strips applied. She will continue to transition to outpatient physical therapy working on strengthening and conditioning exercises along with gait training. No driving for another 4 weeks. She will increase activities as tolerated and see us back in 4 weeks, sooner if needed. Coding Level of Care Code Global (70623) Diagnoses Status post total replacement of right hip Z96.641
--- OUTSIDE RECORDS SUMMARY | 2025-05-13 17:16 | XMS_ITS ---
Author Organization [employer] Address [address] [facility] [address] [place] [address] Care Team Providers [facility] [employer] Manager Name Role Phone FLAKITO GOEL M.D. Primary Care Provider MELYSSA Sierra Unavailable [phone] REASON FOR VISIT Annual SLIVER CHOPPER Physical Encounters Encounter Location Date Provider Diagnosis [place] [address] [address] 04/19/2025 MELYSSA IBANEZ Encounter for gynecological examination [...] Follow Up: 1 Year, Reason: Y early Plating Department Helper Exam Progress Notes * JENNYFER FLOYDADOB:1955 (69 yo F)Acc No.[id number]:04/19/2025 PROGRESS NOTES Patient:?LORELEI FLOYD Provider:?MELYSSA IBANEZ MD :1955???Age:69 Y???Sex:Female D ate:04/19/2025 Address:[address] [place] [address] Pcp:FLAKITO GOEL M.D. Subjective: * Chief Complaints: * ???1. Annual SLIVER CHOPPER Physical. 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 ?She has been in state of [...] aunt. Her last mammogram was *10/31/24 - [facility].?She does *not have a family history of colon cancer. She a has had a colonoscopy. The last colonoscopy was 2018. She was due for her next scan in 2023. ?The patient does *intermittently exercise. She exercises x 2 days/week by stretching and yoga. * ROS:?Annual Plating Department Helper Exam ROS:?Bowel habit changes?denies.?Bladder symptoms?denies.?Vaginal discharge, unusual?denies.?Vaginal itch or odor?denies.?weight or appetite changes?denies.?Chest pains, SOB?denies.?depression?denies.?Breast:?Denies?Breast lump.?Denies?Nipple discharge.?Hematology:?Denies?Swollen glands.?Skin:?Patient denies?changing moles.?Psychiatric:?Denies?Anxiety.? * Medical History:? Objective: * Vitals:? * Examination: ???General Examination: ?GENERAL APPEARANCE:?in no acute distress, well developed, well nourished, check inspector present in room.?HEAD:?normocephalic, atraumatic.?NECK/THYROID:?neck supple, full range [...] * Follow Up:?1 Year (Reason: Y early Plating Department Helper Exam) * Images: Billing Information: * Visit Code:? 20449 Preventive Care Est Pt. Age 65 and over. * Procedure Codes:? 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 She has been in state of [...] aunt. Her last mammogram was *10/31/24 - [facility]. She does *not have a family history of colon cancer. She a has had a colonoscopy. The last colonoscopy was 2018. She was due for her next scan in 2023. The patient does *intermittently exercise. She exercises x 2 days/week by stretching and yoga. Examination Category Sub-Category Detail Notes Category Not es General Examination GENERAL APPEARANCE: in no [place] distress, well developed, well nourished, check inspector present in room HEAD: normocephalic, atrau matic [...]
== END 2025-05-13 15:10 | disposition home or self-care (01) ==
LOC: HO.HOS 14:42
PROVIDERS: PCP Internal Medicine; Visit Provider Physician Assistant
DX: Z96.641 Presence of right artificial hip joint (principal)
CPT/HCPCS: 99024

== ENCOUNTER → 2025-05-13 14:41 | Outpatient (BNVA) | payer OTHER, SELFPAY | PROVIDERS: PCP Internal Medicine; Visit Provider Physician Assistant ==

== ENCOUNTER 2025-05-27 12:18 | Outpatient (REF) | payer OTHER, SELFPAY ==
--- OUTSIDE RECORDS SUMMARY | 2025-04-19 04:00 | XMS_ITS ---
Author Organization [employer] Address 46 [facility] [address] [place] [address] Care Team Providers Care Body Maker Machine Setter Name Role Phone FLAKITO GOEL M.D. Primary Care Provider MELYSSA Sierra Unavailable [phone] REASON FOR VISIT Annual EXPERIENCE DESIGN DIRECTOR Physical Encounters Encounter Location Date Provider Diagnosis [facility] [address] [address] 04/19/2025 MELYSSA IABNEZ Encounter for gynecological examination (general) (routine) without [...] Follow Up: 1 Year, Reason: Y early Jewelry Repairer Exam Progress Notes * NAT FLOYDB:1955 (69 yo F)Acc No.[id number]:04/19/2025 PROGRESS NOTES Patient: LORELEI ORTEGA Provider: Korin IBANEZ MD :1955 A ge:69 Y S ex:Female Date:04/19/2025 Address:[address] [place] [address] Pcp:FLAKITO GOEL M.D. Subjective: * Chief Complaints: * 1 . Annual EXPERIENCE DESIGN DIRECTOR Physical. * HPI: C onstitutional: Oren menchaca is a 69yo who presents for her yearly skull chopper exam. S he has been in state [...] aunt. Her last mammogram was *10/31/24 - [facility]. S he does *not have a family history of colon cancer. She a has had a colonoscopy. The last colonoscopy was 2018. She was due for her next scan in 2023. T he patient does *intermittently exercise. She exercises x 2 days/week by stretching and yoga. * ROS: A nnual Jewelry Repairer Exam ROS: Bowel habit changes d enies. [...] no acute distress, well developed, well nourished, treating engineer present in room. HEAD: n ormocephalic, atraumatic. [...] * Follow Up: 1 Year (Reason: Yearly Jewelry Repairer Exam) * Images: Billing Information: * Visit Code: 75604 Preventive Care Est Pt. Age 65 and over. * Procedure Codes: * Electronic signature of MELYSSA IBANEZ MD on 05/27/2025 at 02:37 PM EDT Sign off status: Pending * Provider: Korin IBANEZ MD Date: 0 04/19/2025 Generated for Avinash prince/Michael/eTransmitting on: 0 05/27/2025 02:37 PM EDT History and Physical Notes * HPI (History of Present Illness) Category Sub-Category Detail Notes Category Not es Constitutional Lorelei is a 69yo who presents for her yearly skull chopper exam. She has been in state of [...] aunt. Her last mammogram was *10/31/24 - [facility]. She does *not have a family history [...] ac andres distress, well developed, well nourished, treating engineer present in room HEAD: normocephalic, atrau matic [...]
--- NOTE | ~2025-05-27 | US_ITS ---
EXAMINATION: MM DIAGNOSTIC DIGITAL BREAST TOMOSYNTHESIS, LEFT Limited left breast ultrasound. CLINICAL INFORMATION: 6 month follow-up for asymmetry in the lateral left breast on CC view without definite sonographic correlate and for solid mass versus complicated cyst in the left breast at 2:00 4 cm from the nipple. COMPARISON: Mammography: Prior's on PACS. TECHNIQUE: Digital breast tomosynthesis is performed in both the craniocaudal and mediolateral oblique views along with computer-aided detection (CAD). Synthesized 2D images are generated from the tomosynthesis. FINDINGS: There are scattered areas of fibroglandular density (ACR BI-RADS breast composition Category b). Asymmetry lateral left breast middle to posterior depth on CC view is less conspicuous compared with priors. No suspicious calcifications or other abnormal findings. Left marker clip. Targeted color Doppler ultrasound scanning in the left breast at 2:00 4 cm from nipple demonstrates a hypoechoic oval circumscribed solid mass today measuring 6 x 4 x 8 mm previously measuring 5 x 4 x 6 mm slightly increased in size could be related to measuring technique. US/US breast LT limited mamm only IMPRESSION: Left: Asymmetry lateral left breast on CC view without definite sonographic correlate is less conspicuous. Recommend 6 month follow-up when the patient will be due for bilateral mammography to demonstrate 1 year stability. 2. Hypoechoic solid mass at 2:00 4 cm from the nipple slightly increased in size by 2 mm which could be due to measuring technique. Recommend 6 month follow-up ultrasound for further evaluation of stability. ASSESSMENT: BI-RADS BI-RADS 3 - Probably benign finding(s) - 6 month follow-up suggested RECOMMENDATION: 6 Month F/U Results were provided to the patient at time of visit by the technologist. This patient's information was entered into a reminder system with a target due date for their next mammogram. Electronically signed by: Kasey Castro DO 05/27/2025 01:06 PM EDT
== END 2025-05-27 12:19 | disposition home or self-care (01) ==
LOC: HO.MAMMO 12:18
PROVIDERS: PCP Internal Medicine; Visit Provider Internal Medicine
DX: R92.2 Inconclusive mammogram (principal)
CPT/HCPCS: 76642; 77061; 77065

== ENCOUNTER → 2025-05-27 12:30 | Outpatient (BNV) | payer OTHER, SELFPAY | PROVIDERS: PCP Internal Medicine; Visit Provider Internal Medicine | DX: N63.42 Unspecified lump in left breast, subareolar (principal); N64.89 Other specified disorders of breast | CPT/HCPCS: 76642; 77061; 77065 ==

== ENCOUNTER 2025-06-10 06:49 | Outpatient (REF) | payer OTHER, SELFPAY ==
--- NOTE | ~2025-06-10 | XR_ITS ---
EXAMINATION: XR HIP, RIGHT CLINICAL INFORMATION: M25.551 - Pain in right hip COMPARISON: 04/22/2025 , 04/27/2025 TECHNIQUE: AP pelvis, and 2 views of the right hip. FINDINGS: There has been a total right hip arthroplasty, with femoral and acetabular components well seated in anatomic alignment. Hardware is intact. No evidence of periprosthetic lucency, subsidence, fracture, or other abnormality. The imaged pelvis appears intact. Moderate osteoarthrosis noted of the left hip joint. No soft tissue abnormalities. XR/XR hip RT min 2V IMPRESSION: 1. Total right hip arthroplasty without complication. 2. Moderate osteoarthrosis of the left hip joint. Electronically signed by: Boris Ureña MD 06/10/2025 09:16 AM EDT
== END 2025-06-10 06:50 | disposition home or self-care (01) ==
LOC: HO.HOSX 06:49
PROVIDERS: Visit Provider Physician Assistant
DX: M16.12 Unilateral primary osteoarthritis, left hip (principal); Z96.641 Presence of right artificial hip joint
CPT/HCPCS: 73502

== ENCOUNTER 2025-06-10 08:33 | Outpatient (AMB) | payer OTHER, SELFPAY ==
--- OUTSIDE RECORDS SUMMARY | 2025-04-19 04:00 | XMS_ITS ---
Author Organization [employer] Address [address] [facility] [address] [place] [address] Care Team Providers Care Dip Dyer Name Role Phone FLAKITO GOEL M.D. Primary Care Provider MELYSSA Sierra Unavailable [phone] REASON FOR VISIT Annual MARKETING AREA MANAGER Physical Encounters Encounter Location Date Provider Diagnosis [facility] [address] [address] 04/19/2025 MELYSSA IBANEZ Encounter for gynecological examination [...] Follow Up: 1 Year, Reason: Y early Boom Supervisor Exam Progress Notes * NAT FLOYDB:1955 (70 yo F)Acc No.[id number]:04/19/2025 PROGRESS NOTES Patient: LORELEI ORTEGA Provider: Korin IBANEZ MD :1955 A ge:69 Y S ex:Female Date:04/19/2025 Address:[address] [place] [address] Pcp:FLAKITO GOEL M.D. Subjective: * Chief Complaints: * 1 . Annual MARKETING AREA MANAGER Physical. * HPI: C onstitutional: Oren menchaca is a 69yo who presents for her yearly document imaging manager exam. S he has been in state [...] aunt. Her last mammogram was *10/31/24 - [facility]. S he does *not have a family history of colon cancer. She a has had a colonoscopy. The last colonoscopy was 2018. She was due for her next scan in 2023. T he patient does *intermittently exercise. She exercises x 2 days/week by stretching and yoga. * ROS: A nnual Boom Supervisor Exam ROS: Bowel habit changes d enies. [...] no acute distress, well developed, well nourished, motors assembler present in room. HEAD: n ormocephalic, atraumatic. [...] * Follow Up: 1 Year (Reason: Yearly Boom Supervisor Exam) * Images: Billing Information: * Visit Code: 25318 Preventive Care Est Pt. Age 65 and over. * Procedure Codes: * Electronic signature of MELYSSA IBANEZ MD on 06/10/2025 at 08:42 AM EDT Sign off status: Pending * Provider: Korin IBANEZ MD Date: 0 04/19/2025 Generated for Avinash prince/Michael/eTransmitting on: 0 06/10/2025 08:42 AM EDT History and Physical Notes * HPI (History of Present Illness) Category Sub-Category Detail Notes Category Not es Constitutional Lorelei is a 69yo who presents for her yearly document imaging manager exam. She has been in state of [...] aunt. Her last mammogram was *10/31/24 - [facility]. She does *not have a family [...] ac andres distress, well developed, well nourished, motors assembler present in room HEAD: normocephalic, atrau matic [...]
--- NOTE | 2025-06-10 08:35 | A.OFFVIS_ITS ---
Intake Visit Reasons: OV-R MAGY w/NE 04/27/25 Intake Note: Lorelei is a 70 year old female who presents today for a post operative appointment s/p Right MAGY w/NE 04/27/25. Patient reports that she is doing well, her pain is mild. She is working with physical therapy for her hip and her back which is going well. She ambulates with a cane Allergies No Known Allergies Allergy (Verified 06/10/25 08:41) Medication List - Last Reconciled 06/10/25 by Priti Jackson PA-C acetaminophen 650 mg (2 x 325 mg) PO Q6H PRN 30 days albuterol sulfate 90 mcg/actuation 2 puffs inhalation Q4-6H PRN albuterol sulfate 2.5 mg inhalation Q4-6H PRN amlodipine 5 mg PO QAM aspirin 325 mg PO BID 42 days beclomethasone dipropionate 80 mcg/actuation (Qvar RediHaler) 1 inh inhalation Q12H cetirizine (Zyrtec) 10 mg PO BEDTIME fluocinolone 0.025% 1 appl topical BID PRN cthazokr-kby-rzcs-FA-vit K-lut 8 mg iron-400 mcg-50 mcg (Centrum Silver Women) 1 tab PO QPM [Raised toilet seat duration - 99 days] [SHOWER CHAIR As directed] walker Folding Front wheeled walker DURATION 99 DAYS HPI HPI OV-R MAGY w/NE 04/27/25: Details: 70-year-old female returns to the office today 6 weeks status post right total hip arthroplasty with Dr. Mcguire on 04/27/2025. She continues to work with physical therapy for gait training and strengthening exercises. She is ambulating with a cane. She continues to remain out of work at this time. [facility] Medical History Anesthesia complication Impaired glucose tolerance Eczematous dermatitis Family history of breast cancer Degenerative disc disease, lumbar Osteoarthritis Lumbar stenosis with neurogenic claudication Scoliosis of lumbar region due to degenerative disease of spine in adult Hip pain, right Thyroid nodule Hypercholesterolemia Vitamin D deficiency Obesity (BMI 30-39.9) Fatty liver Osteopenia Sciatic nerve pain Hypertension Asthma Non-toxic multinodular goiter Surgical History Status post lumbar spine surgery for decompression of spinal cord Status post fine needle aspiration Hx of colonoscopy Hx of cholecystectomy Hx of section Family History Father COPD (chronic obstructive pulmonary disease) Mother Breast cancer Social History Household Members: Spouse Housing: House Are you a primary resident care director to a significant other at home: No Do you presently have visiting nurse or other home services: No Alcohol intake: current Alcohol intake frequency: holidays/special occasions only Comment: advised of trip hazard Patient Tobacco Use Status: Former Tobacco user Tobacco use type: Cigarette Years Smoked: 5 e-Cigarette/Vaping Use: Never Used Second Hand Smoke Exposure: Yes service: No Current occupational status: employed Current occupation: [employer] Cognitive needs: No Hearing needs: No Vision needs: Yes Review of Systems Const All systems reviewed & are unremarkable except as noted in HPI and below Physical Exam Extrem Other: Right hip incision is well healed no surrounding erythema or swelling. She has no pain with range of motion. She can perform hip flexion without difficulty. Calf is supple and nontender neurovascularly intact. Results Reviewed Results Reviewed: X-rays of the right hip obtained in the office today and reviewed by me show stable alignment of prosthesis Assessment & Plan Assessment & Plan (1) Status post total replacement of right hip: Comment: 04/27/2025 Code(s): Z96.641 - Presence of right artificial hip joint Category: Surgical Plan: She will continue to work with physical therapy and maintain her hip precautions. She was given a prescription for amoxicillin for an upcoming dental appointment. She will remain out of work for the next 6 weeks but if she feels she is progressing well and would like to return sooner she will contact us to do so. She will see us back in [address] Mcguire, sooner if needed. Orders: Orders XR hip RT min 2V Today M25.551 - Pain in right hip Medications: New amoxicillin take 4 capsules 1 hr prior to dental procedure 2,000 mg (4 x 500 mg) PO ONCE 4 tabs 3RF 1 day Coding Level of Care Code Global (52831) Diagnoses Status post total replacement of right hip Z96.641
== END 2025-06-10 09:22 | disposition home or self-care (01) ==
PROVIDERS: PCP Internal Medicine; Visit Provider Physician Assistant
DX: Z96.641 Presence of right artificial hip joint (principal)
CPT/HCPCS: 99024

== ENCOUNTER → 2025-06-10 08:34 | Outpatient (BNV) | payer OTHER, SELFPAY | PROVIDERS: Visit Provider Radiology Diagnostic Radiology | DX: M16.12 Unilateral primary osteoarthritis, left hip (principal); Z96.641 Presence of right artificial hip joint | CPT/HCPCS: 73502 ==

== ENCOUNTER 2025-06-16 14:19 | Outpatient (AMB) | payer OTHER, SELFPAY ==
--- OUTSIDE RECORDS SUMMARY | 2025-04-19 04:00 | XMS_ITS ---
Author Organization [employer] Address 46 [facility] [address] [place] [address] Care Team Providers Care Sports Cartoonist Name Role Phone FLAKITO GOEL M.D. Primary Care Provider MELYSSA Sierra Unavailable [phone] REASON FOR VISIT Annual ROUTE DRIVER COIN MACHINES Physical Encounters Encounter Location Date Provider Diagnosis [facility] [address] [address] 04/19/2025 MELYSSA IBANEZ Encounter for gynecological examination [...] Follow Up: 1 Year, Reason: Y early Civil Engineering Professional Exam Progress Notes * NAT FLOYDB:1955 (70 yo F)Acc No.[id number]:04/19/2025 PROGRESS NOTES Patient: LORELEI ORTEGA Provider: Korin IBANEZ MD :1955 A ge:69 Y S ex:Female Date:04/19/2025 Address:[address] [place] [address] Pcp:FLAKITO GOEL M.D. Subjective: * Chief Complaints: * 1 . Annual ROUTE DRIVER COIN MACHINES Physical. * HPI: C onstitutional: Oren menchaca is a 69yo who presents for her yearly coal digger exam. S he has been in state [...] aunt. Her last mammogram was *10/31/24 - [facility]. S he does *not have a family history of colon cancer. She a has had a colonoscopy. The last colonoscopy was 2018. She was due for her next scan in 2023. T he patient does *intermittently exercise. She exercises x 2 days/week by stretching and yoga. * ROS: A nnual Civil Engineering Professional Exam ROS: Bowel habit changes d enies. [...] no acute distress, well developed, well nourished, embroidery finisher present in room. HEAD: n ormocephalic, atraumatic. [...] * Follow Up: 1 Year (Reason: Yearly Civil Engineering Professional Exam) * Images: Billing Information: * Visit Code: 99446 Preventive Care Est Pt. Age 65 and over. * Procedure Codes: * Electronic signature of MELYSSA IBANEZ MD on 06/16/2025 at 02:59 PM EDT Sign off status: Pending * Provider: Korin IBANEZ MD Date: 0 04/19/2025 Generated for Avinash prince/Michael/eTransmitting on: 0 06/16/2025 02:59 PM EDT History and Physical Notes * HPI (History of Present Illness) Category Sub-Category Detail Notes Category Not es Constitutional Lorelei is a 69yo who presents for her yearly coal digger exam. She has been in state of [...] aunt. Her last mammogram was *10/31/24 - [facility]. She does *not have a family [...] ac andres distress, well developed, well nourished, embroidery finisher present in room HEAD: normocephalic, atrau matic [...]
--- NOTE | 2025-06-16 14:20 | A.OFFPC_ITS ---
Vital Signs 06/16/25 14:27 Height 5 ft 7 in Weight 224 lb 2 oz BMI 35.1 BP 130/76 Blood Pressure Location Rt brachial Position Sitting Pulse 98 Pulse Source Pulse Oximeter Temp 99 F Temp Source Temporal Artery Scan Pulse Oximetry (%) 98 Oxygen Delivery Method Room Air Intake Visit Reasons: est/cold/fever/cough Intake Note: Lorelei presents in the office today for a cold, fever and cough. Patient had hip replacement surgery and she is worried about infection/respitory ifection. Started yesterday. Dry Cough. Low grade fever 99.3. Allergies No Known Allergies Allergy (Verified 06/16/25 14:32) Medication List - Last Reconciled 06/16/25 by Florence Bolanos, STUDENT WORKER-BC acetaminophen 650 mg (2 x 325 mg) PO Q6H PRN 30 days albuterol sulfate 90 mcg/actuation 2 puffs inhalation Q4-6H PRN albuterol sulfate 2.5 mg inhalation Q4-6H PRN amlodipine 5 mg PO QAM amoxicillin 2,000 mg (4 x 500 mg) PO ONCE 1 day beclomethasone dipropionate 80 mcg/actuation (Qvar RediHaler) 1 inh inhalation Q12H cetirizine (Zyrtec) 10 mg PO BEDTIME fluocinolone 0.025% 1 appl topical BID PRN dgaejrcs-rce-oiwm-FA-vit K-lut 8 mg iron-400 mcg-50 mcg (Centrum Silver Women) 1 tab PO QPM [Raised toilet seat duration - 99 days] [SHOWER CHAIR As directed] walker Folding Front wheeled walker DURATION 99 DAYS Tobacco use date assessed: 06/16/25 Fall risk assessment: No Falls in past year Last assessed Fall Risk: 06/16/25 Dental Screening Dental Screen Date: 06/16/25 Did you have a dental visit in the last 12 months?: Yes Did you have a dental problem in the last 6 months where you did not have access to dental care?: No Was dental information given to patient?: Patient has dentist HPI HPI Comments History of Present Illness Details History - The patient is a 70-year-old female pr esenting with upper respiratory symptoms. - Dry cough and low-grade fever (99.3?F) starting one day ago. - Nasal congestion; denies runny nose. - Cough disrupts sleep; no significant m ucus production with nebulizer use. - had similar symptoms; resolved without antibiotics. - The patient uses acetaminophen and Zyr carmen regularly. - Concerns about postoperative status af ter hip arthroplasty and any infection risk. - Self care w/ cough drops, h20, otc cou gh aides w/o great relief Review of Systems - Respiratory: Reports dry cough. Denies dyspnea or chest pain. - ENT: Reports nasal congestion. Denies sore throat, runny nose, and ear pain. - General: Reports fever (99.3?F). Denie s chills. - Allergies: Denies allergies to medicat ions. Physical Exam General: Awake, alert. No apparent distress Eyes: Sclera and conjunctiva clear bilaterally Nose: Nares patent, clear drainage, turbinates within normal limits, no sinus tenderness with palpation bilaterally Ears: Tympanic membranes intact and clear on R, cerumen impaction L Throat: Moist mucosa membrane, pharynx within normal limits Cardiovascular: Regular rate and rhythm Respiratory: Clear to auscultation bilaterally, occassional dry cough w/o distress noted Results - Labs: Pending combined swab test for C OVID, Influenza, and RSV. Discussion Notes I discussed with the patient the potential for viral infection, noting the possible need for antibiotics only if a bacterial infection risk is identified. I explained the importance of ruling out COVID, Influenza, and RSV due to similar presenting symptoms, despite a negative home COVID test. I advised the use of Tessalon Perles to manage the cough. I ensured the refill for her albuterol was sent, discussed using a saline nasal spray for congestion relief. . I advised the patient to check her portal for results and assured her of follow-up regarding negative results, indicating the use of an antibiotic if necessary. Assessment and Plan 1. Upper Respiratory Infection - Conduct swab test for COVID-19, Influe nza, and RSV. - Prescribe Tessalon Perles for cough re lief. - Recommend nasal saline spray. - Cont APAP and other supportive care - Consider antibiotics if bacterial infe ction risk is present post results. 2. Cerumen Impaction L Earwax (Cerumen Impaction) Created in Ears Earwax, called cerumen, is produced by special wax-forming glands located in the skin of the outer one-third of the ear canal. It is normal to have cerumen in ear canal as this waxy substance serves as a self-cleaning agent with protective, lubricating, and antibacterial properties. The absence of earwax may result in dry, itchy ears. Self-cleaning means there is a slow and sports writer movement of earwax and skin cells from the eardrum to the ear opening. Old earwax is constantly being transported, assisted by chewing and jaw motion, from the ear canal to the ear opening where, most of the time, it dries, flakes, and falls out. What Are the Symptoms of an Earwax Blockage? Symptoms of an earwax problem may include: Earache Feeling of plugged hearing or fullness in the ear Partial hearing loss that gets worse Tinnitus, ringing, or noises in the ear Itching, odor, or discharge Coughing Pain Infection What Causes Earwax Blockage? When a patient has wax blockage against the eardrum, it is often because they have been probing the ear with such things as cotton-tipped swabs, edwin pins, or twisted napkin corners. These objects only push the wax in deeper in the ear canal. Why Is It Dangerous to Use Swabs to Remove Earwax? Wax blockage is one of the most common causes of hearing loss. This is often caused by attempts to clean the ear with cotton swabs. Most cleaning attempts merely push the wax deeper into the ear canal which is shaped like an hourglass, causing a blockage at the narrowing part of the ear canal. In addition, acci dental trauma to the ear drum or ear bones can occur if the swab is pushed too deep. Good intentions to keep ears clean may lessen the ability to hear. The ear is a delicate and complicated body part, including the skin of the ear canal and the eardrum. Therefore, special care should be given to this part of the body. Discontinue the habit of inserting cotton-tipped swabs or other objects into the ear canals. What Are the Treatment Options? Cleaning a working ear can be done by washing it with a soft cloth, but do not insert anything into the ear. Ideally, the ear canals should never have to be cleaned. However, that isn?t always the case. The ears should be cleaned when enough earwax gathers to cause symptoms or to prevent a needed assessment of the ear by your doctor. This condition is call cerumen impaction. Most cases of ear wax blockage respond to home treatments used to soften wax. Patients can try placing a few drops of mineral oil, baby oil, glycerin, or commercial drops in the ear. Detergent drops such as hydrogen peroxide or carbamide peroxide (available in most pharmacies) may also aid in the removal of wax. Irrigation or ear syringing is commonly used for cleaning and can be performed by a physician or at home using a commercially available irrigation kit. Common solutions used for syringing include water and saline, which should be warmed to body temperature to prevent dizziness. Ear syringing is most effective when water, saline, or wax dissolving drops are put in the ear canal 15 to 30 minutes before treatment. Caution is advised to avoid having your ears irrigated if you have diabetes, a hole in the eardrum (perforation), tube in the eardrum, skin problems such as eczema in the ear canal or a weakened immune system. >> If you have been prescribed Debrox, use as directed for 5 nights and return to the office on Day 6 for an ear lavage to remove the wax<< Manual removal of earwax is also effective. This is most often performed by an ENT (ear, nose, and throat) specialist, or ceramic capacitor processor, using suction or special miniature instruments, and a microscope to magnify the ear canal. Manual removal is preferred if your ear canal is narrow, the eardrum has a perforation or tube, other methods have failed, or if you have skin problems affecting the ear canal, diabetes or a weakened immune system. When Should I Talk to a Doctor? If home treatments do not help, or if wax has accumulated so much that it blocks your ear canal and your ability to hear, an ENT specialist may prescribe eardrops designed to soften wax, or they may wash or vacuum it out. Your ENT specialist may also need to remove the wax under microscopic visualization. If there is a possibility of a perforation in the eardrum, consult a physician prior to trying any cpbl-vys-hqmmdwr remedies. Putting eardrops or other products in the ear with the presence of an eardrum perforation may cause pain or an infection. Washing water through such a hole could start an infection. If you are prone to repeated wax impaction or use hearing aids, consider seeing your doctor every six to 12 months for a checkup and routine preventive cleaning. What Questions Should I Ask My Doctor? What are the benefits and risks/side effects of different cerumen removal management options: earwax softening products, water irrigation vs. physical removal? Does cerumen accumulation vary with age, gender, familial or dietary intake? How do I manage swimming underwater with cerumen impaction? Should anything be done to the ears to prevent a buildup of earwax? How often should cerumen be removed from the ears? Are ear candles a safe option for removing earwax? Patient Instructions - Follow prescribed regimen for Tessalon Perles and use a saline nasal spray for congestion. - Monitor symptoms and report any signif icant changes, especially potential infection signs. - Check the portal for swab results upda donnie; expect communication regarding necessary follow-up treatment. - may assist with medication pic kups as needed. Consent Patient was informed and verbally consented to the use of an ambient scribe for clinic note documentation during this visit. Total time spent caring for the patient today was 30 minutes. This includes time spent before the visit reviewing the chart, time spent during the visit, and time spent after the visit on documentation, reviewing laboratory results, diagnostic imaging, medications, performing a medically necessary evaluation, counseling on diagnoses, care coordination, ordering appropriate tests, ordering appropriate medications, review of tests performed by other providers, reporting test results with the patient, communication with other healthcare providers. [facility] Medical History Anesthesia complication Impaired glucose tolerance Eczematous dermatitis Family history of breast cancer Degenerative disc disease, lumbar Osteoarthritis Lumbar stenosis with neurogenic claudication Scoliosis of lumbar region due to degenerative disease of spine in adult Hip pain, right Thyroid nodule Hypercholesterolemia Vitamin D deficiency Obesity (BMI 30-39.9) Fatty liver Osteopenia Sciatic nerve pain Hypertension Asthma Non-toxic multinodular goiter Surgical History Status post lumbar spine surgery for decompression of spinal cord Status post fine needle aspiration Hx of colonoscopy Hx of cholecystectomy Hx of section Family History Father COPD (chronic obstructive pulmonary disease) Mother Breast cancer Social History (Updated 06/16/25 @ 14:27 by Gabrielle Beasley MA) Household Members: Spouse Housing: House Are you a primary home care administrator to a significant other at home: No Do you presently have visiting nurse or other home services: No Alcohol intake: current Alcohol intake frequency: holidays/special occasions on ly Comment: advised of trip hazard Patient Tobacco Use Status: Former Tobacco user Tobacco use type: Cigarette Years Smoked: 5 e-Cigarette/Vaping Use: Never Used Second Hand Smoke Exposure: Yes Use of substances other than those prescribed or required for medical reasons: No service: No Current occupational status: employed Current occupation: [employer] Current occupational exposures/hazards: No Cognitive needs: No Hearing needs: No Vision needs: Yes Questionnaire Thrive Questionnaire Date Thrive assessed: 12/16/24 AMOL-7 AMB Questionnaire AMOL-7 Date AMOL - 7 assessed: 12/17/24 Source: Developed by Drs. Keith Nino, Ally Kinney, Huber Richmond and colleagues, with an educational meir from [employer]. Physical exam (Primary Care) Vital Signs: Last Vital Signs Temp 99 F 06/16/25 14:27 Pulse 98 06/16/25 14:27 BP 130/76 06/16/25 14:27 Pulse Ox 98 06/16/25 14:27 Oxygen Delivery Method Room Air 06/16/25 14:27 BMI result Body Mass Index 35.1 Tobacco/Smoking Status: Tobacco use Status Tobacco use date assessed 06/16/25 06/16/25 14:31 Patient Tobacco Use Status Former Tobacco user 06/16/25 14:27 Tobacco use type Cigarette 06/16/25 14:27 e-Cigarette/Vaping Use Never Used 06/16/25 14:27 Thrive Assessment: Date of Thrive Assessment Date Thrive assessed 12/16/24 06/16/25 14:21 Coding Level of Care Code Est Pt Level 4 (24256) Complex EM visit Add On G2211 Diagnoses URI with cough and congestion J06.9 Status post total replacement of right hip Z96.641 Impacted cerumen, left ear H61.22 Assessment & Plan Assessment & Plan (1) URI with cough and congestion: Code(s): J06.9 - Acute upper respiratory infection, unspecified Category: Medical (2) Status post total replacement of right hip: Comment: 04/27/2025 Code(s): Z96.641 - Presence of right artificial hip joint Category: Surgical (3) Impacted cerumen, left ear: Code(s): H61.22 - Impacted cerumen, left ear Category: Medical Plan . Orders: Orders SARS-CoV2/FLU/RSV Today R09.89 - Other specified symptoms and signs involving the circulatory and respiratory systems Medications: New benzonatate 100 mg PO TID PRN 30 caps 1RF cough 10 days Changed From albuterol sulfate 90 mcg/actuation 2 puffs inhalation Q4-6H PRN Wheezing To albuterol sulfate 90 mcg/actuation 2 puffs inhalation Q6H PRN 6.7 grams 2RF Wheezing
[2025-06-16 14:27] VITALS: BP 130/76; PULSE 98; TEMP 37.2; O2SAT 98; BMI 35.1
== END 2025-06-16 16:08 | disposition home or self-care (01) ==
LOC: HO.HMCWIW 14:19
PROVIDERS: Visit Provider Nurse Practitioner Family
DX: J06.9 Acute upper respiratory infection, unspecified (principal); Z96.641 Presence of right artificial hip joint; H61.22 Impacted cerumen, left ear

== ENCOUNTER 2025-06-16 14:19 | Outpatient (REF) | payer OTHER, SELFPAY ==
[2025-06-16 19:39] LABS: Resp Syncy Virus RNA Qual PCR NEGATIVE (Negative); SARS COV2 PCR INHOUSE NEGATIVE (Negative)
== END 2025-06-16 14:20 | disposition home or self-care (01) ==
LOC: HO.LAB 14:19
PROVIDERS: Visit Provider Nurse Practitioner Family
DX: J06.9 Acute upper respiratory infection, unspecified (principal); H61.22 Impacted cerumen, left ear; Z96.641 Presence of right artificial hip joint
CPT/HCPCS: 87637

== ENCOUNTER 2025-07-15 08:38 | Outpatient (AMB) | payer OTHER, SELFPAY ==
--- OUTSIDE RECORDS SUMMARY | 2025-04-19 04:00 | XMS_ITS ---
Author Organization [employer] Address 46 [facility] [address] [place] [address] Care Team Providers Care Marketing Information Coordinator Name Role Phone FLAKITO GOEL M.D. Primary Care Provider MELYSSA Sierra Unavailable [phone] REASON FOR VISIT Annual OPERATIONS SPECIALIST Physical Encounters Encounter Location Date Provider Diagnosis [facility] [address] [address] 04/19/2025 MELYSSA IBANEZ Encounter for gynecological examination [...] Follow Up: 1 Year, Reason: Y early Sail Lay Out Worker Exam Progress Notes * NAT FLOYDB:1955 (70 yo F)Acc No.[id number]:04/19/2025 PROGRESS NOTES Patient: LORELEI ORTEGA Provider: Korin IBANEZ MD :1955 A ge:69 Y S ex:Female Date:04/19/2025 Address:[address] [place] [address] Pcp:FLAKITO GOEL M.D. Subjective: * Chief Complaints: * 1 . Annual OPERATIONS SPECIALIST Physical. * HPI: C onstitutional: Oren menchaca is a 69yo who presents for her yearly receptionist clerk exam. S he has been in state [...] aunt. Her last mammogram was *10/31/24 - [facility]. S he does *not have a family history of colon cancer. She a has had a colonoscopy. The last colonoscopy was 2018. She was due for her next scan in 2023. T he patient does *intermittently exercise. She exercises x 2 days/week by stretching and yoga. * ROS: A nnual Sail Lay Out Worker Exam ROS: Bowel habit changes d enies. [...] no acute distress, well developed, well nourished, snow plow tractor operator present in room. HEAD: n ormocephalic, atraumatic. [...] * Follow Up: 1 Year (Reason: Yearly Sail Lay Out Worker Exam) * Images: Billing Information: * Visit Code: 97391 Preventive Care Est Pt. Age 65 and over. * Procedure Codes: * Electronic signature of MELYSSA IBANEZ MD on 07/15/2025 at 09:00 AM EDT Sign off status: Pending * Provider: Korin IBANEZ MD Date: 0 04/19/2025 Generated for Avinash prince/Michael/eTransmitting on: 0 07/15/2025 09:00 AM EDT History and Physical Notes * HPI (History of Present Illness) Category Sub-Category Detail Notes Category Not es Constitutional Lorelei is a 69yo who presents for her yearly receptionist clerk exam. She has been in state of [...] aunt. Her last mammogram was *10/31/24 - [facility]. She does *not have a family history of colon cancer. She a has had a colonoscopy. The last colonoscopy was 2018. She was due for her next scan in 2023. The patient does *intermittently exercise. She exercises x 2 days/week by stretching and yoga. Examination Category Sub-Category Detail Notes Category Not es General Examination GENERAL APPEARANCE: in no ac [place] distress, well developed, well nourished, snow plow tractor operator present in room HEAD: normocephalic, atrau matic [...]
--- NOTE | 2025-07-15 08:48 | A.OFFVIS_ITS ---
Vital Signs 07/15/25 08:48 Height 5 ft 7 in Intake Visit Reasons: PO- R MAGY w/NE 04/27/25 Intake Note: Lorelei is a 70 year old female who presents today for a post operative appointment about 6 weeks s/p Right MAGY w/NE 04/27/25. Patient reports that she is doing very well, continues to work with PT which is going great. She takes Ibuprofen PRN, usually after PT Allergies No Known Allergies Allergy (Verified 07/15/25 08:49) HPI HPI PO- R MAGY w/NE 04/27/25: Details: Lorelei is a 70 year old female who presents today for a post operative appointment about 6 weeks s/p Right MAGY w/NE 04/27/25. Patient reports that she is doing very well, continues to work with PT which is going great. She takes Ibuprofen PRN, usually after PT PFSH Medical History Anesthesia complication Impaired glucose tolerance Eczematous dermatitis Family history of breast cancer Degenerative disc disease, lumbar Osteoarthritis Lumbar stenosis with neurogenic claudication Scoliosis of lumbar region due to degenerative disease of spine in adult Hip pain, right Thyroid nodule Hypercholesterolemia Vitamin D deficiency Obesity (BMI 30-39.9) Fatty liver Osteopenia Sciatic nerve pain Hypertension Asthma Non-toxic multinodular goiter Surgical History Status post lumbar spine surgery for decompression of spinal cord Status post fine needle aspiration Hx of colonoscopy Hx of cholecystectomy Hx of section Family History Father COPD (chronic obstructive pulmonary disease) Mother Breast cancer Social History (Updated 06/16/25 @ 14:27 by Gabrielle Beasley MA) Household Members: Spouse Housing: House Are you a primary home care rn to a significant other at home: No Do you presently have visiting nurse or other home services: No Alcohol intake: current Alcohol intake frequency: holidays/special occasions only Comment: advised of trip hazard Patient Tobacco Use Status: Former Tobacco user Tobacco use type: Cigarette Years Smoked: 5 e-Cigarette/Vaping Use: Never Used Second Hand Smoke Exposure: Yes service: No Current occupational status: employed Current occupation: [employer] [place] [employer] Current occupational exposures/hazards: No Cognitive needs: No Hearing needs: No Vision needs: Yes Physical Exam Extrem Other: Pain with hip range of motion. Mild Trendelenburg gait on the right. Assessment & Plan Assessment & Plan (1) Status post total replacement of right hip: Comment: 04/27/2025 Code(s): Z96.641 - Presence of right artificial hip joint Category: Surgical Plan: 70-year-old woman 3 months status post right hip replacement doing well. Continue weight-bearing and ambulation as tolerated. Her Trendelenburg gait continues to improve and she can see me back in 9 months. Dental prophylaxis di scussed. Follow up as needed prior if pain arises. Coding Level of Care Code Global (51327) Diagnoses Status post total replacement of right hip Z96.641
== END 2025-07-15 09:25 | disposition home or self-care (01) ==
LOC: HO.HOS 08:47
PROVIDERS: Visit Provider Orthopaedic Surgery
DX: Z96.641 Presence of right artificial hip joint (principal)
CPT/HCPCS: 99024

== ENCOUNTER 2025-11-11 07:55 | Outpatient (RCR) | payer OTHER, SELFPAY ==
--- NOTE | 2025-04-28 11:58 | HO.POSTANES ---
Post Anesthesia Evaluation Post Anesthesia Evaluation Date of Service: 04/28/25 Anesthesia: General Endotracheal-GETA Mental Status: Awake Pain Control: Satisfactory Nausea/Vomiting: None Hydration: Adequate Anesthesia-Related Issues: No Anes. Related Issues
--- NOTE | 2025-05-14 15:20 | MHC.PT.EP ---
[facility] [place] Office [place] Office [place] Office [address] Anjum Colmenares [address] [phone] F: [phone] F: [phone] F: [phone] F: [phone] Physical Therapy Plan of Care Date of Evaluation: 05/14/25 Date of Surgery: 04/27/25 Diagnosis: PT eval and treat: Z96.641 Presence of right artificial hip joint; History of total right hip arthroplasty, R MAGY w/ NE 04/27/25 begin after 05/13/25 signed by Ilana Jackson PA-C 04/23/25 Assessment: Pt is a RHD, 69 y/o female, s/p R MAGY posterior approach WBAT on 04/27/[address] Mcguire (elective R MAGY following history of OA of the R hip). Pt exhibits decreased range of motion, decreased strength, and impaired mobility. Pt currently using std cane in daytime> RW, has decreased balance, impaired mobility and reduced endurance. Prior to today pt has not been sleeping on her side. She is able tor recall posterior precautions 3:3. Pt PMH significant for: Anesthesia complication Impaired glucose tolerance Eczematous dermatitis Family history of breast cancer Degenerative disc disease, lumbar Osteoarthritis Lumbar stenosis with neurogenic claudication Scoliosis of lumbar region due to degenerative disease of spine in adult Hip pain, right Thyroid nodule Hypercholesterolemia Vitamin D deficiency Obesity (BMI 30-39.9) Fatty liver Osteopenia Sciatic nerve pain Hypertension Asthma Non-toxic multinodular goiter Pt would benefit from attending skilled PT services at a frequency of 1-2x/week x 6 weeks to address impairments, implement HEP, and restore functional mobility tolerance to resume PLOF. Pt currently ambulating with std cane> RW for mobility. Post initial evaluation, we reviewed 3:3 posterior precautions, HEP to include: AP, isometric glut set, isometric quad set, AAROM heel slide in sitting and supine x 10 sec hold x 5R, posterior pelvic tilt, and the benefit of icing. Pt issued handouts for carryover of education given during session. Frequency and Duration: The patient will be seen 2x/week x 6 weeks Short Term Goals: 1. Pt will demonstrate AAROM R knee flexion to 120 degrees. (IR: R 90). 2. Pt will demonstrate sit<>stand on first attempt. (IR: required B/L UE support, heavy reliance on UE) 3. Pt will demonstrate good eccentric control with functional mobility. (IR;decreased eccentric control). 4. Pt will demonstrate strength of hip abductors 3/5. (IR: 3-/5) 5. Pt will demonstrate symmetrical bridge in hooklying. (IR: unable to bridge due to soreness) Metal [employer]ter Goals: 1. Pt will wean from use of AD for >1000ft for community distances. (IR: not ambulating long distances, using std cane) 2. Pt will negotiate stairs reciprocally with good dynamic balance. IR: step to pattern: ascending L LE descending R LE first) 3. Pt will demonstrate hip extension strength to 5/5. (IR: 3/5) 4. Pt will demonstrate hip abduction to 5/5 on the R. (IR: 3-/5) 5. I HEP for self care. (IR: initiated in self care/HEP/goals/education post initial eval). Treatment Plan: Modalities to reduce pain, spasms and effusion. Manual therapy to restore motion and function. Therapeutic exercise to improve strength and flexibility. Neuromuscular re-education for posture and balance. Therapeutic activities to return to functional activities of daily living. Electronically signed by: Vivi Evans, PT, DPT Please sign and return to therapist. Thank you for your referral.
--- NOTE | 2025-07-13 14:57 | MHC.PT.OD ---
[facility] [place] Office [place] Office [address] [facility] [phone] F: [phone] F: [phone] F: [phone] Physical Therapy Daily Note Diagnosis: PT eval and treat: Z96.641 Presence of right artificial hip joint; History of total right hip arthroplasty, R MAGY w/ NE 04/27/25 begin after 05/13/25 signed by Ilana Jackson PA-C 04/23/25 Date of Surgery: 04/27/25 Date of Evaluation: 05/14/25 Date of Treatment: 07/13/25 Treatments to Date: Cancellations to Date: No Shows to Date: Authorized Visits: 11 Insurance End Date: Precautions/ Contraindications:WBAT OA Osteopenia Asthma Subjective: Went back to work yesterday, doing better overall but wants to continue PT to advance strength and mobility. Pain Score and Location: Objective Flowsheet: Tests & Measures [facility] [place] [address] Primary Care Office Visit Signed Patient: Lorelei Floyd LMR#: [id number] : [id number] Age/Sex: 70 / FADM/SER Date: 06/16/25 [facility] Time:1419 Attending Provider: Florence DUVALL cc: Physician,Unknown ~ Vital Signs 06/16/25 14:27 Height 5 ft 7 in Weight 224 lb 2 oz BMI 35.1 BP 130/76 Blood Pressure Location Rt brachial Position Sitting Pulse 98 Pulse Source Pulse Oximeter Temp 99 F Temp Source Temporal Artery Scan Pulse Oximetry (%) 98 Oxygen Delivery Method Room Air Intake Visit Reasons: est/cold/fever/cough Intake Note: Lorelei presents in the office today for a cold, fever and cough. Patient had hip replacement surgery and she is worried about infection/respitory ifection. Started yesterday. Dry Cough. Low grade fever 99.3. Allergies No Known Allergies Allergy (Verified 06/16/25 14:32) Medication List - Last Reconciled 06/16/25 by Florence L O'Carson, AND [employer]YING [employer]PER[employer] acetaminophen 650 mg (2 x 325 mg) PO Q6H PRN 30 days albuterol sulfate 90 mcg/actuation 2 puffs inhalation Q4-6H PRN albuterol sulfate 2.5 mg inhalation Q4-6H PRN amlodipine 5 mg PO QAM amoxicillin 2,000 mg (4 x 500 mg) PO ONCE 1 day beclomethasone dipropionate 80 mcg/actuation (Qvar RediHaler) 1 inh inhalation Q12H cetirizine (Zyrtec) 10 mg PO BEDTIME fluocinolone 0.025% 1 appl topical BID PRN ubxcydcm-wvw-vhhd-FA-vit K-lut 8 mg iron-400 mcg-50 mcg (Centrum Silver Women) 1 tab PO QPM [Raised toilet seat duration - 99 days] [SHOWER CHAIR As directed] walker Folding Front wheeled walker DURATION 99 DAYS Tobacco use date assessed: 06/16/25 Fall risk assessment: No Falls in past year Last assessed Fall Risk: 06/16/25 Dental Screening Dental Screen Date: 06/16/25 Did you have a dental visit in the last 12 months?: Yes Did you have a dental problem in the last 6 months where you did not have access to dental care?: No Was dental information given to patient?: Patient has dentist HPI HPI Comments History of Present Illness Details History - The patient is a 70-year-old female presenting with upper respiratory symptoms. - Dry cough and low-grade fever (99.3?F) starting one day ago. - Nasal congestion; denies runny nose. - Cough disrupts sleep; no significant mucus production with nebulizer use. - had similar symptoms; resolved without antibiotics. - The patient uses acetaminophen and Zyrtec regularly. - Concerns about postoperative status after hip arthroplasty and any infection risk. - Self care w/ cough drops, h20, otc cough aides w/o great relief Review of Systems - Respiratory: Reports dry cough. Denies dyspnea or chest pain. - ENT: Reports nasal congestion. Denies sore throat, runny nose, and ear pain. - General: Reports fever (99.3?F). Denies chills. - Allergies: Denies allergies to medications. Physical Exam General: Awake, alert. No apparent distress Eyes: Sclera and conjunctiva clear bilaterally Nose: Nares patent, clear drainage, turbinates within normal limits, no sinus tenderness with palpation bilaterally Ears: Tympanic membranes intact and clear on R, cerumen impaction L Throat: Moist mucosa membrane, pharynx within normal limits Cardiovascular: Regular rate and rhythm Respiratory: Clear to auscultation bilaterally, occassional dry cough w/o distress noted Results - Labs: Pending combined swab test for COVID, Influenza, and RSV. Discussion Notes I discussed with the patient the potential for viral infection, noting the possible need for antibiotics only if a bacterial infection risk is identified. I explained the importance of ruling out COVID, Influenza, and RSV due to similar presenting symptoms, despite a negative home COVID test. I advised the use of Tessalon Perles to manage the cough. I ensured the refill for her albuterol was sent, discussed using a saline nasal spray for congestion relief. . I advised the patient to check her portal for results and assured her of follow-up regarding negative results, indicating the use of an antibiotic if necessary. Assessment and Plan 1. Upper Respiratory Infection - Conduct swab test for COVID-19, Influenza, and RSV. - Prescribe Tessalon Perles for cough relief. - Recommend nasal saline spray. - Cont APAP and other supportive care - Consider antibiotics if bacterial infection risk is present post results. 2. Cerumen Impaction L Earwax (Cerumen Impaction) Created in Ears Earwax, called cerumen, is produced by special wax-forming glands located in the skin of the outer one-third of the ear canal. It is normal to have cerumen in ear canal as this waxy substance serves as a self-cleaning agent with protective, lubricating, and antibacterial properties. The absence of earwax may result in dry, itchy ears. Self-cleaning means there is a slow and renewable energy technician movement of earwax and skin cells from the eardrum to the ear opening. Old earwax is constantly being transported, assisted by chewing and jaw motion, from the ear canal to the ear opening where, most of the time, it dries, flakes, and falls out. What Are the Symptoms of an Earwax Blockage? Symptoms of an earwax problem may include: Earache Feeling of plugged hearing or fullness in the ear Partial hearing loss that gets worse Tinnitus, ringing, or noises in the ear Itching, odor, or discharge Coughing Pain Infection What Causes Earwax Blockage? When a patient has wax blockage against the eardrum, it is often because they have been probing the ear with such things as cotton-tipped swabs, edwin pins, or twisted napkin corners. These objects only push the wax in deeper in the ear canal. Why Is It Dangerous to Use Swabs to Remove Earwax? Wax blockage is one of the most common causes of hearing loss. This is often caused by attempts to clean the ear with cotton swabs. Most cleaning attempts merely push the wax deeper into the ear canal which is shaped like an hourglass, causing a blockage at the narrowing part of the ear canal. In addition, accidental trauma to the ear drum or ear bones can occur if the swab is pushed too deep. Good intentions to keep ears clean may lessen the ability to hear. The ear is a delicate and complicated body part, including the skin of the ear canal and the eardrum. Therefore, special care should be given to this part of the body. Discontinue the habit of inserting cotton-tipped swabs or other objects into the ear canals. What Are the Treatment Options? Cleaning a working ear can be done by washing it with a soft cloth, but do not insert anything into the ear. Ideally, the ear canals should never have to be cleaned. However, that isn?t always the case. The ears should be cleaned when enough earwax gathers to cause symptoms or to prevent a needed assessment of the ear by your doctor. This condition is call cerumen impaction. Most cases of ear wax blockage respond to home treatments used to soften wax. Patients can try placing a few drops of mineral oil, baby oil, glycerin, or commercial drops in the ear. Detergent drops such as hydrogen peroxide or carbamide peroxide (available in most pharmacies) may also aid in the removal of wax. Irrigation or ear syringing is commonly used for cleaning and can be performed by a physician or at home using a commercially available irrigation kit. Common solutions used for syringing include water and saline, which should be warmed to body temperature to prevent dizziness. Ear syringing is most effective when water, saline, or wax dissolving drops are put in the ear canal 15 to 30 minutes before treatment. Caution is advised to avoid having your ears irrigated if you have diabetes, a hole in the eardrum (perforation), tube in the eardrum, skin problems such as eczema in the ear canal or a weakened immune system. >> If you have been prescribed Debrox, use as directed for 5 nights and return to the office on Day 6 for an ear lavage to remove the wax<< Manual removal of earwax is also effective. This is most often performed by an ENT (ear, nose, and throat) specialist, or target worker, using suction or special miniature instruments, and a microscope to magnify the ear canal. Manual removal is preferred if your ear canal is narrow, the eardrum has a perforation or tube, other methods have failed, or if you have skin problems affecting the ear canal, diabetes or a weakened immune system. When Should I Talk to a Doctor? If home treatments do not help, or if wax has accumulated so much that it blocks your ear canal and your ability to hear, an ENT specialist may prescribe eardrops designed to soften wax, or they may wash or vacuum it out. Your ENT specialist may also need to remove the wax under microscopic visualization. If there is a possibility of a perforation in the eardrum, consult a physician prior to trying any vgrs-kdq-zolaghd remedies. Putting eardrops or other products in the ear with the presence of an eardrum perforation may cause pain or an infection. Washing water through such a hole could start an infection. If you are prone to repeated wax impaction or use hearing aids, consider seeing your doctor every six to 12 months for a checkup and routine preventive cleaning. What Questions Should I Ask My Doctor? What are the benefits and risks/side effects of different cerumen removal management options: earwax softening products, water irrigation vs. physical removal? Does cerumen accumulation vary with age, gender, familial or dietary intake? How do I manage swimming underwater with cerumen impaction? Should anything be done to the ears to prevent a buildup of earwax? How often should cerumen be removed from the ears? Are ear candles a safe option for removing earwax? Patient Instructions - Follow prescribed regimen for Tessalon Perles and use a saline nasal spray for congestion. - Monitor symptoms and report any significant changes, especially potential infection signs. - Check the portal for swab results updates; expect communication regarding necessary follow-up treatment. - may assist with medication pickups as needed. Consent Patient was informed and verbally consented to the use of an ambient scribe for clinic note documentation during this visit. Total time spent caring for the patient today was 30 minutes. This includes time spent before the visit reviewing the chart, time spent during the visit, and time spent after the visit on documentation, reviewing laboratory results, diagnostic imaging, medications, performing a medically necessary evaluation, counseling on diagnoses, care coordination, ordering appropriate tests, ordering appropriate medications, review of tests performed by other providers, reporting test results with the patient, communication with other healthcare providers. [facility] Medical History Anesthesia complication Impaired glucose tolerance Eczematous dermatitis Family history of breast cancer Degenerative disc disease, lumbar Osteoarthritis Lumbar stenosis with neurogenic claudication Scoliosis of lumbar region due to degenerative disease of spine in adult Hip pain, right Thyroid nodule Hypercholesterolemia Vitamin D deficiency Obesity (BMI 30-39.9) Fatty liver Osteopenia Sciatic nerve pain Hypertension Asthma Non-toxic multinodular goiter Surgical History (Reviewed 05/13/25 @ 14:50 by Paige Guardado FOR[facility]LY [facility], [facility]) Status post lumbar spine surgery for decompression of spinal cord Status post fine needle aspiration Hx of colonoscopy Hx of cholecystectomy Hx of section Family History Father COPD (chronic obstructive pulmonary disease) Mother Breast cancer Social History (Updated 06/16/25 @ 14:27 by Gabrielle Beasley MA) Household Members: Spouse Housing: House Are you a primary care transition mgr to a significant other at home: No Do you presently have visiting nurse or other home services: No Alcohol intake: current Alcohol intake frequency: holidays/special occasions only Comment: advised of trip hazard Patient Tobacco Use Status: Former Tobacco user Tobacco use type: Cigarette Years Smoked: 5 e-Cigarette/Vaping Use: Never Used Second Hand Smoke Exposure: Yes Use of substances other than those prescribed or required for medical reasons: No service: No Current occupational status: employed Current occupation: [employer] Current occupational exposures/hazards: No Cognitive needs: No Hearing needs: No Vision needs: Yes Questionnaire Thrive Questionnaire Date Thrive assessed: 12/16/24 AMOL-7 AMB Questionnaire AMOL-7 Date AMOL - 7 assessed: 12/17/24 Source: Developed by Drs. Keith L. MicaAlly campos, Huber Richmond and colleagues, with an educational meir from [employer]. Physical exam (Primary Care) Vital Signs: Last Vital Signs Temp 99 F 06/16/25 14:27 Pulse 98 06/16/25 14:27 BP 130/76 06/16/25 14:27 Pulse Ox 98 06/16/25 14:27 Oxygen Delivery Method Room Air 06/16/25 14:27 BMI result Body Mass Index 35.1 Tobacco/Smoking Status: Tobacco use Status Tobacco use date assessed 06/16/25 06/16/25 14:31 Patient Tobacco Use Status Former Tobacco user 06/16/25 14:27 Tobacco use type Cigarette 06/16/25 14:27 e-Cigarette/Vaping Use Never Used 06/16/25 14:27 Thrive Assessment: Date of Thrive Assessment Date Thrive assessed 12/16/24 06/16/25 14:21 Coding Level of Care Code Est Pt Level 4 (84237) Complex EM visit Add On G2211 Diagnoses URI with cough and congestion J06.9 Status post total replacement of right hip Z96.641 Impacted cerumen, left ear H61.22 Assessment & Plan Assessment & Plan (1) URI with cough and congestion: Code(s): J06.9 - Acute upper respiratory infection, unspecified Category: Medical (2) Status post total replacement of right hip: Comment: 04/27/2025 Code(s): Z96.641 - Presence of right artificial hip joint Category: Surgical (3) Impacted cerumen, left ear: Code(s): H61.22 - Impacted cerumen, left ear Category: Medical Plan . Orders: Orders SARS-CoV2/FLU/RSV Today R09.89 - Other specified symptoms and signs involving the circulatory and respiratory systems Medications: New benzonatate 100 mg PO TID PRN 30 caps 1RF cough 10 days Changed From albuterol sulfate 90 mcg/actuation 2 puffs inhalation Q4-6H PRN Wheezing To albuterol sulfate 90 mcg/actuation 2 puffs inhalation Q6H PRN 6.7 grams 2RF Wheezing Documented By:Florence Bolanos06/16/25 1420 Signed By:<Electronically signed by Florence Bolanos>06/16/25 1456 Exercises NU STEP seat #21 UE at #7 x 10 minutes level 2.0 with seat reclined (at end of session) Verbal review of pec minor stretch over 1/2 roller for upperback, SL open book with pillow between knees for hip/trunk movement x 5R each side, hook-lying posterior pelvic tilt x 5R each side with cervical rotation x 5R, cervical side-bend stretch x 5R, seated trunk rotation with feet flat on the floor pillows in neutral, hooklying bridge with pball under feet x 2 sets 10R;, progression of core stab/ walking program to ease sx, norms of feeling fatigue/recovery listening to body, standing heel touch from 4 inch step x 5R reduced to 2inch step due to challenge verbalized, review of golfer's lift and activity, seated AAROM trunk flexion stretches fwd/laterally. Review of HEP program to address. SL hip abd clamshell to tolerance vs extended 2 sets x 10R each side, AAROM shoulder flexion in supine with cane/wand x 5R x 10 sec hold, AAROM eros x 10 sec hold x 5R, bridge with pball for bridge x 2 sets 10R, ergonomic, support for lumba, education for muscle hip/ L/S together an relationship on sx, hip drop SL with pillow between the knees for STM/flex-bar rolling to lateral aspect of R hip. Pt educated re: self care/STM to thigh to ease mm soreness/tightness. HEP handouts given for bridge modified hip flexor stretch in standing Modalities Deferred ice today Assessment: 07/13/25; Lorelei is doing very well in R MAGY recovery. 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 Lorelei is scheduled see Dr. 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 She notes some mild L UT tightness and pressure, she was shown some AAROM stretches for shoulder and neck to ease this. She is no longer using std cane. We discussed potential benefit in office ergonomic foot support to improve posture when sitting. (shown example of one she could obtain). 07/06/25; Pt doing well with respect to symptoms overall. Pt is scheduled to RTW next week. She continues to use std cane but has been using less and only has needed for longer distances or when fatigue towards the end of the day. Reviewed clamshell in SL at end of session. L LE more challenged with L LE extended. R hip abd able to perform with leg extended. 06/29/25: Lorelei is advancing in her core/hip strength and CKC very well. She presents with std cane but is less reliant on it for support. She expressed she hopes to RTW 07/12/25 with orthopedic follow up for 07/15/25. She was issued green and red bands for progression of rows/ext/ standing box step with GTB. She has good dynamic balance. 06/22/25: Pt doing well overall, has been performing her own exercise program. Pt has been going without std cane in the am hours with good tolerance. Requires UE support for cane due to fatigue in L/S and R hip. 06/15/25: Pt doing well with regard to hip, states I almost forgot the cane at home today. Pt encouraged to progress home program to tolerance/lumbar stab. Pt has good carryover of hip precautions. 06/11/25: Pt doing well, issued sit<>stand and stand<>sit with focus on eccentric control. Encouraged increase of of reps/walking to tolerance. 06/03/25; Pt notes some soreness in her back since last session. Expressed fatigue with task. Educated re: relationship of lower back strengthening and hip pain/sx. Educated not to overdo exercise, encouraged to use std cane, ice hip, and initiate gentle walking program to tolerance. 06/01/25; Lorelei is doing well in her R MAGY recovery. She has been educated re: hip abd in SL and with TKE in standing to progress proximal hip and knee strength during today's visit. She is advancing in her ability to walk more around her home sometimes leaving cane behind. She states she has started to catch herself doing stairs reciprocally at times with use of std cane. Today we reviewed sequencing for stairs with use of single rail and cane to reinforce proper technique. She remains challenged with SL hip abd but has been educated to use pillows to maintain posterior precautions. She is scheduled to see [facility] next week. 05/25/25: Addressed symmetry of weight-bearing through R LE for functional transfers while maintaining posterior precautions. Lorelei is not yet comfortable rolling onto her side at home for bed mobility but did it today in the office under supervision and notes an improvement in tolerance/sensitivity since last session. Screen of her incision reveals 10 steri- strips remaining (one was off hanging of incision and this was removed for her). She notes challenge with standing in stance on R LE. She presents to the office with std cane this date and has been icing her hip at home. 05/18/25: Lorelei is expressing improved confidence for movement, AAROM knee flexion to 105 degrees. She has been educated to use a pillow between her knees for side-sleeping but has not yet attempted outside of PT at this time. She has good carryover of precautions/self-care. She was issued supine hip abd/add slides and SAQ for HEP program. Pt is a RHD, 69 y/o female, s/p R MAGY posterior approach WBAT on 04/27/[address] Mcguire (elective R MAGY following history of OA of the R hip). Pt exhibits decreased range of motion, decreased strength, and impaired mobility. Pt currently using std cane in daytime> RW, has decreased balance, impaired mobility and reduced endurance. Prior to today pt has not been sleeping on her side. She is able tor recall posterior precautions 3:3. Pt PMH significant for: Anesthesia complication Impaired glucose tolerance Eczematous dermatitis Family history of breast cancer Degenerative disc disease, lumbar Osteoarthritis Lumbar stenosis with neurogenic claudication Scoliosis of lumbar region due to degenerative disease of spine in adult Hip pain, right Thyroid nodule Hypercholesterolemia Vitamin D deficiency Obesity (BMI 30-39.9) Fatty liver Osteopenia Sciatic nerve pain Hypertension Asthma Non-toxic multinodular goiter Pt would benefit from attending skilled PT services at a frequency of 1-2x/week x 6 weeks to address impairments, implement HEP, and restore functional mobility tolerance to resume PLOF. Pt currently ambulating with std cane> RW for mobility. Post initial evaluation, we reviewed 3:3 posterior precautions, HEP to include: AP, isometric glut set, isometric quad set, AAROM heel slide in sitting and supine x 10 sec hold x 5R, posterior pelvic tilt, and the benefit of icing. Pt issued handouts for carryover of education given during session. PT Plan: FOllow up with Dr. Mcguire 07/15/25 Short Term Goals: 1. Pt will demonstrate AAROM R knee flexion to 120 degrees. (IR: R 90). 2. Pt will demonstrate sit<>stand on first attempt. (IR: required B/L UE support, heavy reliance on UE) 3. Pt will demonstrate good eccentric control with functional mobility. (IR;decreased eccentric control). 4. Pt will demonstrate strength of hip abductors 3/5. (IR: 3-/5) 5. Pt will demonstrate symmetrical bridge in hooklying. (IR: unable to bridge due to soreness) Snf Goals: 1. Pt will wean from use of AD for >1000ft for community distances. (IR: not ambulating long distances, using std cane) 2. Pt will negotiate stairs reciprocally with good dynamic balance. IR: step to pattern: ascending L LE descending R LE first) 3. Pt will demonstrate hip extension strength to 5/5. (IR: 3/5) 4. Pt will demonstrate hip abduction to 5/5 on the R. (IR: 3-/5) 5. I HEP for self care. (IR: initiated in self care/HEP/goals/education post initial eval). Electronically signed by: Vivi Evans, PT, DPT
--- NOTE | 2025-11-11 11:01 | MHC.PT.DC ---
[facility] [place] Office [place] Office [address] Anjum Colmenares [address] [phone] F: [phone] F: [phone] F: [phone] F: [phone] Physical Therapy Discharge Report Diagnosis: PT eval and treat: Z96.641 Presence of right artificial hip joint; History of total right hip arthroplasty, R MAGY w/ NE 04/27/25 begin after 05/13/25 signed by Ilana Jackson PA-C 04/23/25 Date of Surgery: 04/27/25 Date of Evaluation: 05/14/25 Date of Discharge: Treatments to Date: Cancellations to Date: No Shows to Date: Discharge Status: Discharge Summary: 11/11/25: Lorelei has met STG/LTG to date. She notes mild central lower back pain at time but expressing her hip is feeling much better overall. She has D/C use of the std cane and is now able to perform R SLS 10 seconds. She is I with her HEP program. She has been encouraged to continue her home walking program and strengthening program MOD I. 10/29/25: Lorelei is advancing in her home program and self care management for her R hip. SHe notes ongoing L shoulder pain/stiffness in her neck and we addressed how she could tackle exercises to improve this today along with her core/hip activities. 10/13/25: Lorelei expressed desire to attempt floor recovery and get down on floor for floor mat exercises (did at baseline before surgery). We reviewed core and hip exercises/ stretches for her back with good ability. She was challenged kneeling on R knee and moving L LE slide forward to rise from a kneeling position. She r 09/28/25: Lorelei is doing excellent in regard to her hip recovery. She returns to PT after being away on vacation, last seen 08/24/25. She notes while away she did a lot of walking and did well walking the beach. She has had some central lower back pain but notes improving stamina and stability. Today we reviewed strengthening exercises and how she could add flow of combining several exercises to her mixture to add challenge. She was encouraged to hold onto the TM for support and reach/turn to improve her balance. 08/24/25: Lorelei will be leaving for vacation x 2 weeks. She was given SLR for addition of her HEP program today. She is moving better. With larger step length her trendelenburg gait subsides. She notes less pain overall in her back and has been working on progressing her TM mobility/distance/activity at home. 08/17/25: Lorelei was fatigued in legs and ankles post completion of the BAPS board. 08/10/25: Lorelei is advancing her walking endurance she remains challenged with hip abd and eccentric control for functional transfers. 08/03/25:Pt progressing well in strength of her R hip. She remains challenged with SL hip abd but now finds her L hip more challenging. She has not been using the cane in recent days. Will be leaving for vacation at the end of month. Today we progressed toe taps/SLS CKC activities with good ability. 07/27/25: Pt expressing increased workload of R hip while standing in tandem for core/hip stab. Pt encouraged to start walking small durations on the TM 1.0-1.2 mph in effort to advance hip ext/strength/walking program at home. Pt doing very well. 07/20/25: Lorelei had her 3 month follow up appt. Today we trialed floor recovery, she was not yet ready to get down fully on the floor but we reviewed standing<>kneeling<> getting up from the floor from a half-kneel. We discussed safe ways to modify activity for walking program to ease her back pain. She was encouraged to look into an option of [facility] and was encouraged to implement a walking program. We discussed benefit in using std cane for walking program. 07/13/25; Lorelei is doing very well in R MAGY recovery. 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 Lorelei is scheduled see Dr. Mcguire on , has concerns about chipping>return to golf fdc in regard to posterior precautions. She notes some mild L UT tightness and pressure, she was shown some AAROM stretches for shoulder and neck to ease this. She is no longer using std cane. We discussed potential benefit in office ergonomic foot support to improve posture when sitting. (shown example of one she could obtain). 07/06/25; Pt doing well with respect to symptoms overall. Pt is scheduled to RTW next week. She continues to use std cane but has been using less and only has needed for longer distances or when fatigue towards the end of the day. Reviewed clamshell in SL at end of session. L LE more challenged with L LE extended. R hip abd able to perform with leg extended. 06/29/25: Lorelei is advancing in her core/hip strength and CKC very well. She presents with std cane but is less reliant on it for support. She expressed she hopes to RTW 07/12/25 with orthopedic follow up for 07/15/25. She was issued green and red bands for progression of rows/ext/ standing box step with GTB. She has good dynamic balance. 06/22/25: Pt doing well overall, has been performing her own exercise program. Pt has been going without std cane in the am hours with good tolerance. Requires UE support for cane due to fatigue in L/S and R hip. 06/15/25: Pt doing well with regard to hip, states I almost forgot the cane at home today. Pt encouraged to progress home program to tolerance/lumbar stab. Pt has good carryover of hip precautions. 06/11/25: Pt doing well, issued sit<>stand and stand<>sit with focus on eccentric control. Encouraged increase of of reps/walking to tolerance. 06/03/25; Pt notes some soreness in her back since last session. Expressed fatigue with task. Educated re: relationship of lower back strengthening and hip pain/sx. Educated not to overdo exercise, encouraged to use std cane, ice hip, and initiate gentle walking program to tolerance. 06/01/25; Lorelei is doing well in her R MAGY recovery. She has been educated re: hip abd in SL and with TKE in standing to progress proximal hip and knee strength during today's visit. She is advancing in her ability to walk more around her home sometimes leaving cane behind. She states she has started to catch herself doing stairs reciprocally at times with use of std cane. Today we reviewed sequencing for stairs with use of single rail and cane to reinforce proper technique. She remains challenged with SL hip abd but has been educated to use pillows to maintain posterior precautions. She [place] [facility] [place]. 05/25/25: Addressed symmetry of weight-bearing through R LE for functional transfers while maintaining posterior precautions. Lorelei is not yet comfortable rolling onto her side at home for bed mobility but did it today in the office under supervision and notes an improvement in tolerance/sensitivity since last session. Screen of her incision reveals 10 steri- strips remaining (one was off hanging of incision and this was removed for her). She notes challenge with standing in stance on R LE. She presents to the office with std cane this date and has been icing her hip at home. 05/18/25: Lorelei is expressing improved confidence for movement, AAROM knee flexion to 105 degrees. She has been educated to use a pillow between her knees for side-sleeping but has not yet attempted outside of PT at this time. She has good carryover of precautions/self-care. She was issued supine hip abd/add slides and SAQ for HEP program. Pt is a RHD, 69 y/o female, s/p R MAGY posterior approach WBAT on 04/27/[address] Mcguire (elective R MAGY following history of OA of the R hip). Pt exhibits decreased range of motion, decreased strength, and impaired mobility. Pt currently using std cane in daytime> RW, has decreased balance, impaired mobility and reduced endurance. Prior to today pt has not been sleeping on her side. She is able tor recall posterior precautions 3:3. Pt PMH significant for: Anesthesia complication Impaired glucose tolerance Eczematous dermatitis Family history of breast cancer Degenerative disc disease, lumbar Osteoarthritis Lumbar stenosis with neurogenic claudication Scoliosis of lumbar region due to degenerative disease of spine in adult Hip pain, right Thyroid nodule Hypercholesterolemia Vitamin D deficiency Obesity (BMI 30-39.9) Fatty liver Osteopenia Sciatic nerve pain Hypertension Asthma Non-toxic multinodular goiter Pt would benefit from attending skilled PT services at a frequency of 1-2x/week x 6 weeks to address impairments, implement HEP, and restore functional mobility tolerance to resume PLOF. Pt currently ambulating with std cane> RW for mobility. Post initial evaluation, we reviewed 3:3 posterior precautions, HEP to include: AP, isometric glut set, isometric quad set, AAROM heel slide in sitting and supine x 10 sec hold x 5R, posterior pelvic tilt, and the benefit of icing. Pt issued handouts for carryover of education given during session. She requested to return back to PT in two weeks and review/check in on her progress with HEP/strengthening. He acknowledges she has a hard time staying accountable outside of PT and would like to continue PT a few more visits to advance her confidence/independence. Electronically signed by: Please sign and return to therapist. Thank you for your referral.
== END 2025-11-11 11:03 | disposition home or self-care (01) ==
LOC: HO.PTS 07:55
PROVIDERS: Visit Provider Orthopaedic Surgery
DX: Z47.1 Aftercare following joint replacement surgery (principal); Z96.641 Presence of right artificial hip joint
CPT/HCPCS: 97110; 97140; 97161; 97530; 97535

== ENCOUNTER 2025-11-12 07:42 | Outpatient (REF) | payer OTHER, SELFPAY ==
--- NOTE | ~2025-11-12 | US_ITS ---
EXAMINATION: US THYROID CLINICAL INFORMATION: Nontoxic multinodular goiter. COMPARISON: 08/04/2024. 02/21/2022, 08/13/2016 Prior biopsy right mid pole nodule 11/18/2024, and right mid pole isthmus nodule 09/20/2022, both benign. TECHNIQUE: Linear transducer grayscale and color Doppler examination with attention to the region of the thyroid. FINDINGS: SIZE: Measurements of the thyroid lobes and nodules are given in sagittal, anteroposterior and transverse dimensions respectively. Right Thyroid Lobe: 4.3 x 2.1 x 2.0 cm, volume 9.4 mL. (Previous volume 12.0 mL). Parenchyma: The gland echotexture is heterogeneous. Thyroid vascularity is normal. Left Thyroid Lobe: 4.0 x 1.5 x 1.7 cm, volume 5.1 mL. (Previous volume 7.0 mL). Parenchyma: The gland echotexture is heterogeneous. Thyroid vascularity is normal. Isthmus: 0.5 cm in maximum AP dimension. Estimated total number of nodules greater than or equal to 1 cm: 5. Candy Separator Hard nodules are described as follows: 1. Location: Right upper pole. Size: 1.7 x 0.8 x 1.9 cm, volume 3.04 mL. (Previous volume 0.7 mL) Nodule characteristics: Composition: Solid (2). Echogenicity: Hypoechoic (2). Shape: Not taller than wide (0). Margins: Smooth (0). Echogenic Foci: None (0). ACR TI-RADS total points: 4 ACR TI-RADS category: 4 (previously categorized TR category 4) 2. Location: Right mid pole. Size: 2.6 x 1.6 x 2.1 cm, volume 4.56 mL. (Previous volume 5.6 mL) Nodule characteristics: Composition: Mixed cystic and solid (1). Echogenicity: Cannot be determined (1). Shape: Not taller than wide (0). Margins: Smooth (0). Echogenic Foci: Punctate echogenic foci (3). Macrocalcifications (1). ACR TI-RADS total points: 6 ACR TI-RADS category: 4 (previously categorized TR category 5) 3. Location: Right isthmus. Size: 1.2 x 0.4 x 0.9 cm, volume 0.23 mL. (Previous volume 0.34 mL) Nodule characteristics: Composition: Solid (2). Echogenicity: Hypoechoic (2). Shape: Not taller than wide (0). Margins: Smooth (0). Echogenic Foci: None (0). ACR TI-RADS total points: 4 ACR TI-RADS category: 4 (previously categorized TR category 5) 4. Location: Left mid to upper pole Size: 1.2 x 0.7 x 0.9 cm, volume 0.33 mL. (Previous volume 0.40 mL) Nodule characteristics: Composition: Spongiform (0). ACR TI-RADS category: 1 (previously categorized TR category 3) 5. Location: Left Lower to midpole. Size: 1.8 x 0.5 x 1.0 cm, volume 0.47 mL. (Previous volume 0.68 mL). Nodule characteristics: Composition: Spongiform (0). ACR TI-RADS category: 1 (previously categorized TR category 3) NODES: No lymphadenopathy is seen in the tissue surrounding the thyroid gland. US/US thyroid IMPRESSION: 1. Multinodular goiter as described above. 2. There is a 1.9 cm TR category 4 nodule in the right upper pole, enlarged from the prior examination. FNA recommended as described below. 3. There is a 2.6 cm TR category 4 nodule in the right mid pole, mildly decreased in size. This highly suggests benignity. 4. There is a 1.2 cm TR category 4 nodule in the right isthmus, slightly decreased in size. This highly suggests benignity. 5. There are spongiform nodules in the left mid to upper pole, and left mid to lower pole, benign. 6. See above for details. -- ACR TI-RADS RECOMMENDATION REFERENCE: Ultrasound-guided fine-needle aspiration, followup ultrasound, no further follow up. * TR1 (0 point) and TR2 (2 points): No FNA or follow up. * TR3 (3 points): FNA if more than or equal to 2.5 cm in maximum dimension, followup ultrasound in 1, 3 and 5 years if 1.5 to 2.4 cm in maximum dimension. * TR4 (4-6 points): FNA if more than or equal to 1.5 cm in maximum dimension, followup ultrasound in 1, 2, 3 and 5 years if 1 to 1.4 cm in maximum dimension. * TR5 (more than or equal to 7 points): FNA if more than or equal to 1 cm in maximum dimension, followup ultrasound every year for 5 years if 0.5 to 0.9 cm in maximum dimension. * TR3, TR4 or TR5 nodules that are below the size threshold for followup receive no follow up. Electronically signed by: Boris Ureña MD 11/12/2025 09:37 AM CONNIE LAZO
== END 2025-11-12 07:43 | disposition home or self-care (01) ==
LOC: HO.US 07:42
PROVIDERS: PCP Internal Medicine; Visit Provider Student in an Organized Health Care Education/Training Program
DX: E04.2 Nontoxic multinodular goiter (principal)
CPT/HCPCS: 76536

== ENCOUNTER → 2025-11-12 07:44 | Outpatient (BNV) | payer OTHER, SELFPAY | PROVIDERS: PCP Internal Medicine; Visit Provider Radiology Diagnostic Radiology | DX: E04.2 Nontoxic multinodular goiter (principal) | CPT/HCPCS: 76536 ==

== ENCOUNTER 2025-11-23 12:11 | Outpatient (REF) | payer OTHER, SELFPAY ==
--- OUTSIDE RECORDS SUMMARY | 2025-04-19 03:00 | XMS_ITS ---
Author Organization [employer] Address 46 [facility] [address] [place] [address] Care Team Providers Care Inhalation Therapy Teacher Name Role Phone FLAKITO GOEL M.D. Primary Care Provider MELYSSA Sierra Unavailable [phone] REASON FOR VISIT Annual DRIVE TESTER Physical Encounters Encounter Location Date Provider Diagnosis [facility] [address] [address] 04/19/2025 MELYSSA IBANEZ Encounter for gynecological examination (general) (routine) without abnormal findings Z01.419 and Encounter for screening mammogram for malignant neoplasm of breast Z12.31 Assessments Encounter Date Diagnosis (ICD Code) Assessment Notes Treatment Notes Treatment Clinical Notes Section Notes 04/19/2025 Encounter for gynecological examination (general) (routine) without abnormal findings (ICD-10 - Z01.419) During the visit, the following areas of concern were addressed: Discussed sstopping cervical cancer screening as per ASCCP guidelines. Advised continued annual pelvic exams. Patient encouraged to increase her level of exercise. SBE technique encouraged/tau ght. Patient reminded when annual mammogram is due. Patient encouraged to keep colon screening up to date. 04/19/2025 Encounter for screening mammogram for malignant neoplasm of breast (ICD-10 - Z12.31) Plan Of Treatment Treatment Notes Assessment Notes Encounter for gynecological examination (general) (routine) without abnormal findings During the visit, the following areas of concern were addressed: Discussed sstopping cervical cancer screening as per ASCCP guidelines. Advised continued annual pelvic exams. Patient encouraged to increase her level of exercise. SBE technique encouraged/taught. Patient reminded when annual mammogram is due. Patient encouraged to keep colon screening up to date. Pending Test Test Name Order Date MM Digital Screening Mammogram 3D 2024 Next Appt Details Follow Up: 1 Year, Reason: Y early Director Of Partner Marketing Exam Provider Name:MELYSSA MAY Sherly, 01/14/2026 02:30:00 PM, [address], [address], [place], [address], Progress Notes * JENNYFER FLOYDADOB:1955 (70 yo F)Acc No.[id number]:04/19/2025 PROGRESS NOTES Patient: LORELEI ORTEGA Provider: Korin IBANEZ MD :1955 A ge:69 Y S ex:Female Date:04/19/2025 Address:[address] [place] [address] Pcp:FLAKITO GOEL M.D. Subjective: * Chief Complaints: * [address] TESTER Physical. 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 S he has been in state of good health since her last exam. She has the following concerns: S he has received the Moderna Covid-19 vaccine and booster. R elationship status: * for 42 years. She is not sexually active. Sexual partner(s): male. She does not wish to have STI testing. S he does *not report vaginal dryness. She does not have hot flashes/night sweats. T he patient has never had an abnormal pap smear. Her most recent pap smear was 06/15/2020. Pap smears are no longer indicated. S he has not been diagnosed with breast cancer. She does have a family history of breast cancer - mother, paternal aunt. Her last mammogram was *10/31/24 - [facility]. S he does *not have a family history of colon cancer. She a has had a colonoscopy. The last colonoscopy was 2018. She was due for her next scan in 2023. T he patient does *intermittently exercise. She exercises x 2 days/week by stretching and yoga. * ROS: A nnual Director Of Partner Marketing Exam ROS: Bowel habit changes d enies. B ladder symptoms d enies. V aginal discharge, unusual d enies. V aginal itch or odor d enies. w eight or appetite changes d enies. C hest pains, SOB d enies. d epression d enies.? B reast: Denies B reast lump. D enies N ipple discharge.? H ematology: Denies S wollen glands. S kin: Patient denies c hanging moles. P sychiatric: Denies A nxiety. * Medical History: Objective: * Vitals: * Examination: G eneral Examination: GENERAL APPEARANCE: i n no acute distress, well developed, well nourished, head of transport logistics present in room. HEAD: n ormocephalic, atraumatic. NECK/THYROID: n gume supple, full range of motion, thyroid normal. LYMPH NODES: n o axillary or supraclavicular adenopathy.? SKIN: normal, good turgor, no rashes, no suspicious lesions. BREASTS: normal, no dimpling, no discharge, no drainage, no masses palpable bilaterally, nontender. ABDOMEN: soft, non-tender, non distended without masses or hepatosplenomegay. RECTAL: normal tone, no masses palpable. BACK: no costovertebral angle tenderness. FEMALE GENITOURINARY: V ulva without lesions or masses, vagina pink without abnormal discharge, lesions or masses, cervix appears normal and is not tender to palpation, uterus is normal size, mobile, nontender and anteverted, ovaries are not palpable. NEUROLOGIC: alert and oriented, gait normal. PSYCH: alert, oriented, cognitive function intact, cooperative with exam, good eye contact, mood/affect full range, speech clear. Assessment: * Assessment: 1. E ncounter for gynecological examination (general) (routine) without abnormal findings - Z01.419 (Primary) 2 . E ncounter for screening mammogram for malignant neoplasm of breast - Z12.31 Plan: * Treatment: 2. E ncounter for screening mammogram for malignant neoplasm of breast I maging: MM Digital Screening Mammogram 3D * Follow Up: 1 Year (Reason: Yearly Director Of Partner Marketing Exam) * Images: Billing Information: * Visit Code: 58316 Preventive Care Est Pt. Age 65 and over. * Procedure Codes: * Electronic signature of MELYSSA IBANEZ MD on 11/23/2025 at 01:21 PM EST Sign off status: Pending * Provider: Korin IBANEZ MD Date: 0 04/19/2025 Generated for Avinash prince/Michael/Hernandezitting on: 1 01/24/2025 01:21 PM EST History and Physical Notes * HPI (History of Present Illness) Category Sub-Category Detail Notes Category Not es Constitutional Lorelei is a 69yo who presents for her yearly terrazzo polisher exam. She has been in state of good health since her last exam. She has the following concerns: She has received the Moderna Covid-19 vaccine and booster. Relationship status: * for 42 years. She is not sexually active. Sexual partner(s): male. She does not wish to have STI testing. She does *not report vaginal dryness. She does not have hot flashes/night sweats. The patient has never had an abnormal pap smear. Her most recent pap smear was 06/15/2020. Pap smears are no longer indicated. She has not been diagnosed with breast cancer. She does have a family history of breast cancer - mother, paternal aunt. Her last mammogram was *10/31/24 - [facility]. She does *not have a family history of colon cancer. She a has had a colonoscopy. The last colonoscopy was 2018. She was due for her next scan in 2023. The patient does *intermittently exercise. She exercises x 2 days/week by stretching and yoga. Examination Category Sub-Category Detail Notes Category Not es General Examination GENERAL APPEARANCE: in no ac [place] distress, well developed, well nourished, head of transport logistics present in room HEAD: normocephalic, atrau matic [...]
--- NOTE | ~2025-11-23 | US_ITS ---
EXAMINATION(S): 1. MM DIAGNOSTIC DIGITAL BREAST TOMOSYNTHESIS, BILATERAL 2. TARGETED ULTRASOUND OF THE BILATERAL BREASTS CLINICAL INFORMATION: -Right breast: Right blood nipple discharge that started again in September. Patient has been previously evaluated for right bloody nipple discharge on March 18, 2018, with BI-RADS 2 results. Prior breast MRI on April 17, 2018 with BI-RADS 2 results. - Patient is scheduled to see breast specialist at [facility] in December for evaluation of the bloody nipple discharge. -Left breast: 1) Second 6-month follow-up of left breast asymmetry in the lateral breast on the CC view middle depth. This was first described on the screening mammogram in November 2024. In May 2025, this was less conspicuous than prior study. No ultrasound correlate. 2) Second 6-month follow-up of left breast hypoechoic solid mass or complicated cyst at 2 o'clock position at 4 cm from the nipple. COMPARISON: Comparison made to multiple prior mammograms, most recent left diagnostic mammogram on May 27, 2025, and most remote March 18, 2018. Left breast ultrasounds on May 27, 2025 and November 12, 2024. Right breast ultrasound on March 18, 2018. Breast MRI on April 17, 2018. TECHNIQUE: Digital breast tomosynthesis is performed in both the mediolateral oblique and craniocaudal views along with computer-aided detection (CAD). Synthesized 2D images are generated from the tomosynthesis. FINDINGS: BREAST COMPOSITION: There are scattered areas of fibroglandular density. RIGHT BREAST: Ectatic ducts in the retroareolar region, similar to prior studies as far back as 2018. No significant masses, suspicious calcifications or other abnormalities are seen. Targeted ultrasound of the right breast was performed at the nipple-areolar complex and retroareolar region. Survey shows mildly ectatic ducts. The nipple has heterogeneous appearance with two more discrete echogenic foci measuring approximately 0.4 cm within it, and associated with internal vascularity with color Doppler evaluation. LEFT BREAST: -Previously suggested asymmetry in the lateral breast middle depth on CC view is similar to May 2025 and less conspicuous than November 2024. -Ectatic ducts in the retroareolar region, similar to prior studies as far back as 2018. -No new masses, suspicious calcifications or other abnormalities are seen. Targeted ultrasound of the left breast was performed at the following locations: -Previously described sonographic finding. The survey redemonstrates a hypoechoic solid mass measuring 0.7 x 0.6 x 0.4 cm at 2 o'clock position at 4 cm from the nipple. Prior measurements were 0.6 x 0.4 x 0.5 cm in November 2024 and 0.8 x 0.6 x 0.4 cm in May 2025. -Limited images of nipple-areolar complex and retroareolar region. The survey shows mildly ectatic ducts. US/US Breast BI Limited Mamm Only IMPRESSION: RIGHT BREAST: 1. Heterogeneous nipple containing two echogenic foci measuring about 0.4 cm each and associated with internal vascularity. Unclear if this could explain patient's nipple discharge. Surgical consult is recommended in consideration for sampling. 2. Mildly ectatic ducts, but no suspicious intraductal masses. LEFT BREAST: 1. Asymmetry in the lateral breast middle depth on the CC view, similar to May 2025. Probably benign. A 6-month follow-up mammogram is recommended. 2. A 0.7 cm hypoechoic solid mass at 2 o'clock position 4 cm from the nipple, similar to prior studies as far back as November 2024. Probably benign. A 6-month follow-up ultrasound is recommended. ASSESSMENT: BI-RADS: Category 4: Suspicious RECOMMENDATION: Surgical Consult Results were provided to the patient at time of visit by the technologist. This patient's information was entered into a reminder system with a target due date for their next mammogram. Electronically signed by: Arturo Robbins MD 11/23/2025 03:39 PM [facility]
--- OUTSIDE RECORDS SUMMARY | 2025-11-23 13:22 | XMS_ITS | Patient Health Record ---
Author Organization [facility] Address [address] [address] Care Team Providers Care Trade [employer] Official Name Role Phone FLAKITO GOEL M.D. Primary Care Provider MELYSSA Sierra Unavailable [phone] Allergies No Known Allergies Reason For Referral No Information Medications Medication SIG (Take, Route, Frequency, Duration) Notes Start Date End Date Status Qvar RediHaler 80 MCG/ACT 1 puff Inhalat ion Once a day Active Albuterol Active amLODIPine Besylate 5 MG 1 tablet Orally Once a day Active Social History Tobacco [...] year? Yes How often did you have a dri nk containing alcohol in the past year? Daily or almost daily (4 points) How many drinks did you have on a typical day when you were drinking in the past year? 1 or 2 drinks (0 point) How often did you have six o r more drinks on one occasion in the past year? 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 no 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 drugs Problems Problem Type SNOMED Code ICD Code Onset Dates Problem Status W/U Status Risk Notes Problem Asthma (996382794) Asthma (493) Active confirmed Problem Hypertension (52147032) Hypertension (401.9) Active confirmed Problem Body mass index 30.00 to 34.99 (322506578192745 ) Body mass index [BMI] 34.0-34.9, adult (Z68.34) Active confirmed Vital Signs Temperature 97.8 degrees Fahrenheit 10/08/2025 Blood pressure diastolic 84 mm Hg 10/08/2025 Height 68 in 10/08/2025 Blood pressure systolic 132 mm Hg 10/08/2025 Weight 222 lbs 10/08/2025 BMI 33.75 kg/m2 10/08/2025 Encounters Encounter Location Date Provider Diagnosis [facility] [place] [address] [place] [address] 10/08/2025 MELYSSA IBANEZ Nipple discharge N64.52 [facility] [place] [address] [place] [address] 10/08/2025 [facility]A IBANEZ [facility] [address] [place] [address] 11/26/2024 MELYSSA IBANEZ Assessments Encounter Date Diagnosis (ICD Code) Assessment Notes Treatment Notes Treatment Clinical Notes Section Notes 10/08/2025 Nipple discharge (ICD-10 - N64.52) Imaging needs to be done at [place]. Refer to [facility] for further evaluation and treatment. 10/08/2025 Other Plan Of Treatment Pending Test Test Name Order Date Mammogram, right breast 03/12/2018 THIN PREP,HPV,KILEY IF HPV+ (>29YR)(DIAG) 08/23/2015 Right Breast Ultrasound 03/12/2018 MM Digital Mammo Right Breast, Right Donna ast Ultrasound 10/08/2025 MM Digital Screening Mammogram 3D 2021 MM Digital Screening Mammogram 3D 2023 Next Appt Details Provider Name:MELYSSA Dubois, 01/14/2026 02:30:00 PM, [address] [facility], [address], [place], [address], Insurance Providers Payer Name Payer Address Payer Phone Subscriber Number Group Number Insured Name Patient Relationship to Insured Coverage Start Date Coverage End Date [employer] [place] [address] [address] [place] [address] [id number] [id number] FLOYD Self - patient is the insured Medical (General) History Medical History History ICD Code Asthma 493 Hypertension 401.9 thyroid nodule COVID-19 U07.1 Surgical History Surgery Date(Month/Year) Cholecystectomy 1982 C/S 1986 thyroid nodule bx, benign R axillary cyst resection Back Surgery (disc decompression) 3 RT hip replacement 04/27/2025 Hospitalization History Reason Date(Month/Year) see surgical history childbirth
== END 2025-11-23 12:12 | disposition home or self-care (01) ==
LOC: HO.MAMMO 12:11
PROVIDERS: PCP Internal Medicine; Visit Provider Internal Medicine
DX: N64.52 Nipple discharge (principal); R92.30 Dense breasts, unspecified
CPT/HCPCS: 76642; 77062; 77066

== ENCOUNTER → 2025-11-23 12:30 | Outpatient (BNV) | payer OTHER, SELFPAY | PROVIDERS: PCP Internal Medicine; Visit Provider Radiology Body Imaging | DX: N64.52 Nipple discharge (principal); N63.22 Unspecified lump in the left breast, upper inner quadrant | CPT/HCPCS: 76642; 77066; G0279 ==